=== PATIENT | male | born 1960 | race Caucasian/White ===

== ENCOUNTER 2017-10-05 17:58 | Inpatient (IN) | payer MEDICARE, OTHER ==
--- NOTE | 2017-10-05 18:32 | ED Physician Chart ---
ED Chief Complaint/HPI - Patient Information Date Seen:: 10/05/17 Time Seen:: 18:32 Chief Complaint:: Agitated History of Present Illness:: 57 yo male was brought from SNF to ER for evaluation of agitation and constantly laughing. Patient stated that "he was telling jokes." Allergies:: Allergies Allergy/AdvReac Type Severity Reaction Status Date / Time haloperidol [From Haldol] Allergy Verified 10/05/17 18:22 Vitals:: Vital Signs - 8 hr 10/05/17 18:22 Temp 98.8 F HR 78 RR 16 BP 131/84 O2 Sat % 99 ED Past Medical History - Past Medical History Past Medical History: HTN, Other (cerebral palsy) Social History: Smoker, Alcohol, Illicit Drug Use (LSD) Family Medical History - Family Member Mother History Unknown: Yes ED Septic Shock - <6hrs of presentation: Vital Signs: Vital Signs - 8 hr 10/05/17 18:22 Temp 98.8 F HR 78 RR 16 BP 131/84 O2 Sat % 99 ED Discharge Plan - Patient Disposition Instructions: Psychosis
[2017-10-05 20:33] LABS: % BASOPHILS 0.6 % (0.0-2.0); % EOSINOPHILS 2.5 % (0.0-5.0); % MONOCYTES 6.9 % (2.0-10.0); EOSINOPHILE ABSOLUTE 0.2 Th/cmm (0.1-0.4); HEMATOCRIT 38.3 % (41.0-60); HEMOGLOBIN 12.7 gm/dL (12-16); LYMPHOCYTE ABSOLUTE 2.3 Th/cmm (1.5-3.0); MEAN CELL VOLUME 87.8 fl (80-99); MEAN CORPUSCULAR HEMOGLOBIN 29.1 pg (26.0-30.0); MEAN CORPUSCULAR HGB CONC 33.2 pg (28.0-36.0); MEAN PLATELET VOLUME 9.1 fl; MONOCYTE ABSOLUTE 0.5 Th/cmm (0.3-1.0); NEUTROPHILE ABSOLUTE 4.1 Th/cmm (1.8-8.0); PLATELET COUNT 232 Th/cmm (150-400); RED BLOOD COUNT 4.36 Mil/cmm (4.30-5.70); RED CELL DISTRIBUTION WIDTH 12.1 % (11.5-20.0); WHITE BLOOD COUNT 7.1 Th/cmm (4.8-10.8)
[2017-10-05 20:40] LABS: URINE MICROSCOPIC INDICATED? YES; URINE SOURCE MIDSTREAM
[2017-10-05 20:44] LABS: URINE BILIRUBIN NEGATIVE (NEGATIVE); URINE BLOOD TRACE (NEGATIVE); URINE GLUCOSE (UA) NEGATIVE (NEGATIVE); URINE KETONE NEGATIVE (NEGATIVE); URINE LEUKOCYTE ESTERASE NEGATIVE (NEGATIVE); URINE NITRATE NEGATIVE (NEGATIVE); URINE PROTEIN NEGATIVE (NEGATIVE); URINE UROBILINOGEN 0.2 E.U./dL (0.2 - 1.0)
[2017-10-05 20:45] LABS: URINE COLOR YELLOW
[2017-10-05 20:46] LABS: URINE CLARITY CLEAR (CLEAR)
[2017-10-05 20:51] LABS: INR 1.07 (0.5-1.4); PROTHROMBIN TIME (TEST) 11.1 SECONDS (9.5-11.5)
[2017-10-05 20:52] LABS: ALB/GLOB RATIO 1.9 (1.0-1.8); ALBUMIN 4.2 gm/dL (4.2-5.5); ALKALINE PHOSPHATASE 50 U/L (34-104); ANION GAP 10.6 (7.0-16.0); BILIRUBIN,TOTAL 0.3 mg/dL (0.3-1.0); BUN - UREA NITROGEN 17 mg/dL (7-25); CALCIUM SERUM 9.4 mg/dL (8.6-10.3); CARBON DIOXIDE 25.4 mEq/L (21.0-31.0); CHLORIDE 110 mEq/L (98-107); GFR AFRICAN-AMERICAN > 60.0 ml/min (>90); GFR NON AFRICAN-AMERICAN > 60.0 ml/min; GLUCOSE 105 mg/dL (70-105); SGOT 15 U/L (13-39); SGPT/ALT 17 U/L (7-52); SODIUM SERUM 142 mEq/L (136-145); TOTAL PROTEIN,SERUM 6.4 gm/dL (6.0-8.3)
[2017-10-05 20:53] LABS: ALB/GLOB RATIO 1.8 (1.0-1.8); ALBUMIN 4.2 gm/dL (4.2-5.5); BILIRUBIN,TOTAL 0.3 mg/dL (0.3-1.0); TOTAL PROTEIN,SERUM 6.5 gm/dL (6.0-8.3)
[2017-10-05 20:54] LABS: CHOLESTEROL 115 mg/dL (<200); HDL -HIGH DENSITY LIPOPROTEIN 32 mg/dL (23-92); TRIGLYCERIDES 110 mg/dL (<150)
[2017-10-05 21:03] LABS: BILIRUBIN,DIRECT 0.05 mg/dL (0.0-0.2)
[2017-10-05] MEDS ORDERED: Aspirin 81mg Chewable Tab ONE (22:21)
[2017-10-05 23:05] VITALS: BP 137/95
[2017-10-05] MEDS ORDERED: Magnesium Hydroxide (MOM) 30 mL UDC PO PRN (23:27)
[2017-10-05] MEDS ORDERED: Maalox 30 mL Cup PO PRN (23:27)
[2017-10-06 00:09] LABS: URINE BACTERIA OCCASIONAL /hpf (NONE SEEN); URINE EPITHELIAL CELLS RARE /lpf (FEW); URINE RBC 0-2 /hpf (0-5); URINE WBC 0-2 /hpf (0-5)
--- NOTE | 2017-10-06 08:29 | Diagnostic Imaging Report ---
Portable chest x-ray Time: 2055 hours History: Pneumonia Allowing for portable technique the heart size is normal. No focal pulmonary parenchymal processes. No hilar or mediastinal abnormalities. Impression: No acute abnormalities.
[2017-10-06] MEDS: Multivitamin Tab PO SCH (08:57)
[2017-10-06] MEDS: Aspirin 81mg Chewable Tab PO SCH (08:58)
[2017-10-06] MEDS ORDERED: Non-Formulary Item 1 EA (Apixaban [Eliquis] 5 MG) PO SCH (09:00)
[2017-10-06] MEDS: Atorvastatin Calcium 10 MG TAB PO SCH (21:29)
--- NOTE | 2017-10-06 22:14 | Psychosocial Evaluation ---
DATE OF SERVICE: 10/05/2017 IDENTIFYING DATA: The patient is a 57-year-old male, resident of [facility]. Information obtained by directly interviewing the patient as well as reviewing the admission papers and they are reliable. JUSTIFICATION FOR HOSPITALIZATION: The patient is admitted here on a voluntary basis in view of his acute psychosis and manic episode and psychosis. CHIEF COMPLAINT: "I don't care." HISTORY OF PRESENT ILLNESS: This is the first psychiatric hospitalization to [facility] for this patient who is reported to have been out of control and has been diagnosed to have bipolar disorder and had been on medications and the patient also has been having a history of cerebral palsy. The patient is reported to have been recently hospitalized here at [facility] and was discharged to the care of Dr. Ion Melchor. As per the information obtained, the patient has possibly bipolar disorder or schizoaffective disorder and has a longstanding history of mental illness and has been medicated with lithium and Risperdal and Depakote and patient has been stating that he does not need to be in here, he needs to be discharged. The patient is reported to have a history of an injury recently with that he hit himself with a piece of furniture and a CAT scan done, which showed possible subarachnoid hemorrhage. The patient was then transferred from [facility] to [facility] where he was stabilized and transferred over here. During the evaluation, the patient is getting easily agitated, cursing at the staff members and is not able to calm down. The patient's sleep and appetite prior to the hospitalization are reported to be poor. The patient is reported to be responding to internal stimuli. PAST PSYCHIATRIC HISTORY: Please refer to the previous psychiatric hospitalization at [facility]. MEDICAL HISTORY AND PHYSICAL EXAMINATION: Requested to be done by Dr. Ortiz. SUBSTANCE ABUSE HISTORY: None. PHYSICAL OR SEXUAL ABUSE HISTORY: None. LEGAL PROBLEMS: None at this time. SOCIAL HISTORY: The patient is reported to be residing with his parents. The patient reportedly is single, currently supporting himself on social security. MENTAL STATUS EXAMINATION: The patient is a 57-year-old, looking his stated age, superficially cooperative. The patient has been stating at the [facility]. The patient's coping skills at this time are noted to be very poor. The patient is getting easily irritable and angry. The patient has been having difficult time to cope with the stress at this time. The patient has no insight into his illness. Attention span and concentration are noted to be very poor. The patient is not able to contract for safety. DIAGNOSTIC IMPRESSION: AXIS I: Bipolar disorder with psychotic symptoms, rule out schizoaffective disorder. AXIS II: None. AXIS III: As per Dr. Ortiz. IMMEDIATE TREATMENT PLAN: The patient is going to be continued on the Depakote and Risperdal and the patient is also going to be placed on the Klonopin p.r.n. basis. ESTIMATED LENGTH OF STAY: Three to five days. DISCHARGE CRITERIA: When he no longer a threat to self or others and be able to cope up with the stress. JOB# [id number]
[2017-10-07 08:10] LABS: IRON LC 59 ug/dL (38-169); TIBC (LC) 266 ug/dL (250-450); UIBC 207 ug/dL (111-343)
[2017-10-07] MEDS: Aspirin 81mg Chewable Tab PO SCH (08:53)
[2017-10-07] MEDS: Multivitamin Tab PO SCH (08:54)
--- NOTE | 2017-10-07 15:18 | Internal Medicine Prog Note ---
Internal Medicine Subjective - Subjective Service Date: 10/07/17 ([facility] [id number]) Internal Medicine Objective - Results Result Diagrams: 10/05/17 20:10/05/17 20: Recent Labs: Laboratory Last Values WBC 7.1 Th/cmm (4.8-10.8) 10/05/17 20: RBC 4.36 Mil/cmm (4.30-5.70) 10/05/17 20: Hgb 12.7 gm/dL (12-16) 10/05/17 20: Hct 38.3 % (41.0-60) L 10/05/17: MCV 87.8 fl (80-99) 10/05/17: MCH 29.1 pg (26.0-30.0) 10/05/17: MCHC Differential 33.2 pg (28.0-36.0) 10/05/17: RDW 12.1 % (11.5-20.0) 10/05/17: Plt Count 232 Th/cmm (150-400) 10/05/17 20: MPV 9.1 fl 10/05/17 20: Neutrophils % 57.0 % (40.0-80.0) 10/05/17 20: Lymphocytes % 33.0 % (20.0-50.0) 10/05/17 20: Monocytes % 6.9 % (2.0-10.0) 10/05/17 20: Eosinophils % 2.5 % (0.0-5.0) 10/05/17: Basophils % 0.6 % (0.0-2.0) 10/05/17 20: PT 11.1 SECONDS (9.5-11.5) 10/05/17 20: INR 1.07 (0.5-1.4) 10/05/17 20: PTT (Actin FS) 27.5 SECONDS (26.0-38.0) 10/05/17 20: Sodium 142 mEq/L (136-145) 10/05/17 20: Potassium 4.0 mEq/L (3.5-5.1) 10/05/17 20: Chloride 110 mEq/L (98-107) H 10/05/17 20: Carbon Dioxide 25.4 mEq/L (21.0-31.0) 10/05/17 20: Anion Gap 10.6 (7.0-16.0) 10/05/17 20: BUN 17 mg/dL (7-25) 10/05/17 20: Creatinine 1.0 mg/dL (0.7-1.3) 10/05/17 20: Est GFR ( Amer) > 60.0 ml/min (>90) 10/05/17 20: Est GFR (Non-Af Amer) > 60.0 ml/min 10/05/17 20: BUN/Creatinine Ratio 17.0 10/05/17 20: Glucose 105 mg/dL (70-105) 10/05/17 20: Calcium 9.4 mg/dL (8.6-10.3) 10/05/17: Magnesium 2.5 mg/dL (1.9-2.7) 10/05/17 20: Iron 59 ug/dL (38-169) 10/05/17 20: TIBC 266 ug/dL (250-450) 10/05/17 20: Iron Saturation 22 % (15-55) 10/05/17: Unsaturated IBC 207 ug/dL (111-343) 10/05/17 20: Total Bilirubin 0.3 mg/dL (0.3-1.0) 10/05/17 20: Direct Bilirubin 0.05 mg/dL (0.0-0.2) 10/05/17 20: AST 16 U/L (13-39) 10/05/17 20: ALT 18 U/L (7-52) 10/05/17 20: Alkaline Phosphatase 50 U/L (34-104) 10/05/17 20: C-Reactive Protein < 0.2 mg/dL (0.0-0.9) 10/05/17 20: B-Natriuretic Peptide 16.0 pg/mL (5.0-100.0) 10/05/17 20: Total Protein 6.5 gm/dL (6.0-8.3) 10/05/17 20: Albumin 4.2 gm/dL (4.2-5.5) 10/05/17 20: Globulin 2.3 gm/dL 10/05/17 20: Albumin/Globulin Ratio 1.8 (1.0-1.8) 10/05/17 20: Triglycerides 110 mg/dL (<150) 10/05/17 20:26 Cholesterol 115 mg/dL (<200) 10/05/17 20: LDL Cholesterol Direct 69 mg/dL (75-193) L 10/05/17 20: HDL Cholesterol 32 mg/dL (23-92) 10/05/17 20: Free T4 2.02 ng/dL (0.82-1.77) H 10/05/17 20: TSH 0.57 uIU/ml (0.34-5.60) 10/05/17 20: Urine Source MIDSTREAM 10/05/17 19:30 Urine Color YELLOW 10/05/17 19:30 Urine Clarity CLEAR (CLEAR) 10/05/17 19: Urine pH 7.0 (4.6 - 8.0) 10/05/17 19: Ur Specific [place] <= 1.005 (1.005-1.030) 10/05/17 19:30 Urine Protein NEGATIVE mg/dL (NEGATIVE) 10/05/17 19:30 Urine Glucose (UA) NEGATIVE mg/dL (NEGATIVE) 10/05/17 19: Urine Ketones NEGATIVE mg/dL (NEGATIVE) 10/05/17 19:30 Urine Blood TRACE (NEGATIVE) 10/05/17 19:30 Urine Nitrate NEGATIVE (NEGATIVE) 10/05/17 19: Urine Bilirubin NEGATIVE (NEGATIVE) 10/05/17 19: Urine Urobilinogen 0.2 E.U./dL (0.2 - 1.0) 10/05/17 19:30 Ur Leukocyte Esterase NEGATIVE (NEGATIVE) 10/05/17 19:30 Urine RBC 0-2 /hpf (0-5) H 10/05/17 19:30 Urine WBC 0-2 /hpf (0-5) 10/05/17 19:30 Ur Epithelial Cells RARE /lpf (FEW) 10/05/17 19:30 Urine Bacteria OCCASIONAL /hpf (NONE SEEN) 10/05/17 19:30 - Physical Exam Vitals and I&O: Vital Signs Temp 97.5 F 02/27/18 14:12 Pulse 63 10/07/17 14:12 Resp 20 10/07/17 14:12 BP 106/66 10/07/17 14:12 Pulse Ox 97 10/07/17 14:12 Intake & Output 10/06/17 10/07/17 10/07/17 18:59 06:59 18:59 Intake Total 1000 120 Balance 1000 120 Intake: Oral 1000 120 Other: # Voids 4 3 # Bowel Movements 1 0 Stool Characteristics Soft Active Medications: Current Medications Acetaminophen (Tylenol) 650 mg PO Q4HR PRN PRN Reason: GARCIA/Mild pain/Temp above 37.6C Stop: 12/05/17 08:04 Al Hydrox/Mg Hydrox/Simethicone (Maalox) 30 ml PO Q4HR PRN PRN Reason: GI DISTRESS Stop: 12/04/17 23:26 Aspirin (Aspirin Chewable) 81 mg PO DAILY [facility] Stop: 12/05/17 08:59 Last Admin: 10/07/17 08:53 Dose: 81 mg Atorvastatin Calcium (Lipitor) 20 mg PO HS [facility] Stop: 12/05/17 20:59 Last Admin: 10/06/17 21:29 Dose: 20 mg Diphenhydramine HCl (Benadryl) 50 mg PO BID PRN PRN Reason: Itching Stop: 12/05/17 10:08 Divalproex Sodium (Depakote Dr) 500 mg PO BID [facility] PRN Reason: Protocol Stop: 12/05/17 16:59 Last Admin: 10/07/17 08:52 Dose: Not Given Docusate Sodium (Colace) 100 mg PO BID [facility] Stop: 12/05/17 08:59 Last Admin: 10/07/17 08:52 Dose: 100 mg Labetalol HCl (Trandate) 50 mg PO DAILY [facility] Stop: 12/05/17 08:59 Last Admin: 10/07/17 08:54 Dose: 50 mg [place] Carbonate (Eskalith) 600 mg PO BID [facility] PRN Reason: Protocol Stop: 12/05/17 16:59 Last Admin: 10/07/17 08:52 Dose: Not Given Lorazepam (Ativan) 0.5 mg PO Q4HR PRN; Protocol PRN Reason: Anxiety/agitation Stop: 11/04/17 23:26 Last Admin: 10/06/17 23:03 Dose: 0.5 mg Magnesium Hydroxide (Milk Of Magnesia) 30 ml PO HS PRN PRN Reason: Constipation Multivitamins/Vitamin C (Theragran) 1 tab PO DAILY [facility] Stop: 12/05/17 08:59 Last Admin: 10/07/17 08:54 Dose: 1 tab Olanzapine (Zyprexa) 5 mg PO HS [facility] PRN Reason: Protocol Stop: 12/06/17 20:59 Rivaroxaban (Xarelto) 10 mg PO DAILY [facility] Stop: 12/05/17 13:29 Last Admin: 10/07/17 08:52 Dose: 10 mg Zolpidem Tartrate (Ambien) 5 mg PO HS PRN PRN Reason: Insomnia Stop: 12/04/17 23:26 Last Admin: 10/06/17 21:37 Dose: 5 mg
[2017-10-07] MEDS: Atorvastatin Calcium 10 MG TAB PO SCH (20:22)
--- NOTE | 2017-10-07 20:27 | Progress Notes ---
DATE: 10/07/2017 SUBJECTIVE: I met this patient, discussed with staff, chart reviewed. Still anxious, angry, still paranoid, continues to have some irritability. The patient's insight is still limited. Judgment is impaired. The patient continues to have some episodes where he is refusing medications. ASSESSMENT: The patient in psychotic phase. PLAN: Continue lithium 600 mg p.o. b.i.d., risperidone 3 mg p.o. at bedtime, Depakote 500 mg p.o. b.i.d. Encourage the patient to remain compliant with treatment. JOB# [id number]
[2017-10-08] MEDS: Multivitamin Tab PO SCH (09:17)
[2017-10-08] MEDS: Aspirin 81mg Chewable Tab PO SCH (09:17)
--- NOTE | 2017-10-08 12:02 | History & Physical ---
ADMIT DATE: 10/07/2017 CHIEF COMPLAINT: Agitation. HISTORY OF PRESENT ILLNESS: This is a 57-year-old male who is admitted to the Geropsych Unit due to agitation towards the nursing staff at the correction. PAST MEDICAL HISTORY: Hypertension, cerebral palsy. SOCIAL HISTORY: The patient is a current smoker. The patient has a history of illicit drug usage. FAMILY HISTORY: Noncontributory. REVIEW OF SYSTEMS: GENERAL: Denies any fevers and chills. CARDIOVASCULAR: Denies chest pain. RESPIRATORY: Denies shortness of breath. GASTROINTESTINAL: Denies nausea, vomiting, abdominal pain. GENITOURINARY: Denies increase for dysuria. NEUROLOGIC: No headaches, seizures or syncope. All other systems are reviewed and are negative. PHYSICAL EXAMINATION: GENERAL: The patient is well-developed, well-nourished, no acute distress. VITAL SIGNS: Temperature 97.5, heart rate 63, blood pressure 106/66, respirations 20, O2 97%. HEENT: Head; normocephalic, atraumatic. NECK: Supple. No mass. LUNGS: Clear bilaterally. ABDOMEN: Soft, nontender. LABORATORY DATA: WBC 7.1, H and H 12.7 and 38.3, platelet of 232. Sodium 142, potassium 4.0, chloride 110, BUN 70, creatinine 1.0. DIAGNOSTICS: The patient had a chest x-ray done and the impression is no acute abnormalities. ASSESSMENT: Agitation, hypertension, cerebral palsy. PLAN: The patient will be in the Geropsych Unit. The patient also has a history of hypercholesterolemia. Continue patient on same medications from the correction. We will continue to follow this patient. [facility]# [id number]
--- NOTE | 2017-10-08 14:01 | Internal Medicine Prog Note ---
Internal Medicine Subjective - Subjective Service Date: 10/08/17 Patient seen and examined:: with staff Patient is:: awake Per staff patient has:: tolerating meds Internal Medicine Objective - Results Result Diagrams: 10/05/17 20:10/05/17 20: Recent Labs: Laboratory Last Values WBC 7.1 Th/cmm (4.8-10.8) 10/05/17 20: RBC 4.36 Mil/cmm (4.30-5.70) 10/05/17 20: Hgb 12.7 gm/dL (12-16) 10/05/17 20: Hct 38.3 % (41.0-60) L 10/05/17: MCV 87.8 fl (80-99) 10/05/17: MCH 29.1 pg (26.0-30.0) 10/05/17: MCHC Differential 33.2 pg (28.0-36.0) 10/05/17: RDW 12.1 % (11.5-20.0) 10/05/17: Plt Count 232 Th/cmm (150-400) 10/05/17 20: MPV 9.1 fl 10/05/17 20: Neutrophils % 57.0 % (40.0-80.0) 10/05/17: Lymphocytes % 33.0 % (20.0-50.0) 10/05/17: Monocytes % 6.9 % (2.0-10.0) 10/05/17: Eosinophils % 2.5 % (0.0-5.0) 10/05/17: Basophils % 0.6 % (0.0-2.0) 10/05/17 20: PT 11.1 SECONDS (9.5-11.5) 10/05/17 20: INR 1.07 (0.5-1.4) 10/05/17: PTT (Actin FS) 27.5 SECONDS (26.0-38.0) 10/05/17 20: Sodium 142 mEq/L (136-145) 10/05/17 20: Potassium 4.0 mEq/L (3.5-5.1) 10/05/17 20: Chloride 110 mEq/L (98-107) H 10/05/17 20: Carbon Dioxide 25.4 mEq/L (21.0-31.0) 10/05/17 20: Anion Gap 10.6 (7.0-16.0) 10/05/17 20: BUN 17 mg/dL (7-25) 10/05/17 20: Creatinine 1.0 mg/dL (0.7-1.3) 10/05/17 20: Est GFR ( Amer) > 60.0 ml/min (>90) 10/05/17 20: Est GFR (Non-Af Amer) > 60.0 ml/min 10/05/17: BUN/Creatinine Ratio 17.0 10/05/17: Glucose 105 mg/dL (70-105) 10/05/17 20: Calcium 9.4 mg/dL (8.6-10.3) 10/05/17: Magnesium 2.5 mg/dL (1.9-2.7) 10/05/17 20: Iron 59 ug/dL (38-169) 10/05/17 20: TIBC 266 ug/dL (250-450) 10/05/17: Iron Saturation 22 % (15-55) 10/05/17: Unsaturated IBC 207 ug/dL (111-343) 10/05/17 20: Ferritin 307 ng/mL (30-400) 10/05/17 20: Total Bilirubin 0.3 mg/dL (0.3-1.0) 10/05/17: Direct Bilirubin 0.05 mg/dL (0.0-0.2) 10/05/17 20: AST 16 U/L (13-39) 10/05/17 20: ALT 18 U/L (7-52) 10/05/17 20: Alkaline Phosphatase 50 U/L (34-104) 10/05/17 20: C-Reactive Protein < 0.2 mg/dL (0.0-0.9) 10/05/17 20: B-Natriuretic Peptide 16.0 pg/mL (5.0-100.0) 10/05/17 20: Total Protein 6.5 gm/dL (6.0-8.3) 10/05/17 20: Albumin 4.2 gm/dL (4.2-5.5) 10/05/17 20: Globulin 2.3 gm/dL 10/05/17 20: Albumin/Globulin Ratio 1.8 (1.0-1.8) 10/05/17 20: Triglycerides 110 mg/dL (<150) 10/05/17 20: Cholesterol 115 mg/dL (<200) 10/05/17 20: LDL Cholesterol Direct 69 mg/dL (75-193) L 10/05/17 20: HDL Cholesterol 32 mg/dL (23-92) 10/05/17: Free T4 2.02 ng/dL (0.82-1.77) H 10/05/17 20: TSH 0.57 uIU/ml (0.34-5.60) 10/05/17 20: Urine Source MIDSTREAM 10/05/17 19: Urine Color YELLOW 10/05/17: Urine Clarity CLEAR (CLEAR) 10/05/17 19: Urine pH 7.0 (4.6 - 8.0) 10/05/17 19: Ur Specific [place] <= 1.005 (1.005-1.030) 10/05/17 19: Urine Protein NEGATIVE mg/dL (NEGATIVE) 10/05/17 19: Urine Glucose (UA) NEGATIVE mg/dL (NEGATIVE) 10/05/17 19: Urine Ketones NEGATIVE mg/dL (NEGATIVE) 10/05/17: Urine Blood TRACE (NEGATIVE) 10/05/17: Urine Nitrate NEGATIVE (NEGATIVE) 10/05/17 19: Urine Bilirubin NEGATIVE (NEGATIVE) 10/05/17 19: Urine Urobilinogen 0.2 E.U./dL (0.2 - 1.0) 10/05/17 19: Ur Leukocyte Esterase NEGATIVE (NEGATIVE) 10/05/17: Urine RBC 0-2 /hpf (0-5) H 10/05/17 19:30 Urine WBC 0-2 /hpf (0-5) 10/05/17 19:30 Ur Epithelial Cells RARE /lpf (FEW) 10/05/17 19: Urine Bacteria OCCASIONAL /hpf (NONE SEEN) 02/25/18 19:30 - Physical Exam Vitals and I&O: Vital Signs Temp 97.2 F 10/08/17 06:02 Pulse 64 10/08/17 06:02 Resp 17 10/08/17 06:02 BP 133/83 10/08/17 06:02 Pulse Ox 98 10/08/17 06:02 Intake & Output 10/07/17 10/08/17 10/08/17 18:59 06:59 18:59 Intake Total 900 240 Balance 900 240 Intake: Oral 900 240 Other: # Voids 3 1 # Bowel Movements 1 Stool Characteristics Soft Soft Active Medications: Current Medications Acetaminophen (Tylenol) 650 mg PO Q4HR PRN PRN Reason: GARCIA/Mild pain/Temp above 37.6C Stop: 12/05/17 08:04 Al Hydrox/Mg Hydrox/Simethicone (Maalox) 30 ml PO Q4HR PRN PRN Reason: GI DISTRESS Stop: 12/04/17 23:26 Aspirin (Aspirin Chewable) 81 mg PO DAILY [facility] Stop: 12/05/17 08:59 Last Admin: 10/08/17 09:17 Dose: 81 mg Atorvastatin Calcium (Lipitor) 20 mg PO HS [facility] Stop: 12/05/17 20:59 Last Admin: 10/07/17 20:22 Dose: 20 mg Diphenhydramine HCl (Benadryl) 50 mg PO BID PRN PRN Reason: Itching Stop: 12/05/17 10:08 Divalproex Sodium (Depakote Dr) 500 mg PO BID [facility] PRN Reason: Protocol Stop: 12/05/17 16:59 Last Admin: 10/08/17 09:17 Dose: 500 mg Docusate Sodium (Colace) 100 mg PO BID [facility] Stop: 12/05/17 08:59 Last Admin: 10/08/17 09:17 Dose: 100 mg Labetalol HCl (Trandate) 50 mg PO DAILY [facility] Stop: 12/05/17 08:59 Last Admin: 10/07/17 08:54 Dose: 50 mg [place] Carbonate (Eskalith) 600 mg PO BID [facility] PRN Reason: Protocol Stop: 12/05/17 16:59 Last Admin: 10/08/17 09:17 Dose: 600 mg Lorazepam (Ativan) 0.5 mg PO Q4HR PRN; Protocol PRN Reason: Anxiety/agitation Stop: 11/04/17 23:26 Last Admin: 10/06/17 23:03 Dose: 0.5 mg Magnesium Hydroxide (Milk Of Magnesia) 30 ml PO HS PRN PRN Reason: Constipation Multivitamins/Vitamin C (Theragran) 1 tab PO DAILY [facility] Stop: 12/05/17 08:59 Last Admin: 10/08/17 09:17 Dose: 1 tab Olanzapine (Zyprexa) 5 mg PO HS [facility] PRN Reason: Protocol Stop: 12/06/17 20:59 Last Admin: 10/07/17 22:00 Dose: Not Given Rivaroxaban (Xarelto) 10 mg PO DAILY [facility] Stop: 12/05/17 13:29 Last Admin: 10/08/17 09:17 Dose: 10 mg Zolpidem Tartrate (Ambien) 5 mg PO HS PRN PRN Reason: Insomnia Stop: 12/04/17 23:26 Last Admin: 10/07/17 20:23 Dose: 5 mg General: alert HEENT: NC/AT, PERRLA Neck: Supple Lungs: CTAB Cardiovascular: RRR, Normal S1, Normal S2, without murmur Abdomen: soft, non-tender, non-distended, positive bowel sound Internal Medicine Assmt/Plan - Assessment Assessment: agitation htn cp - Plan Plan: continue current orders
--- NOTE | 2017-10-08 20:21 | Progress Notes ---
DATE: 10/08/2017 The patient was seen. Still restless, anxious, still intrusive, hyper talkative, continues to have some anger outburst. The patient is oriented to time, place and person. The patient is compliant to medication, has improved. ASSESSMENT: The patient still in psychotic phase. PLAN: Continue stabilization. Continue supportive measures. Increase Zyprexa to 10 mg p.o. at bedtime. Monitor mood closely. [facility]# [id number]
[2017-10-08] MEDS: Atorvastatin Calcium 10 MG TAB PO SCH (21:27)
[2017-10-09] MEDS: Multivitamin Tab PO SCH (09:45)
[2017-10-09] MEDS: Aspirin 81mg Chewable Tab PO SCH (09:45)
--- NOTE | 2017-10-09 18:57 | Internal Medicine Prog Note ---
Internal Medicine Subjective - Subjective Patient is:: awake Per staff patient has:: tolerating meds Internal Medicine Objective - Results Result Diagrams: 10/05/17 20:10/05/17 20: Recent Labs: Laboratory Last Values WBC 7.1 Th/cmm (4.8-10.8) 10/05/17 20: RBC 4.36 Mil/cmm (4.30-5.70) 10/05/17 20: Hgb 12.7 gm/dL (12-16) 10/05/17 20: Hct 38.3 % (41.0-60) L 10/05/17: MCV 87.8 fl (80-99) 10/05/17: MCH 29.1 pg (26.0-30.0) 10/05/17: MCHC Differential 33.2 pg (28.0-36.0) 10/05/17: RDW 12.1 % (11.5-20.0) 10/05/17: Plt Count 232 Th/cmm (150-400) 10/05/17 20: MPV 9.1 fl 10/05/17 20: Neutrophils % 57.0 % (40.0-80.0) 10/05/17: Lymphocytes % 33.0 % (20.0-50.0) 10/05/17: Monocytes % 6.9 % (2.0-10.0) 10/05/17: Eosinophils % 2.5 % (0.0-5.0) 10/05/17: Basophils % 0.6 % (0.0-2.0) 10/05/17 20: PT 11.1 SECONDS (9.5-11.5) 10/05/17 20: INR 1.07 (0.5-1.4) 10/05/17: PTT (Actin FS) 27.5 SECONDS (26.0-38.0) 10/05/17 20: Sodium 142 mEq/L (136-145) 10/05/17 20: Potassium 4.0 mEq/L (3.5-5.1) 10/05/17 20: Chloride 110 mEq/L (98-107) H 10/05/17 20: Carbon Dioxide 25.4 mEq/L (21.0-31.0) 10/05/17 20: Anion Gap 10.6 (7.0-16.0) 10/05/17 20: BUN 17 mg/dL (7-25) 10/05/17 20: Creatinine 1.0 mg/dL (0.7-1.3) 10/05/17 20: Est GFR ( Amer) > 60.0 ml/min (>90) 10/05/17 20: Est GFR (Non-Af Amer) > 60.0 ml/min 10/05/17: BUN/Creatinine Ratio 17.0 10/05/17: Glucose 105 mg/dL (70-105) 10/05/17: Calcium 9.4 mg/dL (8.6-10.3) 10/05/17: Magnesium 2.5 mg/dL (1.9-2.7) 10/05/17 20: Iron 59 ug/dL (38-169) 10/05/17 20: TIBC 266 ug/dL (250-450) 10/05/17 20: Iron Saturation 22 % (15-55) 10/05/17: Unsaturated IBC 207 ug/dL (111-343) 10/05/17: Ferritin 307 ng/mL (30-400) 10/05/17 20: Total Bilirubin 0.3 mg/dL (0.3-1.0) 10/05/17: Direct Bilirubin 0.05 mg/dL (0.0-0.2) 10/05/17 20: AST 16 U/L (13-39) 10/05/17 20: ALT 18 U/L (7-52) 10/05/17 20: Alkaline Phosphatase 50 U/L (34-104) 10/05/17 20: C-Reactive Protein < 0.2 mg/dL (0.0-0.9) 10/05/17 20: B-Natriuretic Peptide 16.0 pg/mL (5.0-100.0) 10/05/17: Total Protein 6.5 gm/dL (6.0-8.3) 10/05/17 20: Albumin 4.2 gm/dL (4.2-5.5) 10/05/17 20: Globulin 2.3 gm/dL 10/05/17 20: Albumin/Globulin Ratio 1.8 (1.0-1.8) 10/05/17 20:26 Triglycerides 110 mg/dL (<150) 10/05/17 20: Cholesterol 115 mg/dL (<200) 10/05/17 20: LDL Cholesterol Direct 69 mg/dL (75-193) L 10/05/17 20: HDL Cholesterol 32 mg/dL (23-92) 10/05/17 20: Free T4 2.02 ng/dL (0.82-1.77) H 10/05/17 20: TSH 0.57 uIU/ml (0.34-5.60) 10/05/17 20: Urine Source MIDSTREAM 10/05/17 19:30 Urine Color YELLOW 10/05/17 19: Urine Clarity CLEAR (CLEAR) 10/05/17 19: Urine pH 7.0 (4.6 - 8.0) 10/05/17 19:30 Ur Specific [place] <= 1.005 (1.005-1.030) 10/05/17 19: Urine Protein NEGATIVE mg/dL (NEGATIVE) 10/05/17 19: Urine Glucose (UA) NEGATIVE mg/dL (NEGATIVE) 10/05/17 19: Urine Ketones NEGATIVE mg/dL (NEGATIVE) 10/05/17 19:30 Urine Blood TRACE (NEGATIVE) 10/05/17 19: Urine Nitrate NEGATIVE (NEGATIVE) 10/05/17: Urine Bilirubin NEGATIVE (NEGATIVE) 10/05/17 19:30 Urine Urobilinogen 0.2 E.U./dL (0.2 - 1.0) 10/05/17 19:30 Ur Leukocyte Esterase NEGATIVE (NEGATIVE) 10/05/17 19: Urine RBC 0-2 /hpf (0-5) H 10/05/17 19:30 Urine WBC 0-2 /hpf (0-5) 10/05/17 19:30 Ur Epithelial Cells RARE /lpf (FEW) 10/05/17 19: Urine Bacteria OCCASIONAL /hpf (NONE SEEN) 10/05/17 19:30 - Physical Exam Vitals and I&O: Vital Signs Temp 97.0 F 10/09/17 14:50 Pulse 71 10/09/17 14:50 Resp 18 10/09/17 14:50 BP 117/76 10/09/17 14:50 Pulse Ox 96 10/09/17 14:50 Intake & Output 10/08/17 10/09/17 10/09/17 18:59 06:59 18:59 Intake Total 320 071 0045 Balance 441 054 2934 Intake: Oral 013 701 3474 Other: # Voids 3 3 3 # Bowel Movements 1 1 Stool Characteristics Soft Soft Soft Active Medications: Current Medications Acetaminophen (Tylenol) 650 mg PO Q4HR PRN PRN Reason: GARCIA/Mild pain/Temp above 37.6C Stop: 12/05/17 08:04 Al Hydrox/Mg Hydrox/Simethicone (Maalox) 30 ml PO Q4HR PRN PRN Reason: GI DISTRESS Stop: 12/04/17 23:26 Aspirin (Aspirin Chewable) 81 mg PO DAILY [facility] Stop: 12/05/17 08:59 Last Admin: 10/09/17 09:45 Dose: 81 mg Atorvastatin Calcium (Lipitor) 20 mg PO HS [facility] Stop: 12/05/17 20:59 Last Admin: 10/08/17 21:27 Dose: 20 mg Diphenhydramine HCl (Benadryl) 50 mg PO BID PRN PRN Reason: Itching Stop: 12/05/17 10:08 Divalproex Sodium (Depakote Dr) 500 mg PO BID [facility] PRN Reason: Protocol Stop: 12/05/17 16:59 Last Admin: 10/09/17 17:04 Dose: 500 mg Docusate Sodium (Colace) 100 mg PO BID [facility] Stop: 12/05/17 08:59 Last Admin: 10/09/17 17:04 Dose: 100 mg Labetalol HCl (Trandate) 50 mg PO DAILY [facility] Stop: 12/05/17 08:59 Last Admin: 10/09/17 09:00 Dose: Not Given [place] Carbonate (Eskalith) 600 mg PO BID [facility] PRN Reason: Protocol Stop: 12/05/17 16:59 Last Admin: 10/09/17 17:04 Dose: 600 mg Lorazepam (Ativan) 0.5 mg PO Q4HR PRN; Protocol PRN Reason: Anxiety/agitation Stop: 11/04/17 23:26 Last Admin: 10/06/17 23:03 Dose: 0.5 mg Magnesium Hydroxide (Milk Of Magnesia) 30 ml PO HS PRN PRN Reason: Constipation Multivitamins/Vitamin C (Theragran) 1 tab PO DAILY [facility] Stop: 12/05/17 08:59 Last Admin: 10/09/17 09:45 Dose: 1 tab Olanzapine (Zyprexa) 15 mg PO HS [facility] PRN Reason: Protocol Stop: 12/08/17 18:50 Rivaroxaban (Xarelto) 10 mg PO DAILY [facility] Stop: 12/05/17 13:29 Last Admin: 10/09/17 09:45 Dose: 10 mg Zolpidem Tartrate (Ambien) 5 mg PO HS PRN PRN Reason: Insomnia Stop: 12/04/17 23:26 Last Admin: 10/07/17 20:23 Dose: 5 mg General: alert HEENT: NC/AT, PERRLA Neck: Supple Lungs: CTAB Cardiovascular: RRR, Normal S1, Normal S2, without murmur Abdomen: soft, non-tender, non-distended, positive bowel sound
--- NOTE | 2017-10-09 20:05 | History & Physical ---
ADMIT DATE: 10/06/2017 HISTORY OF PRESENT ILLNESS: The patient came to the ER because he was very agitated. He came from the halfway. The patient was constantly laughing and also he was telling jokes according to the people and patient was very aggressive. PAST MEDICAL HISTORY: Hypertension. History of no other major medical problems or surgical problems. PHYSICAL EXAMINATION: GENERAL: Alert, oriented, male patient. VITAL SIGNS: Noted. HEAD: Normal. ENT: Normal. NECK: Supple, nontender. LUNGS: Clear. CARDIOVASCULAR SYSTEM: S1, S2 heard. ABDOMEN: Soft. Bowel sounds are heard. CENTRAL NERVOUS SYSTEM: Grossly normal. DIAGNOSES: Acute psychosis, history of hypertension. PLAN: The patient is being admitted to [facility] and I will follow the patient along with psychiatrist. JOB# [id number]
--- NOTE | 2017-10-09 20:38 | Consultation ---
DATE OF CONSULTATION: 10/06/2017 REQUESTING PHYSICIAN: Raymond Arango M.D. TYPE OF CONSULTATION: Psychology. HISTORY OF PRESENT ILLNESS: The following is by a review of the medical record as well as by the patient's self report. According to record review, the patient is a 57-year-old male. The patient is a resident of [facility]. The patient is being admitted due to acute psychosis and manic episodes. The patient has been reported by the staff at his facility to be out of control and there is some indication in the medical record that the patient has a history of bipolar disorder. According to review of record, the patient was recently hospitalized at [facility]. In that review, there is an incident that is referenced regarding the patient being reported to have a history of an injury. According to that report, the patient allegedly hit himself with a piece of furniture. CT scan was done and showed possible subarachnoid hemorrhage. The patient was transferred from [facility] to [facility] where he was stabilized and then transferred here to [facility] on the geropsychiatric unit. Upon interview, the patient seems to be easily agitated. The patient is using profanity and not responding to de-escalation. The patient seems to be responding to inner dialogue and is not making much sense at the time of the interview. This will require further evaluation. PAST MEDICAL HISTORY: Please see history and physical by Dr. Ortiz. PAST PSYCHIATRIC HISTORY: The patient had been hospitalized recently at [facility]. SUBSTANCE ABUSE HISTORY: None reported. CURRENT MEDICATIONS: Please see medication reconciliation. ALLERGIES: No known drug allergies. PSYCHOSOCIAL HISTORY: According to record, the patient resides with his parents. He is single, no children. The patient did not answer questions about previous occupational history, educational history, or religion affiliation. The patient was quite guarded and selectively mute at times. MENTAL STATUS EXAMINATION: The patient appears to be his stated age. The patient's attitude is uncooperative. Eye contact is fair. Speech is loud and rambling. The patient was unable to give an answer to thought content i.e., whether he was experiencing any suicidal ideation, plan or intention. The patient denied auditory or visual hallucinations. However, the patient does seem delusional with some paranoid ideation. The patient's concentration is impaired. He was unable to sustain focus and attention when responding to clinical questions. Thought process shows to be fragmented. Sensorium is alert and oriented to self. The patient understands he is in the hospital, but there is no other orientation. The patient continued to get irritable and angry during the clinical interview. The patient did not participate in the memory evaluation. This requires further assessment. The patient is unable to verbally contract for safety. The patient did not participate in the interpretation of proverbs. Insight is impaired. Judgment is impaired. DIAGNOSTIC IMPRESSION: AXIS I: History of bipolar disorder with psychotic symptoms. AXIS II: Deferred. AXIS III: Please see history and physical by Dr. Ortiz. TREATMENT PLAN: The patient has been seen by Dr. Arango for psychiatric evaluation and for the management of the patient's psychotropic medications. The patient is being continued on Depakote and Risperdal according to Dr. Arango. The patient is being started on Klonopin p.r.n. for agitation. We will provide de-escalation as well as limit setting. We will provide motivational enhancement and positive reinforcement for the patient to follow through with staff direction as well as become compliant and stay compliant with all aspects of his care and treatment plan. We will provide coping strategies for chronic long-term severe mental illness as well as coping skills for phase of life issues and adjustment to placement. Thank you, Dr. Arango, for this consult and the opportunity to participate with you in your patient's care. JOB# [id number] MTDD
[2017-10-09] MEDS: Atorvastatin Calcium 10 MG TAB PO SCH (21:06)
--- NOTE | 2017-10-10 01:11 | Progress Notes ---
DATE: 10/09/2017 SUBJECTIVE: The patient discussed with staff. Still irritable at times, anxious and did not take his lithium today. The patient took his Depakote. The patient's insight is still poor. Judgment is impaired. ASSESSMENT: The patient still in psychotic phase, still hallucinations and paranoia. PLAN: We will increase Zyprexa to 15 mg p.o. at bedtime and encouragement to comply with treatment. Monitor closely. [facility]# [id number]
[2017-10-10] MEDS: Aspirin 81mg Chewable Tab PO SCH (09:08)
[2017-10-10] MEDS: Multivitamin Tab PO SCH (09:08)
--- NOTE | 2017-10-10 16:32 | General Progress Note ---
Objective - Results Result Diagrams: 10/05/17 20:10/05/17 20: Recent Labs: Laboratory Last Values WBC 7.1 Th/cmm (4.8-10.8) 10/05/17 20: RBC 4.36 Mil/cmm (4.30-5.70) 10/05/17 20: Hgb 12.7 gm/dL (12-16) 10/05/17: Hct 38.3 % (41.0-60) L 10/05/17: MCV 87.8 fl (80-99) 10/05/17 20: MCH 29.1 pg (26.0-30.0) 10/05/17: MCHC Differential 33.2 pg (28.0-36.0) 10/05/17: RDW 12.1 % (11.5-20.0) 10/05/17: Plt Count 232 Th/cmm (150-400) 10/05/17: MPV 9.1 fl 10/05/17 20: Neutrophils % 57.0 % (40.0-80.0) 10/05/17 20: Lymphocytes % 33.0 % (20.0-50.0) 10/05/17: Monocytes % 6.9 % (2.0-10.0) 10/05/17 20: Eosinophils % 2.5 % (0.0-5.0) 10/05/17: Basophils % 0.6 % (0.0-2.0) 10/05/17: PT 11.1 SECONDS (9.5-11.5) 10/05/17 20: INR 1.07 (0.5-1.4) 10/05/17 20: PTT (Actin FS) 27.5 SECONDS (26.0-38.0) 10/05/17 20: Sodium 142 mEq/L (136-145) 10/05/17 20: Potassium 4.0 mEq/L (3.5-5.1) 10/05/17 20: Chloride 110 mEq/L (98-107) H 10/05/17 20: Carbon Dioxide 25.4 mEq/L (21.0-31.0) 10/05/17 20: Anion Gap 10.6 (7.0-16.0) 10/05/17 20: BUN 17 mg/dL (7-25) 10/05/17 20: Creatinine 1.0 mg/dL (0.7-1.3) 10/05/17 20: Est GFR ( Amer) > 60.0 ml/min (>90) 10/05/17 20: Est GFR (Non-Af Amer) > 60.0 ml/min 10/05/17 20: BUN/Creatinine Ratio 17.0 10/05/17 20: Glucose 105 mg/dL (70-105) 10/05/17 20: Calcium 9.4 mg/dL (8.6-10.3) 10/05/17: Magnesium 2.5 mg/dL (1.9-2.7) 10/05/17 20: Iron 59 ug/dL (38-169) 10/05/17 20: TIBC 266 ug/dL (250-450) 10/05/17 20: Iron Saturation 22 % (15-55) 10/05/17 20: Unsaturated IBC 207 ug/dL (111-343) 10/05/17: Ferritin 307 ng/mL (30-400) 10/05/17 20: Total Bilirubin 0.3 mg/dL (0.3-1.0) 10/05/17: Direct Bilirubin 0.05 mg/dL (0.0-0.2) 10/05/17 20: AST 16 U/L (13-39) 10/05/17 20: ALT 18 U/L (7-52) 10/05/17 20: Alkaline Phosphatase 50 U/L (34-104) 10/05/17 20: C-Reactive Protein < 0.2 mg/dL (0.0-0.9) 10/05/17 20: B-Natriuretic Peptide 16.0 pg/mL (5.0-100.0) 10/05/17 20: Total Protein 6.5 gm/dL (6.0-8.3) 10/05/17 20: Albumin 4.2 gm/dL (4.2-5.5) 10/05/17 20: Globulin 2.3 gm/dL 10/05/17 20: Albumin/Globulin Ratio 1.8 (1.0-1.8) 10/05/17 20: Triglycerides 110 mg/dL (<150) 10/05/17 20: Cholesterol 115 mg/dL (<200) 10/05/17 20: LDL Cholesterol Direct 69 mg/dL (75-193) L 10/05/17 20: HDL Cholesterol 32 mg/dL (23-92) 10/05/17 20: Free T4 2.02 ng/dL (0.82-1.77) H 10/05/17 20: TSH 0.57 uIU/ml (0.34-5.60) 10/05/17 20: Urine Source MIDSTREAM 10/05/17 19: Urine Color YELLOW 10/05/17 19: Urine Clarity CLEAR (CLEAR) 10/05/17 19: Urine pH 7.0 (4.6 - 8.0) 10/05/17 19: Ur Specific [place] <= 1.005 (1.005-1.030) 10/05/17 19:30 Urine Protein NEGATIVE mg/dL (NEGATIVE) 10/05/17 19:30 Urine Glucose (UA) NEGATIVE mg/dL (NEGATIVE) 10/05/17 19: Urine Ketones NEGATIVE mg/dL (NEGATIVE) 10/05/17 19:30 Urine Blood TRACE (NEGATIVE) 10/05/17 19:30 Urine Nitrate NEGATIVE (NEGATIVE) 10/05/17 19:30 Urine Bilirubin NEGATIVE (NEGATIVE) 10/05/17 19:30 Urine Urobilinogen 0.2 E.U./dL (0.2 - 1.0) 10/05/17 19:30 Ur Leukocyte Esterase NEGATIVE (NEGATIVE) 10/05/17 19:30 Urine RBC 0-2 /hpf (0-5) H 10/05/17 19:30 Urine WBC 0-2 /hpf (0-5) 10/05/17 19:30 Ur Epithelial Cells RARE /lpf (FEW) 10/05/17 19:30 Urine Bacteria OCCASIONAL /hpf (NONE SEEN) 10/05/17 19:30 - Physical Exam Vitals and I&O: Vital Signs Temp 97 F 10/10/17 14:54 Pulse 85 10/10/17 14:54 Resp 20 10/10/17 14:54 BP 156/94 10/10/17 14:52 Pulse Ox 96 10/10/17 14:54 Intake & Output 10/09/17 10/10/17 10/10/17 18:59 06:59 18:59 Intake Total 1500 360 Balance 1500 360 Intake: Oral 1500 360 Other: # Voids 3 3 # Bowel Movements 1 Stool Characteristics Soft Active Medications: Current Medications Acetaminophen (Tylenol) 650 mg PO Q4HR PRN PRN Reason: GARCIA/Mild pain/Temp above 37.6C Stop: 12/05/17 08:04 Al Hydrox/Mg Hydrox/Simethicone (Maalox) 30 ml PO Q4HR PRN PRN Reason: GI DISTRESS Stop: 12/04/17 23:26 Aspirin (Aspirin Chewable) 81 mg PO DAILY [facility] Stop: 12/05/17 08:59 Last Admin: 10/10/17 09:08 Dose: 81 mg Atorvastatin Calcium (Lipitor) 20 mg PO HS [facility] Stop: 12/05/17 20:59 Last Admin: 10/09/17 21:06 Dose: 20 mg Diphenhydramine HCl (Benadryl) 50 mg PO BID PRN PRN Reason: Itching Stop: 12/05/17 10:08 Divalproex Sodium (Depakote Dr) 500 mg PO BID [facility] PRN Reason: Protocol Stop: 12/05/17 16:59 Last Admin: 10/10/17 16:12 Dose: 500 mg Docusate Sodium (Colace) 100 mg PO BID [facility] Stop: 12/05/17 08:59 Last Admin: 10/10/17 16:12 Dose: 100 mg Labetalol HCl (Trandate) 50 mg PO DAILY [facility] Stop: 12/05/17 08:59 Last Admin: 10/10/17 09:09 Dose: 50 mg Lorazepam (Ativan) 0.5 mg PO Q4HR PRN; Protocol PRN Reason: Anxiety/agitation Stop: 11/04/17 23:26 Last Admin: 10/06/17 23:03 Dose: 0.5 mg Magnesium Hydroxide (Milk Of Magnesia) 30 ml PO HS PRN PRN Reason: Constipation Multivitamins/Vitamin C (Theragran) 1 tab PO DAILY [facility] Stop: 12/05/17 08:59 Last Admin: 10/10/17 09:08 Dose: 1 tab Olanzapine (Zyprexa) 15 mg PO HS [facility] PRN Reason: Protocol Stop: 12/08/17 18:50 Last Admin: 10/09/17 21:06 Dose: 15 mg Rivaroxaban (Xarelto) 10 mg PO DAILY [facility] Stop: 12/05/17 13:29 Last Admin: 10/10/17 09:08 Dose: 10 mg Zolpidem Tartrate (Ambien) 5 mg PO HS PRN PRN Reason: Insomnia Stop: 12/04/17 23:26 Last Admin: 10/07/17 20:23 Dose: 5 mg Assessment/Plan - Problem List Patient Problems: All Active Problems INCREASED AGITATION; TALKING/LAUGHTER (Acute) Nutritional Asmnt/Malnutr-PDOC - Dietary Evaluation Malnutrition Findings (Please click <Entered> for more info): Nutritional Asmnt/Malnutrition Start: 10/10/17 13: 49 Text: Status: Complete Freq: Document 10/10/17 13:49 [email or web address] (Rec: 10/10/17 13:56 [email or web address] [id number]) Nutritional Asmnt/Malnutrition Patient General Information Nutritional Screening Moderate Risk Diagnosis psychosis Pertinent Medical Hx/Surgical Hx HTN, cerebral palsy Subjective Information Pt seen eating lunch in dining room at time of visit, confused. Per records, PO intake 100%. Current Diet [facility]/ [facility] Pertinent Medications colace, theragran Pertinent Labs 10/05 Na 142, K 4.0, Cl 110, BUN 17, Cr 1.0, Glucose 105, Mg 2.5, Alb 4.2 Nutritional Hx/Data Height 1.63 m Height (Calculated Centimeters) 162.6 Current Weight (lbs) 70.307 kg Weight (Calculated Kilograms) 70.3 Weight (Calculated Grams) 99072.8 [place] Body Weight 130 % [place] Body Weight 119 Body Mass Index (BMI) 26.6 Weight Status Approriate GI Symptoms GI Symptoms None Last BM 10/09 Difficult in: None Skin Integrity/Comment: intact Estimated Nutritional Goals BEE in Kcals: Using Current wt Calories/Kcals/Kg 25-30 Kcals Calculated 3457-2224 Protein: Using Current wt Protein g/k Protein Calculated 70 Fluid: ml 1750-2100ml (1ml/kcal) Nutritional Problem No current Nutrition Prob Problem N/A Malnutrition Alert Protein-Calorie Malnutrition N/A Is there a minimum of two criteria No selected? Query Text:Check all the applicable criteria. A minimum of two criteria are recommended for diagnosis of either severe or non-severe malnutrition. Intervention/Recommendation Comments 1. Recommend remove CCHO-60gm diet for liberalization considering no hx of DM and glucose WNL. 2. Monitor PO intake, wt, labs and skin integrity 3. F/U as low risk in 7 days, 10/17 Expected Outcomes/Goals Expected Outcomes/Goals 1. PO intake to meet at least 75% of nutritional needs. 2. Wt stability, skin to remain intact, labs to approach WNL.
[2017-10-10] MEDS: Atorvastatin Calcium 10 MG TAB PO SCH (21:34)
[2017-10-11] MEDS: Aspirin 81mg Chewable Tab PO SCH (08:24)
[2017-10-11] MEDS: Multivitamin Tab PO SCH (08:24)
[2017-10-11] MEDS ORDERED: Haloperidol Lactate 5 mg/mL 1mL Vial IM ONE (11:22)
[2017-10-11] MEDS ORDERED: Haloperidol Lactate 5 mg/mL 1mL Vial ONE (11:22)
--- NOTE | 2017-10-11 12:34 | General Progress Note ---
Subjective - Review of Systems Events since last encounter: patient is irritable psychotic Objective - Results Result Diagrams: 10/05/17 20:10/05/17 20: Recent Labs: Laboratory Last Values WBC 7.1 Th/cmm (4.8-10.8) 10/05/17 20: RBC 4.36 Mil/cmm (4.30-5.70) 10/05/17 20: Hgb 12.7 gm/dL (12-16) 10/05/17 20: Hct 38.3 % (41.0-60) L 10/05/17 20: MCV 87.8 fl (80-99) 10/05/17 20: MCH 29.1 pg (26.0-30.0) 10/05/17: MCHC Differential 33.2 pg (28.0-36.0) 10/05/17: RDW 12.1 % (11.5-20.0) 10/05/17: Plt Count 232 Th/cmm (150-400) 10/05/17: MPV 9.1 fl 10/05/17 20: Neutrophils % 57.0 % (40.0-80.0) 10/05/17 20: Lymphocytes % 33.0 % (20.0-50.0) 10/05/17: Monocytes % 6.9 % (2.0-10.0) 10/05/17 20: Eosinophils % 2.5 % (0.0-5.0) 10/05/17: Basophils % 0.6 % (0.0-2.0) 10/05/17 20: PT 11.1 SECONDS (9.5-11.5) 10/05/17 20: INR 1.07 (0.5-1.4) 10/05/17: PTT (Actin FS) 27.5 SECONDS (26.0-38.0) 10/05/17 20: Sodium 142 mEq/L (136-145) 10/05/17 20: Potassium 4.0 mEq/L (3.5-5.1) 10/05/17 20: Chloride 110 mEq/L (98-107) H 10/05/17 20: Carbon Dioxide 25.4 mEq/L (21.0-31.0) 10/05/17 20: Anion Gap 10.6 (7.0-16.0) 10/05/17 20: BUN 17 mg/dL (7-25) 10/05/17 20: Creatinine 1.0 mg/dL (0.7-1.3) 10/05/17 20: Est GFR ( Amer) > 60.0 ml/min (>90) 10/05/17: Est GFR (Non-Af Amer) > 60.0 ml/min 10/05/17: BUN/Creatinine Ratio 17.0 10/05/17: Glucose 105 mg/dL (70-105) 10/05/17: Calcium 9.4 mg/dL (8.6-10.3) 10/05/17: Magnesium 2.5 mg/dL (1.9-2.7) 10/05/17: Iron 59 ug/dL (38-169) 10/05/17: TIBC 266 ug/dL (250-450) 10/05/17 20: Iron Saturation 22 % (15-55) 10/05/17: Unsaturated IBC 207 ug/dL (111-343) 10/05/17: Ferritin 307 ng/mL (30-400) 10/05/17 20: Total Bilirubin 0.3 mg/dL (0.3-1.0) 10/05/17: Direct Bilirubin 0.05 mg/dL (0.0-0.2) 10/05/17 20: AST 16 U/L (13-39) 10/05/17 20: ALT 18 U/L (7-52) 10/05/17 20: Alkaline Phosphatase 50 U/L (34-104) 10/05/17 20: C-Reactive Protein < 0.2 mg/dL (0.0-0.9) 10/05/17 20: B-Natriuretic Peptide 16.0 pg/mL (5.0-100.0) 10/05/17 20: Total Protein 6.5 gm/dL (6.0-8.3) 10/05/17: Albumin 4.2 gm/dL (4.2-5.5) 10/05/17 20: Globulin 2.3 gm/dL 10/05/17 20: Albumin/Globulin Ratio 1.8 (1.0-1.8) 10/05/17 20: Triglycerides 110 mg/dL (<150) 10/05/17 20: Cholesterol 115 mg/dL (<200) 10/05/17 20: LDL Cholesterol Direct 69 mg/dL (75-193) L 10/05/17 20: HDL Cholesterol 32 mg/dL (23-92) 10/05/17 20: Free T4 2.02 ng/dL (0.82-1.77) H 10/05/17 20: TSH 0.57 uIU/ml (0.34-5.60) 10/05/17: Urine Source MIDSTREAM 10/05/17 19:30 Urine Color YELLOW 10/05/17 19: Urine Clarity CLEAR (CLEAR) 10/05/17 19: Urine pH 7.0 (4.6 - 8.0) 10/05/17 19:30 Ur Specific [place] <= 1.005 (1.005-1.030) 10/05/17 19:30 Urine Protein NEGATIVE mg/dL (NEGATIVE) 10/05/17 19:30 Urine Glucose (UA) NEGATIVE mg/dL (NEGATIVE) 10/05/17 19: Urine Ketones NEGATIVE mg/dL (NEGATIVE) 10/05/17 19:30 Urine Blood TRACE (NEGATIVE) 10/05/17 19: Urine Nitrate NEGATIVE (NEGATIVE) 10/05/17 19: Urine Bilirubin NEGATIVE (NEGATIVE) 10/05/17 19:30 Urine Urobilinogen 0.2 E.U./dL (0.2 - 1.0) 10/05/17 19:30 Ur Leukocyte Esterase NEGATIVE (NEGATIVE) 10/05/17 19: Urine RBC 0-2 /hpf (0-5) H 10/05/17 19:30 Urine WBC 0-2 /hpf (0-5) 10/05/17 19:30 Ur Epithelial Cells RARE /lpf (FEW) 10/05/17 19:30 Urine Bacteria OCCASIONAL /hpf (NONE SEEN) 10/05/17 19:30 - Physical Exam Vitals and I&O: Vital Signs Temp 97.8 F 10/11/17 00:23 Pulse 83 10/11/17 08:25 Resp 20 10/11/17 00:23 BP 108/70 10/11/17 08:25 Pulse Ox 90 10/11/17 00:23 Intake & Output 10/10/17 10/11/17 10/11/17 18:59 06:59 18:59 Intake Total 1500 240 Balance 1500 240 Intake: Oral 1500 240 Other: # Voids 3 2 # Bowel Movements 1 Active Medications: Current Medications Acetaminophen (Tylenol) 650 mg PO Q4HR PRN PRN Reason: GARCIA/Mild pain/Temp above 37.6C Stop: 12/05/17 08:04 Al Hydrox/Mg Hydrox/Simethicone (Maalox) 30 ml PO Q4HR PRN PRN Reason: GI DISTRESS Stop: 12/04/17 23:26 Aspirin (Aspirin Chewable) 81 mg PO DAILY [facility] Stop: 12/05/17 08:59 Last Admin: 10/11/17 08:24 Dose: 81 mg Atorvastatin Calcium (Lipitor) 20 mg PO HS DEBORAH Stop: 12/05/17 20:59 Last Admin: 10/10/17 21:34 Dose: 20 mg Diphenhydramine HCl (Benadryl) 50 mg PO BID PRN PRN Reason: Itching Stop: 12/05/17 10:08 Divalproex Sodium (Depakote Dr) 500 mg PO BID DEBORAH PRN Reason: Protocol Stop: 12/05/17 16:59 Last Admin: 10/11/17 08:24 Dose: 500 mg Docusate Sodium (Colace) 100 mg PO BID DEBORAH Stop: 12/05/17 08:59 Last Admin: 10/11/17 08:24 Dose: 100 mg Labetalol HCl (Trandate) 50 mg PO DAILY DEBORAH Stop: 12/05/17 08:59 Last Admin: 10/11/17 08:25 Dose: Not Given Lorazepam (Ativan) 0.5 mg PO Q4HR PRN; Protocol PRN Reason: Anxiety/agitation Stop: 11/04/17 23:26 Last Admin: 10/06/17 23:03 Dose: 0.5 mg Magnesium Hydroxide (Milk Of Magnesia) 30 ml PO HS PRN PRN Reason: Constipation Multivitamins/Vitamin C (Theragran) 1 tab PO DAILY [facility] Stop: 12/05/17 08:59 Last Admin: 10/11/17 08:24 Dose: 1 tab Olanzapine (Zyprexa) 15 mg PO HS DEBORAH PRN Reason: Protocol Stop: 12/08/17 18:50 Last Admin: 10/10/17 21:35 Dose: 15 mg Rivaroxaban (Xarelto) 10 mg PO DAILY DEBORAH Stop: 12/05/17 13:29 Last Admin: 10/11/17 08:24 Dose: 10 mg Zolpidem Tartrate (Ambien) 5 mg PO HS PRN PRN Reason: Insomnia Stop: 12/04/17 23:26 Last Admin: 10/10/17 21:36 Dose: 5 mg Assessment/Plan - Problem List Patient Problems: All Active Problems INCREASED AGITATION; TALKING/LAUGHTER (Acute) Nutritional Asmnt/Malnutr-PDOC - Dietary Evaluation Malnutrition Findings (Please click <Entered> for more info): Nutritional Asmnt/Malnutrition Start: 10/10/17 13: 49 Text: Status: Complete Freq: Document 10/10/17 13:49 [email or web address] (Rec: 10/10/17 13:56 LCHENG [place] [id number]) Nutritional Asmnt/Malnutrition Patient General Information Nutritional Screening Moderate Risk Diagnosis psychosis Pertinent Medical Hx/Surgical Hx HTN, cerebral palsy Subjective Information Pt seen eating lunch in dining room at time of visit, confused. Per records, PO intake 100%. Current Diet Order/ Nutrition Support CCHO-60gm Pertinent Medications colace, theragran Pertinent Labs 10/05 Na 142, K 4.0, Cl 110, BUN 17, Cr 1.0, Glucose 105, Mg 2.5, Alb 4.2 Nutritional Hx/Data Height 1.63 m Height (Calculated Centimeters) 162.6 Current Weight (lbs) 70.307 kg Weight (Calculated Kilograms) 70.3 Weight (Calculated Grams) 28768.8 [place] Body Weight 130 % [place] Body Weight 119 Body Mass Index (BMI) 26.6 Weight Status Approriate GI Symptoms GI Symptoms None Last BM 3/ Difficult in: None Skin Integrity/Comment: intact Estimated Nutritional Goals BEE in Kcals: Using Current wt Calories/Kcals/Kg 25-30 Kcals Calculated 4198-1214 Protein: Using Current wt Protein g/k Protein Calculated 70 Fluid: ml 1750-2100ml (1ml/kcal) Nutritional Problem No current Nutrition Prob Problem N/A Malnutrition Alert Protein-Calorie Malnutrition N/A Is there a minimum of two criteria No selected? Query Text:Check all the applicable criteria. A minimum of two criteria are recommended for diagnosis of either severe or non-severe malnutrition. Intervention/Recommendation Comments 1. Recommend remove CCHO-60gm diet for liberalization considering no hx of DM and glucose WNL. 2. Monitor PO intake, wt, labs and skin integrity 3. F/U as low risk in 7 days, 10/17 Expected Outcomes/Goals Expected Outcomes/Goals 1. PO intake to meet at least 75% of nutritional needs. 2. Wt stability, skin to remain intact, labs to approach WNL.
--- NOTE | 2017-10-11 17:29 | Progress Notes ---
DATE: 10/10/2017 SUBJECTIVE: The patient was seen today, still anxious, angry, still with episodes of agitation, paranoia episodes, talking to himself, but he is taking Depakote and Zyprexa, but did not want to take lithium, stated it makes him have shakes. The patient slept better last night. ASSESSMENT: The patient in psychotic phase. PLAN: Continue Depakote and Zyprexa. Discontinue lithium. Monitor closely for the time being. JOB# [id number]
[2017-10-11] MEDS: Atorvastatin Calcium 10 MG TAB PO SCH (21:06)
--- NOTE | 2017-10-11 22:22 | Progress Notes ---
DATE: 10/11/2017 PSYCHIATRIC PROGRESS NOTE SUBJECTIVE: Staff was spoken to. The patient is interviewed. Mood is noted to be irritable. Affect is constricted. Insight and judgment are noted to be still impaired. Impulse control is noted to be poor. Coping skills are also noted to be very poor. The patient has been insisting on having his way. The patient is very aggressive this morning. The patient has been testing the limits. The patient continuously paranoid and has been getting easily irritable and upset. The patient is currently on olanzapine and has been able to tolerate the medications. The patient was on the lithium and was not effective and hence the patient has been placed on the Depakote. ASSESSMENT: The patient is still impulsive. PLAN: To continue the patient with the supportive therapy. Encouraged the patient to verbalize the concerns rather than to act out. Please note that the patient is not ready to be discharged to a lower level of care yet. JOB# [id number]
[2017-10-12] MEDS: Multivitamin Tab PO SCH (08:23)
[2017-10-12] MEDS: Aspirin 81mg Chewable Tab PO SCH (08:24)
--- NOTE | 2017-10-12 14:01 | General Progress Note ---
Subjective - Review of Systems Events since last encounter: impulsive irritable otherwise no distress Objective - Results Result Diagrams: 10/05/17 20:10/05/17 20: Recent Labs: Laboratory Last Values WBC 7.1 Th/cmm (4.8-10.8) 10/05/17 20: RBC 4.36 Mil/cmm (4.30-5.70) 10/05/17 20: Hgb 12.7 gm/dL (12-16) 10/05/17 20: Hct 38.3 % (41.0-60) L 10/05/17 20: MCV 87.8 fl (80-99) 10/05/17 20: MCH 29.1 pg (26.0-30.0) 10/05/17: MCHC Differential 33.2 pg (28.0-36.0) 10/05/17: RDW 12.1 % (11.5-20.0) 10/05/17: Plt Count 232 Th/cmm (150-400) 10/05/17 20: MPV 9.1 fl 10/05/17 20: Neutrophils % 57.0 % (40.0-80.0) 10/05/17 20: Lymphocytes % 33.0 % (20.0-50.0) 10/05/17: Monocytes % 6.9 % (2.0-10.0) 10/05/17 20: Eosinophils % 2.5 % (0.0-5.0) 10/05/17: Basophils % 0.6 % (0.0-2.0) 10/05/17 20: PT 11.1 SECONDS (9.5-11.5) 10/05/17 20: INR 1.07 (0.5-1.4) 10/05/17: PTT (Actin FS) 27.5 SECONDS (26.0-38.0) 10/05/17 20: Sodium 142 mEq/L (136-145) 10/05/17 20: Potassium 4.0 mEq/L (3.5-5.1) 10/05/17 20: Chloride 110 mEq/L (98-107) H 10/05/17 20: Carbon Dioxide 25.4 mEq/L (21.0-31.0) 10/05/17 20: Anion Gap 10.6 (7.0-16.0) 10/05/17 20: BUN 17 mg/dL (7-25) 10/05/17 20: Creatinine 1.0 mg/dL (0.7-1.3) 10/05/17 20: Est GFR ( Amer) > 60.0 ml/min (>90) 10/05/17 20: Est GFR (Non-Af Amer) > 60.0 ml/min 10/05/17 20: BUN/Creatinine Ratio 17.0 10/05/17 20: Glucose 105 mg/dL (70-105) 10/05/17: Calcium 9.4 mg/dL (8.6-10.3) 10/05/17: Magnesium 2.5 mg/dL (1.9-2.7) 10/05/17 20: Iron 59 ug/dL (38-169) 10/05/17 20: TIBC 266 ug/dL (250-450) 10/05/17 20: Iron Saturation 22 % (15-55) 10/05/17 20: Unsaturated IBC 207 ug/dL (111-343) 10/05/17 20: Ferritin 307 ng/mL (30-400) 10/05/17 20: Total Bilirubin 0.3 mg/dL (0.3-1.0) 10/05/17: Direct Bilirubin 0.05 mg/dL (0.0-0.2) 10/05/17 20: AST 16 U/L (13-39) 10/05/17 20: ALT 18 U/L (7-52) 10/05/17 20: Alkaline Phosphatase 50 U/L (34-104) 10/05/17 20: C-Reactive Protein < 0.2 mg/dL (0.0-0.9) 10/05/17 20: B-Natriuretic Peptide 16.0 pg/mL (5.0-100.0) 10/05/17 20: Total Protein 6.5 gm/dL (6.0-8.3) 10/05/17 20: Albumin 4.2 gm/dL (4.2-5.5) 10/05/17 20: Globulin 2.3 gm/dL 10/05/17 20: Albumin/Globulin Ratio 1.8 (1.0-1.8) 10/05/17 20: Triglycerides 110 mg/dL (<150) 10/05/17 20: Cholesterol 115 mg/dL (<200) 10/05/17 20: LDL Cholesterol Direct 69 mg/dL (75-193) L 10/05/17 20: HDL Cholesterol 32 mg/dL (23-92) 10/05/17 20: Free T4 2.02 ng/dL (0.82-1.77) H 10/05/17: TSH 0.57 uIU/ml (0.34-5.60) 10/05/17 20: Urine Source MIDSTREAM 10/05/17 19:30 Urine Color YELLOW 10/05/17 19: Urine Clarity CLEAR (CLEAR) 10/05/17 19: Urine pH 7.0 (4.6 - 8.0) 10/05/17 19:30 Ur Specific [place] <= 1.005 (1.005-1.030) 10/05/17 19:30 Urine Protein NEGATIVE mg/dL (NEGATIVE) 10/05/17 19: Urine Glucose (UA) NEGATIVE mg/dL (NEGATIVE) 10/05/17 19: Urine Ketones NEGATIVE mg/dL (NEGATIVE) 10/05/17 19:30 Urine Blood TRACE (NEGATIVE) 10/05/17 19: Urine Nitrate NEGATIVE (NEGATIVE) 10/05/17 19: Urine Bilirubin NEGATIVE (NEGATIVE) 10/05/17 19:30 Urine Urobilinogen 0.2 E.U./dL (0.2 - 1.0) 10/05/17 19:30 Ur Leukocyte Esterase NEGATIVE (NEGATIVE) 10/05/17 19: Urine RBC 0-2 /hpf (0-5) H 10/05/17 19:30 Urine WBC 0-2 /hpf (0-5) 10/05/17 19:30 Ur Epithelial Cells RARE /lpf (FEW) 10/05/17 19:30 Urine Bacteria OCCASIONAL /hpf (NONE SEEN) 10/05/17 19:30 - Physical Exam Vitals and I&O: Vital Signs Temp 97.1 F 10/12/17 06:21 Pulse 86 10/12/17 08:25 Resp 19 10/12/17 06:21 BP 129/84 10/12/17 08:25 Pulse Ox 99 10/12/17 06:21 Intake & Output 10/11/17 10/12/17 10/12/17 18:59 06:59 18:59 Intake Total 1500 Balance 1500 Intake: Oral 1500 Other: # Voids 3 # Bowel Movements 1 Active Medications: Current Medications Acetaminophen (Tylenol) 650 mg PO Q4HR PRN PRN Reason: GARCIA/Mild pain/Temp above 37.6C Stop: 12/05/17 08:04 Al Hydrox/Mg Hydrox/Simethicone (Maalox) 30 ml PO Q4HR PRN PRN Reason: GI DISTRESS Stop: 12/04/17 23:26 Aspirin (Aspirin Chewable) 81 mg PO DAILY [facility] Stop: 12/05/17 08:59 Last Admin: 10/12/17 08:24 Dose: 81 mg Atorvastatin Calcium (Lipitor) 20 mg PO HS DEBORAH Stop: 12/05/17 20:59 Last Admin: 10/11/17 21:06 Dose: 20 mg Diphenhydramine HCl (Benadryl) 50 mg PO BID PRN PRN Reason: Itching Stop: 12/05/17 10:08 Last Admin: 10/12/17 13:26 Dose: 50 mg Divalproex Sodium (Depakote Dr) 500 mg PO BID DEBORAH PRN Reason: Protocol Stop: 12/05/17 16:59 Last Admin: 10/12/17 08:23 Dose: 500 mg Docusate Sodium (Colace) 100 mg PO BID DEBORAH Stop: 12/05/17 08:59 Last Admin: 10/12/17 08:23 Dose: 100 mg Labetalol HCl (Trandate) 50 mg PO DAILY DEBORAH Stop: 12/05/17 08:59 Last Admin: 10/12/17 08:25 Dose: 50 mg Lorazepam (Ativan) 0.5 mg PO Q4HR PRN; Protocol PRN Reason: Anxiety/agitation Stop: 11/04/17 23:26 Last Admin: 10/11/17 23:07 Dose: 0.5 mg Magnesium Hydroxide (Milk Of Magnesia) 30 ml PO HS PRN PRN Reason: Constipation Multivitamins/Vitamin C (Theragran) 1 tab PO DAILY DEBORAH Stop: 12/05/17 08:59 Last Admin: 10/12/17 08:23 Dose: 1 tab Olanzapine (Zyprexa) 15 mg PO HS DEBORAH PRN Reason: Protocol Stop: 12/08/17 18:50 Last Admin: 10/11/17 21:07 Dose: 15 mg Rivaroxaban (Xarelto) 10 mg PO DAILY DEBORAH Stop: 12/05/17 13:29 Last Admin: 10/12/17 08:29 Dose: 10 mg Zolpidem Tartrate (Ambien) 5 mg PO HS PRN PRN Reason: Insomnia Stop: 12/04/17 23:26 Last Admin: 10/11/17 21:08 Dose: 5 mg Assessment/Plan - Problem List Patient Problems: All Active Problems INCREASED AGITATION; TALKING/LAUGHTER (Acute) Nutritional Asmnt/Malnutr-PDOC - Dietary Evaluation Malnutrition Findings (Please click <Entered> for more info): Nutritional Asmnt/Malnutrition Start: 10/10/17 13: 49 Text: Status: Complete Freq: Document 10/10/17 13:49 HEN (Rec: 10/10/17 13:56 [facility] Nutritional Asmnt/Malnutrition Patient General Information Nutritional Screening Moderate Risk Diagnosis psychosis Pertinent Medical Hx/Surgical Hx HTN, cerebral palsy Subjective Information Pt seen eating lunch in dining room at time of visit, confused. Per records, PO intake 100%. Current Diet Order/ Nutrition Support CCHO-60gm Pertinent Medications colace, theragran Pertinent Labs 10/05 Na 142, K 4.0, Cl 110, BUN 17, Cr 1.0, Glucose 105, Mg 2.5, Alb 4.2 Nutritional Hx/Data Height 1.63 m Height (Calculated Centimeters) 162.6 Current Weight (lbs) 70.307 kg Weight (Calculated Kilograms) 70.3 Weight (Calculated Grams) 64491.8 [place] Body Weight 130 % [place] Body Weight 119 Body Mass Index (BMI) 26.6 Weight Status Approriate GI Symptoms GI Symptoms None Last BM 3 Difficult in: None Skin Integrity/Comment: intact Estimated Nutritional Goals BEE in Kcals: Using Current wt Calories/Kcals/Kg 25-30 Kcals Calculated 0623-7871 Protein: Using Current wt Protein g/k Protein Calculated 70 Fluid: ml 1750-2100ml (1ml/kcal) Nutritional Problem No current Nutrition Prob Problem N/A Malnutrition Alert Protein-Calorie Malnutrition N/A Is there a minimum of two criteria No selected? Query Text:Check all the applicable criteria. A minimum of two criteria are recommended for diagnosis of either severe or non-severe malnutrition. Intervention/Recommendation Comments 1. Recommend remove CCHO-60gm diet for liberalization considering no hx of DM and glucose WNL. 2. Monitor PO intake, wt, labs and skin integrity 3. F/U as low risk in 7 days, 3/9 Expected Outcomes/Goals Expected Outcomes/Goals 1. PO intake to meet at least 75% of nutritional needs. 2. Wt stability, skin to remain intact, labs to approach WNL.
[2017-10-12] MEDS: Atorvastatin Calcium 10 MG TAB PO SCH (20:53)
--- NOTE | 2017-10-12 21:58 | Progress Notes ---
DATE: 10/12/2017 PSYCHIATRIC PROGRESS NOTE SUBJECTIVE: Staff was spoken to. The patient is interviewed. Mood is noted to be irritable. Affect is constricted. The patient is pacing most of the time on the unit and has been actively responding to internal stimuli. Insight and judgment is still impaired. Impulse control seems to be limited. The patient has no coping skills. No side effects to the medications are noted at this time. ASSESSMENT: The patient is still psychotic. PLAN: To continue the patient with the supportive therapy and followup. [facility]# [id number]
[2017-10-13] MEDS: Aspirin 81mg Chewable Tab PO SCH (08:11)
[2017-10-13] MEDS: Multivitamin Tab PO SCH (08:12)
--- NOTE | 2017-10-13 09:40 | General Progress Note ---
Subjective - Review of Systems Events since last encounter: awake still irritable at times Objective - Results Result Diagrams: 10/05/17 20:10/05/17 20: Recent Labs: Laboratory Last Values WBC 7.1 Th/cmm (4.8-10.8) 10/05/17 20: RBC 4.36 Mil/cmm (4.30-5.70) 10/05/17 20: Hgb 12.7 gm/dL (12-16) 10/05/17 20: Hct 38.3 % (41.0-60) L 10/05/17 20: MCV 87.8 fl (80-99) 10/05/17: MCH 29.1 pg (26.0-30.0) 10/05/17 MCHC Differential 33.2 pg (28.0-36.0) 10/05/17: RDW 12.1 % (11.5-20.0) 10/05/17: Plt Count 232 Th/cmm (150-400) 10/05/17: MPV 9.1 fl 10/05/17 20: Neutrophils % 57.0 % (40.0-80.0) 10/05/17: Lymphocytes % 33.0 % (20.0-50.0) 10/05/17: Monocytes % 6.9 % (2.0-10.0) 10/05/17: Eosinophils % 2.5 % (0.0-5.0) 10/05/17: Basophils % 0.6 % (0.0-2.0) 10/05/17 20: PT 11.1 SECONDS (9.5-11.5) 10/05/17 20: INR 1.07 (0.5-1.4) 10/05/17: PTT (Actin FS) 27.5 SECONDS (26.0-38.0) 10/05/17 20: Sodium 142 mEq/L (136-145) 10/05/17 20: Potassium 4.0 mEq/L (3.5-5.1) 10/05/17: Chloride 110 mEq/L (98-107) H 10/05/17 20: Carbon Dioxide 25.4 mEq/L (21.0-31.0) 10/05/17 20: Anion Gap 10.6 (7.0-16.0) 10/05/17 20: BUN 17 mg/dL (7-25) 10/05/17 20: Creatinine 1.0 mg/dL (0.7-1.3) 10/05/17 20: Est GFR ( Amer) > 60.0 ml/min (>90) 10/05/17 20: Est GFR (Non-Af Amer) > 60.0 ml/min 10/05/17 20: BUN/Creatinine Ratio 17.0 10/05/17 20: Glucose 105 mg/dL (70-105) 10/05/17: Calcium 9.4 mg/dL (8.6-10.3) 10/05/17: Magnesium 2.5 mg/dL (1.9-2.7) 10/05/17 20: Iron 59 ug/dL (38-169) 10/05/17 20: TIBC 266 ug/dL (250-450) 10/05/17 20: Iron Saturation 22 % (15-55) 10/05/17 20: Unsaturated IBC 207 ug/dL (111-343) 10/05/17 20: Ferritin 307 ng/mL (30-400) 10/05/17 20: Total Bilirubin 0.3 mg/dL (0.3-1.0) 10/05/17: Direct Bilirubin 0.05 mg/dL (0.0-0.2) 10/05/17 20: AST 16 U/L (13-39) 10/05/17 20: ALT 18 U/L (7-52) 10/05/17 20: Alkaline Phosphatase 50 U/L (34-104) 10/05/17 20: C-Reactive Protein < 0.2 mg/dL (0.0-0.9) 10/05/17 20: B-Natriuretic Peptide 16.0 pg/mL (5.0-100.0) 10/05/17 20: Total Protein 6.5 gm/dL (6.0-8.3) 10/05/17 20: Albumin 4.2 gm/dL (4.2-5.5) 10/05/17 20: Globulin 2.3 gm/dL 10/05/17 20: Albumin/Globulin Ratio 1.8 (1.0-1.8) 10/05/17 20: Triglycerides 110 mg/dL (<150) 10/05/17 20: Cholesterol 115 mg/dL (<200) 10/05/17 20: LDL Cholesterol Direct 69 mg/dL (75-193) L 10/05/17 20: HDL Cholesterol 32 mg/dL (23-92) 10/05/17 20: Free T4 2.02 ng/dL (0.82-1.77) H 10/05/17: TSH 0.57 uIU/ml (0.34-5.60) 10/05/17 20: Urine Source MIDSTREAM 10/05/17 19:30 Urine Color YELLOW 10/05/17 19: Urine Clarity CLEAR (CLEAR) 10/05/17 19: Urine pH 7.0 (4.6 - 8.0) 10/05/17 19:30 Ur Specific [place] <= 1.005 (1.005-1.030) 10/05/17 19:30 Urine Protein NEGATIVE mg/dL (NEGATIVE) 10/05/17 19: Urine Glucose (UA) NEGATIVE mg/dL (NEGATIVE) 10/05/17 19: Urine Ketones NEGATIVE mg/dL (NEGATIVE) 10/05/17 19:30 Urine Blood TRACE (NEGATIVE) 10/05/17 19: Urine Nitrate NEGATIVE (NEGATIVE) 10/05/17 19: Urine Bilirubin NEGATIVE (NEGATIVE) 10/05/17 19:30 Urine Urobilinogen 0.2 E.U./dL (0.2 - 1.0) 10/05/17 19:30 Ur Leukocyte Esterase NEGATIVE (NEGATIVE) 10/05/17 19: Urine RBC 0-2 /hpf (0-5) H 10/05/17 19:30 Urine WBC 0-2 /hpf (0-5) 10/05/17 19:30 Ur Epithelial Cells RARE /lpf (FEW) 10/05/17 19:30 Urine Bacteria OCCASIONAL /hpf (NONE SEEN) 10/05/17 19:30 - Physical Exam Vitals and I&O: Vital Signs Temp 97.8 F 10/13/17 06:03 Pulse 84 10/13/17 06:03 Resp 20 10/13/17 06:03 BP 123/87 10/13/17 06:03 Pulse Ox 97 10/13/17 06:03 Intake & Output 10/12/17 10/13/17 10/13/17 18:59 06:59 18:59 Intake Total 900 360 Balance 900 360 Intake: Oral 900 360 Other: # Voids 4 2 # Bowel Movements 1 0 Active Medications: Current Medications Acetaminophen (Tylenol) 650 mg PO Q4HR PRN PRN Reason: GARCIA/Mild pain/Temp above 37.6C Stop: 12/05/17 08:04 Last Admin: 10/12/17 20:52 Dose: 650 mg Al Hydrox/Mg Hydrox/Simethicone (Maalox) 30 ml PO Q4HR PRN PRN Reason: GI DISTRESS Stop: 12/04/17 23:26 Aspirin (Aspirin Chewable) 81 mg PO DAILY [facility] Stop: 12/05/17 08:59 Last Admin: 10/13/17 08:11 Dose: 81 mg Atorvastatin Calcium (Lipitor) 20 mg PO HS [facility] Stop: 12/05/17 20:59 Last Admin: 10/12/17 20:53 Dose: 20 mg Diphenhydramine HCl (Benadryl) 50 mg PO BID PRN PRN Reason: Itching Stop: 12/05/17 10:08 Last Admin: 10/12/17 13:26 Dose: 50 mg Divalproex Sodium (Depakote Dr) 500 mg PO BID [facility] PRN Reason: Protocol Stop: 12/05/17 16:59 Last Admin: 10/12/17 16:24 Dose: 500 mg Docusate Sodium (Colace) 100 mg PO BID [facility] Stop: 12/05/17 08:59 Last Admin: 10/13/17 08:11 Dose: 100 mg Labetalol HCl (Trandate) 50 mg PO DAILY [facility] Stop: 12/05/17 08:59 Last Admin: 10/12/17 08:25 Dose: 50 mg Lorazepam (Ativan) 0.5 mg PO Q4HR PRN; Protocol PRN Reason: Anxiety/agitation Stop: 11/04/17 23:26 Last Admin: 10/13/17 08:30 Dose: 0.5 mg Magnesium Hydroxide (Milk Of Magnesia) 30 ml PO HS PRN PRN Reason: Constipation Multivitamins/Vitamin C (Theragran) 1 tab PO DAILY [facility] Stop: 12/05/17 08:59 Last Admin: 10/13/17 08:12 Dose: 1 tab Olanzapine (Zyprexa) 15 mg PO HS [facility] PRN Reason: Protocol Stop: 12/08/17 18:50 Last Admin: 10/12/17 20:53 Dose: 15 mg Rivaroxaban (Xarelto) 10 mg PO DAILY [facility] Stop: 12/05/17 13:29 Last Admin: 10/13/17 08:11 Dose: 10 mg Zolpidem Tartrate (Ambien) 5 mg PO HS PRN PRN Reason: Insomnia Stop: 12/04/17 23:26 Last Admin: 10/12/17 20:54 Dose: 5 mg Assessment/Plan - Problem List Patient Problems: All Active Problems INCREASED AGITATION; TALKING/LAUGHTER (Acute) Nutritional Asmnt/Malnutr-PDOC - Dietary Evaluation Malnutrition Findings (Please click <Entered> for more info): Nutritional Asmnt/Malnutrition Start: 10/10/17 13: 49 Text: Status: Complete Freq: Document 10/10/17 13:49 [email or web address] (Rec: 10/10/17 13:56 [facility] Nutritional Asmnt/Malnutrition Patient General Information Nutritional Screening Moderate Risk Diagnosis psychosis Pertinent Medical Hx/Surgical Hx HTN, cerebral palsy Subjective Information Pt seen eating lunch in dining room at time of visit, confused. Per records, PO intake 100%. Current Diet Order/ Nutrition Support CCHO-60gm Pertinent Medications colace, theragran Pertinent Labs 10/05 Na 142, K 4.0, Cl 110, BUN 17, Cr 1.0, Glucose 105, Mg 2.5, Alb 4.2 Nutritional Hx/Data Height 1.63 m Height (Calculated Centimeters) 162.6 Current Weight (lbs) 70.307 kg Weight (Calculated Kilograms) 70.3 Weight (Calculated Grams) 61839.8 [place] Body Weight 130 % [place] Body Weight 119 Body Mass Index (BMI) 26.6 Weight Status Approriate GI Symptoms GI Symptoms None Last BM 3/ Difficult in: None Skin Integrity/Comment: intact Estimated Nutritional Goals BEE in Kcals: Using Current wt Calories/Kcals/Kg 25-30 Kcals Calculated 1433-2962 Protein: Using Current wt Protein g/k Protein Calculated 70 Fluid: ml 1750-2100ml (1ml/kcal) Nutritional Problem No current Nutrition Prob Problem N/A Malnutrition Alert Protein-Calorie Malnutrition N/A Is there a minimum of two criteria No selected? Query Text:Check all the applicable criteria. A minimum of two criteria are recommended for diagnosis of either severe or non-severe malnutrition. Intervention/Recommendation Comments 1. Recommend remove CCHO-60gm diet for liberalization considering no hx of DM and glucose WNL. 2. Monitor PO intake, wt, labs and skin integrity 3. F/U as low risk in 7 days, 10/17 Expected Outcomes/Goals Expected Outcomes/Goals 1. PO intake to meet at least 75% of nutritional needs. 2. Wt stability, skin to remain intact, labs to approach WNL.
--- NOTE | 2017-10-13 17:32 | Progress Notes ---
DATE: 10/13/2017 SUBJECTIVE: The patient was seen, discussed with staff. Reports feeling better, feeling less anxious to happen; however, some trouble sleeping at nighttime. The patient is compliant with his medications. At this time, he said he is happy to be off lithium. The patient admits to having some anxiety, paranoid at times, but he said he is not hearing voices. ASSESSMENT: The patient is still has some mood swings, irritability, but his paranoia is decreasing and psychosis decreasing. JOB# [id number]
[2017-10-13] MEDS: Atorvastatin Calcium 10 MG TAB PO SCH (20:37)
[2017-10-14] MEDS: Aspirin 81mg Chewable Tab PO SCH (09:14)
[2017-10-14] MEDS: Multivitamin Tab PO SCH (09:14)
--- NOTE | 2017-10-14 18:59 | Progress Notes ---
DATE: 10/14/2017 SUBJECTIVE: The patient was seen, chart reviewed, discussed with staff. Still anxious at times, still having trouble sleeping, his medications. His paranoia is decreasing. He is less angry, less irritable. I spoke with his mother yesterday, said his family check on him and he looks a lot better compared to a few weeks ago and they noticed improvement in his mood and his gait is steadier. ASSESSMENT: The patient continues to stabilize setting. PLAN: Continue to monitor closely. Continue medication management. Continue Depakote and Zyprexa. Discussed compliance issues with the patient. JOB# [id number]
[2017-10-14] MEDS: Atorvastatin Calcium 10 MG TAB PO SCH (20:46)
--- NOTE | 2017-10-14 21:00 | Internal Medicine Prog Note ---
Internal Medicine Subjective - Subjective Service Date: 10/14/17 Patient seen and examined:: with staff Patient is:: awake Per staff patient has:: tolerating meds Internal Medicine Objective - Results Result Diagrams: 10/05/17 20:10/05/17 20: Recent Labs: Laboratory Last Values WBC 7.1 Th/cmm (4.8-10.8) 10/05/17 20: RBC 4.36 Mil/cmm (4.30-5.70) 10/05/17 20: Hgb 12.7 gm/dL (12-16) 10/05/17 20: Hct 38.3 % (41.0-60) L 10/05/17: MCV 87.8 fl (80-99) 10/05/17: MCH 29.1 pg (26.0-30.0) 10/05/17 MCHC Differential 33.2 pg (28.0-36.0) 10/05/17: RDW 12.1 % (11.5-20.0) 10/05/17: Plt Count 232 Th/cmm (150-400) 10/05/17 20: MPV 9.1 fl 10/05/17 20: Neutrophils % 57.0 % (40.0-80.0) 10/05/17: Lymphocytes % 33.0 % (20.0-50.0) 10/05/17: Monocytes % 6.9 % (2.0-10.0) 10/05/17: Eosinophils % 2.5 % (0.0-5.0) 10/05/17: Basophils % 0.6 % (0.0-2.0) 10/05/17 20: PT 11.1 SECONDS (9.5-11.5) 10/05/17 20: INR 1.07 (0.5-1.4) 10/05/17: PTT (Actin FS) 27.5 SECONDS (26.0-38.0) 10/05/17 20: Sodium 142 mEq/L (136-145) 10/05/17 20: Potassium 4.0 mEq/L (3.5-5.1) 10/05/17 20: Chloride 110 mEq/L (98-107) H 10/05/17 20: Carbon Dioxide 25.4 mEq/L (21.0-31.0) 10/05/17 20: Anion Gap 10.6 (7.0-16.0) 10/05/17 20: BUN 17 mg/dL (7-25) 10/05/17 20: Creatinine 1.0 mg/dL (0.7-1.3) 10/05/17 20: Est GFR ( Amer) > 60.0 ml/min (>90) 10/05/17 20: Est GFR (Non-Af Amer) > 60.0 ml/min 10/05/17: BUN/Creatinine Ratio 17.0 10/05/17: Glucose 105 mg/dL (70-105) 10/05/17 20: Calcium 9.4 mg/dL (8.6-10.3) 10/05/17: Magnesium 2.5 mg/dL (1.9-2.7) 10/05/17 20: Iron 59 ug/dL (38-169) 10/05/17 20: TIBC 266 ug/dL (250-450) 10/05/17: Iron Saturation 22 % (15-55) 10/05/17: Unsaturated IBC 207 ug/dL (111-343) 10/05/17 20: Ferritin 307 ng/mL (30-400) 10/05/17 20: Total Bilirubin 0.3 mg/dL (0.3-1.0) 10/05/17: Direct Bilirubin 0.05 mg/dL (0.0-0.2) 10/05/17 20: AST 16 U/L (13-39) 10/05/17 20: ALT 18 U/L (7-52) 10/05/17 20: Alkaline Phosphatase 50 U/L (34-104) 10/05/17 20: C-Reactive Protein < 0.2 mg/dL (0.0-0.9) 10/05/17 20: B-Natriuretic Peptide 16.0 pg/mL (5.0-100.0) 10/05/17 20: Total Protein 6.5 gm/dL (6.0-8.3) 10/05/17 20: Albumin 4.2 gm/dL (4.2-5.5) 10/05/17 20: Globulin 2.3 gm/dL 10/05/17 20: Albumin/Globulin Ratio 1.8 (1.0-1.8) 10/05/17 20: Triglycerides 110 mg/dL (<150) 10/05/17 20: Cholesterol 115 mg/dL (<200) 10/05/17 20: LDL Cholesterol Direct 69 mg/dL (75-193) L 10/05/17 20: HDL Cholesterol 32 mg/dL (23-92) 10/05/17: Free T4 2.02 ng/dL (0.82-1.77) H 10/05/17 20: TSH 0.57 uIU/ml (0.34-5.60) 10/05/17 20: Urine Source MIDSTREAM 10/05/17 19: Urine Color YELLOW 10/05/17: Urine Clarity CLEAR (CLEAR) 10/05/17 19: Urine pH 7.0 (4.6 - 8.0) 10/05/17 19: Ur Specific [place] <= 1.005 (1.005-1.030) 10/05/17 19: Urine Protein NEGATIVE mg/dL (NEGATIVE) 10/05/17 19: Urine Glucose (UA) NEGATIVE mg/dL (NEGATIVE) 10/05/17 19: Urine Ketones NEGATIVE mg/dL (NEGATIVE) 10/05/17: Urine Blood TRACE (NEGATIVE) 10/05/17: Urine Nitrate NEGATIVE (NEGATIVE) 10/05/17 19: Urine Bilirubin NEGATIVE (NEGATIVE) 10/05/17 19: Urine Urobilinogen 0.2 E.U./dL (0.2 - 1.0) 10/05/17 19: Ur Leukocyte Esterase NEGATIVE (NEGATIVE) 10/05/17: Urine RBC 0-2 /hpf (0-5) H 10/05/17 19:30 Urine WBC 0-2 /hpf (0-5) 10/05/17 19:30 Ur Epithelial Cells RARE /lpf (FEW) 10/05/17 19: Urine Bacteria OCCASIONAL /hpf (NONE SEEN) 02/25/18 19:30 - Physical Exam Vitals and I&O: Vital Signs Temp 98.6 F 10/14/17 15:57 Pulse 95 10/14/17 15:57 Resp 20 10/14/17 15:57 BP 123/76 10/14/17 15:57 Pulse Ox 96 10/14/17 15:57 Intake & Output 10/14/17 10/14/17 10/15/17 06:59 18:59 06:59 Intake Total 480 1400 Balance 480 1400 Intake: Oral 480 1400 Other: # Voids 5 4 # Bowel Movements 1 Active Medications: Current Medications Acetaminophen (Tylenol) 650 mg PO Q4HR PRN PRN Reason: GARCIA/Mild pain/Temp above 37.6C Stop: 12/05/17 08:04 Last Admin: 10/12/17 20:52 Dose: 650 mg Al Hydrox/Mg Hydrox/Simethicone (Maalox) 30 ml PO Q4HR PRN PRN Reason: GI DISTRESS Stop: 12/04/17 23:26 Aspirin (Aspirin Chewable) 81 mg PO DAILY [facility] Stop: 12/05/17 08:59 Last Admin: 10/14/17 09:14 Dose: 81 mg Atorvastatin Calcium (Lipitor) 20 mg PO HS [facility] Stop: 12/05/17 20:59 Last Admin: 10/14/17 20:46 Dose: 20 mg Diphenhydramine HCl (Benadryl) 50 mg PO BID PRN PRN Reason: Itching Stop: 12/05/17 10:08 Last Admin: 10/12/17 13:26 Dose: 50 mg Divalproex Sodium (Depakote Dr) 500 mg PO BID [facility] PRN Reason: Protocol Stop: 12/05/17 16:59 Last Admin: 10/14/17 16:40 Dose: 500 mg Docusate Sodium (Colace) 100 mg PO BID [facility] Stop: 12/05/17 08:59 Last Admin: 10/14/17 16:39 Dose: 100 mg Labetalol HCl (Trandate) 50 mg PO DAILY [facility] Stop: 12/05/17 08:59 Last Admin: 10/13/17 18:51 Dose: Not Given Lorazepam (Ativan) 0.5 mg PO Q4HR PRN; Protocol PRN Reason: Anxiety Stop: 12/12/17 15:34 Last Admin: 10/13/17 20:39 Dose: 0.5 mg Magnesium Hydroxide (Milk Of Magnesia) 30 ml PO HS PRN PRN Reason: Constipation Multivitamins/Vitamin C (Theragran) 1 tab PO DAILY [facility] Stop: 12/05/17 08:59 Last Admin: 10/14/17 09:14 Dose: 1 tab Olanzapine (Zyprexa) 15 mg PO HS [facility] PRN Reason: Protocol Stop: 12/08/17 18:50 Last Admin: 10/14/17 20:46 Dose: 15 mg Rivaroxaban (Xarelto) 10 mg PO DAILY [facility] Stop: 12/05/17 13:29 Last Admin: 10/14/17 09:14 Dose: 10 mg Zolpidem Tartrate (Ambien) 5 mg PO HS PRN PRN Reason: Insomnia Stop: 12/12/17 15:37 Last Admin: 10/14/17 20:46 Dose: 5 mg General: alert HEENT: NC/AT, PERRLA Neck: Supple Lungs: CTAB Cardiovascular: RRR, Normal S1, Normal S2, without murmur Abdomen: soft, non-tender, non-distended, positive bowel sound Internal Medicine Assmt/Plan - Assessment Assessment: agitation htn cp - Plan Plan: continue current orders Nutritional Asmnt/Malnutr-PDOC - Dietary Evaluation Malnutrition Findings (Please click <Entered> for more info): Nutritional Asmnt/Malnutrition Start: 10/10/17 13: 49 Text: Status: Complete Freq: Document 10/10/17 13:49 [email or web address] (Rec: 10/10/17 13:56 [place] [id number]) Nutritional Asmnt/Malnutrition Patient General Information Nutritional Screening Moderate Risk Diagnosis psychosis Pertinent Medical Hx/Surgical Hx HTN, cerebral palsy Subjective Information Pt seen eating lunch in dining room at time of visit, confused. Per records, PO intake 100%. Current Diet Order/ Nutrition Support CCHO-60gm Pertinent Medications colace, theragran Pertinent Labs 10/05 Na 142, K 4.0, Cl 110, BUN 17, Cr 1.0, Glucose 105, Mg 2.5, Alb 4.2 Nutritional Hx/Data Height 5 ft 4 in Height (Calculated Centimeters) 162.6 Current Weight (lbs) 155 lb Weight (Calculated Kilograms) 70.3 Weight (Calculated Grams) 93683.8 [place] Body Weight 130 % [place] Body Weight 119 Body Mass Index (BMI) 26.6 Weight Status Approriate GI Symptoms GI Symptoms None Last BM 3 Difficult in: None Skin Integrity/Comment: intact Estimated Nutritional Goals BEE in Kcals: Using Current wt Calories/Kcals/Kg 25-30 Kcals Calculated 9143-7750 Protein: Using Current wt Protein g/k Protein Calculated 70 Fluid: ml 1750-2100ml (1ml/kcal) Nutritional Problem No current Nutrition Prob Problem N/A Malnutrition Alert Protein-Calorie Malnutrition N/A Is there a minimum of two criteria No selected? Query Text:Check all the applicable criteria. A minimum of two criteria are recommended for diagnosis of either severe or non-severe malnutrition. Intervention/Recommendation Comments 1. Recommend remove CCHO-60gm diet for liberalization considering no hx of DM and glucose WNL. 2. Monitor PO intake, wt, labs and skin integrity 3. F/U as low risk in 7 days, 10/17 Expected Outcomes/Goals Expected Outcomes/Goals 1. PO intake to meet at least 75% of nutritional needs. 2. Wt stability, skin to remain intact, labs to approach WNL.
--- NOTE | 2017-10-15 09:17 | General Progress Note ---
Subjective - Review of Systems Events since last encounter: patient awake in no distress Objective - Results Result Diagrams: 10/05/17 20:10/05/17 20: Recent Labs: Laboratory Last Values WBC 7.1 Th/cmm (4.8-10.8) 10/05/17 20: RBC 4.36 Mil/cmm (4.30-5.70) 10/05/17 20: Hgb 12.7 gm/dL (12-16) 10/05/17 20: Hct 38.3 % (41.0-60) L 10/05/17 20: MCV 87.8 fl (80-99) 10/05/17 20: MCH 29.1 pg (26.0-30.0) 10/05/17: MCHC Differential 33.2 pg (28.0-36.0) 10/05/17: RDW 12.1 % (11.5-20.0) 10/05/17: Plt Count 232 Th/cmm (150-400) 10/05/17: MPV 9.1 fl 10/05/17 20: Neutrophils % 57.0 % (40.0-80.0) 10/05/17 20: Lymphocytes % 33.0 % (20.0-50.0) 10/05/17: Monocytes % 6.9 % (2.0-10.0) 10/05/17: Eosinophils % 2.5 % (0.0-5.0) 10/05/17: Basophils % 0.6 % (0.0-2.0) 10/05/17 20: PT 11.1 SECONDS (9.5-11.5) 10/05/17 20: INR 1.07 (0.5-1.4) 10/05/17: PTT (Actin FS) 27.5 SECONDS (26.0-38.0) 10/05/17 20: Sodium 142 mEq/L (136-145) 10/05/17 20: Potassium 4.0 mEq/L (3.5-5.1) 10/05/17: Chloride 110 mEq/L (98-107) H 10/05/17 20: Carbon Dioxide 25.4 mEq/L (21.0-31.0) 10/05/17 20: Anion Gap 10.6 (7.0-16.0) 10/05/17 20: BUN 17 mg/dL (7-25) 10/05/17 20: Creatinine 1.0 mg/dL (0.7-1.3) 10/05/17 20: Est GFR ( Amer) > 60.0 ml/min (>90) 10/05/17: Est GFR (Non-Af Amer) > 60.0 ml/min 10/05/17: BUN/Creatinine Ratio 17.0 10/05/17: Glucose 105 mg/dL (70-105) 10/05/17: Calcium 9.4 mg/dL (8.6-10.3) 10/05/17: Magnesium 2.5 mg/dL (1.9-2.7) 10/05/17: Iron 59 ug/dL (38-169) 10/05/17: TIBC 266 ug/dL (250-450) 10/05/17 20: Iron Saturation 22 % (15-55) 10/05/17: Unsaturated IBC 207 ug/dL (111-343) 10/05/17: Ferritin 307 ng/mL (30-400) 10/05/17 20: Total Bilirubin 0.3 mg/dL (0.3-1.0) 10/05/17: Direct Bilirubin 0.05 mg/dL (0.0-0.2) 10/05/17 20: AST 16 U/L (13-39) 10/05/17 20: ALT 18 U/L (7-52) 10/05/17 20: Alkaline Phosphatase 50 U/L (34-104) 10/05/17 20: C-Reactive Protein < 0.2 mg/dL (0.0-0.9) 10/05/17 20: B-Natriuretic Peptide 16.0 pg/mL (5.0-100.0) 10/05/17 20: Total Protein 6.5 gm/dL (6.0-8.3) 10/05/17: Albumin 4.2 gm/dL (4.2-5.5) 10/05/17 20: Globulin 2.3 gm/dL 10/05/17 20: Albumin/Globulin Ratio 1.8 (1.0-1.8) 10/05/17 20: Triglycerides 110 mg/dL (<150) 10/05/17 20: Cholesterol 115 mg/dL (<200) 10/05/17 20: LDL Cholesterol Direct 69 mg/dL (75-193) L 10/05/17 20: HDL Cholesterol 32 mg/dL (23-92) 10/05/17 20: Free T4 2.02 ng/dL (0.82-1.77) H 10/05/17 20: TSH 0.57 uIU/ml (0.34-5.60) 10/05/17 20: Urine Source MIDSTREAM 10/05/17 19:30 Urine Color YELLOW 10/05/17 19: Urine Clarity CLEAR (CLEAR) 10/05/17 19: Urine pH 7.0 (4.6 - 8.0) 10/05/17 19:30 Ur Specific [place] <= 1.005 (1.005-1.030) 10/05/17 19:30 Urine Protein NEGATIVE mg/dL (NEGATIVE) 10/05/17 19:30 Urine Glucose (UA) NEGATIVE mg/dL (NEGATIVE) 10/05/17 19: Urine Ketones NEGATIVE mg/dL (NEGATIVE) 10/05/17 19:30 Urine Blood TRACE (NEGATIVE) 10/05/17 19: Urine Nitrate NEGATIVE (NEGATIVE) 10/05/17 19: Urine Bilirubin NEGATIVE (NEGATIVE) 10/05/17 19:30 Urine Urobilinogen 0.2 E.U./dL (0.2 - 1.0) 10/05/17 19:30 Ur Leukocyte Esterase NEGATIVE (NEGATIVE) 10/05/17 19: Urine RBC 0-2 /hpf (0-5) H 10/05/17 19:30 Urine WBC 0-2 /hpf (0-5) 10/05/17 19:30 Ur Epithelial Cells RARE /lpf (FEW) 10/05/17 19:30 Urine Bacteria OCCASIONAL /hpf (NONE SEEN) 10/05/17 19:30 - Physical Exam Vitals and I&O: Vital Signs Temp 97.8 F 10/15/17 05:16 Pulse 80 10/15/17 05:16 Resp 20 10/15/17 05:16 BP 139/84 10/15/17 05:16 Pulse Ox 95 10/15/17 05:16 Intake & Output 10/14/17 10/15/17 10/15/17 18:59 06:59 18:59 Intake Total 1400 180 Balance 1400 180 Intake: Oral 1400 180 Other: # Voids 4 2 # Bowel Movements 0 Active Medications: Current Medications Acetaminophen (Tylenol) 650 mg PO Q4HR PRN PRN Reason: GARCIA/Mild pain/Temp above 37.6C Stop: 12/05/17 08:04 Last Admin: 10/12/17 20:52 Dose: 650 mg Al Hydrox/Mg Hydrox/Simethicone (Maalox) 30 ml PO Q4HR PRN PRN Reason: GI DISTRESS Stop: 12/04/17 23:26 Aspirin (Aspirin Chewable) 81 mg PO DAILY [facility] Stop: 12/05/17 08:59 Last Admin: 10/14/17 09:14 Dose: 81 mg Atorvastatin Calcium (Lipitor) 20 mg PO HS [facility] Stop: 12/05/17 20:59 Last Admin: 10/14/17 20:46 Dose: 20 mg Diphenhydramine HCl (Benadryl) 50 mg PO BID PRN PRN Reason: Itching Stop: 12/05/17 10:08 Last Admin: 10/12/17 13:26 Dose: 50 mg Divalproex Sodium (Depakote Dr) 500 mg PO BID [facility] PRN Reason: Protocol Stop: 12/05/17 16:59 Last Admin: 10/14/17 16:40 Dose: 500 mg Docusate Sodium (Colace) 100 mg PO BID [facility] Stop: 12/05/17 08:59 Last Admin: 10/14/17 16:39 Dose: 100 mg Labetalol HCl (Trandate) 50 mg PO DAILY [facility] Stop: 12/05/17 08:59 Last Admin: 10/13/17 18:51 Dose: Not Given Lorazepam (Ativan) 0.5 mg PO Q4HR PRN; Protocol PRN Reason: Anxiety Stop: 12/12/17 15:34 Last Admin: 10/15/17 03:58 Dose: 0.5 mg Magnesium Hydroxide (Milk Of Magnesia) 30 ml PO HS PRN PRN Reason: Constipation Multivitamins/Vitamin C (Theragran) 1 tab PO DAILY [facility] Stop: 12/05/17 08:59 Last Admin: 10/14/17 09:14 Dose: 1 tab Olanzapine (Zyprexa) 15 mg PO HS [facility] PRN Reason: Protocol Stop: 12/08/17 18:50 Last Admin: 10/14/17 20:46 Dose: 15 mg Rivaroxaban (Xarelto) 10 mg PO DAILY [facility] Stop: 12/05/17 13:29 Last Admin: 10/14/17 09:14 Dose: 10 mg Zolpidem Tartrate (Ambien) 5 mg PO HS PRN PRN Reason: Insomnia Stop: 12/12/17 15:37 Last Admin: 10/14/17 20:46 Dose: 5 mg Assessment/Plan - Problem List Patient Problems: All Active Problems INCREASED AGITATION; TALKING/LAUGHTER (Acute) Nutritional Asmnt/Malnutr-PDOC - Dietary Evaluation Malnutrition Findings (Please click <Entered> for more info): Nutritional Asmnt/Malnutrition Start: 10/10/17 13: 49 Text: Status: Complete Freq: Document 10/10/17 13:49 LCHENG (Rec: 10/10/17 13:56 [email or web address] [id number]) Nutritional Asmnt/Malnutrition Patient General Information Nutritional Screening Moderate Risk Diagnosis psychosis Pertinent Medical Hx/Surgical Hx HTN, cerebral palsy Subjective Information Pt seen eating lunch in dining room at time of visit, confused. Per records, PO intake 100%. Current Diet Order/ Nutrition Support CCHO-60gm Pertinent Medications colace, theragran Pertinent Labs 10/05 Na 142, K 4.0, Cl 110, BUN 17, Cr 1.0, Glucose 105, Mg 2.5, Alb 4.2 Nutritional Hx/Data Height 1.63 m Height (Calculated Centimeters) 162.6 Current Weight (lbs) 70.307 kg Weight (Calculated Kilograms) 70.3 Weight (Calculated Grams) 86937.8 [place] Body Weight 130 % [place] Body Weight 119 Body Mass Index (BMI) 26.6 Weight Status Approriate GI Symptoms GI Symptoms None Last BM 3/ Difficult in: None Skin Integrity/Comment: intact Estimated Nutritional Goals BEE in Kcals: Using Current wt Calories/Kcals/Kg 25-30 Kcals Calculated 5425-9141 Protein: Using Current wt Protein g/k Protein Calculated 70 Fluid: ml 1750-2100ml (1ml/kcal) Nutritional Problem No current Nutrition Prob Problem N/A Malnutrition Alert Protein-Calorie Malnutrition N/A Is there a minimum of two criteria No selected? Query Text:Check all the applicable criteria. A minimum of two criteria are recommended for diagnosis of either severe or non-severe malnutrition. Intervention/Recommendation Comments 1. Recommend remove CCHO-60gm diet for liberalization considering no hx of DM and glucose WNL. 2. Monitor PO intake, wt, labs and skin integrity 3. F/U as low risk in 7 days, 10/17 Expected Outcomes/Goals Expected Outcomes/Goals 1. PO intake to meet at least 75% of nutritional needs. 2. Wt stability, skin to remain intact, labs to approach WNL.
[2017-10-15] MEDS: Aspirin 81mg Chewable Tab PO SCH (09:22)
[2017-10-15] MEDS: Multivitamin Tab PO SCH (09:23)
--- NOTE | 2017-10-15 17:18 | Progress Notes ---
DATE: 10/15/2017 SUBJECTIVE: The patient was seen, discussed with staff. Still with some irritability, some paranoid episodes where he is responding to internal stimuli, sleep has improved. His agitation is decreasing. The patient is taking his medications and he is compliant. He is oriented x 3. ASSESSMENT: The patient continues to stabilize. PLAN: Continue hospitalization. Continue supportive measure. Continue to monitor closely. Continue to discuss compliance issues with the patient. Continue Depakote and Zyprexa. JOB# [id number]
[2017-10-15] MEDS: Atorvastatin Calcium 10 MG TAB PO SCH (21:00)
[2017-10-16] MEDS: Multivitamin Tab PO SCH (08:41)
[2017-10-16] MEDS: Aspirin 81mg Chewable Tab PO SCH (08:42)
--- NOTE | 2017-10-16 11:32 | General Progress Note ---
Subjective - Review of Systems Events since last encounter: patient irritable in no distress Objective - Results Result Diagrams: 10/05/17 20:10/05/17 20: Recent Labs: Laboratory Last Values WBC 7.1 Th/cmm (4.8-10.8) 10/05/17 20: RBC 4.36 Mil/cmm (4.30-5.70) 10/05/17 20: Hgb 12.7 gm/dL (12-16) 10/05/17 20: Hct 38.3 % (41.0-60) L 10/05/17 20: MCV 87.8 fl (80-99) 10/05/17: MCH 29.1 pg (26.0-30.0) 10/05/17 MCHC Differential 33.2 pg (28.0-36.0) 10/05/17: RDW 12.1 % (11.5-20.0) 10/05/17: Plt Count 232 Th/cmm (150-400) 10/05/17 20: MPV 9.1 fl 10/05/17 20: Neutrophils % 57.0 % (40.0-80.0) 10/05/17: Lymphocytes % 33.0 % (20.0-50.0) 10/05/17: Monocytes % 6.9 % (2.0-10.0) 10/05/17: Eosinophils % 2.5 % (0.0-5.0) 10/05/17: Basophils % 0.6 % (0.0-2.0) 10/05/17 20: PT 11.1 SECONDS (9.5-11.5) 10/05/17 20: INR 1.07 (0.5-1.4) 10/05/17: PTT (Actin FS) 27.5 SECONDS (26.0-38.0) 10/05/17 20: Sodium 142 mEq/L (136-145) 10/05/17 20: Potassium 4.0 mEq/L (3.5-5.1) 10/05/17: Chloride 110 mEq/L (98-107) H 10/05/17 20: Carbon Dioxide 25.4 mEq/L (21.0-31.0) 10/05/17 20: Anion Gap 10.6 (7.0-16.0) 10/05/17 20: BUN 17 mg/dL (7-25) 10/05/17 20: Creatinine 1.0 mg/dL (0.7-1.3) 10/05/17 20: Est GFR ( Amer) > 60.0 ml/min (>90) 10/05/17 20: Est GFR (Non-Af Amer) > 60.0 ml/min 10/05/17 20: BUN/Creatinine Ratio 17.0 10/05/17 20: Glucose 105 mg/dL (70-105) 10/05/17: Calcium 9.4 mg/dL (8.6-10.3) 10/05/17: Magnesium 2.5 mg/dL (1.9-2.7) 10/05/17 20: Iron 59 ug/dL (38-169) 10/05/17 20: TIBC 266 ug/dL (250-450) 10/05/17 20: Iron Saturation 22 % (15-55) 10/05/17 20: Unsaturated IBC 207 ug/dL (111-343) 10/05/17 20: Ferritin 307 ng/mL (30-400) 10/05/17 20: Total Bilirubin 0.3 mg/dL (0.3-1.0) 10/05/17: Direct Bilirubin 0.05 mg/dL (0.0-0.2) 10/05/17 20: AST 16 U/L (13-39) 10/05/17 20: ALT 18 U/L (7-52) 10/05/17 20: Alkaline Phosphatase 50 U/L (34-104) 10/05/17 20: C-Reactive Protein < 0.2 mg/dL (0.0-0.9) 10/05/17 20: B-Natriuretic Peptide 16.0 pg/mL (5.0-100.0) 10/05/17 20: Total Protein 6.5 gm/dL (6.0-8.3) 10/05/17 20: Albumin 4.2 gm/dL (4.2-5.5) 10/05/17 20: Globulin 2.3 gm/dL 10/05/17 20: Albumin/Globulin Ratio 1.8 (1.0-1.8) 10/05/17 20: Triglycerides 110 mg/dL (<150) 10/05/17 20: Cholesterol 115 mg/dL (<200) 10/05/17 20: LDL Cholesterol Direct 69 mg/dL (75-193) L 10/05/17 20: HDL Cholesterol 32 mg/dL (23-92) 10/05/17 20: Free T4 2.02 ng/dL (0.82-1.77) H 10/05/17: TSH 0.57 uIU/ml (0.34-5.60) 10/05/17 20: Urine Source MIDSTREAM 10/05/17 19:30 Urine Color YELLOW 10/05/17 19: Urine Clarity CLEAR (CLEAR) 10/05/17 19: Urine pH 7.0 (4.6 - 8.0) 10/05/17 19:30 Ur Specific [place] <= 1.005 (1.005-1.030) 10/05/17 19:30 Urine Protein NEGATIVE mg/dL (NEGATIVE) 10/05/17 19: Urine Glucose (UA) NEGATIVE mg/dL (NEGATIVE) 10/05/17 19: Urine Ketones NEGATIVE mg/dL (NEGATIVE) 10/05/17 19:30 Urine Blood TRACE (NEGATIVE) 10/05/17 19: Urine Nitrate NEGATIVE (NEGATIVE) 10/05/17 19: Urine Bilirubin NEGATIVE (NEGATIVE) 10/05/17 19:30 Urine Urobilinogen 0.2 E.U./dL (0.2 - 1.0) 10/05/17 19:30 Ur Leukocyte Esterase NEGATIVE (NEGATIVE) 10/05/17 19: Urine RBC 0-2 /hpf (0-5) H 10/05/17 19:30 Urine WBC 0-2 /hpf (0-5) 10/05/17 19:30 Ur Epithelial Cells RARE /lpf (FEW) 10/05/17 19:30 Urine Bacteria OCCASIONAL /hpf (NONE SEEN) 10/05/17 19:30 - Physical Exam Vitals and I&O: Vital Signs Temp 97.5 F 10/16/17 05:50 Pulse 70 10/16/17 08:48 Resp 16 10/16/17 05:50 BP 123/67 10/16/17 08:48 Pulse Ox 96 10/16/17 05:50 Intake & Output 10/15/17 10/16/17 10/16/17 18:59 06:59 18:59 Intake Total 1400 120 Balance 1400 120 Intake: Oral 1400 120 Other: # Voids 5 3 # Bowel Movements 1 0 Active Medications: Current Medications Acetaminophen (Tylenol) 650 mg PO Q4HR PRN PRN Reason: GARCIA/Mild pain/Temp above 37.6C Stop: 12/05/17 08:04 Last Admin: 10/16/17 03:17 Dose: 650 mg Al Hydrox/Mg Hydrox/Simethicone (Maalox) 30 ml PO Q4HR PRN PRN Reason: GI DISTRESS Stop: 12/04/17 23:26 Aspirin (Aspirin Chewable) 81 mg PO DAILY [facility] Stop: 12/05/17 08:59 Last Admin: 10/16/17 08:42 Dose: 81 mg Atorvastatin Calcium (Lipitor) 20 mg PO HS [facility] Stop: 12/05/17 20:59 Last Admin: 10/15/17 21:00 Dose: 20 mg Diphenhydramine HCl (Benadryl) 50 mg PO BID PRN PRN Reason: Itching Stop: 12/05/17 10:08 Last Admin: 10/16/17 03:01 Dose: 50 mg Divalproex Sodium (Depakote Dr) 500 mg PO BID [facility] PRN Reason: Protocol Stop: 12/05/17 16:59 Last Admin: 10/16/17 08:41 Dose: 500 mg Docusate Sodium (Colace) 100 mg PO BID [facility] Stop: 12/05/17 08:59 Last Admin: 10/16/17 08:41 Dose: 100 mg Labetalol HCl (Trandate) 50 mg PO DAILY [facility] Stop: 12/05/17 08:59 Last Admin: 10/16/17 08:48 Dose: 50 mg Lorazepam (Ativan) 0.5 mg PO Q4HR PRN; Protocol PRN Reason: Anxiety Stop: 12/12/17 15:34 Last Admin: 10/16/17 03:01 Dose: 0.5 mg Magnesium Hydroxide (Milk Of Magnesia) 30 ml PO HS PRN PRN Reason: Constipation Multivitamins/Vitamin C (Theragran) 1 tab PO DAILY [facility] Stop: 12/05/17 08:59 Last Admin: 10/16/17 08:41 Dose: 1 tab Olanzapine (Zyprexa) 15 mg PO HS [facility] PRN Reason: Protocol Stop: 12/08/17 18:50 Last Admin: 10/15/17 21:00 Dose: 15 mg Rivaroxaban (Xarelto) 10 mg PO DAILY [facility] Stop: 12/05/17 13:29 Last Admin: 10/16/17 08:41 Dose: 10 mg Zolpidem Tartrate (Ambien) 5 mg PO HS PRN PRN Reason: Insomnia Stop: 12/12/17 15:37 Last Admin: 10/15/17 21:00 Dose: 5 mg Assessment/Plan - Problem List Patient Problems: All Active Problems INCREASED AGITATION; TALKING/LAUGHTER (Acute) Nutritional Asmnt/Malnutr-PDOC - Dietary Evaluation Malnutrition Findings (Please click <Entered> for more info): Nutritional Asmnt/Malnutrition Start: 10/10/17 13: 49 Text: Status: Complete Freq: Document 10/10/17 13:49 [email or web address] (Rec: 10/10/17 13:56 [email or web address] [email or web address]) Nutritional Asmnt/Malnutrition Patient General Information Nutritional Screening Moderate Risk Diagnosis psychosis Pertinent Medical Hx/Surgical Hx HTN, cerebral palsy Subjective Information Pt seen eating lunch in dining room at time of visit, confused. Per records, PO intake 100%. [facility] Diet [facility] Pertinent Medications colace, theragran Pertinent Labs 10/05 Na 142, K 4.0, Cl 110, BUN 17, Cr 1.0, Glucose 105, Mg 2.5, Alb 4.2 Nutritional Hx/Data Height 1.63 m Height (Calculated Centimeters) 162.6 Current Weight (lbs) 70.307 kg Weight (Calculated Kilograms) 70.3 Weight (Calculated Grams) 88632.8 [place] Body Weight 130 % [place] Body Weight 119 Body Mass Index (BMI) 26.6 Weight Status Approriate GI Symptoms GI Symptoms None Last BM 3/ Difficult in: None Skin Integrity/Comment: intact Estimated Nutritional Goals BEE in Kcals: Using Current wt Calories/Kcals/Kg 25-30 Kcals Calculated 2919-2404 Protein: Using Current wt Protein g/k Protein Calculated 70 Fluid: ml 1750-2100ml (1ml/kcal) Nutritional Problem No current Nutrition Prob Problem N/A Malnutrition Alert Protein-Calorie Malnutrition N/A Is there a minimum of two criteria No selected? Query Text:Check all the applicable criteria. A minimum of two criteria are recommended for diagnosis of either severe or non-severe malnutrition. Intervention/Recommendation Comments 1. Recommend remove CCHO-60gm diet for liberalization considering no hx of DM and glucose WNL. 2. Monitor PO intake, wt, labs and skin integrity 3. F/U as low risk in 7 days, 10/17 Expected Outcomes/Goals Expected Outcomes/Goals 1. PO intake to meet at least 75% of nutritional needs. 2. Wt stability, skin to remain intact, labs to approach WNL.
--- NOTE | 2017-10-16 18:29 | Progress Notes ---
DATE: 10/16/2017 SUBJECTIVE: The patient was seen, discussed with staff. Still irritable at times, but he is taking his medication. Sleep is improved. Anger outburst decreasing. Appetite is fair. His gait is steady. ASSESSMENT: Schizoaffective disorder versus schizophrenia. PLAN: Continue Depakote and Zyprexa. The patient is gradually improving. Continue supportive measures. Estimated stay 2 to 4 days. JOB# [id number]
[2017-10-16] MEDS: Atorvastatin Calcium 10 MG TAB PO SCH (21:25)
[2017-10-17] MEDS: Multivitamin Tab PO SCH (08:46)
[2017-10-17] MEDS: Aspirin 81mg Chewable Tab PO SCH (08:47)
--- NOTE | 2017-10-17 17:45 | Internal Medicine Prog Note ---
Internal Medicine Subjective - Subjective Service Date: 10/17/17 Patient is:: awake Per staff patient has:: tolerating meds Internal Medicine Objective - Results Result Diagrams: 10/05/17 20:10/05/17 Recent Labs: Laboratory Last Values WBC 7.1 Th/cmm (4.8-10.8) 10/05/17 20: RBC 4.36 Mil/cmm (4.30-5.70) 10/05/17 20: Hgb 12.7 gm/dL (12-16) 10/05/17 20: Hct 38.3 % (41.0-60) L 10/05/17: MCV 87.8 fl (80-99) 10/05/17: MCH 29.1 pg (26.0-30.0) 10/05/17: MCHC Differential 33.2 pg (28.0-36.0) 10/05/17: RDW 12.1 % (11.5-20.0) 10/05/17: Plt Count 232 Th/cmm (150-400) 10/05/17: MPV 9.1 fl 10/05/17 20: Neutrophils % 57.0 % (40.0-80.0) 10/05/17: Lymphocytes % 33.0 % (20.0-50.0) 10/05/17: Monocytes % 6.9 % (2.0-10.0) 10/05/17: Eosinophils % 2.5 % (0.0-5.0) 10/05/17: Basophils % 0.6 % (0.0-2.0) 10/05/17: PT 11.1 SECONDS (9.5-11.5) 10/05/17: INR 1.07 (0.5-1.4) 10/05/17: PTT (Actin FS) 27.5 SECONDS (26.0-38.0) 10/05/17 20: Sodium 142 mEq/L (136-145) 10/05/17 20: Potassium 4.0 mEq/L (3.5-5.1) 10/05/17: Chloride 110 mEq/L (98-107) H 10/05/17 20: Carbon Dioxide 25.4 mEq/L (21.0-31.0) 10/05/17 20: Anion Gap 10.6 (7.0-16.0) 10/05/17 20: BUN 17 mg/dL (7-25) 10/05/17: Creatinine 1.0 mg/dL (0.7-1.3) 10/05/17 20: Est GFR ( Amer) > 60.0 ml/min (>90) 10/05/17 20: Est GFR (Non-Af Amer) > 60.0 ml/min 10/05/17 20: BUN/Creatinine Ratio 17.0 10/05/17: Glucose 105 mg/dL (70-105) 10/05/17: Calcium 9.4 mg/dL (8.6-10.3) 10/05/17: Magnesium 2.5 mg/dL (1.9-2.7) 10/05/17 20: Iron 59 ug/dL (38-169) 10/05/17 20: TIBC 266 ug/dL (250-450) 10/05/17 20: Iron Saturation 22 % (15-55) 10/05/17: Unsaturated IBC 207 ug/dL (111-343) 10/05/17 20: Ferritin 307 ng/mL (30-400) 10/05/17 20: Total Bilirubin 0.3 mg/dL (0.3-1.0) 10/05/17: Direct Bilirubin 0.05 mg/dL (0.0-0.2) 10/05/17 20: AST 16 U/L (13-39) 10/05/17 20: ALT 18 U/L (7-52) 10/05/17 20: Alkaline Phosphatase 50 U/L (34-104) 10/05/17 20: C-Reactive Protein < 0.2 mg/dL (0.0-0.9) 10/05/17 20: B-Natriuretic Peptide 16.0 pg/mL (5.0-100.0) 10/05/17 20: Total Protein 6.5 gm/dL (6.0-8.3) 10/05/17 20: Albumin 4.2 gm/dL (4.2-5.5) 10/05/17 20: Globulin 2.3 gm/dL 10/05/17 20: Albumin/Globulin Ratio 1.8 (1.0-1.8) 10/05/17 20: Triglycerides 110 mg/dL (<150) 10/05/17 20: Cholesterol 115 mg/dL (<200) 10/05/17 20: LDL Cholesterol Direct 69 mg/dL (75-193) L 10/05/17 20: HDL Cholesterol 32 mg/dL (23-92) 10/05/17 20: Free T4 2.02 ng/dL (0.82-1.77) H 10/05/17: TSH 0.57 uIU/ml (0.34-5.60) 10/05/17 20: Urine Source MIDSTREAM 10/05/17 19: Urine Color YELLOW 10/05/17: Urine Clarity CLEAR (CLEAR) 10/05/17: Urine pH 7.0 (4.6 - 8.0) 10/05/17 19: Ur Specific [place] <= 1.005 (1.005-1.030) 10/05/17 19: Urine Protein NEGATIVE mg/dL (NEGATIVE) 10/05/17: Urine Glucose (UA) NEGATIVE mg/dL (NEGATIVE) 10/05/17 19: Urine Ketones NEGATIVE mg/dL (NEGATIVE) 10/05/17 19: Urine Blood TRACE (NEGATIVE) 10/05/17 19: Urine Nitrate NEGATIVE (NEGATIVE) 10/05/17 19: Urine Bilirubin NEGATIVE (NEGATIVE) 10/05/17 19: Urine Urobilinogen 0.2 E.U./dL (0.2 - 1.0) 10/05/17 19: Ur Leukocyte Esterase NEGATIVE (NEGATIVE) 10/05/17 19: Urine RBC 0-2 /hpf (0-5) H 10/05/17 19:30 Urine WBC 0-2 /hpf (0-5) 10/05/17 19:30 Ur Epithelial Cells RARE /lpf (FEW) 10/05/17 19: Urine Bacteria OCCASIONAL /hpf (NONE SEEN) 10/05/17 19:30 - Physical Exam Vitals and I&O: Vital Signs Temp 98.6 F 10/17/17 16:24 Pulse 82 10/17/17 16:24 Resp 20 10/17/17 16:24 BP 120/88 10/17/17 16:24 Pulse Ox 97 10/17/17 16:24 Intake & Output 10/16/17 10/17/17 10/17/17 18:59 06:59 18:59 Intake Total 1200 450 Balance 1200 450 Intake: Oral 1200 450 Other: # Voids 2 # Bowel Movements 1 0 Active Medications: Current Medications Acetaminophen (Tylenol) 650 mg PO Q4HR PRN PRN Reason: GARCIA/Mild pain/Temp above 37.6C Stop: 12/05/17 08:04 Last Admin: 10/16/17 03:17 Dose: 650 mg Al Hydrox/Mg Hydrox/Simethicone (Maalox) 30 ml PO Q4HR PRN PRN Reason: GI DISTRESS Stop: 12/04/17 23:26 Aspirin (Aspirin Chewable) 81 mg PO DAILY [facility] Stop: 12/05/17 08:59 Last Admin: 10/17/17 08:47 Dose: 81 mg Atorvastatin Calcium (Lipitor) 20 mg PO HS [facility] Stop: 12/05/17 20:59 Last Admin: 10/16/17 21:25 Dose: 20 mg Diphenhydramine HCl (Benadryl) 50 mg PO BID PRN PRN Reason: Itching Stop: 12/05/17 10:08 Last Admin: 10/16/17 03:01 Dose: 50 mg Divalproex Sodium (Depakote Dr) 500 mg PO BID [facility] PRN Reason: Protocol Stop: 12/05/17 16:59 Last Admin: 10/17/17 16:25 Dose: 500 mg Docusate Sodium (Colace) 100 mg PO BID [facility] Stop: 12/05/17 08:59 Last Admin: 10/17/17 08:46 Dose: 100 mg Labetalol HCl (Trandate) 50 mg PO DAILY [facility] Stop: 12/05/17 08:59 Last Admin: 10/17/17 09:02 Dose: Not Given Lorazepam (Ativan) 0.5 mg PO Q4HR PRN; Protocol PRN Reason: Anxiety Stop: 12/12/17 15:34 Last Admin: 10/17/17 16:57 Dose: 0.5 mg Magnesium Hydroxide (Milk Of Magnesia) 30 ml PO HS PRN PRN Reason: Constipation Multivitamins/Vitamin C (Theragran) 1 tab PO DAILY [facility] Stop: 12/05/17 08:59 Last Admin: 10/17/17 08:46 Dose: 1 tab Olanzapine (Zyprexa) 20 mg PO HS [facility] PRN Reason: Protocol Stop: 12/16/17 17:31 Rivaroxaban (Xarelto) 10 mg PO DAILY [facility] Stop: 12/05/17 13:29 Last Admin: 10/17/17 08:46 Dose: 10 mg Zolpidem Tartrate (Ambien) 5 mg PO HS PRN PRN Reason: Insomnia Stop: 12/12/17 15:37 Last Admin: 10/16/17 21:26 Dose: 5 mg General: alert HEENT: NC/AT, PERRLA Neck: Supple Lungs: CTAB Cardiovascular: RRR, Normal S1, Normal S2, without murmur Abdomen: soft, non-tender, non-distended, positive bowel sound Internal Medicine Assmt/Plan - Assessment Assessment: agitation htn cp - Plan Plan: continue current orders Nutritional Asmnt/Malnutr-PDOC - Dietary Evaluation Malnutrition Findings (Please click <Entered> for more info): Nutritional Asmnt/Malnutrition Start: 10/10/17 13: 49 Text: Status: Complete Freq: Document 10/10/17 13:49 LCHENG (Rec: 10/10/17 13:56 LCHENG [email or web address]) Nutritional Asmnt/Malnutrition Patient General Information Nutritional Screening Moderate Risk Diagnosis psychosis Pertinent Medical Hx/Surgical Hx HTN, cerebral palsy Subjective Information Pt seen eating lunch in dining room at time of visit, confused. Per records, PO intake 100%. Current Diet Order/ Nutrition Support CCHO-60gm Pertinent Medications colace, theragran Pertinent Labs 10/05 Na 142, K 4.0, Cl 110, BUN 17, Cr 1.0, Glucose 105, Mg 2.5, Alb 4.2 Nutritional Hx/Data Height 5 ft 4 in Height (Calculated Centimeters) 162.6 Current Weight (lbs) 155 lb Weight (Calculated Kilograms) 70.3 Weight (Calculated Grams) 68600.8 [place] Body Weight 130 % [place] Body Weight 119 Body Mass Index (BMI) 26.6 Weight Status Approriate GI Symptoms GI Symptoms None Last BM 10/09 Difficult in: None Skin Integrity/Comment: intact Estimated Nutritional Goals BEE in Kcals: Using Current wt Calories/Kcals/Kg 25-30 Kcals Calculated 1409-3656 Protein: Using Current wt Protein g/k Protein Calculated 70 Fluid: ml 1750-2100ml (1ml/kcal) Nutritional Problem No current Nutrition Prob Problem N/A Malnutrition Alert Protein-Calorie Malnutrition N/A Is there a minimum of two criteria No selected? Query Text:Check all the applicable criteria. A minimum of two criteria are recommended for diagnosis of either severe or non-severe malnutrition. Intervention/Recommendation Comments 1. Recommend remove CCHO-60gm diet for liberalization considering no hx of DM and glucose WNL. 2. Monitor PO intake, wt, labs and skin integrity 3. F/U as low risk in 7 days, 10/17 Expected Outcomes/Goals Expected Outcomes/Goals 1. PO intake to meet at least 75% of nutritional needs. 2. Wt stability, skin to remain intact, labs to approach WNL.
[2017-10-17] MEDS: Atorvastatin Calcium 10 MG TAB PO SCH (20:38)
--- NOTE | 2017-10-17 21:28 | Progress Notes ---
DATE: 10/17/2017 SUBJECTIVE: The patient was seen, chart reviewed, discussed with staff. Still irritable, agitated, becomes little bit more paranoid in the afternoon and evening time. The patient, however, is taking his medications, does not appear to have any side effects. His insight still limited. Judgment remains impaired. ASSESSMENT: The patient still in psychotic phase. PLAN: Continue medication management. Continue Depakote 500 mg p.o. b.i.d., increase Zyprexa to 20 mg p.o. at bedtime. Monitor closely. JOB# [id number]
[2017-10-18] MEDS: Aspirin 81mg Chewable Tab PO SCH (09:14)
[2017-10-18] MEDS: Multivitamin Tab PO SCH (09:14)
--- NOTE | 2017-10-18 15:41 | Progress Notes ---
DATE: 10/18/2017 SUBJECTIVE: The patient was seen in the activity room watching television. The patient appears to be guarded at this time, but no signs and symptoms of distress. OBJECTIVE: VITAL SIGNS: Temperature 98.5, heart rate 92, blood pressure 146/91, respirations 19, and 98% on room air. HEENT: Head is atraumatic and normocephalic. Eyes: Bilateral conjunctivae are clear. Bilateral pupils equal, round, and reactive. NECK: Supple. No JVD. CARDIOVASCULAR: S1 and S2, without murmur. PULMONARY: Clear to auscultation. GASTROINTESTINAL: Soft and nontender without guarding. Positive bowel sounds. MUSCULOSKELETAL: No clubbing. No cyanosis noted. ASSESSMENT: 1. Bipolar disorder. 2. Osteoarthritis. 3. Hyperlipidemia. 4. Hypertension. PLAN: We will keep the patient inpatient Psychiatric Unit. We will follow up with the psychiatrist to monitor the patient's condition and behavior. Treatment plans were discussed with the patient's nurse. Treatment plans were discussed with Dr. Ortiz. JOB# [id number]
--- NOTE | 2017-10-18 16:22 | Progress Notes ---
DATE: 10/18/2017 PSYCHIATRIC PROGRESS NOTE SUBJECTIVE: Staff was spoken to. The patient is interviewed. Mood is noted to be irritable. Affect is constricted. Insight and judgment at this time are noted to be impaired. Impulse control is noted limited. The patient has been having difficult time to cope with the stress. The patient is currently on Depakote and olanzapine, Depakote 500 mg twice a day and olanzapine 20 mg at bedtime. The patient has been able to tolerate. No side effects to the medications are noted at this time. ASSESSMENT: The patient is still impulsive and psychotic and not able to contact for safety. PLAN: To get the Depakote level for tomorrow and follow the patient with the supportive therapy. JOB# [id number]
[2017-10-18] MEDS: Atorvastatin Calcium 10 MG TAB PO SCH (21:31)
[2017-10-19] MEDS: Multivitamin Tab PO SCH (09:24)
[2017-10-19] MEDS: Aspirin 81mg Chewable Tab PO SCH (09:24)
--- NOTE | 2017-10-19 10:06 | General Progress Note ---
Subjective - Review of Systems Events since last encounter: patient continues to be psychotic denies pain Objective - Results Result Diagrams: 10/05/17 20:10/05/17 20: Recent Labs: Laboratory Last Values WBC 7.1 Th/cmm (4.8-10.8) 10/05/17 20: RBC 4.36 Mil/cmm (4.30-5.70) 10/05/17 20: Hgb 12.7 gm/dL (12-16) 10/05/17 20: Hct 38.3 % (41.0-60) L 10/05/17 20: MCV 87.8 fl (80-99) 10/05/17: MCH 29.1 pg (26.0-30.0) 10/05/17 MCHC Differential 33.2 pg (28.0-36.0) 10/05/17: RDW 12.1 % (11.5-20.0) 10/05/17: Plt Count 232 Th/cmm (150-400) 10/05/17 20: MPV 9.1 fl 10/05/17 20: Neutrophils % 57.0 % (40.0-80.0) 10/05/17 20: Lymphocytes % 33.0 % (20.0-50.0) 10/05/17: Monocytes % 6.9 % (2.0-10.0) 10/05/17: Eosinophils % 2.5 % (0.0-5.0) 10/05/17: Basophils % 0.6 % (0.0-2.0) 10/05/17 20: PT 11.1 SECONDS (9.5-11.5) 10/05/17 20: INR 1.07 (0.5-1.4) 10/05/17: PTT (Actin FS) 27.5 SECONDS (26.0-38.0) 10/05/17 20: Sodium 142 mEq/L (136-145) 10/05/17 20: Potassium 4.0 mEq/L (3.5-5.1) 10/05/17: Chloride 110 mEq/L (98-107) H 10/05/17 20: Carbon Dioxide 25.4 mEq/L (21.0-31.0) 10/05/17 20: Anion Gap 10.6 (7.0-16.0) 10/05/17 20: BUN 17 mg/dL (7-25) 10/05/17 20: Creatinine 1.0 mg/dL (0.7-1.3) 10/05/17 20: Est GFR ( Amer) > 60.0 ml/min (>90) 10/05/17 20: Est GFR (Non-Af Amer) > 60.0 ml/min 10/05/17 20: BUN/Creatinine Ratio 17.0 10/05/17: Glucose 105 mg/dL (70-105) 10/05/17: Calcium 9.4 mg/dL (8.6-10.3) 10/05/17: Magnesium 2.5 mg/dL (1.9-2.7) 10/05/17 20: Iron 59 ug/dL (38-169) 10/05/17 20: TIBC 266 ug/dL (250-450) 10/05/17 20: Iron Saturation 22 % (15-55) 10/05/17: Unsaturated IBC 207 ug/dL (111-343) 10/05/17: Ferritin 307 ng/mL (30-400) 10/05/17 20: Total Bilirubin 0.3 mg/dL (0.3-1.0) 10/05/17: Direct Bilirubin 0.05 mg/dL (0.0-0.2) 10/05/17: AST 16 U/L (13-39) 10/05/17 20: ALT 18 U/L (7-52) 10/05/17 20: Alkaline Phosphatase 50 U/L (34-104) 10/05/17 20: C-Reactive Protein < 0.2 mg/dL (0.0-0.9) 10/05/17 20: B-Natriuretic Peptide 16.0 pg/mL (5.0-100.0) 10/05/17 20: Total Protein 6.5 gm/dL (6.0-8.3) 10/05/17 20:26 Albumin 4.2 gm/dL (4.2-5.5) 10/05/17 20: Globulin 2.3 gm/dL 10/05/17 20: Albumin/Globulin Ratio 1.8 (1.0-1.8) 10/05/17 20: Triglycerides 110 mg/dL (<150) 10/05/17 20: Cholesterol 115 mg/dL (<200) 10/05/17 20: LDL Cholesterol Direct 69 mg/dL (75-193) L 10/05/17: HDL Cholesterol 32 mg/dL (23-92) 10/05/17: Free T4 2.02 ng/dL (0.82-1.77) H 10/05/17: TSH 0.57 uIU/ml (0.34-5.60) 10/05/17 20: Urine Source MIDSTREAM 10/05/17 19: Urine Color YELLOW 10/05/17: Urine Clarity CLEAR (CLEAR) 10/05/17: Urine pH 7.0 (4.6 - 8.0) 10/05/17 19: Ur Specific [place] <= 1.005 (1.005-1.030) 10/05/17: Urine Protein NEGATIVE mg/dL (NEGATIVE) 10/05/17: Urine Glucose (UA) NEGATIVE mg/dL (NEGATIVE) 10/05/17: Urine Ketones NEGATIVE mg/dL (NEGATIVE) 10/05/17 19: Urine Blood TRACE (NEGATIVE) 10/05/17: Urine Nitrate NEGATIVE (NEGATIVE) 10/05/17: Urine Bilirubin NEGATIVE (NEGATIVE) 10/05/17: Urine Urobilinogen 0.2 E.U./dL (0.2 - 1.0) 10/05/17 19: Ur Leukocyte Esterase NEGATIVE (NEGATIVE) 10/05/17: Urine RBC 0-2 /hpf (0-5) H 10/05/17 19: Urine WBC 0-2 /hpf (0-5) 10/05/17 19:30 Ur Epithelial Cells RARE /lpf (FEW) 10/05/17 19: Urine Bacteria OCCASIONAL /hpf (NONE SEEN) 10/05/17 19: Valproic Acid 37.4 ug/mL (50.0-100.0) L 10/18/17 13:15 - Physical Exam Vitals and I&O: Vital Signs Temp 97.1 F 10/19/17 06:27 Pulse 71 10/19/17 06:27 Resp 20 10/19/17 06:27 BP 123/72 10/19/17 06:27 Pulse Ox 98 10/19/17 06:27 Intake & Output 10/18/17 10/19/17 10/19/17 17:59 06:59 18:59 Intake Total Output Total Balance Intake: Oral Output: Urine/Stool Mix Other: # Voids # Bowel Movements Active Medications: Current Medications Acetaminophen (Tylenol) 650 mg PO Q4HR PRN PRN Reason: GARCIA/Mild pain/Temp above 37.6C Stop: 12/05/17 08:04 Last Admin: 10/18/17 13:47 Dose: 650 mg Al Hydrox/Mg Hydrox/Simethicone (Maalox) 30 ml PO Q4HR PRN PRN Reason: GI DISTRESS Stop: 12/04/17 23:26 Aspirin (Aspirin Chewable) 81 mg PO DAILY [facility] Stop: 12/05/17 08:59 Last Admin: 10/19/17 09:24 Dose: 81 mg Atorvastatin Calcium (Lipitor) 20 mg PO HS [facility] Stop: 12/05/17 20:59 Last Admin: 10/18/17 21:31 Dose: 20 mg Diphenhydramine HCl (Benadryl) 50 mg PO BID PRN PRN Reason: Itching Stop: 12/05/17 10:08 Last Admin: 10/18/17 21:33 Dose: 50 mg Divalproex Sodium (Depakote Dr) 500 mg PO BID DEBORAH PRN Reason: Protocol Stop: 12/05/17 16:59 Last Admin: 10/19/17 09:23 Dose: 500 mg Docusate Sodium (Colace) 100 mg PO BID [facility] Stop: 12/05/17 08:59 Last Admin: 10/19/17 09:23 Dose: 100 mg Labetalol HCl (Trandate) 50 mg PO DAILY [facility] Stop: 12/05/17 08:59 Last Admin: 10/19/17 09:24 Dose: Not Given Lorazepam (Ativan) 0.5 mg PO Q4HR PRN; Protocol PRN Reason: Anxiety Stop: 12/12/17 15:34 Last Admin: 10/18/17 21:32 Dose: 0.5 mg Magnesium Hydroxide (Milk Of Magnesia) 30 ml PO HS PRN PRN Reason: Constipation Multivitamins/Vitamin C (Theragran) 1 tab PO DAILY [facility] Stop: 12/05/17 08:59 Last Admin: 10/19/17 09:24 Dose: 1 tab Olanzapine (Zyprexa) 20 mg PO HS DEBORAH PRN Reason: Protocol Stop: 12/16/17 20:59 Last Admin: 10/18/17 21:32 Dose: 20 mg Rivaroxaban (Xarelto) 10 mg PO DAILY [facility] Stop: 12/05/17 13:29 Last Admin: 10/19/17 09:24 Dose: 10 mg Zolpidem Tartrate (Ambien) 5 mg PO HS PRN PRN Reason: Insomnia Stop: 12/12/17 15:37 Last Admin: 10/18/17 21:33 Dose: 5 mg Assessment/Plan - Problem List Patient Problems: All Active Problems INCREASED AGITATION; TALKING/LAUGHTER (Acute) Nutritional Asmnt/Malnutr-PDOC - Dietary Evaluation Malnutrition Findings (Please click <Entered> for more info): Nutritional Asmnt/Malnutrition Start: 10/10/17 13: 49 Text: Status: Complete Freq: Document 10/10/17 13:49 FABIOLA (Rec: 10/10/17 13:56 FABIOLA [id number]) Nutritional Asmnt/Malnutrition Patient General Information Nutritional Screening Moderate Risk Diagnosis psychosis Pertinent Medical Hx/Surgical Hx HTN, cerebral palsy Subjective Information Pt seen eating lunch in dining room at time of visit, confused. Per records, PO intake 100%. Current Diet Order/ Nutrition Support [facility]-60[facility] Pertinent Medications colace, theragran Pertinent Labs 10/05 Na 142, K 4.0, Cl 110, BUN 17, Cr 1.0, Glucose 105, Mg 2.5, Alb 4.2 Nutritional Hx/Data Height 1.63 m Height (Calculated Centimeters) 162.6 Current Weight (lbs) 70.307 kg Weight (Calculated Kilograms) 70.3 Weight (Calculated Grams) 36198.8 [place] Body Weight 130 % [place] Body Weight 119 Body Mass Index (BMI) 26.6 Weight Status Approriate GI Symptoms GI Symptoms None Last BM 10/09 Difficult in: None Skin Integrity/Comment: intact Estimated Nutritional Goals BEE in Kcals: Using Current wt Calories/Kcals/Kg 25-30 Kcals Calculated 6552-9164 Protein: Using Current wt Protein g/k Protein Calculated 70 Fluid: ml 1750-2100ml (1ml/kcal) Nutritional Problem No current Nutrition Prob Problem N/A Malnutrition Alert Protein-Calorie Malnutrition N/A Is there a minimum of two criteria No selected? Query Text:Check all the applicable criteria. A minimum of two criteria are recommended for diagnosis of either severe or non-severe malnutrition. Intervention/Recommendation Comments 1. Recommend remove CCHO-60gm diet for liberalization considering no hx of DM and glucose WNL. 2. Monitor PO intake, wt, labs and skin integrity 3. F/U as low risk in 7 days, 10/17 Expected Outcomes/Goals Expected Outcomes/Goals 1. PO intake to meet at least 75% of nutritional needs. 2. Wt stability, skin to remain intact, labs to approach WNL.
[2017-10-19] MEDS: Atorvastatin Calcium 10 MG TAB PO SCH (20:38)
--- NOTE | 2017-10-19 23:27 | Progress Notes ---
DATE: 10/19/2017 Staff was spoken to. The patient is interviewed. Continues to be paranoid, but impulsivity seems to be coming under control. No side effects to the medications are noted. The patient has been able to participate in the groups to some extent today, valproic acid level was noted to be very low at 37.4. The patient is going to be closely monitored to see if he is cheeking the medication. JOB# [id number]
[2017-10-20] MEDS: Multivitamin Tab PO SCH (08:04)
[2017-10-20] MEDS: Aspirin 81mg Chewable Tab PO SCH (08:04)
--- NOTE | 2017-10-20 09:24 | General Progress Note ---
Subjective - Review of Systems Events since last encounter: patient is anxious paranoid, denies pain Objective - Results Result Diagrams: 10/05/17 20:10/05/17 20: Recent Labs: Laboratory Last Values WBC 7.1 Th/cmm (4.8-10.8) 10/05/17 20: RBC 4.36 Mil/cmm (4.30-5.70) 10/05/17 20: Hgb 12.7 gm/dL (12-16) 10/05/17 20: Hct 38.3 % (41.0-60) L 10/05/17 20: MCV 87.8 fl (80-99) 10/05/17: MCH 29.1 pg (26.0-30.0) 10/05/17: MCHC Differential 33.2 pg (28.0-36.0) 10/05/17: RDW 12.1 % (11.5-20.0) 10/05/17: Plt Count 232 Th/cmm (150-400) 10/05/17 20: MPV 9.1 fl 10/05/17 20: Neutrophils % 57.0 % (40.0-80.0) 10/05/17 20: Lymphocytes % 33.0 % (20.0-50.0) 10/05/17 20: Monocytes % 6.9 % (2.0-10.0) 10/05/17 20: Eosinophils % 2.5 % (0.0-5.0) 10/05/17: Basophils % 0.6 % (0.0-2.0) 10/05/17 20: PT 11.1 SECONDS (9.5-11.5) 10/05/17 20: INR 1.07 (0.5-1.4) 10/05/17 20: PTT (Actin FS) 27.5 SECONDS (26.0-38.0) 10/05/17 20: Sodium 142 mEq/L (136-145) 10/05/17 20: Potassium 4.0 mEq/L (3.5-5.1) 10/05/17 20: Chloride 110 mEq/L (98-107) H 10/05/17 20: Carbon Dioxide 25.4 mEq/L (21.0-31.0) 10/05/17 20: Anion Gap 10.6 (7.0-16.0) 10/05/17 20: BUN 17 mg/dL (7-25) 10/05/17 20: Creatinine 1.0 mg/dL (0.7-1.3) 10/05/17 20: Est GFR ( Amer) > 60.0 ml/min (>90) 10/05/17 20: Est GFR (Non-Af Amer) > 60.0 ml/min 10/05/17 20: BUN/Creatinine Ratio 17.0 10/05/17: Glucose 105 mg/dL (70-105) 10/05/17: Calcium 9.4 mg/dL (8.6-10.3) 10/05/17: Magnesium 2.5 mg/dL (1.9-2.7) 10/05/17 20: Iron 59 ug/dL (38-169) 10/05/17 20: TIBC 266 ug/dL (250-450) 10/05/17 20: Iron Saturation 22 % (15-55) 10/05/17: Unsaturated IBC 207 ug/dL (111-343) 10/05/17 20: Ferritin 307 ng/mL (30-400) 10/05/17 20: Total Bilirubin 0.3 mg/dL (0.3-1.0) 10/05/17: Direct Bilirubin 0.05 mg/dL (0.0-0.2) 10/05/17 20: AST 16 U/L (13-39) 10/05/17 20: ALT 18 U/L (7-52) 10/05/17 20: Alkaline Phosphatase 50 U/L (34-104) 10/05/17 20: C-Reactive Protein < 0.2 mg/dL (0.0-0.9) 10/05/17 20: B-Natriuretic Peptide 16.0 pg/mL (5.0-100.0) 10/05/17 20: Total Protein 6.5 gm/dL (6.0-8.3) 10/05/17 20: Albumin 4.2 gm/dL (4.2-5.5) 10/05/17 20: Globulin 2.3 gm/dL 10/05/17: Albumin/Globulin Ratio 1.8 (1.0-1.8) 10/05/17 20: Triglycerides 110 mg/dL (<150) 10/05/17 20: Cholesterol 115 mg/dL (<200) 10/05/17 20: LDL Cholesterol Direct 69 mg/dL (75-193) L 10/05/17: HDL Cholesterol 32 mg/dL (23-92) 10/05/17: Free T4 2.02 ng/dL (0.82-1.77) H 10/05/17: TSH 0.57 uIU/ml (0.34-5.60) 10/05/17 20: Urine Source MIDSTREAM 10/05/17 19: Urine Color YELLOW 10/05/17: Urine Clarity CLEAR (CLEAR) 10/05/17: Urine pH 7.0 (4.6 - 8.0) 10/05/17 19: Ur Specific [place] <= 1.005 (1.005-1.030) 10/05/17: Urine Protein NEGATIVE mg/dL (NEGATIVE) 10/05/17: Urine Glucose (UA) NEGATIVE mg/dL (NEGATIVE) 10/05/17 19: Urine Ketones NEGATIVE mg/dL (NEGATIVE) 10/05/17 19: Urine Blood TRACE (NEGATIVE) 10/05/17: Urine Nitrate NEGATIVE (NEGATIVE) 10/05/17: Urine Bilirubin NEGATIVE (NEGATIVE) 10/05/17 19: Urine Urobilinogen 0.2 E.U./dL (0.2 - 1.0) 10/05/17 19: Ur Leukocyte Esterase NEGATIVE (NEGATIVE) 10/05/17: Urine RBC 0-2 /hpf (0-5) H 10/05/17 19: Urine WBC 0-2 /hpf (0-5) 10/05/17 19: Ur Epithelial Cells RARE /lpf (FEW) 10/05/17 19: Urine Bacteria OCCASIONAL /hpf (NONE SEEN) 10/05/17 19: Valproic Acid 37.4 ug/mL (50.0-100.0) L 10/18/17 13:15 - Physical Exam Vitals and I&O: Vital Signs Temp 97.4 F 10/20/17 06:36 Pulse 75 10/20/17 08:03 Resp 19 10/20/17 06:36 BP 136/82 10/20/17 08:03 Pulse Ox 98 10/20/17 06:36 Intake & Output 10/19/17 10/20/17 10/20/17 18:59 06:59 18:59 Intake Total 1620 Output Total 1 Balance 1619 Intake: Oral 1620 Output: Urine/Stool Mix 1 Other: # Voids 3 Active Medications: Current Medications Acetaminophen (Tylenol) 650 mg PO Q4HR PRN PRN Reason: GARCIA/Mild pain/Temp above 37.6C Stop: 12/05/17 08:04 Last Admin: 10/18/17 13:47 Dose: 650 mg Al Hydrox/Mg Hydrox/Simethicone (Maalox) 30 ml PO Q4HR PRN PRN Reason: GI DISTRESS Stop: 12/04/17 23:26 Aspirin (Aspirin Chewable) 81 mg PO DAILY [facility] Stop: 12/05/17 08:59 Last Admin: 10/20/17 08:04 Dose: 81 mg Atorvastatin Calcium (Lipitor) 20 mg PO HS [facility] Stop: 12/05/17 20:59 Last Admin: 10/19/17 20:38 Dose: 20 mg Diphenhydramine HCl (Benadryl) 50 mg PO BID PRN PRN Reason: Itching Stop: 12/05/17 10:08 Last Admin: 10/18/17 21:33 Dose: 50 mg Divalproex Sodium (Depakote Dr) 500 mg PO BID DEBORAH PRN Reason: Protocol Stop: 12/05/17 16:59 Last Admin: 10/20/17 08:04 Dose: 500 mg Docusate Sodium (Colace) 100 mg PO BID [facility] Stop: 12/05/17 08:59 Last Admin: 10/20/17 08:04 Dose: 100 mg Labetalol HCl (Trandate) 50 mg PO DAILY [facility] Stop: 12/05/17 08:59 Last Admin: 10/20/17 08:03 Dose: 50 mg Lorazepam (Ativan) 0.5 mg PO Q4HR PRN; Protocol PRN Reason: Anxiety Stop: 12/12/17 15:34 Last Admin: 10/19/17 21:16 Dose: 0.5 mg Magnesium Hydroxide (Milk Of Magnesia) 30 ml PO HS PRN PRN Reason: Constipation Multivitamins/Vitamin C (Theragran) 1 tab PO DAILY [facility] Stop: 12/05/17 08:59 Last Admin: 10/20/17 08:04 Dose: 1 tab Olanzapine (Zyprexa) 20 mg PO HS DEBORAH PRN Reason: Protocol Stop: 12/16/17 20:59 Last Admin: 10/19/17 20:39 Dose: 20 mg Zolpidem Tartrate (Ambien) 5 mg PO HS PRN PRN Reason: Insomnia Stop: 12/12/17 15:37 Last Admin: 10/19/17 20:39 Dose: 5 mg Assessment/Plan - Problem List Patient Problems: All Active Problems INCREASED AGITATION; TALKING/LAUGHTER (Acute) Nutritional Asmnt/Malnutr-PDOC - Dietary Evaluation Malnutrition Findings (Please click <Entered> for more info): Nutritional Asmnt/Malnutrition Start: 10/10/17 13: 49 Text: Status: Complete Freq: Document 10/10/17 13:49 LCHENG (Rec: 10/10/17 13:56 LCHENG [email or web address]) Nutritional Asmnt/Malnutrition Patient General Information Nutritional Screening Moderate Risk Diagnosis psychosis Pertinent Medical Hx/Surgical Hx HTN, cerebral palsy Subjective Information Pt seen eating lunch in dining room at time of visit, confused. Per records, PO intake 100%. Current Diet Order/ Nutrition Support CCHO-60gm Pertinent Medications colace, theragran Pertinent Labs 10/05 Na 142, K 4.0, Cl 110, BUN 17, Cr 1.0, Glucose 105, Mg 2.5, Alb 4.2 Nutritional Hx/Data Height 1.63 m Height (Calculated Centimeters) 162.6 Current Weight (lbs) 70.307 kg Weight (Calculated Kilograms) 70.3 Weight (Calculated Grams) 20043.8 [place] Body Weight 130 % [place] Body Weight 119 Body Mass Index (BMI) 26.6 Weight Status Approriate GI Symptoms GI Symptoms None Last BM 10/09 Difficult in: None Skin Integrity/Comment: intact Estimated Nutritional Goals BEE in Kcals: Using Current wt Calories/Kcals/Kg 25-30 Kcals Calculated 9443-2934 Protein: Using Current wt Protein g/k Protein Calculated 70 Fluid: ml 1750-2100ml (1ml/kcal) Nutritional Problem No current Nutrition Prob Problem N/A Malnutrition Alert Protein-Calorie Malnutrition N/A Is there a minimum of two criteria No selected? Query Text:Check all the applicable criteria. A minimum of two criteria are recommended for diagnosis of either severe or non-severe malnutrition. Intervention/Recommendation Comments 1. Recommend remove CCHO-60gm diet for liberalization considering no hx of DM and glucose WNL. 2. Monitor PO intake, wt, labs and skin integrity 3. F/U as low risk in 7 days, 10/17 Expected Outcomes/Goals Expected Outcomes/Goals 1. PO intake to meet at least 75% of nutritional needs. 2. Wt stability, skin to remain intact, labs to approach WNL.
--- NOTE | 2017-10-20 18:43 | Discharge Summary ---
DATE OF DISCHARGE: 10/20/2017 DATE OF DISCHARGE: 10/20/2017. REASON FOR HOSPITALIZATION: Schizoaffective disorder, psychotic phase. HISTORY OF PRESENT ILLNESS: The patient is a 57-year-old male who was transferred to the hospital for increased anger outburst, agitation, become more paranoid. The patient has been acting bizarre, talking to himself. The patient was hitting self. The patient was very paranoid. The patient was hospitalized. HOSPITALIZATION COURSE: Medications were implemented. Individual milieu and group therapy was started. [place] was discontinued. The patient was having trouble, refused to take this medication. The patient was given Zyprexa and Depakote over time. Condition improved and responded to treatment. Agitation resolved, anger outbursts resolved. Sleep improved. The patient on 10/20/2017 was discharged to nursing facility. The patient did not have any suicidal or homicidal thoughts. FINAL DIAGNOSIS: Schizoaffective disorder. MEDICAL: Hypertension, history of CP. CONDITION ON DISCHARGE: Improved. Fair sleep and appetite. No agitation or aggressive behavior. No suicidal or homicidal thoughts. DISPOSITION: Discharged to SNF. EXPECTED COURSE OF RECOVERY: Chronic condition. [facility]# [id number]
== END 2017-10-20 18:20 | DRG 885 ==
LOC: ER 17:58 → GERO 22:23
DX: F25.9 Schizoaffective disorder, unspecified (principal); E78.00 Pure hypercholesterolemia, unspecified; F17.210 Nicotine dependence, cigarettes, uncomplicated; I10 Essential (primary) hypertension; G80.9 Cerebral palsy, unspecified; F31.9 Bipolar disorder, unspecified
CPT/HCPCS: 36415-UA; 71045-TC; 80053-TC; 80061-TC; 80076-TC; 80164-TC; 81001-TC; 82728-90; 83540-90; 83550-90; 83735-TC; 83880-TC; 84439-90; 84443-TC; 85025-TC; 85610-TC; 86141-TC; 90899; 93005; A4216; G0410; J1200; J1630; J2060; Z7610

== ENCOUNTER 2018-02-12 17:25 | Inpatient (IN) | payer MEDICARE, OTHER ==
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
[2018-02-12 17:58] LABS: HEMATOCRIT 40.2 % (41.0-60); HEMOGLOBIN 13.7 gm/dL (12-16); MEAN CELL VOLUME 85.6 fl (80-99); MEAN CORPUSCULAR HEMOGLOBIN 29.1 pg (26.0-30.0); MEAN CORPUSCULAR HGB CONC 34.1 pg (28.0-36.0); MEAN PLATELET VOLUME 9.2 fl; PLATELET COUNT 136 Th/cmm (150-400); RED CELL DISTRIBUTION WIDTH 13.2 % (11.5-20.0); WHITE BLOOD COUNT 5.6 Th/cmm (4.8-10.8)
[2018-02-12] MEDS ORDERED: Sodium Chloride 0.9% 1,000 ML IV ONE ×3 (18:14→20:30)
[2018-02-12 18:19] LABS: ALBUMIN 3.7 gm/dL (4.2-5.5); ANION GAP 15.6 (7.0-16.0); BILIRUBIN,TOTAL 0.9 mg/dL (0.3-1.0); CALCIUM SERUM 9.1 mg/dL (8.6-10.3); CARBON DIOXIDE 20.8 mEq/L (21.0-31.0); CREATININE - SERUM 3.2 mg/dL (0.7-1.3); GFR NON AFRICAN-AMERICAN 21.5 ml/min; POTASSIUM SERUM 3.4 mEq/L (3.5-5.1); TOTAL PROTEIN,SERUM 5.6 gm/dL (6.0-8.3)
[2018-02-12 18:36] LABS: BAND NEUTROPHILE 6 % (0-10); LYMPHOCYTE 5 % (20-50); MONOCYTE 4 % (2-10); NEUTROPHILS 85 % (40-80); TOTAL CELLS COUNTED 100
[2018-02-12 18:37] LABS: BASOPHIL 0 % (0-3); EOSINOPHIL 0 % (0-5)
[2018-02-12 19:25] LABS: URINE MICROSCOPIC INDICATED? YES; URINE SOURCE CLEAN C
[2018-02-12 19:28] LABS: URINE BLOOD NEGATIVE (NEGATIVE); URINE GLUCOSE (UA) NEGATIVE (NEGATIVE); URINE KETONE TRACE mg/dL (NEGATIVE); URINE LEUKOCYTE ESTERASE SMALL (NEGATIVE); URINE NITRATE NEGATIVE (NEGATIVE); URINE PH 5.5 (4.6 - 8.0); URINE PROTEIN 30 mg/dL (NEGATIVE); URINE UROBILINOGEN 0.2 E.U./dL (0.2 - 1.0)
[2018-02-12 19:45] LABS: URINE CLARITY HAZY (CLEAR); URINE COLOR YELLOW
[2018-02-12 19:48] LABS: URINE AMORPHOUS SEDIMENT MODERATE URATES (NONE SEEN); URINE BACTERIA FEW /hpf (NONE SEEN); URINE EPITHELIAL CELLS OCCASIONAL /lpf (FEW)
[2018-02-12 19:49] LABS: URINE BILIRUBIN NEGATIVE (NEGATIVE)
[2018-02-12] MEDS ORDERED: Sodium Chloride 0.9% 1,000 ML IV SCH (21:30)
[2018-02-12 21:41] LABS: A1C % 5.3 % (4.0-6.0)
[2018-02-12] MEDS ORDERED: Maalox 30 mL Cup PO PRN (21:43)
[2018-02-12] MEDS ORDERED: Magnesium Hydroxide (MOM) 30 mL UDC PO PRN (21:44)
[2018-02-13] MEDS ORDERED: Piperacillin Sodium/Tazobact 2.25 gm Vial IV ONE ×2 (00:55→06:00)
[2018-02-13] MEDS ORDERED: Norepinephrine 4 mg/4mL Vial IV ONE (01:38)
[2018-02-13] MEDS ORDERED: Albuterol/Ipratropium Neb 3 ML AERS HHN PRN ×2 (02:19→02:46)
[2018-02-13 03:16] LABS: pH 7.31 (7.35-7.45)
[2018-02-13 03:17] LABS: ALLEN TEST Positive
[2018-02-13] MEDS ORDERED: Sodium Bicarbonate 8.4% 50mEq PFS IVP ONE ×2 (04:00→04:12)
[2018-02-13] MEDS: Albuterol/Ipratropium Neb 3 ML AERS HHN SCH ×5 (07:07→22:58)
[2018-02-13 07:45] LABS: % BASOPHILS 0.1 % (0.0-2.0); % EOSINOPHILS 2.9 % (0.0-5.0); % LYMPHOCYTES 9.6 % (20.0-50.0); % MONOCYTES 6.4 % (2.0-10.0); EOSINOPHILE ABSOLUTE 0.1 Th/cmm (0.1-0.4); HEMATOCRIT 41.8 % (41.0-60); HEMOGLOBIN 14.2 gm/dL (12-16); LYMPHOCYTE ABSOLUTE 0.3 Th/cmm (1.5-3.0); MEAN CELL VOLUME 84.3 fl (80-99); MEAN CORPUSCULAR HEMOGLOBIN 28.6 pg (26.0-30.0); MEAN CORPUSCULAR HGB CONC 33.9 pg (28.0-36.0); MEAN PLATELET VOLUME 9.9 fl; MONOCYTE ABSOLUTE 0.2 Th/cmm (0.3-1.0); NEUTROPHILE ABSOLUTE 2.8 Th/cmm (1.8-8.0); PLATELET COUNT 144 Th/cmm (150-400); RED BLOOD COUNT 4.96 Mil/cmm (4.30-5.70); RED CELL DISTRIBUTION WIDTH 13.6 % (11.5-20.0)
[2018-02-13 07:48] LABS: WHITE BLOOD COUNT 3.4 Th/cmm (4.8-10.8)
[2018-02-13 07:55] LABS: ALB/GLOB RATIO 1.5 (1.0-1.8); ALBUMIN 3.2 gm/dL (4.2-5.5); ANION GAP 16.4 (7.0-16.0); BILIRUBIN,TOTAL 0.6 mg/dL (0.3-1.0); CALCIUM SERUM 7.6 mg/dL (8.6-10.3); CARBON DIOXIDE 20.1 mEq/L (21.0-31.0); CREATININE - SERUM 3.6 mg/dL (0.7-1.3); GFR AFRICAN-AMERICAN 22.7 ml/min (>90); GFR NON AFRICAN-AMERICAN 18.7 ml/min; POTASSIUM SERUM 3.5 mEq/L (3.5-5.1); TOTAL PROTEIN,SERUM 5.3 gm/dL (6.0-8.3)
--- NOTE | 2018-02-13 08:39 | Diagnostic Imaging Report ---
Portable chest x-ray HISTORY: Shortness of breath, sepsis There is a poor inspiration. Heart size difficult to assess. No focal pulmonary processes. No hilar or mediastinal abnormalities. IMPRESSION: 1. No acute focal pulmonary processes
--- NOTE | 2018-02-13 08:41 | Diagnostic Imaging Report ---
Portable chest x-ray History: Shortness of breath Allowing for portable technique the heart size is normal. No focal pulmonary parenchymal processes. No hilar or mediastinal abnormalities. Impression: No acute abnormalities.
[2018-02-13] MEDS: Aspirin 81mg Chewable Tab PO SCH (10:14)
[2018-02-13] MEDS: Multivitamin Tab PO SCH (10:15)
[2018-02-13 12:57] LABS: MAGNESIUM 1.5 mg/dL (1.9-2.7); PHOSPHOROUS 4.1 mg/dL (2.5-5.0)
[2018-02-13] MEDS ORDERED: methylPREDNISolone SS 40 mg Vial IVP SCH (13:00)
--- NOTE | 2018-02-13 14:34 | Diagnostic Imaging Report ---
Right upper extremity Doppler venous ultrasound exam HISTORY: Right arm swelling Sonographic sector images were obtained through the venous system of the right arm. Associated Doppler data was obtained. The exam demonstrates patency of the right internal jugular, subclavian, axilla, brachial, basilic, and cephalic veins. No thrombus. Normal compressibility and augmentation responses. IMPRESSION: Negative examination. No evidence of thrombophlebitis.
[2018-02-13 16:01] LABS: pH 7.44 (7.35-7.45)
[2018-02-13] MEDS: D5W w/20 mEq KCL 1,000 ML IV SCH (16:04)
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
[2018-02-13 19:48] LABS: RED CELL DISTRIBUTION WIDTH 13.3 % (11.5-20.0)
[2018-02-13 20:03] LABS: HEMATOCRIT 42.3 % (41.0-60); MEAN CORPUSCULAR HEMOGLOBIN 28.5 pg (26.0-30.0); MEAN CORPUSCULAR HGB CONC 33.1 pg (28.0-36.0); MEAN PLATELET VOLUME 9.4 fl; PLATELET COUNT 134 Th/cmm (150-400); RED BLOOD COUNT 4.92 Mil/cmm (4.30-5.70)
[2018-02-13 20:08] LABS: INR 1.51 (0.5-1.4)
[2018-02-13 20:11] VITALS: BP 75/48
[2018-02-13 20:11] LABS: ALB/GLOB RATIO 1.4 (1.0-1.8); ALBUMIN 3.1 gm/dL (4.2-5.5); ANION GAP 15.2 (7.0-16.0); BILIRUBIN,TOTAL 0.5 mg/dL (0.3-1.0); CALCIUM SERUM 7.1 mg/dL (8.6-10.3); CARBON DIOXIDE 18.3 mEq/L (21.0-31.0); CREATININE - SERUM 3.8 mg/dL (0.7-1.3); GFR AFRICAN-AMERICAN 21.3 ml/min (>90); GFR NON AFRICAN-AMERICAN 17.6 ml/min; POTASSIUM SERUM 3.5 mEq/L (3.5-5.1); TOTAL PROTEIN,SERUM 5.3 gm/dL (6.0-8.3)
[2018-02-13] MEDS: Atorvastatin Calcium 10 MG TAB PO SCH (22:39)
[2018-02-13] MEDS: methylPREDNISolone SS 40 mg Vial IVP SCH (22:40)
[2018-02-14] MEDS: D5W w/20 mEq KCL 1,000 ML IV SCH ×4 (01:11→19:51)
[2018-02-14] MEDS: Albuterol/Ipratropium Neb 3 ML AERS HHN SCH ×6 (02:03→23:45)
[2018-02-14 04:21] LABS: % BASOPHILS 2.1 % (0.0-2.0); % LYMPHOCYTES 4.9 % (20.0-50.0); BASOPHILE ABSOLUTE 0.1 Th/cumm (0-0.2); EOSINOPHILE ABSOLUTE 0.1 Th/cmm (0.1-0.4); HEMATOCRIT 38.9 % (41.0-60); HEMOGLOBIN 13.2 gm/dL (12-16); LYMPHOCYTE ABSOLUTE 0.3 Th/cmm (1.5-3.0); MEAN CELL VOLUME 84.9 fl (80-99); MEAN CORPUSCULAR HEMOGLOBIN 28.8 pg (26.0-30.0); MEAN PLATELET VOLUME 10.1 fl; MONOCYTE ABSOLUTE 0.5 Th/cmm (0.3-1.0); NEUTROPHILE ABSOLUTE 5.2 Th/cmm (1.8-8.0); PLATELET COUNT 95 Th/cmm (150-400); RED BLOOD COUNT 4.58 Mil/cmm (4.30-5.70); RED CELL DISTRIBUTION WIDTH 13.5 % (11.5-20.0); WHITE BLOOD COUNT 6.2 Th/cmm (4.8-10.8)
[2018-02-14 04:47] LABS: ALB/GLOB RATIO 1.2 (1.0-1.8); ALBUMIN 2.8 gm/dL (4.2-5.5); ANION GAP 15.6 (7.0-16.0); BILIRUBIN,TOTAL 0.6 mg/dL (0.3-1.0); CALCIUM SERUM 7.2 mg/dL (8.6-10.3); CARBON DIOXIDE 19.8 mEq/L (21.0-31.0); CREATININE - SERUM 3.9 mg/dL (0.7-1.3); GFR AFRICAN-AMERICAN 20.7 ml/min (>90); GFR NON AFRICAN-AMERICAN 17.1 ml/min; POTASSIUM SERUM 3.4 mEq/L (3.5-5.1); TOTAL PROTEIN,SERUM 5.1 gm/dL (6.0-8.3)
[2018-02-14] MEDS: methylPREDNISolone SS 40 mg Vial IVP SCH ×2 (09:52→20:32)
[2018-02-14] MEDS: Multivitamin Tab PO SCH (09:53)
[2018-02-14] MEDS: DAPTOmycin 500 MG in Sodium Chloride 0.9% 100 ML IV SCH (09:53)
[2018-02-14] MEDS: Aspirin 81mg Chewable Tab PO SCH (09:53)
--- NOTE | 2018-02-14 10:31 | Diagnostic Imaging Report ---
Portable chest x-ray HISTORY: Shortness of breath Compared with prior exam of February 13, 2018, the heart remains enlarged. No focal pulmonary processes. IMPRESSION: 1. No focal pulmonary processes 2. Persistent cardiomegaly
--- NOTE | 2018-02-14 10:38 | Diagnostic Imaging Report ---
Portable chest x-ray HISTORY: Shortness of breath, vascular catheter placement Compared to prior exam taken earlier in the day (0328 hours), a left-sided vascular catheter has been inserted. The tip extends into the region of the superior vena cava. No focal pulmonary processes. The heart appears somewhat enlarged. IMPRESSION: 1. Vascular catheter placement as noted above 2. No focal pulmonary processes
--- NOTE | 2018-02-14 10:39 | Diagnostic Imaging Report ---
Portable chest x-ray HISTORY: Shortness of breath Compared to prior exam performed earlier in the day (2138 hours), a left-sided vascular catheter tip is in the region of the superior vena cava. No focal pulmonary processes. IMPRESSION: 1. No change in the cardiopulmonary status.
--- NOTE | 2018-02-14 12:29 | History and Physical ---
History of Present Illness - [facility] Vital Signs: Last Vital Signs Temp 98.6 F 02/14/18 08:00 Pulse 93 02/14/18 11:30 Resp 21 02/14/18 11:10 BP 96/4 02/14/18 11:30 Pulse Ox 92 02/14/18 11:10 Family Medical History - Family Member Mother History Unknown: Yes Ethnicity: Unknown Living Status: Unknown - Medications Home Medications: Home Medication Medication Instructions Recorded Type Acetaminophen [Tylenol] 650 mg PO Q4HR PRN tab 10/20/17 Rx Al Hyd/Mg Hyd/Simethicone [Maalox] 30 ml PO Q4HR PRN udc 10/20/17 Rx Aspirin [Aspirin Chewable] 81 mg PO DAILY ctb 10/20/17 Rx Atorvastatin Calcium [Lipitor] 20 mg PO HS tab 10/20/17 Rx Diphenhydramine HCL [Benadryl] 50 mg PO BID PRN cap 10/20/[address] [Depakote DR] 500 mg PO BID tcp 10/20/17 Rx Docusate Sodium [Colace] 100 mg PO BID cap 10/20/17 Rx Labetalol [Trandate] 50 mg PO DAILY tab 10/20/17 Rx Lorazepam [Ativan] 0.5 mg PO Q4HR PRN tab 10/20/17 Rx Magnesium Hydroxide [Milk of 30 ml PO HS PRN udc 10/20/17 Rx Magnesia] Multivitamin [Theragran] 1 tab PO DAILY tab 10/20/17 Rx OLANZapine [ZyPREXA] 20 mg PO HS tab 10/20/17 Rx Zolpidem Tartrate [Ambien] 5 mg PO HS PRN tab 10/20/17 Rx - Allergies Allergies/Adverse Reactions: Allergies Allergy/AdvReac Type Severity Reaction Status Date / Time haloperidol [From Haldol] Allergy Verified 02/12/18 18:58 - Lab Results All Lab Results last 24 hours: Laboratory Results - last 24 hr 02/12/18 02/13/18 02/13/18 17:50 07:20 07:30 WBC RBC Hgb Hct MCV MCH MCHC Differential RDW Plt Count MPV Neutrophils % Lymphocytes % Monocytes % Eosinophils % Basophils % Smear Path Review PT INR PTT (Actin FS) Specimen Source Sample Site pH pCO2 pO2 HCO3 Base Excess O2 Saturation Ruben Test Vent Rate Inspired O2 Tidal Volume PEEP Pressure (ins/psv/peep) Critical Value Sodium Potassium Chloride Carbon Dioxide Anion Gap BUN Creatinine Est GFR ( Amer) Est GFR (Non-Af Amer) BUN/Creatinine Ratio Glucose Calcium Phosphorus 4.1 Magnesium 1.5 L Total Bilirubin AST ALT Alkaline Phosphatase Creatine Kinase 1807 H CK-MB (CK-2) 25.3 H Troponin I 0.09 H* B-Natriuretic Peptide 633.0 H Total Protein Albumin Globulin Albumin/Globulin Ratio Stool Occult Blood 02/13/18 02/13/18 02/13/18 12:30 15:50 19:40 WBC 6.3 RBC 4.92 Hgb 14.0 Hct 42.3 MCV 86.0 MCH 28.5 MCHC Differential 33.1 RDW 13.3 Plt Count 134 L MPV 9.4 Neutrophils % Lymphocytes % Monocytes % Eosinophils % Basophils % Smear Path Review Y PT INR PTT (Actin FS) Specimen Source Arterial Sample Site RB pH 7.44 pCO2 26.0 L pO2 70.0 L HCO3 21.0 Base Excess -5.0 L O2 Saturation 94.0 Ruben Test NA Vent Rate NA Inspired O2 21 Tidal Volume NA PEEP NA Pressure (ins/psv/peep) NA Critical Value E.GALLEGOS Sodium Potassium Chloride Carbon Dioxide Anion Gap BUN Creatinine Est GFR ( Amer) Est GFR (Non-Af Amer) BUN/Creatinine Ratio Glucose Calcium Phosphorus Magnesium Total Bilirubin AST ALT Alkaline Phosphatase Creatine Kinase CK-MB (CK-2) Troponin I B-Natriuretic Peptide Total Protein Albumin Globulin Albumin/Globulin Ratio Stool Occult Blood NEGATIVE 02/13/18 02/13/18 02/14/18 19:40 19:40 04:10 WBC 6.2 RBC 4.58 Hgb 13.2 Hct 38.9 L MCV 84.9 MCH 28.8 MCHC Differential 34.0 RDW 13.5 Plt Count 95 L MPV 10.1 Neutrophils % 84.0 H Lymphocytes % 4.9 L Monocytes % 8.0 Eosinophils % 1.0 Basophils % 2.1 H Smear Path Review PT 16.0 H INR 1.51 H PTT (Actin FS) 40.8 H Specimen Source Sample Site pH pCO2 pO2 HCO3 Base Excess O2 Saturation Ruben Test Vent Rate Inspired O2 Tidal Volume PEEP Pressure (ins/psv/peep) Critical Value Sodium 131 L Potassium 3.5 Chloride 101 Carbon Dioxide 18.3 L Anion Gap 15.2 BUN 63 H Creatinine 3.8 H Est GFR ( Amer) 21.3 Est GFR (Non-Af Amer) 17.6 BUN/Creatinine Ratio 16.6 Glucose 149 H Calcium 7.1 L Phosphorus Magnesium Total Bilirubin 0.5 AST 87 H ALT 42 Alkaline Phosphatase 27 L Creatine Kinase CK-MB (CK-2) Troponin I B-Natriuretic Peptide Total Protein 5.3 L Albumin 3.1 L Globulin 2.2 Albumin/Globulin Ratio 1.4 Stool Occult Blood 02/14/18 04:10 WBC RBC Hgb Hct MCV MCH MCHC Differential RDW Plt Count MPV Neutrophils % Lymphocytes % Monocytes % Eosinophils % Basophils % Smear Path Review PT INR PTT (Actin FS) Specimen Source Sample Site pH pCO2 pO2 HCO3 Base Excess O2 Saturation Ruben Test Vent Rate Inspired O2 Tidal Volume PEEP Pressure (ins/psv/peep) Critical Value Sodium 133 L Potassium 3.4 L Chloride 101 Carbon Dioxide 19.8 L Anion Gap 15.6 BUN 67 H Creatinine 3.9 H Est GFR ( Amer) 20.7 Est GFR (Non-Af Amer) 17.1 BUN/Creatinine Ratio 17.2 Glucose 127 H Calcium 7.2 L Phosphorus Magnesium Total Bilirubin 0.6 AST 61 H ALT 39 Alkaline Phosphatase 28 L Creatine Kinase CK-MB (CK-2) Troponin I B-Natriuretic Peptide Total Protein 5.1 L Albumin 2.8 L Globulin 2.3 Albumin/Globulin Ratio 1.2 Stool Occult Blood Microbiology 02/12/18 19:10 - Preliminary Blood NO GROWTH AFTER 24 HOURS 02/12/18 18:50 - Preliminary Blood NO GROWTH AFTER 24 HOURS
[2018-02-14] MEDS: Mag Sulfate 2gm/50mL Premix 2 GM/50 ML BAG IV SCH ×2 (20:04→21:56)
[2018-02-14] MEDS: Atorvastatin Calcium 10 MG TAB PO SCH (20:32)
--- NOTE | 2018-02-14 20:46 | History & Physical ---
ADMIT DATE: 02/14/2018 CHIEF COMPLAINT: Agitation. HISTORY OF PRESENT ILLNESS: This is a 57-year-old male, who was admitted from a senior care facility to the Emergency Room due to increase in agitation. As per the Emergency Room, the patient was found to have low blood pressure. Sepsis workup was initiated and the patient was then admitted to intensive care unit. REVIEW OF SYSTEM: GENERAL: This is a 57-year-old male that appears as stated. Denies headache, denies dizziness. Denies chills. EYES: Denies eye pain. Denies blurring of vision. NECK: Denies neck pain. Denies nuchal rigidity. CHEST: Denies chest pain. Denies palpitation. PULMONARY: Positive shortness of breath. Denies coughing. GASTROINTESTINAL: Denies abdominal pain. Denies diarrhea, denies constipation. MUSCULOSKELETAL: Denies muscle pain. Denies joint pain. SOCIAL HISTORY: The patient lives in a senior care facility prior to hospitalization. Denies nicotine usage. Denies illicit drug use. Denies alcohol usage. FAMILY HISTORY: Unremarkable. PAST SURGICAL HISTORY: Unremarkable. PAST MEDICAL HISTORY: Hyperlipidemia, hypertension, unknown psychiatric disorder. PHYSICAL EXAMINATION: VITAL SIGNS: Temperature 97.8, heart rate of 98, blood pressure 101/45, respirations 20, 97% oxygen saturation. HEENT: Head is atraumatic and normocephalic. Eyes: Bilateral conjunctivae are clear. Bilateral pupils are equally round and reactive. NECK: Supple. No JVD. CARDIOVASCULAR: S1 and S2, without murmur. PULMONARY: Clear to auscultation. GASTROINTESTINAL: Soft and nontender without guarding. Positive bowel sounds. MUSCULOSKELETAL: No clubbing. No cyanosis noted. ASSESSMENT: 1. Sepsis. 2. Hypotension, currently on Suhail-Synephrine at 40 mcg and Levophed at 4 mcg. 3. Congestive heart failure. 4. Hyperlipidemia. 5. . PLAN: We will continue to keep the patient in intensive care unit. We will continue to provide fluids and will try to titrate vasopressors as tolerated. We will also continue pulmonary support. We will follow up with the training engineer and with the cut press operator. We are also going to do medication reconciliation accordingly. Treatment plans were discussed with the patient's nurse. Treatment plans were discussed with Dr. Ortiz. [facility]# [id number]
[2018-02-14] MEDS ORDERED: Mag Sulfate 2gm/50mL Premix 2 GM/50 ML BAG IV ONE (22:00)
[2018-02-14] MEDS ORDERED: Norepinephrine 4 mg/4mL Vial IV ONE ×2 (23:30→23:33)
[2018-02-15] MEDS: Albuterol/Ipratropium Neb 3 ML AERS HHN SCH ×6 (02:28→23:56)
[2018-02-15] MEDS: D5W w/20 mEq KCL 1,000 ML IV SCH ×3 (03:17→17:21)
[2018-02-15 05:31] LABS: EOSINOPHILE ABSOLUTE 0.1 Th/cmm (0.1-0.4); HEMATOCRIT 35.8 % (41.0-60); HEMOGLOBIN 12.2 gm/dL (12-16); LYMPHOCYTE ABSOLUTE 0.5 Th/cmm (1.5-3.0); MEAN CELL VOLUME 85.6 fl (80-99); MEAN CORPUSCULAR HEMOGLOBIN 29.1 pg (26.0-30.0); MEAN PLATELET VOLUME 10.1 fl; MONOCYTE ABSOLUTE 0.4 Th/cmm (0.3-1.0); NEUTROPHILE ABSOLUTE 9.5 Th/cmm (1.8-8.0); PLATELET COUNT 99 Th/cmm (150-400); RED BLOOD COUNT 4.19 Mil/cmm (4.30-5.70); RED CELL DISTRIBUTION WIDTH 13.5 % (11.5-20.0); WHITE BLOOD COUNT 10.5 Th/cmm (4.8-10.8)
--- NOTE | 2018-02-15 05:44 | Consultation ---
DATE OF CONSULTATION: 02/13/2018 PATIENT OF: Dr. Ortiz Thank you very much Dr. Ortiz for this consultation. HISTORY OF PRESENT ILLNESS: This is a 57-year-old male who presented with hypotension, altered level of consciousness, shortness of breath and was found to be acidotic, in acute renal failure, dehydrated. The patient apparently had some aggressive behavior as well. The patient has underlying history of Parkinson's disease, some schizophrenia, hypertension. He apparently has some injury to his right arm and was diagnosed with cellulitis as well. The patient had slight worsening shortness of breath for which BiPAP was placed, but the patient not used it. The patient was placed on bicarb drip. Today, he is breathing a little bit better, still confused at times. Blood pressure is still in the low side. He is still on a couple of pressors. He is not making urine much. PAST MEDICAL HISTORY: As above. SOCIAL HISTORY: Smoking 5 cigarettes a day for 20 years. PHYSICAL EXAMINATION: GENERAL: Awake, alert, in some distress because of tachypnea. VITAL SIGNS: Temperature is 102.0, pulse 110, respirations 26, blood pressure ____, saturation 97%. HEENT: Atraumatic and normocephalic. Pupils are equal and react to light and accommodation. Ears, nose and throat are normal. NECK: Supple. No JVD. CHEST: There are good breath sounds, few rhonchi. HEART: Regular rate and rhythm. ABDOMEN: Soft. EXTREMITIES: No edema. LABORATORY DATA: ABGs: pH 7.31, PCO2 of 23, PO2 of 111, bicarbonate ____, saturation is 98%. WBC is 3.4, hemoglobin is 14.2, hematocrit is 41.8, platelets 144. Sodium ____, potassium 3.5, BUN is 55, creatinine 3.6. CPK is 1807. BNP is 633. Chest x-ray, no obvious infiltrate. IMPRESSION: This is a 57-year-old male with: 1. Respiratory failure secondary to severe metabolic acidosis and tachypnea, possible underlying airway disease as well, many years of smoking. 2. Sepsis ____ cellulitis and severe dehydration. 3. Acute renal failure and severe metabolic acidosis. PLAN: 1. IV fluids. 2. Bicarb as needed. 3. Follow up ABGs. 4. Antibiotics. 5. Decrease steroids. 6. Renal followup. Discussed with Dr. Nuñez on the case. PROGNOSIS: Guarded. I will follow the patient with you. JOB# [id number]
[2018-02-15 05:54] LABS: ALB/GLOB RATIO 1.1 (1.0-1.8); ALBUMIN 2.6 gm/dL (4.2-5.5); ANION GAP 14.2 (7.0-16.0); BILIRUBIN,TOTAL 0.4 mg/dL (0.3-1.0); CALCIUM SERUM 7.6 mg/dL (8.6-10.3); CARBON DIOXIDE 17.3 mEq/L (21.0-31.0); CREATININE - SERUM 3.4 mg/dL (0.7-1.3); GFR AFRICAN-AMERICAN 24.2 ml/min (>90); MAGNESIUM 2.8 mg/dL (1.9-2.7); POTASSIUM SERUM 3.5 mEq/L (3.5-5.1)
[2018-02-15 06:04] LABS: TOTAL CELLS COUNTED 100
[2018-02-15 06:10] LABS: BAND NEUTROPHILE 14 % (0-10); BASOPHIL 0 % (0-3); EOSINOPHIL 1 % (0-5); LYMPHOCYTE 3 % (20-50); MONOCYTE 3 % (2-10); NEUTROPHILS 79 % (40-80)
[2018-02-15 06:11] LABS: PLATELET ESTIMATE ADEQUATE (NORMAL); PLATELET MORPHOLOGY NORMAL (NORMAL)
--- NOTE | 2018-02-15 06:34 | Consultation ---
DATE OF CONSULTATION: 02/13/2018 PRIMARY PHYSICIAN: Dr. Ortiz. HISTORY OF PRESENT ILLNESS: This is a 57-year-old male who was brought to the Emergency Room with complaint of aggressive behavior. The patient was found to have low blood pressure in ER, admitted to ICU. Infectious consultation was called. The patient also has cellulitis on the infected wound on the elbow. Culture was requested, also creatinine is high. Vancomycin was given one dose. The patient seen by Renal. The patient is still agitated, unable to provide meaningful history. Old chart reviewed, pertinent information obtained. PAST HISTORY: Cerebral palsy, leg surgery, schizophrenia, smoker, hypertension. FAMILY HISTORY: Negative. REVIEW OF SYSTEMS: A 14-point review of system negative except above. PHYSICAL EXAMINATION: GENERAL: The patient awake, agitated with the following vital signs. VITAL SIGNS: Temperature is 98.6, pulse 98, respirations 23, blood pressure 106/47. HEENT: Mild pallor, no icterus, no plaque. NECK: Supple. LUNGS: Breath sounds bilateral vesicular. ABDOMEN: Soft, elbow cellulitis present with draining fluid. NODES: No cervical lymph nodes, paraparesis. LABORATORY DATA: White count is 6000, hemoglobin 14 g, platelets 134. DIAGNOSES: Hypotension multifactorial, elbow cellulitis, and urinary tract infection. PLAN: The patient was started on daptomycin because of renal failure. Vancomycin discontinued. Continue with other antibiotics, IV steroid and Zosyn. Hypotension, Levophed drip p.r.n. titrate to keep systolic above 90. Psychosis, olanzapine. We will hold labetalol because of hypotension. Rest of the care as ordered in [facility]PO[facility]. Thank you Dr. Ortiz for this consultation. JOB# [id number]
[2018-02-15] MEDS ORDERED: Haloperidol Lactate 5 mg/mL 1mL Vial IM PRN (07:26)
[2018-02-15 08:03] LABS: BAND NEUTROPHILE 3 % (0-10); EOSINOPHIL 1 % (0-5); LYMPHOCYTE 5 % (20-50); MONOCYTE 2 % (2-10); NEUTROPHILS 86 % (40-80); TOTAL CELLS COUNTED 100
[2018-02-15 08:04] LABS: METAMYELOCYTE 2 % (0-0); MYELOCYTE 2 %; PLATELET ESTIMATE SLIGHT DECREASED (NORMAL)
--- NOTE | 2018-02-15 08:23 | Consultation ---
DATE OF CONSULTATION: 02/13/2018 TIME: 02:15 p.m. REQUESTING PHYSICIAN: Dr. Ortiz. REASON FOR CONSULTATION: Evaluation of electrolyte metabolic status and renal status. HISTORY OF PRESENT ILLNESS: This patient is not able to give any history. He is incoherent at present time. 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 The patient was found to be having later on his schizophrenia for which he has been treated from place to place. The patient had been difficult at times to take care of it. He has been from institutions and about a month or 2 months back, he fell down, injured himself on his face and legs things like that. They do not know what happened this time, but he was transferred from place to place again and then finally he ending up to the Emergency Room of [facility]. Earlier than that, he came to the [facility] few days earlier. On direct questioning to the patient, he is not able to give much straightforward history. The patient looked like that the patient had been in the sun for sometime who lying down or whatever it is. The patient also had blisters in the right elbow area, which looks like that either sitting in the sun or whatever has been happening and that is also seen by his facial coloration or dark hussein noticed. He is not able to tell us nothing in detail. The patient is talking most of the times garbled speech. Not known whether it is because psychiatric factors or some other things going on. The patient is afebrile for which the patient is having cooling measures. The patient's blood pressure is low, had been in the range of 70s systolic and the low diastolic with a heart rate of about 120-130 for which the patient had been given vasopressors basically Suhail-Synephrine and Levophed. The patient had been also given a significant amount of fluids with some response. PHYSICAL EXAMINATION: CHEST: Reveals good air entry bilaterally. CARDIOVASCULAR: Heart rate had been as high as 130 per minute. O2 saturation is reasonably good 94-95%. ABDOMEN: Soft, nontender. No organomegaly noticed. The patient has a Roberto catheter, which is draining at present what looks like to be clear urine. LOWER EXTREMITIES: Do not reveal any significant pedal edema. ABDOMEN: Soft, nontender. NEUROLOGICAL: Difficult to assess because the patient is not very cooperative.\ LABORATORY DATA: Urine examination yesterday revealed a specific gravity of 1.030. Other biochemical data review is as follows: Sodium 138, potassium 3.5, chloride 105, CO2 content 20.1, BUN 55, creatinine 3.6, glucose 90, calcium 7.6, magnesium 1.5, phosphorus 4.1, alkaline phosphatase 31, creatinine kinase 1807. Total protein 5.3, albumin 3.2, globulin 2.1. Albumin globulin ratio 1.5. Hemoglobin was 4.96, wbc's 3.4, hemoglobin 14.2. Neutrophils 81%, bands 6%. IMPRESSION: Considering the above, my impression is besides having the primary problem of cerebral palsy at , mentally challenged, schizophrenia that the patient might have had a heat exposure, namely ____ stroke because of which that is why the metabolic system behaving. We need to gradually wean him off from the vasopressors giving more clear fluids, correct his magnesium and closely watch his electrolytes, BUN, creatinine and other metabolic areas. I think with hydration and supportive therapy, he would improve metabolically. Other things may need to be addressed later on. JOB# [id number]
[2018-02-15] MEDS ORDERED: Probiotic Screen MC PRN (08:45)
[2018-02-15] MEDS: methylPREDNISolone SS 40 mg Vial IVP SCH ×2 (08:46→20:34)
[2018-02-15] MEDS: Multivitamin Tab PO SCH (08:46)
[2018-02-15] MEDS: Aspirin 81mg Chewable Tab PO SCH (08:46)
--- NOTE | 2018-02-15 11:59 | General Progress Note ---
Subjective - Review of Systems Events since last encounter: patient in icu in no acute distress has cellulitis on elbow also had low blood sugar and confused Objective - Results Result Diagrams: 02/15/18 05:15 02/15/18 05:15 Recent Labs: Laboratory Last Values WBC 10.5 Th/cmm (4.8-10.8) 02/15/18 05:15 RBC 4.19 Mil/cmm (4.30-5.70) L 02/15/18 05:15 Hgb 12.2 gm/dL (12-16) 02/15/18 05:15 Hct 35.8 % (41.0-60) L 02/15/18 05:15 MCV 85.6 fl (80-99) 02/15/18 05:15 MCH 29.1 pg (26.0-30.0) 02/15/18 05:15 MCHC Differential 34.0 pg (28.0-36.0) 02/15/18 05:15 RDW 13.5 % (11.5-20.0) 02/15/18 05:15 Plt Count 99 Th/cmm (150-400) L 02/15/18 05:15 MPV 10.1 fl 02/15/18 05:15 Neutrophils % 84.0 % (40.0-80.0) H 02/14/18 04:10 Band Neutrophils % 14 % (0-10) H 02/15/18 05:15 Lymphocytes % 4.9 % (20.0-50.0) L 02/14/18 04:10 Monocytes % 8.0 % (2.0-10.0) 02/14/18 04:10 Eosinophils % 1.0 % (0.0-5.0) 02/14/18 04:10 Basophils % 2.1 % (0.0-2.0) H 02/14/18 04:10 Neutrophils (Manual) 79 % (40-80) 02/15/18 05:15 Lymphocytes 3 % (20-50) L 02/15/18 05:15 Monocytes 3 % (2-10) 02/15/18 05:15 Eosinophils 1 % (0-5) 02/15/18 05:15 Basophils 0 % (0-3) 02/15/18 05:15 Metamyelocytes 2 % (0-0) H 02/13/18 19:40 Myelocytes 2 % 02/13/18 19:40 Platelet Estimate ADEQUATE (NORMAL) 02/15/18 05:15 Platelet Morphology NORMAL (NORMAL) 02/15/18 05:15 RBC Morph Micro Appear NORMAL (NORMAL) 02/15/18 05:15 Smear Path Review Y 02/13/18 19:40 PT 16.0 SECONDS (9.5-11.5) H 02/13/18 19:40 INR 1.51 (0.5-1.4) H 02/13/18 19:40 PTT (Actin FS) 40.8 SECONDS (26.0-38.0) H 02/13/18 19:40 Specimen Source Arterial 02/13/18 15:50 Sample Site RB 02/13/18 15:50 pH 7.44 (7.35-7.45) 02/13/18 15:50 pCO2 26.0 mmHg (35.0-45.0) L 02/13/18 15:50 pO2 70.0 mmHg (80.0-100.0) L 02/13/18 15:50 HCO3 21.0 mEq/L (20.0-26.0) 02/13/18 15:50 Base Excess -5.0 mEq/L (-3.0-3.0) L 02/13/18 15:50 O2 Saturation 94.0 % (92.0-100.0) 02/13/18 15:50 Ruben Test NA 02/13/18 15:50 Vent Rate NA 02/13/18 15:50 Inspired O2 21 02/13/18 15:50 Tidal Volume NA 02/13/18 15:50 PEEP NA 02/13/18 15:50 Pressure (ins/psv/peep) NA 02/13/18 15:50 Critical Value E.GALLEGOS 02/13/18 15:50 Sodium 132 mEq/L (136-145) L 02/15/18 05:15 Potassium 3.5 mEq/L (3.5-5.1) 02/15/18 05:15 Chloride 104 mEq/L (98-107) 02/15/18 05:15 Carbon Dioxide 17.3 mEq/L (21.0-31.0) L 02/15/18 05:15 Anion Gap 14.2 (7.0-16.0) 02/15/18 05:15 BUN 68 mg/dL (7-25) H 02/15/18 05:15 Creatinine 3.4 mg/dL (0.7-1.3) H 02/15/18 05:15 Est GFR ( Amer) 24.2 ml/min (>90) 02/15/18 05:15 Est GFR (Non-Af Amer) 20.0 ml/min 02/15/18 05:15 BUN/Creatinine Ratio 20.0 02/15/18 05:15 Glucose 159 mg/dL (70-105) H 02/15/18 05:15 POC Glucose 97 MG/DL (70-105) 02/12/18 18:18 Hemoglobin A1c % 5.3 % (4.0-6.0) 02/12/18 17:50 Whole Bld Lactic Acid 5.16 mmol/L (0.60-1.99) H* 02/13/18 07:30 Calcium 7.6 mg/dL (8.6-10.3) L 02/15/18 05:15 Phosphorus 4.1 mg/dL (2.5-5.0) 02/13/18 07:30 Magnesium 2.8 mg/dL (1.9-2.7) H 02/15/18 05:15 Total Bilirubin 0.4 mg/dL (0.3-1.0) 02/15/18 05:15 AST 23 U/L (13-39) 02/15/18 05:15 ALT 33 U/L (7-52) 02/15/18 05:15 Alkaline Phosphatase 38 U/L (34-104) 02/15/18 05:15 Creatine Kinase 219 U/L (30-223) 02/15/18 05:15 CK-MB (CK-2) 25.3 ng/mL (0.6-6.3) H 02/13/18 07:30 Troponin I 0.09 ng/mL (0.01-0.05) H* 02/12/18 17:50 B-Natriuretic Peptide 633.0 pg/mL (5.0-100.0) H 02/13/18 07:20 Total Protein 5.0 gm/dL (6.0-8.3) L 02/15/18 05:15 Albumin 2.6 gm/dL (4.2-5.5) L 02/15/18 05:15 Globulin 2.4 gm/dL 02/15/18 05:15 Albumin/Globulin Ratio 1.1 (1.0-1.8) 02/15/18 05:15 Triglycerides 74 mg/dL (<150) 02/12/18 17:50 Cholesterol 67 mg/dL (<200) 02/12/18 17:50 LDL Cholesterol Direct 19 mg/dL (75-193) L 02/12/18 17:50 HDL Cholesterol 31 mg/dL (23-92) 02/12/18 17:50 TSH 0.80 uIU/ml (0.34-5.60) 02/12/18 17:50 Urine Source CLEAN C 02/12/18 18:05 Urine Color YELLOW 02/12/18 18:05 Urine Clarity HAZY (CLEAR) 02/12/18 18:05 Urine pH 5.5 (4.6 - 8.0) 02/12/18 18:05 Ur Specific [place] >= 1.030 (1.005-1.030) 02/12/18 18:05 Urine Protein 30 mg/dL (NEGATIVE) H 02/12/18 18:05 Urine Glucose (UA) NEGATIVE mg/dL (NEGATIVE) 02/12/18 18:05 Urine Ketones TRACE mg/dL (NEGATIVE) 02/12/18 18:05 Urine Blood NEGATIVE (NEGATIVE) 02/12/18 18:05 Urine Nitrate NEGATIVE (NEGATIVE) 02/12/18 18:05 Urine Bilirubin NEGATIVE (NEGATIVE) 02/12/18 18:05 Urine Urobilinogen 0.2 E.U./dL (0.2 - 1.0) 02/12/18 18:05 Ur Leukocyte Esterase SMALL (NEGATIVE) H 02/12/18 18:05 Urine RBC 2-5 /hpf (0-5) H 02/12/18 18:05 Urine WBC 2-5 /hpf (0-5) 02/12/18 18:05 Ur Epithelial Cells OCCASIONAL /lpf (FEW) 02/12/18 18:05 Amorphous Sediment MODERATE URATES (NONE SEEN) 02/12/18 18:05 Urine Bacteria FEW /hpf (NONE SEEN) 02/12/18 18:05 Stool Occult Blood NEGATIVE (NEGATIVE) 02/15/18 06:00 RPR NONREACTIVE (NONREACTIVE) 02/12/18 17:50 - Physical Exam Vitals and I&O: Vital Signs Temp 97.4 F 02/15/18 06:00 Pulse 87 02/15/18 11:15 Resp 21 02/15/18 11:00 BP 114/66 02/15/18 11:15 Pulse Ox 98 02/15/18 11:00 Intake & Output 02/14/18 02/15/18 02/15/18 18:59 06:59 18:59 Intake Total 2807.681 4210.201 765 Output Total 2300 2500 Balance 736.703 0822.201 765 Weight (lbs) 92.351 kg 88.451 kg Intake: Intake, IV Amount 0773.131 4760.201 765 D5W w/20 mEq KCL 1,000 ml 1000 2407.5 465 @ 150 mls/hr IV .Q6H40M [facility] Rx#:[id number] DAPTOmycin 500 mg In 100 Sodium Chloride 0.9% 100 ml @ 100 mls/hr IV Q48H [facility] Rx#:[id number] Mag Sulfate 2gm/50mL 96.667 Premix 2 gm In 50 ml @ 25 mls/hr IV Q2H [facility] Rx#: [id number] Magnesium Sulfate 1 gm In 52 Sodium Chloride 0.9% 50 ml @ 52 mls/hr IV X1 ONE Rx#:[id number] Norepinephrine 8 mg In 84.681 93.034 Dextrose 5% 250 ml @ 4 MCG/MIN 7.74 mls/hr IV TITR PRN Rx#:[id number] Phenylephrine HCl 10 mg 500 961.00 250 In Sodium Chloride 0.9% 250 ml @ 5 MCG/MIN 7.5 mls/hr IV TITR [facility] Rx#: [id number] Piperacillin Sodium/ 50 100 50 Tazobact 2.25 gm In Sodium Chloride 0.9% 50 ml @ 100 mls/hr IV Q6HR [facility] Rx#:[id number] Oral 500 500 Other 573 Output: Urine 2300 2500 Other: # Bowel Movements 0 2 Weight Source Bedscale Bedscale Active Medications: Current Medications Acetaminophen (Tylenol) 650 mg PO Q4HR PRN PRN Reason: GARCIA/Mild pain/Temp above 37.6C Stop: 04/13/18 21:42 Last Admin: 02/15/18 02:20 Dose: 650 mg Albuterol/Ipratropium (Duoneb Neb) 3 ml HHN Q4HRT DEBORAH Stop: 04/14/18 06:59 Last Admin: 02/15/18 10:23 Dose: 3 ml Aspirin (Aspirin Chewable) 81 mg PO DAILY [facility] Stop: 04/14/18 08:59 Last Admin: 02/15/18 08:46 Dose: 81 mg Atorvastatin Calcium (Lipitor) 20 mg PO HS DEBORAH; Protocol Stop: 04/14/18 20:59 Last Admin: 02/14/18 20:32 Dose: 20 mg Diphenhydramine HCl (Benadryl) 50 mg PO BID PRN PRN Reason: Itching Stop: 04/13/18 21:42 Diphenhydramine HCl (Benadryl 50 Mg/Ml) 25 mg IM Q6HR PRN PRN Reason: Agitation Stop: 04/16/18 07:26 Divalproex Sodium (Depakote Dr) 500 mg PO BID [facility]; Protocol Stop: 04/14/18 08:59 Last Admin: 02/15/18 08:47 Dose: Not Given Haloperidol Lactate (Haldol) 5 mg IM Q8HR PRN PRN Reason: Agitation Stop: 04/16/18 07:25 Piperacillin Sod/Tazobactam (Sod 2.25 gm/ Sodium Chloride) 50 mls @ 100 mls/hr IV Q6HR DEBORAH Stop: 04/14/18 00:00 Last Admin: 02/15/18 11:45 Dose: 100 mls/hr Norepinephrine Bitartrate 8 mg (/ Dextrose) 258 mls @ 7.74 mls/hr IV TITR PRN; Protocol PRN Reason: BP MAINTENANCE (PER PROTOCOL) Stop: 04/14/18 01:11 Last Titration: 02/15/18 06:00 Dose: 3.989 mcg/min, 7.71 mls/hr Phenylephrine HCl 10 mg/ (Sodium Chloride) 250 mls @ 7.5 mls/hr IV TITR [facility]; Protocol Stop: 04/14/18 04:29 Last Admin: 02/15/18 09:14 Dose: 40 mcg/min, 60 mls/hr Potassium Chloride/Dextrose (D5w W/20 Meq Kcl) 1,000 mls @ 150 mls/hr IV .Q6H40M [facility] Stop: 04/14/18 15:26 Last Admin: 02/15/18 09:36 Dose: 150 mls/hr Daptomycin 500 mg/ Sodium (Chloride) 100 mls @ 100 mls/hr IV Q48H DEBORAH Stop: 04/15/18 09:59 Last Infusion: 02/14/18 12:59 Dose: Infused Lorazepam (Ativan) 1 mg PO Q4HR PRN; Protocol PRN Reason: Anxiety Stop: 04/13/18 21:43 Last Admin: 02/15/18 08:55 Dose: 1 mg Magnesium Hydroxide (Milk Of Magnesia) 30 ml PO HS PRN PRN Reason: Constipation Stop: 04/13/18 21:43 Methylprednisolone Sodium Succinate (Solu-Medrol) 20 mg IVP Q12HR DEBORAH Stop: 04/14/18 20:59 Last Admin: 02/15/18 08:46 Dose: 20 mg Miscellaneous (Probiotic Screen) 1 ea MC PRN PRN PRN Reason: PROTOCOL Stop: 04/16/18 08:44 Miscellaneous (Clinical Monitoring) 1 ea MC DAILY PRN PRN Reason: RENAL DOSING Stop: 04/17/18 08:59 Multivitamins/Vitamin C (Theragran) 1 tab PO DAILY DEBORAH Stop: 04/14/18 08:59 Last Admin: 02/15/18 08:46 Dose: 1 tab Olanzapine (Zyprexa) 20 mg PO HS DEBORAH; Protocol Stop: 04/14/18 20:59 Last Admin: 02/14/18 20:33 Dose: 20 mg Zolpidem Tartrate (Ambien) 5 mg PO HS PRN PRN Reason: Insomnia Stop: 04/13/18 21:43 Last Admin: 02/14/18 21:51 Dose: 5 mg General: No acute distress HEENT: Atraumatic, PERRLA, EOMI Neck: Supple Cardiovascular: Regular rate, Normal S1, Normal S2 Lungs: Clear to auscultation Assessment/Plan - Problem List Patient Problems: All Active Problems Cellulitis of elbow (Acute) L03.119 Hypotension (Acute) UTI (urinary tract infection) (Acute) - Plan Plan: as per order sheet Nutritional Asmnt/Malnutr-PDOC - Dietary Evaluation Malnutrition Findings (Please click <Entered> for more info): Nutritional Asmnt/Malnutrition Start: 02/13/18 16: 16 Text: Status: Complete Freq: Protocol: Document 02/13/18 16:16 LCHENG (Rec: 02/13/18 16:43 LCHENG [id number]) Nutritional Asmnt/Malnutrition Patient General Information Nutritional Screening High Risk Diagnosis sepsis Pertinent Medical Hx/Surgical Hx cerebral palsy, schizophrenia, bipolar Subjective Information Consult received for wounds. Pt seen lying in bed at time of visit, family at bedside. pt was on NPO, clear liquid will start from dinner. Current Diet Order/ Nutrition Support NPO Pertinent Medications theragran, piperacillin, D5w w /20 meq kcl Pertinent Labs 02/13 BUN 55, Cr 3.6 Nutritional Hx/Data Height 1.7 m Height (Calculated Centimeters) 170.2 Current Weight (lbs) 78.925 kg Weight (Calculated Kilograms) 78.9 Weight (Calculated Grams) 93385.1 [place] Body Weight 148 Body Mass Index (BMI) 27.2 Weight Status Overweight GI Symptoms GI Symptoms None Last BM not indicated Difficult in: None Skin Integrity/Comment: laceration to right arm Estimated Nutritional Goals BEE in Kcals: Using Current wt Calories/Kcals/Kg 25-30 Kcals Calculated 3699-2107 Protein: Using Current wt Protein g/k monitor renal labs Protein Calculated 79 Fluid: ml per MD Nutritional Problem 2. Problem Problem increased nutrition needs Etiology increased metabolic demand and impaired skin integrity Signs/Symptoms: dx of sepsis, wounds 1. Problem Problem altered nutritionr elated lans Etiology renal dysfunction Signs/Symptoms: BUN 55, Cr 3.6 Malnutrition Alert Is there a minimum of two criteria No selected? Query Text:Check all the applicable criteria. A minimum of two criteria are recommended for diagnosis of either severe or non-severe malnutrition. Malnutrition Related to Morbid Obesity Malnutrition related to morbid obesity No Intervention/Recommendation Comments 1. start with clear liquid diet as ordered. Consider adding Ensure clear to increase nutrition intake. 2. Monitor PO intake, wt, labs and skin integrity 3. F/U as high risk in 2-3 days, 02/15-02/16 Expected Outcomes/Goals Expected Outcomes/Goals 1. PO intake to meet at least 75% of nutritional needs. 2. Wt stability, skin to remain intact, labs to approach WNL.
[2018-02-15] MEDS ORDERED: Sodium Bicarbonate 8.4% 50mEq PFS IVP ONE (16:58)
[2018-02-15] MEDS: Albuterol Nebulizer 2.5mg/3mL HHN PRN ×2 (17:11→20:47)
--- NOTE | 2018-02-15 18:09 | Consultation ---
DATE OF CONSULTATION: 02/15/2018 HISTORY OF PRESENT ILLNESS: A 57-year-old male admitted from a halfway. Increased agitation, found to have low blood pressure. On [id number], the patient agitated, yelling, verbally aggressive, very fixated on his family giving him crack cocaine and PCP last year, during ____ " they put him on ice spaghetti." The patient rambling, talking nonsense. Staff noting he has been unruly, verbally aggressive towards staff, cursing at staff, difficult to control behaviors. The patient is confused, disoriented, does not know why he is here, just talks about his family giving him crack cocaine, talking nonsense, rambling to self, gets agitated. PAST PSYCHIATRIC HISTORY: Psych admissions in the past. FAMILY HISTORY: "My family has mental illness." SOCIAL HISTORY: Born in [place], [place], not . He states, "I think I have kids." MENTAL STATUS EXAMINATION: Mood "bad." Affect intense. Thought processes are disorganized. No overt SI or HI, but he is pretty paranoid. ASSESSMENT: The patient remains symptomatic, unruly, agitated, aggressive, delusional, psychotic. CURRENT DIAGNOSIS: Psychosis, unspecified, likely schizophrenia. MEDICAL: Please see full H and P. RECOMMENDATIONS AND PLAN: We will adjust and titrate medications. We will recommend Haldol. Treatment plan includes group as well as milieu therapy. If that is the possibility in the ICU, otherwise, we will monitor and adjust medications. The patient may need Geropsych placement. JOB# [id number]
[2018-02-15] MEDS: Atorvastatin Calcium 10 MG TAB PO SCH (20:34)
[2018-02-16] MEDS: D5W w/20 mEq KCL 1,000 ML IV SCH ×2 (02:23→13:33)
[2018-02-16] MEDS: Albuterol/Ipratropium Neb 3 ML AERS HHN SCH ×6 (03:04→23:02)
[2018-02-16 04:49] LABS: MEAN CELL VOLUME 85.4 fl (80-99); RED CELL DISTRIBUTION WIDTH 13.8 % (11.5-20.0)
[2018-02-16 04:57] LABS: HEMATOCRIT 33.4 % (41.0-60); HEMOGLOBIN 11.3 gm/dL (12-16); MEAN CORPUSCULAR HEMOGLOBIN 28.8 pg (26.0-30.0); MEAN CORPUSCULAR HGB CONC 33.7 pg (28.0-36.0); MEAN PLATELET VOLUME 9.8 fl; PLATELET COUNT 96 Th/cmm (150-400); RED BLOOD COUNT 3.91 Mil/cmm (4.30-5.70)
[2018-02-16 04:59] LABS: WHITE BLOOD COUNT 15.8 Th/cmm (4.8-10.8)
[2018-02-16 05:04] LABS: ALB/GLOB RATIO 1.1 (1.0-1.8); ALBUMIN 2.6 gm/dL (4.2-5.5); ANION GAP 12.9 (7.0-16.0); BILIRUBIN,TOTAL 0.4 mg/dL (0.3-1.0); CARBON DIOXIDE 19.1 mEq/L (21.0-31.0); CREATININE - SERUM 2.5 mg/dL (0.7-1.3); GFR AFRICAN-AMERICAN 34.5 ml/min (>90); GFR NON AFRICAN-AMERICAN 28.5 ml/min; MAGNESIUM 2.8 mg/dL (1.9-2.7)
[2018-02-16 05:32] LABS: BAND NEUTROPHILE 4 % (0-10); BURR CELLS 1+; LYMPHOCYTE 8 % (20-50); MONOCYTE 3 % (2-10); NEUTROPHILS 85 % (40-80); PLATELET ESTIMATE DECREASED PLATELETS (NORMAL); TOTAL CELLS COUNTED 100
[2018-02-16 06:16] LABS: URINE MICROSCOPIC INDICATED? YES; URINE SOURCE FOLEY PORT
[2018-02-16 06:18] LABS: URINE BILIRUBIN NEGATIVE (NEGATIVE); URINE BLOOD MODERATE (NEGATIVE); URINE GLUCOSE (UA) NEGATIVE (NEGATIVE); URINE KETONE NEGATIVE (NEGATIVE); URINE LEUKOCYTE ESTERASE NEGATIVE (NEGATIVE); URINE NITRATE NEGATIVE (NEGATIVE); URINE PH 5.5 (4.6 - 8.0); URINE PROTEIN NEGATIVE (NEGATIVE); URINE UROBILINOGEN 0.2 E.U./dL (0.2 - 1.0)
[2018-02-16 06:21] LABS: URINE CLARITY CLEAR (CLEAR); URINE COLOR YELLOW
[2018-02-16 06:26] LABS: URINE WBC 0-2 /hpf (0-5)
[2018-02-16 06:27] LABS: URINE BACTERIA FEW /hpf (NONE SEEN); URINE EPITHELIAL CELLS OCCASIONAL /lpf (FEW)
[2018-02-16] MEDS: methylPREDNISolone SS 40 mg Vial IVP SCH ×2 (08:10→21:03)
[2018-02-16] MEDS: Aspirin 81mg Chewable Tab PO SCH (08:10)
[2018-02-16] MEDS: Multivitamin Tab PO SCH (08:10)
--- NOTE | 2018-02-16 08:18 | Diagnostic Imaging Report ---
CHEST X-RAY: AP view INDICATION: Shortness of breath COMPARISON: 02/14/2018 FINDINGS: Left PICC line is stable. Low lung volumes are seen with increased interstitial lung markings. No focal consolidation or effusions. Cardiomegaly is noted. IMPRESSION: Persistent low lung volumes with increased interstitial lung markings which may represent a mild degree of congestion. Interstitial infiltrates cannot be completely excluded. Please correlate clinically. Cardiomegaly.
[2018-02-16] MEDS: DAPTOmycin 500 MG in Sodium Chloride 0.9% 100 ML IV SCH (09:54)
--- NOTE | 2018-02-16 11:51 | Diagnostic Imaging Report ---
KUB single view HISTORY: Abdominal pain and distention COMPARISON: None FINDINGS: There is severe distention of the stomach. Diffuse loops of bowel are noted. Cholecystectomy clips are noted. An IVC filter is seen at the L2 level. Roberto catheter rectal tube is noted. Osseous structures are intact. IMPRESSION: Severe gaseous distention of the stomach. Consider NG tube placement for decompression Generalized gas-filled loops of bowel which may be due to an ileus. Roberto catheter versus rectal tube, correlate clinically. Evidence of prior Cholecystectomy. IVC filter.
[2018-02-16 14:26] LABS: WHITE BLOOD COUNT 6.3 Th/cmm (4.8-10.8)
--- NOTE | 2018-02-16 14:59 | General Progress Note ---
Subjective - Review of Systems Events since last encounter: patient awake in no acute distress Objective - Results Result Diagrams: 02/16/18 04:35 02/16/18 04:35 Recent Labs: Laboratory Last Values WBC 15.8 Th/cmm (4.8-10.8) H D 02/16/18 04:35 RBC 3.91 Mil/cmm (4.30-5.70) L 02/16/18 04:35 Hgb 11.3 gm/dL (12-16) L 02/16/18 04:35 Hct 33.4 % (41.0-60) L 02/16/18 04:35 MCV 85.4 fl (80-99) 02/16/18 04:35 MCH 28.8 pg (26.0-30.0) 02/16/18 04:35 MCHC Differential 33.7 pg (28.0-36.0) 02/16/18 04:35 RDW 13.8 % (11.5-20.0) 02/16/18 04:35 Plt Count 96 Th/cmm (150-400) L 02/16/18 04:35 MPV 9.8 fl 02/16/18 04:35 Neutrophils % 84.0 % (40.0-80.0) H 02/14/18 04:10 Band Neutrophils % 4 % (0-10) 02/16/18 04:35 Lymphocytes % 4.9 % (20.0-50.0) L 02/14/18 04:10 Monocytes % 8.0 % (2.0-10.0) 02/14/18 04:10 Eosinophils % 1.0 % (0.0-5.0) 02/14/18 04:10 Basophils % 2.1 % (0.0-2.0) H 02/14/18 04:10 Neutrophils (Manual) 85 % (40-80) H 02/16/18 04:35 Lymphocytes 8 % (20-50) L 02/16/18 04:35 Monocytes 3 % (2-10) 02/16/18 04:35 Eosinophils 1 % (0-5) 02/15/18 05:15 Basophils 0 % (0-3) 02/15/18 05:15 Metamyelocytes 2 % (0-0) H 02/13/18 19:40 Myelocytes 2 % 02/13/18 19:40 Platelet Estimate DECREASED PLATELETS (NORMAL) 02/16/18 04:35 Platelet Morphology NORMAL (NORMAL) 02/15/18 05:15 Hayder Cells 1+ 02/16/18 04:35 RBC Morph Micro Appear NORMAL (NORMAL) 02/15/18 05:15 Smear Path Review Y 02/13/18 19:40 PT 16.0 SECONDS (9.5-11.5) H 02/13/18 19:40 INR 1.51 (0.5-1.4) H 02/13/18 19:40 PTT (Actin FS) 40.8 SECONDS (26.0-38.0) H 02/13/18 19:40 Specimen Source Arterial 02/13/18 15:50 Sample Site RB 02/13/18 15:50 pH 7.44 (7.35-7.45) 02/13/18 15:50 pCO2 26.0 mmHg (35.0-45.0) L 02/13/18 15:50 pO2 70.0 mmHg (80.0-100.0) L 02/13/18 15:50 HCO3 21.0 mEq/L (20.0-26.0) 02/13/18 15:50 Base Excess -5.0 mEq/L (-3.0-3.0) L 02/13/18 15:50 O2 Saturation 94.0 % (92.0-100.0) 02/13/18 15:50 Ruben Test NA 02/13/18 15:50 Vent Rate NA 02/13/18 15:50 Inspired O2 21 02/13/18 15:50 Tidal Volume NA 02/13/18 15:50 PEEP NA 02/13/18 15:50 Pressure (ins/psv/peep) NA 02/13/18 15:50 Critical Value E.GALLEGOS 02/13/18 15:50 Sodium 137 mEq/L (136-145) 02/16/18 04:35 Potassium 4.0 mEq/L (3.5-5.1) 02/16/18 04:35 Chloride 109 mEq/L (98-107) H 02/16/18 04:35 Carbon Dioxide 19.1 mEq/L (21.0-31.0) L 02/16/18 04:35 Anion Gap 12.9 (7.0-16.0) 02/16/18 04:35 BUN 65 mg/dL (7-25) H 02/16/18 04:35 Creatinine 2.5 mg/dL (0.7-1.3) H 02/16/18 04:35 Est GFR ( Amer) 34.5 ml/min (>90) 02/16/18 04:35 Est GFR (Non-Af Amer) 28.5 ml/min 02/16/18 04:35 BUN/Creatinine Ratio 26.0 02/16/18 04:35 Glucose 146 mg/dL (70-105) H 02/16/18 04:35 POC Glucose 97 MG/DL (70-105) 02/12/18 18:18 Hemoglobin A1c % 5.3 % (4.0-6.0) 02/12/18 17:50 Whole Bld Lactic Acid 5.16 mmol/L (0.60-1.99) H* 02/13/18 07:30 Calcium 8.0 mg/dL (8.6-10.3) L 02/16/18 04:35 Phosphorus 4.1 mg/dL (2.5-5.0) 02/13/18 07:30 Magnesium 2.8 mg/dL (1.9-2.7) H 02/16/18 04:35 Total Bilirubin 0.4 mg/dL (0.3-1.0) 02/16/18 04:35 AST 21 U/L (13-39) 02/16/18 04:35 ALT 35 U/L (7-52) 02/16/18 04:35 Alkaline Phosphatase 44 U/L (34-104) 02/16/18 04:35 Creatine Kinase 219 U/L (30-223) 02/15/18 05:15 CK-MB (CK-2) 25.3 ng/mL (0.6-6.3) H 02/13/18 07:30 Troponin I 0.09 ng/mL (0.01-0.05) H* 02/12/18 17:50 B-Natriuretic Peptide 633.0 pg/mL (5.0-100.0) H 02/13/18 07:20 Total Protein 5.0 gm/dL (6.0-8.3) L 02/16/18 04:35 Albumin 2.6 gm/dL (4.2-5.5) L 02/16/18 04:35 Globulin 2.4 gm/dL 02/16/18 04:35 Albumin/Globulin Ratio 1.1 (1.0-1.8) 02/16/18 04:35 Triglycerides 74 mg/dL (<150) 02/12/18 17:50 Cholesterol 67 mg/dL (<200) 02/12/18 17:50 LDL Cholesterol Direct 19 mg/dL (75-193) L 02/12/18 17:50 HDL Cholesterol 31 mg/dL (23-92) 02/12/18 17:50 Lipase 17 U/L (11-82) 02/16/18 04:35 TSH 0.80 uIU/ml (0.34-5.60) 02/12/18 17:50 Urine Source [place] 02/16/18 05:55 Urine Color YELLOW 02/16/18 05:55 Urine Clarity CLEAR (CLEAR) 02/16/18 05:55 Urine pH 5.5 (4.6 - 8.0) 02/16/18 05:55 Ur Specific [place] <= 1.005 (1.005-1.030) 02/16/18 05:55 Urine Protein NEGATIVE mg/dL (NEGATIVE) 02/16/18 05:55 Urine Glucose (UA) NEGATIVE mg/dL (NEGATIVE) 02/16/18 05:55 Urine Ketones NEGATIVE mg/dL (NEGATIVE) 02/16/18 05:55 Urine Blood MODERATE (NEGATIVE) H 02/16/18 05:55 Urine Nitrate NEGATIVE (NEGATIVE) 02/16/18 05:55 Urine Bilirubin NEGATIVE (NEGATIVE) 02/16/18 05:55 Urine Urobilinogen 0.2 E.U./dL (0.2 - 1.0) 02/16/18 05:55 Ur Leukocyte Esterase NEGATIVE (NEGATIVE) 02/16/18 05:55 Urine RBC 2-5 /hpf (0-5) H 02/16/18 05:55 Urine WBC 0-2 /hpf (0-5) 02/16/18 05:55 Ur Epithelial Cells OCCASIONAL /lpf (FEW) 02/16/18 05:55 Amorphous Sediment MODERATE URATES (NONE SEEN) 02/12/18 18:05 Urine Bacteria FEW /hpf (NONE SEEN) 02/16/18 05:55 Urine Mucus FEW /lpf (FEW) 02/16/18 05:55 Stool Occult Blood NEGATIVE (NEGATIVE) 02/16/18 01:30 RPR NONREACTIVE (NONREACTIVE) 02/12/18 17:50 - Physical Exam Vitals and I&O: Vital Signs Temp 97.8 F 02/16/18 12:00 Pulse 85 02/16/18 14:00 Resp 15 02/16/18 14:00 BP 129/69 02/16/18 14:00 Pulse Ox 99 02/16/18 14:00 Intake & Output 02/15/18 02/16/18 02/16/18 18:59 06:59 18:59 Intake Total 7773.419 9776.000 1038.333 Output Total 6900 Balance 1229.966 -3529.012 7408.333 Weight (lbs) 90.083 kg Intake: Intake, IV Amount 6869.623 1214.000 1038.333 D5W w/20 mEq KCL 1,000 ml 1265.000 638.333 @ 100 mls/hr IV .Q10H [facility] Rx#:[id number] D5W w/20 mEq KCL 1,000 ml 465 @ 150 mls/hr IV .Q6H40M [facility] Rx#:[id number] DAPTOmycin 500 mg In 100 Sodium Chloride 0.9% 100 ml @ 100 mls/hr IV Q48H [facility] Rx#:[id number] Norepinephrine 8 mg In 164.966 Dextrose 5% 250 ml @ 4 MCG/MIN 7.74 mls/hr IV TITR PRN Rx#:[id number] Phenylephrine HCl 10 mg 500 744 250.0 In Sodium Chloride 0.9% 250 ml @ 5 MCG/MIN 7.5 mls/hr IV TITR [facility] Rx#: [id number] Piperacillin Sodium/ 100 150 50 Tazobact 2.25 gm In Sodium Chloride 0.9% 50 ml @ 100 mls/hr IV Q6HR [facility] Rx#:[id number] Oral 2500 Other 800 Output: Urine 6900 Other: # Bowel Movements 1 Stool Characteristics Liquid Green Weight Source Bedscale Active Medications: Current Medications Acetaminophen (Tylenol) 650 mg PO Q4HR PRN PRN Reason: GARCIA/Mild pain/Temp above 37.6C Stop: 04/13/18 21:42 Last Admin: 02/16/18 09:54 Dose: 650 mg Albuterol Sulfate (Albuterol 2.5mg/3ml Neb Ud) 2.5 mg HHN Q2HRT PRN PRN Reason: Respiratory Distress Stop: 04/16/18 16:57 Last Admin: 02/15/18 20:47 Dose: 2.5 mg Albuterol/Ipratropium (Duoneb Neb) 3 ml HHN Q4HRT [facility] Stop: 04/14/18 06:59 Last Admin: 02/16/18 12:28 Dose: Not Given Aspirin (Aspirin Chewable) 81 mg PO DAILY [facility] Stop: 04/14/18 08:59 Last Admin: 02/16/18 08:10 Dose: 81 mg Atorvastatin Calcium (Lipitor) 20 mg PO HS [facility]BORAH; Protocol Stop: 04/14/18 20:59 Last Admin: 02/15/18 20:34 Dose: 20 mg Diphenhydramine HCl (Benadryl) 50 mg PO BID PRN PRN Reason: Itching Stop: 04/13/18 21:42 Diphenhydramine HCl (Benadryl 50 Mg/Ml) 25 mg IM Q6HR PRN PRN Reason: Agitation Stop: 04/16/18 07:26 Piperacillin Sod/Tazobactam (Sod 2.25 gm/ Sodium Chloride) 50 mls @ 100 mls/hr IV Q6HR [facility] Stop: 04/14/18 00:00 Last Infusion: 02/16/18 14:00 Dose: Infused Norepinephrine Bitartrate 8 mg (/ Dextrose) 258 mls @ 7.74 mls/hr IV TITR PRN; Protocol PRN Reason: BP MAINTENANCE (PER PROTOCOL) Stop: 04/14/18 01:11 Last Titration: 02/15/18 18:48 Dose: Infused Phenylephrine HCl 10 mg/ (Sodium Chloride) 250 mls @ 7.5 mls/hr IV TITR [facility]; Protocol Stop: 04/14/18 04:29 Last Titration: 02/16/18 13:19 Dose: Infused Daptomycin 500 mg/ Sodium (Chloride) 100 mls @ 100 mls/hr IV Q48H [facility] Stop: 04/15/18 09:59 Last Infusion: 02/16/18 10:55 Dose: Infused Potassium Chloride/Dextrose (D5w W/20 Meq Kcl) 1,000 mls @ 100 mls/hr IV .Q10H [facility] Stop: 04/16/18 16:59 Last Admin: 02/16/18 13:33 Dose: 100 mls/hr Magnesium Hydroxide (Milk Of Magnesia) 30 ml PO HS PRN PRN Reason: Constipation Stop: 04/13/18 21:43 Last Admin: 02/15/18 17:42 Dose: 30 ml Methylprednisolone Sodium Succinate (Solu-Medrol) 20 mg IVP Q12HR [facility] Stop: 04/14/18 20:59 Last Admin: 02/16/18 08:10 Dose: 20 mg Miscellaneous (Probiotic Screen) 1 ea MC PRN PRN PRN Reason: PROTOCOL Stop: 04/16/18 08:44 Miscellaneous (Clinical Monitoring) 1 ea MC DAILY PRN PRN Reason: RENAL DOSING Stop: 04/17/18 08:59 Multivitamins/Vitamin C (Theragran) 1 tab PO DAILY DEBORAH Stop: 04/14/18 08:59 Last Admin: 02/16/18 08:10 Dose: 1 tab Olanzapine (Zyprexa) 20 mg PO HS DEBORAH; Protocol Stop: 04/14/18 20:59 Last Admin: 02/15/18 20:34 Dose: 20 mg Olanzapine (Zyprexa) 5 mg PO DAILY DEBORAH; Protocol Stop: 04/17/18 08:59 Last Admin: 02/16/18 08:11 Dose: 5 mg Zolpidem Tartrate (Ambien) 5 mg PO HS PRN PRN Reason: Insomnia Stop: 04/13/18 21:43 Last Admin: 02/15/18 20:38 Dose: 5 mg General: No acute distress HEENT: Atraumatic, PERRLA, EOMI Neck: Supple Cardiovascular: Regular rate, Normal S1, Normal S2 Lungs: Clear to auscultation Assessment/Plan - Problem List Patient Problems: All Active Problems Cellulitis of elbow (Acute) L03.119 Hypotension (Acute) UTI (urinary tract infection) (Acute) - Plan Plan: as per order sheet Nutritional Asmnt/Malnutr-PDOC - Dietary Evaluation Malnutrition Findings (Please click <Entered> for more info): Nutritional Asmnt/Malnutrition Start: 02/13/18 16: 16 Text: Status: Complete Freq: Protocol: Document 02/13/18 16:16 [email or web address] (Rec: 02/13/18 16:43 LCHENG [id number]) Nutritional Asmnt/Malnutrition Patient General Information Nutritional Screening High Risk Diagnosis sepsis Pertinent Medical Hx/Surgical Hx cerebral palsy, schizophrenia, bipolar Subjective Information Consult received for wounds. Pt seen lying in bed at time of visit, family at bedside. pt was on NPO, clear liquid will start from dinner. Current Diet Order/ Nutrition Support NPO Pertinent Medications theragran, piperacillin, D5w w /20 meq kcl Pertinent Labs 02/13 BUN 55, Cr 3.6 Nutritional Hx/Data Height 1.7 m Height (Calculated Centimeters) 170.2 Current Weight (lbs) 78.925 kg Weight (Calculated Kilograms) 78.9 Weight (Calculated Grams) 23290.1 [place] Body Weight 148 Body Mass Index (BMI) 27.2 Weight Status Overweight GI Symptoms GI Symptoms None Last BM not indicated Difficult in: None Skin Integrity/Comment: laceration to right arm Estimated Nutritional Goals BEE in Kcals: Using Current wt Calories/Kcals/Kg 25-30 Kcals Calculated 4486-2400 Protein: Using Current wt Protein g/k monitor renal labs Protein Calculated 79 Fluid: ml per MD Nutritional Problem 2. Problem Problem increased nutrition needs Etiology increased metabolic demand and impaired skin integrity Signs/Symptoms: dx of sepsis, wounds 1. Problem Problem altered nutritionr elated lans Etiology renal dysfunction Signs/Symptoms: BUN 55, Cr 3.6 Malnutrition Alert Is there a minimum of two criteria No selected? Query Text:Check all the applicable criteria. A minimum of two criteria are recommended for diagnosis of either severe or non-severe malnutrition. Malnutrition Related to Morbid Obesity Malnutrition related to morbid obesity No Intervention/Recommendation Comments 1. start with clear liquid diet as ordered. Consider adding Ensure clear to increase nutrition intake. 2. Monitor PO intake, wt, labs and skin integrity 3. F/U as high risk in 2-3 days, 02/15-02/16 Expected Outcomes/Goals Expected Outcomes/Goals 1. PO intake to meet at least 75% of nutritional needs. 2. Wt stability, skin to remain intact, labs to approach WNL.
--- NOTE | 2018-02-16 15:24 | Cardiology ---
02/14/2018 ECHOCARDIOGRAM PATIENT OF: Dr. Ortiz. M-MODE ECHOCARDIOGRAM: Anterior leaflet of mitral valve shows normal excursion, EF velocity. Posterior leaflet of the mitral valve shows normal excursion. Left ventricular posterior wall shows increased thickness, normal excursion. Interventricular septum shows increased thickness, normal excursion, hypertrophy of the left ventricle, ejection fraction 62%. Left atrium normal. Aortic root shows normal dimension, normal excursion of aortic leaflets. CONCLUSION: Hypertrophy of the left ventricle, ejection fraction 62%. 2D ECHO: Long axis view showed normal sized left ventricle with hypertrophy of the left ventricle. Left atrium normal. Aortic root shows normal dimension, normal excursion of aortic leaflets. Short axis view of mitral valve normal. Short axis view of aortic valve normal. Apical four chamber view showed normal sized left ventricle with hypertrophy of the left ventricle. Left atrium normal. Right ventricular cavity, right atrium normal, no pericardial effusion. CONCLUSION: Hypertrophy of the left ventricle, ejection fraction 62%. Doppler study shows right ventricular systolic pressure 28 mmHg with mild mitral regurgitation and mild tricuspid regurgitation. The patient has pleural effusion. [facility]# [id number]
--- NOTE | 2018-02-16 19:28 | Consultation ---
DATE OF CONSULTATION: 02/16/2018 HISTORY OF PRESENT ILLNESS: A 57-year-old male with history of mental illness, currently in the ICU, remains unruly, still agitated at times, not following directions at times. Staff noting he is somewhat calmer, somewhat more redirectable, but generally not taking a lot of his medications, states that he has a poor response to Depakote, states Haldol gives him "convulsion" and for some reason refusing Ativan, alluding to a vague allergy. The patient rambling, somewhat disorganized, but able to verbalize some of his needs, demanding, temazepam at night time. He is amenable to taking Zyprexa. The patient without any combative behaviors at this time, but he is pretty anxious. Discussed with staff at length. Medications were noted. ASSESSMENT: The patient remains unruly, still disorganized, agitated, yelling at times, still has ongoing and underlying psychosis. PLAN: We will continue to monitor. We will stop Depakote and stop the Haldol. We will increase dosing of Zyprexa given that he is open to taking Zyprexa. We will continue to monitor. The patient is only in ICU, once more medically stable, he may need Geropsych transfer. JOB# [id number]
[2018-02-16] MEDS ORDERED: D5W w/20 mEq KCL 1,000 ML IV SCH (20:00)
[2018-02-16] MEDS: Atorvastatin Calcium 10 MG TAB PO SCH (21:00)
--- NOTE | 2018-02-16 23:28 | Infectious Disease Prog Note ---
Infectious Disease Subjective - Review of Systems Service Date: 02/16/18 Subjective: Off vasopressors. Infectious Disease Objective - Results Result Diagrams: 02/16/18 04:35 02/16/18 04:35 Recent Labs: Laboratory Last Values WBC 15.8 Th/cmm (4.8-10.8) H D 02/16/18 04:35 RBC 3.91 Mil/cmm (4.30-5.70) L 02/16/18 04:35 Hgb 11.3 gm/dL (12-16) L 02/16/18 04:35 Hct 33.4 % (41.0-60) L 02/16/18 04:35 MCV 85.4 fl (80-99) 02/16/18 04:35 MCH 28.8 pg (26.0-30.0) 02/16/18 04:35 MCHC Differential 33.7 pg (28.0-36.0) 02/16/18 04:35 RDW 13.8 % (11.5-20.0) 02/16/18 04:35 Plt Count 96 Th/cmm (150-400) L 02/16/18 04:35 MPV 9.8 fl 02/16/18 04:35 Neutrophils % 84.0 % (40.0-80.0) H 02/14/18 04:10 Band Neutrophils % 4 % (0-10) 02/16/18 04:35 Lymphocytes % 4.9 % (20.0-50.0) L 02/14/18 04:10 Monocytes % 8.0 % (2.0-10.0) 02/14/18 04:10 Eosinophils % 1.0 % (0.0-5.0) 02/14/18 04:10 Basophils % 2.1 % (0.0-2.0) H 02/14/18 04:10 Neutrophils (Manual) 85 % (40-80) H 02/16/18 04:35 Lymphocytes 8 % (20-50) L 02/16/18 04:35 Monocytes 3 % (2-10) 02/16/18 04:35 Eosinophils 1 % (0-5) 02/15/18 05:15 Basophils 0 % (0-3) 02/15/18 05:15 Metamyelocytes 2 % (0-0) H 02/13/18 19:40 Myelocytes 2 % 02/13/18 19:40 Platelet Estimate DECREASED PLATELETS (NORMAL) 02/16/18 04:35 Platelet Morphology NORMAL (NORMAL) 02/15/18 05:15 Hayder Cells 1+ 02/16/18 04:35 RBC Morph Micro Appear NORMAL (NORMAL) 02/15/18 05:15 Smear Path Review Y 02/13/18 19:40 PT 16.0 SECONDS (9.5-11.5) H 02/13/18 19:40 INR 1.51 (0.5-1.4) H 02/13/18 19:40 PTT (Actin FS) 40.8 SECONDS (26.0-38.0) H 02/13/18 19:40 Specimen Source Arterial 02/13/18 15:50 Sample Site RB 02/13/18 15:50 pH 7.44 (7.35-7.45) 02/13/18 15:50 pCO2 26.0 mmHg (35.0-45.0) L 02/13/18 15:50 pO2 70.0 mmHg (80.0-100.0) L 02/13/18 15:50 HCO3 21.0 mEq/L (20.0-26.0) 02/13/18 15:50 Base Excess -5.0 mEq/L (-3.0-3.0) L 02/13/18 15:50 O2 Saturation 94.0 % (92.0-100.0) 02/13/18 15:50 Ruben Test NA 02/13/18 15:50 Vent Rate NA 02/13/18 15:50 Inspired O2 21 02/13/18 15:50 Tidal Volume NA 02/13/18 15:50 PEEP NA 02/13/18 15:50 Pressure (ins/psv/peep) NA 02/13/18 15:50 Critical Value E.GALLEGOS 02/13/18 15:50 Sodium 137 mEq/L (136-145) 02/16/18 04:35 Potassium 4.0 mEq/L (3.5-5.1) 02/16/18 04:35 Chloride 109 mEq/L (98-107) H 02/16/18 04:35 Carbon Dioxide 19.1 mEq/L (21.0-31.0) L 02/16/18 04:35 Anion Gap 12.9 (7.0-16.0) 02/16/18 04:35 BUN 65 mg/dL (7-25) H 02/16/18 04:35 Creatinine 2.5 mg/dL (0.7-1.3) H 02/16/18 04:35 Est GFR ( Amer) 34.5 ml/min (>90) 02/16/18 04:35 Est GFR (Non-Af Amer) 28.5 ml/min 02/16/18 04:35 BUN/Creatinine Ratio 26.0 02/16/18 04:35 Glucose 146 mg/dL (70-105) H 02/16/18 04:35 POC Glucose 97 MG/DL (70-105) 02/12/18 18:18 Hemoglobin A1c % 5.3 % (4.0-6.0) 02/12/18 17:50 Whole Bld Lactic Acid 5.16 mmol/L (0.60-1.99) H* 02/13/18 07:30 Calcium 8.0 mg/dL (8.6-10.3) L 02/16/18 04:35 Phosphorus 4.1 mg/dL (2.5-5.0) 02/13/18 07:30 Magnesium 2.8 mg/dL (1.9-2.7) H 02/16/18 04:35 Total Bilirubin 0.4 mg/dL (0.3-1.0) 02/16/18 04:35 AST 21 U/L (13-39) 02/16/18 04:35 ALT 35 U/L (7-52) 02/16/18 04:35 Alkaline Phosphatase 44 U/L (34-104) 02/16/18 04:35 Creatine Kinase 219 U/L (30-223) 02/15/18 05:15 CK-MB (CK-2) 25.3 ng/mL (0.6-6.3) H 02/13/18 07:30 Troponin I 0.09 ng/mL (0.01-0.05) H* 02/12/18 17:50 B-Natriuretic Peptide 633.0 pg/mL (5.0-100.0) H 02/13/18 07:20 Total Protein 5.0 gm/dL (6.0-8.3) L 02/16/18 04:35 Albumin 2.6 gm/dL (4.2-5.5) L 02/16/18 04:35 Globulin 2.4 gm/dL 02/16/18 04:35 Albumin/Globulin Ratio 1.1 (1.0-1.8) 02/16/18 04:35 Triglycerides 74 mg/dL (<150) 02/12/18 17:50 Cholesterol 67 mg/dL (<200) 02/12/18 17:50 LDL Cholesterol Direct 19 mg/dL (75-193) L 02/12/18 17:50 HDL Cholesterol 31 mg/dL (23-92) 02/12/18 17:50 Lipase 17 U/L (11-82) 02/16/18 04:35 TSH 0.80 uIU/ml (0.34-5.60) 02/12/18 17:50 Urine Source [place] 02/16/18 05:55 Urine Color YELLOW 02/16/18 05:55 Urine Clarity CLEAR (CLEAR) 02/16/18 05:55 Urine pH 5.5 (4.6 - 8.0) 02/16/18 05:55 Ur Specific [place] <= 1.005 (1.005-1.030) 02/16/18 05:55 Urine Protein NEGATIVE mg/dL (NEGATIVE) 02/16/18 05:55 Urine Glucose (UA) NEGATIVE mg/dL (NEGATIVE) 02/16/18 05:55 Urine Ketones NEGATIVE mg/dL (NEGATIVE) 02/16/18 05:55 Urine Blood MODERATE (NEGATIVE) H 02/16/18 05:55 Urine Nitrate NEGATIVE (NEGATIVE) 02/16/18 05:55 Urine Bilirubin NEGATIVE (NEGATIVE) 02/16/18 05:55 Urine Urobilinogen 0.2 E.U./dL (0.2 - 1.0) 02/16/18 05:55 Ur Leukocyte Esterase NEGATIVE (NEGATIVE) 02/16/18 05:55 Urine RBC 2-5 /hpf (0-5) H 02/16/18 05:55 Urine WBC 0-2 /hpf (0-5) 02/16/18 05:55 Ur Epithelial Cells OCCASIONAL /lpf (FEW) 02/16/18 05:55 Amorphous Sediment MODERATE URATES (NONE SEEN) 02/12/18 18:05 Urine Bacteria FEW /hpf (NONE SEEN) 02/16/18 05:55 Urine Mucus FEW /lpf (FEW) 02/16/18 05:55 Stool Occult Blood NEGATIVE (NEGATIVE) 02/16/18 01:30 RPR NONREACTIVE (NONREACTIVE) 02/12/18 17:50 - Physical Exam Vitals and I&O: Vital Signs Temp 99.1 F 02/16/18 19:00 Pulse 70 02/16/18 22:00 Resp 22 02/16/18 22:00 BP 120/51 02/16/18 22:00 Pulse Ox 97 02/16/18 22:00 Intake & Output 02/16/18 02/16/18 02/17/18 06:59 18:59 06:59 Intake Total 5459.000 2538.333 Output Total 6900 3350 Balance -1441.000 -811.667 Weight (lbs) 90.083 kg 90.083 kg Intake: Intake, IV Amount 2159.000 1038.333 D5W w/20 mEq KCL 1,000 ml 1265.000 638.333 @ 100 mls/hr IV .Q10H DEBORAH Rx#:[id number] DAPTOmycin 500 mg In 100 Sodium Chloride 0.9% 100 ml @ 100 mls/hr IV Q48H DEBORAH Rx#:[id number] Phenylephrine HCl 10 mg 744 250.0 In Sodium Chloride 0.9% 250 ml @ 5 MCG/MIN 7.5 mls/hr IV TITR DEBORAH Rx#: [id number] Piperacillin Sodium/ 150 50 Tazobact 2.25 gm In Sodium Chloride 0.9% 50 ml @ 100 mls/hr IV Q6HR DEBORAH Rx#:[id number] Oral 2500 1500 Other 800 Output: Urine 6900 3350 Other: # Bowel Movements 1 0 Stool Characteristics Liquid Green Weight Source Bedscale Bedscale Active Medications: Current Medications Acetaminophen (Tylenol) 650 mg PO Q4HR PRN PRN Reason: GARCIA/Mild pain/Temp above 37.6C Stop: 04/13/18 21:42 Last Admin: 02/16/18 20:59 Dose: 650 mg Albuterol Sulfate (Albuterol 2.5mg/3ml Neb Ud) 2.5 mg HHN Q2HRT PRN PRN Reason: Respiratory Distress Stop: 04/16/18 16:57 Last Admin: 02/15/18 20:47 Dose: 2.5 mg Albuterol/Ipratropium (Duoneb Neb) 3 ml HHN Q4HRT DEBORAH Stop: 04/14/18 06:59 Last Admin: 02/16/18 19:22 Dose: Not Given Aspirin (Aspirin Chewable) 81 mg PO DAILY DEBORAH Stop: 04/14/18 08:59 Last Admin: 02/16/18 08:10 Dose: 81 mg Atorvastatin Calcium (Lipitor) 20 mg PO HS DEBORAH; Protocol Stop: 04/14/18 20:59 Last Admin: 02/16/18 21:00 Dose: 20 mg Diphenhydramine HCl (Benadryl) 50 mg PO BID PRN PRN Reason: Itching Stop: 04/13/18 21:42 Diphenhydramine HCl (Benadryl 50 Mg/Ml) 25 mg IM Q6HR PRN PRN Reason: Agitation Stop: 04/16/18 07:26 Piperacillin Sod/Tazobactam (Sod 2.25 gm/ Sodium Chloride) 50 mls @ 100 mls/hr IV Q6HR DEBORAH Stop: 04/14/18 00:00 Last Admin: 02/16/18 17:12 Dose: 100 mls/hr Norepinephrine Bitartrate 8 mg (/ Dextrose) 258 mls @ 7.74 mls/hr IV TITR PRN; Protocol PRN Reason: BP MAINTENANCE (PER PROTOCOL) Stop: 04/14/18 01:11 Last Titration: 02/15/18 18:48 Dose: Infused Phenylephrine HCl 10 mg/ (Sodium Chloride) 250 mls @ 7.5 mls/hr IV TITR DEBORAH; Protocol Stop: 04/14/18 04:29 Last Titration: 02/16/18 13:19 Dose: Infused Daptomycin 500 mg/ Sodium (Chloride) 100 mls @ 100 mls/hr IV Q48H DEBORAH Stop: 04/15/18 09:59 Last Infusion: 02/16/18 10:55 Dose: Infused Potassium Chloride/Dextrose (D5w W/20 Meq Kcl) 1,000 mls @ 75 mls/hr IV .[id number] [facility] Stop: 04/17/18 19:59 Magnesium Hydroxide (Milk Of Magnesia) 30 ml PO HS PRN PRN Reason: Constipation Stop: 04/13/18 21:43 Last Admin: 02/15/18 17:42 Dose: 30 ml Methylprednisolone Sodium Succinate (Solu-Medrol) 20 mg IVP Q8HR DEBORAH Stop: 04/17/18 20:59 Last Admin: 02/16/18 21:03 Dose: 20 mg Miscellaneous (Probiotic Screen) 1 ea MC PRN PRN PRN Reason: PROTOCOL Stop: 04/16/18 08:44 Miscellaneous (Clinical Monitoring) 1 ea MC DAILY PRN PRN Reason: RENAL DOSING Stop: 04/17/18 08:59 Multivitamins/Vitamin C (Theragran) 1 tab PO DAILY DEBORAH Stop: 04/14/18 08:59 Last Admin: 02/16/18 08:10 Dose: 1 tab Olanzapine (Zyprexa) 20 mg PO HS DEBORAH; Protocol Stop: 04/14/18 20:59 Last Admin: 02/16/18 21:02 Dose: 20 mg Olanzapine (Zyprexa) 5 mg PO DAILY DEBORAH; Protocol Stop: 04/17/18 08:59 Last Admin: 02/16/18 08:11 Dose: 5 mg Zolpidem Tartrate (Ambien) 5 mg PO HS PRN PRN Reason: Insomnia Stop: 04/13/18 21:43 Last Admin: 02/16/18 21:00 Dose: 5 mg General: no acute distress, well developed, well nourished HEENT: atraumatic, normocephalic, PERRLA Neck: supple, no thyromegaly Cardiovascular: S1S2, regular Lungs: clear to auscultation bilaterally, clear to percussion Abdomen: soft, no tender, no distended Extremities: no cyanosis, no clubbing, no edema Neurological: awake, alert, oriented Skin: intact Infectious Disease Assmt/Plan - Problem List Patient Problems: All Active Problems Cellulitis of elbow (Acute) L03.119 Hypotension (Acute) UTI (urinary tract infection) (Acute) - Assessment Assessment: 1. sepsis. Septic shock resolving. 2. Right elbow cellulitis. 3. Anemia/ 4. Sandro improving, - Plan Plan: Will conitnue daptomycin and Zosyn. Nutritional Asmnt/Malnutr-PDOC - Dietary Evaluation Malnutrition Findings (Please click <Entered> for more info): Nutritional Asmnt/Malnutrition Start: 02/13/18 16: 16 Text: Status: Complete Freq: Protocol: Document 02/13/18 16:16 LCHEN (Rec: 02/13/18 16:43 [facility]-[email or web address]) Nutritional Asmnt/Malnutrition Patient General Information Nutritional Screening High Risk Diagnosis sepsis Pertinent Medical Hx/Surgical Hx cerebral palsy, schizophrenia, bipolar Subjective Information Consult received for wounds. Pt seen lying in bed at time of visit, family at bedside. pt was on NPO, clear liquid will start from dinner. Current Diet Order/ Nutrition Support NPO Pertinent Medications theragran, piperacillin, D5w w /20 meq kcl Pertinent Labs 02/13 BUN 55, Cr 3.6 Nutritional Hx/Data Height 1.7 m Height (Calculated Centimeters) 170.2 Current Weight (lbs) 78.925 kg Weight (Calculated Kilograms) 78.9 Weight (Calculated Grams) 08190.1 [place] Body Weight 148 Body Mass Index (BMI) 27.2 Weight Status Overweight GI Symptoms GI Symptoms None Last BM not indicated Difficult in: None Skin Integrity/Comment: laceration to right arm Estimated Nutritional Goals BEE in Kcals: Using Current wt Calories/Kcals/Kg 25-30 Kcals Calculated 0324-2933 Protein: Using Current wt Protein g/k monitor renal labs Protein Calculated 79 Fluid: ml per MD Nutritional Problem 2. Problem Problem increased nutrition needs Etiology increased metabolic demand and impaired skin integrity Signs/Symptoms: dx of sepsis, wounds 1. Problem Problem altered nutritionr elated lans Etiology renal dysfunction Signs/Symptoms: BUN 55, Cr 3.6 Malnutrition Alert Is there a minimum of two criteria No selected? Query Text:Check all the applicable criteria. A minimum of two criteria are recommended for diagnosis of either severe or non-severe malnutrition. Malnutrition Related to Morbid Obesity Malnutrition related to morbid obesity No Intervention/Recommendation Comments 1. start with clear liquid diet as ordered. Consider adding Ensure clear to increase nutrition intake. 2. Monitor PO intake, wt, labs and skin integrity 3. F/U as high risk in 2-3 days, 02/15-02/16 Expected Outcomes/Goals Expected Outcomes/Goals 1. PO intake to meet at least 75% of nutritional needs. 2. Wt stability, skin to remain intact, labs to approach WNL.
--- NOTE | 2018-02-17 01:38 | Consultation ---
DATE OF CONSULTATION: 02/16/2018 INPATIENT GASTROINTESTINAL CONSULTATION REFERRING PHYSICIAN: Dr. Ortiz. REASON FOR CONSULTATION: Abdominal distention. HISTORY OF PRESENT ILLNESS: A 57-year-old male who was admitted to the hospital where agitation was noted to have abdominal distention and mild abdominal discomfort. No nausea, no vomiting, no melena, hematochezia, hematemesis, or coffee ground emesis. PAST MEDICAL HISTORY: Anxiety, hyperlipidemia, hypertension and psychiatric disorder. PAST SURGICAL HISTORY: None to add recently. FAMILY HISTORY: Noncontributory. SOCIAL HISTORY: Denies alcohol or IV drug use and quit smoking several days ago. ALLERGIES: HALOPERIDOL. CURRENT MEDICATIONS: Tylenol, aspirin, Lipitor, , Benadryl, milk of magnesia, Solu-Medrol, probiotics, norepinephrine, Zyprexa, Zosyn, and Ambien. REVIEW OF SYSTEMS: Ten point review of system was performed and the pertinent positive was abdominal distention. All systems were otherwise negative. PHYSICAL EXAMINATION: VITAL SIGNS: Temperature 98.9, breathing 20, pulse of 79, blood pressure is 115/64. Generally, satting 99%. GENERAL: In no apparent distress. EYES: Anicteric. Normal conjunctivae. HEENT: Normocephalic, atraumatic. Moist mucous membranes. NECK: Soft, supple. CHEST: Some coarse breath sounds. CARDIOVASCULAR: Regular rate and rhythm. ABDOMEN: Soft, nontender, but distended abdomen. SKIN: Warm, dry. EXTREMITIES: No cyanosis. PSYCHOLOGIC: Alert and oriented x 3. LABORATORY DATA: Show an INR 1.51. Hemoglobin 11.3, white count 15.8, platelets of 96, creatinine 2.5, total bilirubin 0.4, AST 21, ALT 35, alkaline phosphatase 44, albumin is 2.6. Stool OB negative x 2. IMPRESSION: A 57-year-old male with abdominal distention of unclear etiology, could be gastroparesis versus gastritis versus peptic ulcer disease. The patient may also have underlying liver disease. PLAN: 1. EGD. 2. Get an abdominal ultrasound. 3. Check a lipase level. 4. Check a viral hepatitis panel. Thank you for allowing me to participate. Please call me if any questions. JOB# [id number]
[2018-02-17] MEDS: Albuterol/Ipratropium Neb 3 ML AERS HHN SCH ×6 (03:03→23:46)
[2018-02-17 04:34] LABS: HEMOGLOBIN 13.3 gm/dL (12-16); MEAN CORPUSCULAR HEMOGLOBIN 28.7 pg (26.0-30.0); MEAN CORPUSCULAR HGB CONC 33.8 pg (28.0-36.0); MEAN PLATELET VOLUME 10.2 fl; PLATELET COUNT 108 Th/cmm (150-400); RED BLOOD COUNT 4.63 Mil/cmm (4.30-5.70); RED CELL DISTRIBUTION WIDTH 14.3 % (11.5-20.0); WHITE BLOOD COUNT 14.3 Th/cmm (4.8-10.8)
[2018-02-17 04:37] LABS: HEMATOCRIT 39.3 % (41.0-60)
[2018-02-17 04:50] LABS: INR 1.01 (0.5-1.4); PROTHROMBIN TIME (TEST) 10.5 SECONDS (9.5-11.5)
[2018-02-17 04:53] LABS: ALBUMIN 2.8 gm/dL (4.2-5.5); ANION GAP 11.3 (7.0-16.0); BILIRUBIN,TOTAL 0.4 mg/dL (0.3-1.0); CALCIUM SERUM 8.6 mg/dL (8.6-10.3); CARBON DIOXIDE 21.9 mEq/L (21.0-31.0); CREATININE - SERUM 2.2 mg/dL (0.7-1.3); GFR NON AFRICAN-AMERICAN 33.1 ml/min; POTASSIUM SERUM 5.2 mEq/L (3.5-5.1); TOTAL PROTEIN,SERUM 5.5 gm/dL (6.0-8.3)
[2018-02-17] MEDS: methylPREDNISolone SS 40 mg Vial IVP SCH ×3 (05:10→20:33)
[2018-02-17] MEDS: Albuterol Nebulizer 2.5mg/3mL HHN PRN (05:43)
[2018-02-17] MEDS: Dextrose 5% 1,000 ML IV SCH ×2 (07:00→23:45)
[2018-02-17 07:29] LABS: BAND NEUTROPHILE 4 % (0-10); EOSINOPHIL 3 % (0-5); LYMPHOCYTE 10 % (20-50); METAMYELOCYTE 1 % (0-0); NEUTROPHILS 82 % (40-80); TOTAL CELLS COUNTED 100
[2018-02-17] MEDS ORDERED: Dextrose 5% 1,000 ML IV SCH (07:30)
[2018-02-17] MEDS: Multivitamin Tab PO SCH (08:47)
[2018-02-17] MEDS: Aspirin 81mg Chewable Tab PO SCH (08:47)
--- NOTE | 2018-02-17 09:27 | Diagnostic Imaging Report ---
Abdominal ultrasound HISTORY: Pain The liver is somewhat generous in size. No focal lesions. The gallbladder is not seen consistent with patient's surgical history. Common bile duct measures 7 mm in diameter. This is within normal limits status post cholecystectomy. The pancreas cannot be seen due to bowel gas. The right kidney is increased in size (13.1 x 5.9 x 6.7 cm). 2 sonolucent lesions seen in the upper pole consistent with cysts. The largest measures 2.0 cm. No hydronephrosis. The left kidney is increased in size (14.1 x 6.3 x 5.8 cm). An approximate 2.5 cm sonolucent lesion is seen in the upper pole consistent with a cyst. No hydronephrosis. The spleen is normal in size. No other retroperitoneal or intra-abdominal abnormalities. IMPRESSION: 1. Somewhat limited exam due to bowel gas 2. Findings consistent with patient's history of prior cholecystectomy 3. Bilaterally enlarged kidneys. Significance should be correlated with renal function tests. Bilateral renal cysts also noted.
[2018-02-17 11:17] LABS: HEP A AB IGM Negative (Negative); HEP B CORE IGM Positive (Negative); HEP B SURFACE AG QL Negative (Negative); HEP C ANTIBODY <0.1 s/co ratio (0.0-0.9)
[2018-02-17] MEDS ORDERED: Propofol 10 mg/mL 20mL Vial **SURGERY USE ONLY IV ONE (12:08)
[2018-02-17] MEDS ORDERED: Lidocaine 2% Gel 5 mL TP ONE (12:08)
--- NOTE | 2018-02-17 16:03 | Operative Report ---
DATE OF SURGERY: 02/17/2018 PROCEDURE: EGD with biopsy. CONSENT: Risks, benefits, alternatives, nature, indication, possible outcomes were discussed. Mentioned bleeding, infection, perforation, , disability, cardiopulmonary distress and arrest, missed lesion and cancers, need for surgery. The patient expressed understanding and provided informed consent. PREOPERATIVE DIAGNOSIS: Abdominal distension. POSTOPERATIVE DIAGNOSES: Esophagitis, gastritis, duodenitis. MEDICATIONS: MAC provided by anesthesiologist. DESCRIPTION OF PROCEDURE: The patient was placed on left side. Upper endoscope advanced from the mouth into the second portion of duodenum. Biopsies were taken. Scope brought back in stomach, retroflexion view of fundus, cardia, lesser curvature, scope was straightened. Biopsies were taken. Scope was removed. COMPLICATIONS: None. FINDINGS: 1. GE junction at 35 cm with a small hiatal hernia. 2. Esophagitis and Marco erosions. 3. Gastritis, status post biopsy. 4. Duodenitis. RECOMMENDATIONS: 1. Follow up on biopsy. 2. Provide the patient with Protonix. 3. Clear liquid diet. Thank you for allowing me to participate. Please call me if any questions. JOB# [id number]
[2018-02-17] MEDS: Atorvastatin Calcium 10 MG TAB PO SCH (20:33)
[2018-02-18] MEDS: Albuterol/Ipratropium Neb 3 ML AERS HHN SCH ×5 (02:47→19:14)
[2018-02-18 06:00] LABS: % EOSINOPHILS 0.3 % (0.0-5.0); % LYMPHOCYTES 10.9 % (20.0-50.0); % MONOCYTES 1.6 % (2.0-10.0); % NEUTROPHILS 87.2 % (40.0-80.0); HEMATOCRIT 34.2 % (41.0-60); HEMOGLOBIN 11.7 gm/dL (12-16); LYMPHOCYTE ABSOLUTE 1.4 Th/cmm (1.5-3.0); MEAN CELL VOLUME 85.1 fl (80-99); MEAN CORPUSCULAR HEMOGLOBIN 29.3 pg (26.0-30.0); MEAN CORPUSCULAR HGB CONC 34.4 pg (28.0-36.0); MEAN PLATELET VOLUME 9.2 fl; MONOCYTE ABSOLUTE 0.2 Th/cmm (0.3-1.0); NEUTROPHILE ABSOLUTE 11.6 Th/cmm (1.8-8.0); PLATELET COUNT 109 Th/cmm (150-400); RED BLOOD COUNT 4.02 Mil/cmm (4.30-5.70); WHITE BLOOD COUNT 13.2 Th/cmm (4.8-10.8)
[2018-02-18] MEDS: methylPREDNISolone SS 40 mg Vial IVP SCH ×2 (06:07→12:28)
[2018-02-18 06:18] LABS: MAGNESIUM 2.1 mg/dL (1.9-2.7)
[2018-02-18 06:20] LABS: ALB/GLOB RATIO 1.1 (1.0-1.8); ALBUMIN 2.6 gm/dL (4.2-5.5); BILIRUBIN,TOTAL 0.4 mg/dL (0.3-1.0); CALCIUM SERUM 8.3 mg/dL (8.6-10.3); CARBON DIOXIDE 21.4 mEq/L (21.0-31.0); CREATININE - SERUM 1.8 mg/dL (0.7-1.3); GFR AFRICAN-AMERICAN 50.4 ml/min (>90); GFR NON AFRICAN-AMERICAN 41.7 ml/min; POTASSIUM SERUM 4.4 mEq/L (3.5-5.1); TOTAL PROTEIN,SERUM 4.9 gm/dL (6.0-8.3)
--- NOTE | 2018-02-18 08:03 | Progress Notes ---
DATE: 02/17/2018 HISTORY OF PRESENT ILLNESS: A 57-year-old male with history of mental illness, currently in ICU still unruly, agitated, demanding specific medications, states he is allergic to some other medications. The patient is disorganized, yelling at me, states that he wants temazepam. Staff noting he remains unruly, still verbally combative at times. Medications were noted including doses and frequencies. Medications were reviewed and no side effects noted, currently on Zyprexa. He is willing to accept Zyprexa. No side effects of Zyprexa for the patient. SOCIAL HISTORY: Please see initial psych evaluation. MENTAL STATUS EXAMINATION: Stated age. Loud and disorganized, demanding certain medications, states he is allergic to multiple medications, run this list multiple times. Poor insight and judgment. The patient is likely with an underlying psychosis. No suicidal gestures. PROVISIONAL DIAGNOSIS: No change. RECOMMENDATIONS AND PLAN: The patient did not get his dose of Zyprexa this morning due to an EGD. Continue medications at current dose. Encourage better med compliance. JOB# [id number]
--- NOTE | 2018-02-18 08:17 | Diagnostic Imaging Report ---
CHEST X-RAY: AP view INDICATION: Shortness of breath COMPARISON: 02/16/2018 FINDINGS: Exam is limited due to overlying external material. The left PICC line has been removed. Mild increased interstitial lung markings are noted. No focal consolidation or effusions. Cardiomegaly is noted. Degenerative changes of the spine are noted. IMPRESSION: Mild increased interstitial lung markings, nonspecific. No focal consolidation identified. Cardiomegaly.
[2018-02-18] MEDS: Aspirin 81mg Chewable Tab PO SCH (08:25)
[2018-02-18] MEDS: Multivitamin Tab PO SCH (08:26)
--- NOTE | 2018-02-18 13:10 | General Progress Note ---
Subjective - Review of Systems Events since last encounter: confused demanding multiple medications Objective - Results Result Diagrams: 02/18/18 05:50 02/18/18 05:50 Recent Labs: Laboratory Last Values WBC 13.2 Th/cmm (4.8-10.8) H 02/18/18 05:50 RBC 4.02 Mil/cmm (4.30-5.70) L 02/18/18 05:50 Hgb 11.7 gm/dL (12-16) L 02/18/18 05:50 Hct 34.2 % (41.0-60) L 02/18/18 05:50 MCV 85.1 fl (80-99) 02/18/18 05:50 MCH 29.3 pg (26.0-30.0) 02/18/18 05:50 MCHC Differential 34.4 pg (28.0-36.0) 02/18/18 05:50 RDW 14.0 % (11.5-20.0) 02/18/18 05:50 Plt Count 109 Th/cmm (150-400) L 02/18/18 05:50 MPV 9.2 fl 02/18/18 05:50 Neutrophils % 87.2 % (40.0-80.0) H 02/18/18 05:50 Band Neutrophils % 4 % (0-10) 02/17/18 04:15 Lymphocytes % 10.9 % (20.0-50.0) L 02/18/18 05:50 Monocytes % 1.6 % (2.0-10.0) L 02/18/18 05:50 Eosinophils % 0.3 % (0.0-5.0) 02/18/18 05:50 Basophils % 0.0 % (0.0-2.0) 02/18/18 05:50 Neutrophils (Manual) 82 % (40-80) H 02/17/18 04:15 Lymphocytes 10 % (20-50) L 02/17/18 04:15 Monocytes 3 % (2-10) 02/16/18 04:35 Eosinophils 3 % (0-5) 02/17/18 04:15 Basophils 0 % (0-3) 02/15/18 05:15 Metamyelocytes 1 % (0-0) H 02/17/18 04:15 Myelocytes 2 % 02/13/18 19:40 Platelet Estimate DECREASED PLATELETS (NORMAL) 02/16/18 04:35 Platelet Morphology NORMAL (NORMAL) 02/15/18 05:15 Hayder Cells 1+ 02/16/18 04:35 RBC Morph Micro Appear NORMAL (NORMAL) 02/15/18 05:15 Smear Path Review Y 02/13/18 19:40 PT 10.5 SECONDS (9.5-11.5) 02/17/18 04:15 INR 1.01 (0.5-1.4) 02/17/18 04:15 PTT (Actin FS) 40.8 SECONDS (26.0-38.0) H 02/13/18 19:40 Specimen Source Arterial 02/13/18 15:50 Sample Site RB 02/13/18 15:50 pH 7.44 (7.35-7.45) 02/13/18 15:50 pCO2 26.0 mmHg (35.0-45.0) L 02/13/18 15:50 pO2 70.0 mmHg (80.0-100.0) L 02/13/18 15:50 HCO3 21.0 mEq/L (20.0-26.0) 02/13/18 15:50 Base Excess -5.0 mEq/L (-3.0-3.0) L 02/13/18 15:50 O2 Saturation 94.0 % (92.0-100.0) 02/13/18 15:50 Ruben Test NA 02/13/18 15:50 Vent Rate NA 02/13/18 15:50 Inspired O2 21 02/13/18 15:50 Tidal Volume NA 02/13/18 15:50 PEEP NA 02/13/18 15:50 Pressure (ins/psv/peep) NA 02/13/18 15:50 Critical Value E.GALLEGOS 02/13/18 15:50 Sodium 139 mEq/L (136-145) 02/18/18 05:50 Potassium 4.4 mEq/L (3.5-5.1) 02/18/18 05:50 Chloride 110 mEq/L (98-107) H 02/18/18 05:50 Carbon Dioxide 21.4 mEq/L (21.0-31.0) 02/18/18 05:50 Anion Gap 12.0 (7.0-16.0) 02/18/18 05:50 BUN 62 mg/dL (7-25) H 02/18/18 05:50 Creatinine 1.8 mg/dL (0.7-1.3) H 02/18/18 05:50 Est GFR ( Amer) 50.4 ml/min (>90) 02/18/18 05:50 Est GFR (Non-Af Amer) 41.7 ml/min 02/18/18 05:50 BUN/Creatinine Ratio 34.4 02/18/18 05:50 Glucose 104 mg/dL (70-105) 02/18/18 05:50 POC Glucose 97 MG/DL (70-105) 02/12/18 18:18 Hemoglobin A1c % 5.3 % (4.0-6.0) 02/12/18 17:50 Whole Bld Lactic Acid 5.16 mmol/L (0.60-1.99) H* 02/13/18 07:30 Calcium 8.3 mg/dL (8.6-10.3) L 02/18/18 05:50 Phosphorus 4.1 mg/dL (2.5-5.0) 02/13/18 07:30 Magnesium 2.1 mg/dL (1.9-2.7) 02/18/18 05:50 Total Bilirubin 0.4 mg/dL (0.3-1.0) 02/18/18 05:50 AST 19 U/L (13-39) 02/18/18 05:50 ALT 42 U/L (7-52) 02/18/18 05:50 Alkaline Phosphatase 52 U/L (34-104) 02/18/18 05:50 Creatine Kinase 33 U/L (30-223) 02/18/18 05:50 CK-MB (CK-2) 25.3 ng/mL (0.6-6.3) H 02/13/18 07:30 Troponin I 0.09 ng/mL (0.01-0.05) H* 02/12/18 17:50 B-Natriuretic Peptide 437.0 pg/mL (5.0-100.0) H 02/18/18 05:50 Total Protein 4.9 gm/dL (6.0-8.3) L 02/18/18 05:50 Albumin 2.6 gm/dL (4.2-5.5) L 02/18/18 05:50 Globulin 2.3 gm/dL 02/18/18 05:50 Albumin/Globulin Ratio 1.1 (1.0-1.8) 02/18/18 05:50 Triglycerides 74 mg/dL (<150) 02/12/18 17:50 Cholesterol 67 mg/dL (<200) 02/12/18 17:50 LDL Cholesterol Direct 19 mg/dL (75-193) L 02/12/18 17:50 HDL Cholesterol 31 mg/dL (23-92) 02/12/18 17:50 Lipase 17 U/L (11-82) 02/16/18 04:35 TSH 0.80 uIU/ml (0.34-5.60) 02/12/18 17:50 Urine Source [place] 02/16/18 05:55 Urine Color YELLOW 02/16/18 05:55 Urine Clarity CLEAR (CLEAR) 02/16/18 05:55 Urine pH 5.5 (4.6 - 8.0) 02/16/18 05:55 Ur Specific [place] <= 1.005 (1.005-1.030) 02/16/18 05:55 Urine Protein NEGATIVE mg/dL (NEGATIVE) 02/16/18 05:55 Urine Glucose (UA) NEGATIVE mg/dL (NEGATIVE) 02/16/18 05:55 Urine Ketones NEGATIVE mg/dL (NEGATIVE) 02/16/18 05:55 Urine Blood MODERATE (NEGATIVE) H 02/16/18 05:55 Urine Nitrate NEGATIVE (NEGATIVE) 02/16/18 05:55 Urine Bilirubin NEGATIVE (NEGATIVE) 02/16/18 05:55 Urine Urobilinogen 0.2 E.U./dL (0.2 - 1.0) 02/16/18 05:55 Ur Leukocyte Esterase NEGATIVE (NEGATIVE) 02/16/18 05:55 Urine RBC 2-5 /hpf (0-5) H 02/16/18 05:55 Urine WBC 0-2 /hpf (0-5) 02/16/18 05:55 Ur Epithelial Cells OCCASIONAL /lpf (FEW) 02/16/18 05:55 Amorphous Sediment MODERATE URATES (NONE SEEN) 02/12/18 18:05 Urine Bacteria FEW /hpf (NONE SEEN) 02/16/18 05:55 Urine Mucus FEW /lpf (FEW) 02/16/18 05:55 Stool Occult Blood NEGATIVE (NEGATIVE) 02/16/18 01:30 RPR NONREACTIVE (NONREACTIVE) 02/12/18 17:50 Hepatitis A IgM Ab Negative (Negative) 02/16/18 21:10 Hep Bs Antigen Negative (Negative) 02/16/18 21:10 Hep B Core IgM Ab Positive (Negative) H 02/16/18 21:10 Hepatitis C Antibody <0.1 s/co ratio (0.0-0.9) 02/16/18 21:10 - Physical Exam Vitals and I&O: Vital Signs Temp 97.2 F 02/18/18 11:55 Pulse 85 02/18/18 11:55 Resp 18 02/18/18 11:55 BP 133/80 02/18/18 11:55 Pulse Ox 95 02/18/18 11:55 Intake & Output 02/17/18 02/18/18 02/18/18 18:59 06:59 18:59 Intake Total 1300 4520 Output Total 2900 4400 Balance -1600 120 Weight (lbs) 91.626 kg 91.172 kg Intake: Intake, IV Amount 100 1100 Dextrose 5% 1,000 ml @ 75 1000 mls/hr IV .[id number] [facility] [place] Rx#:[id number] Piperacillin Sodium/ 100 100 Tazobact 2.25 gm In Sodium Chloride 0.9% 50 ml @ 100 mls/hr IV Q6HR [facility] [place] Rx#:[id number] Oral 1200 3420 Output: Urine 2900 4400 Other: # Bowel Movements 0 3 Stool Characteristics Soft Brown Weight Source Bedscale Bedscale Active Medications: Current Medications Acetaminophen (Tylenol) 650 mg PO Q4HR PRN PRN Reason: GARCIA/Mild pain/Temp above 37.6C Stop: 04/13/18 21:42 Last Admin: 02/18/18 12:27 Dose: 650 mg Albuterol Sulfate (Albuterol 2.5mg/3ml Neb Ud) 2.5 mg HHN Q2HRT PRN PRN Reason: Respiratory Distress Stop: 04/16/18 16:57 Last Admin: 02/17/18 05:43 Dose: 2.5 mg Albuterol/Ipratropium (Duoneb Neb) 3 ml HHN Q4HRT [facility] [place] Stop: 04/14/18 06:59 Last Admin: 02/18/18 11:01 Dose: 3 ml Aspirin (Aspirin Chewable) 81 mg PO DAILY DEBORAH Stop: 04/14/18 08:59 Last Admin: 02/18/18 08:25 Dose: 81 mg Atorvastatin Calcium (Lipitor) 20 mg PO HS DEBORAH; Protocol Stop: 04/14/18 20:59 Last Admin: 02/17/18 20:33 Dose: 20 mg Diphenhydramine HCl (Benadryl) 50 mg PO BID PRN PRN Reason: Itching Stop: 04/13/18 21:42 Diphenhydramine HCl (Benadryl 50 Mg/Ml) 25 mg IM Q6HR PRN PRN Reason: Agitation Stop: 04/16/18 07:26 Piperacillin Sod/Tazobactam (Sod 2.25 gm/ Sodium Chloride) 50 mls @ 100 mls/hr IV Q6HR DEBORAH Stop: 04/14/18 00:00 Last Admin: 02/18/18 12:21 Dose: 100 mls/hr Norepinephrine Bitartrate 8 mg (/ Dextrose) 258 mls @ 7.74 mls/hr IV TITR PRN; Protocol PRN Reason: BP MAINTENANCE (PER PROTOCOL) Stop: 04/14/18 01:11 Last Titration: 02/15/18 18:48 Dose: Infused Phenylephrine HCl 10 mg/ (Sodium Chloride) 250 mls @ 7.5 mls/hr IV TITR DEBORAH; Protocol Stop: 04/14/18 04:29 Last Titration: 02/16/18 13:19 Dose: Infused Daptomycin 500 mg/ Sodium (Chloride) 100 mls @ 100 mls/hr IV Q48H DEBORAH Stop: 04/15/18 09:59 Last Infusion: 02/16/18 10:55 Dose: Infused Dextrose (D5w) 1,000 mls @ 75 mls/hr IV .[id number] DEBORAH Stop: 04/18/18 07:29 Last Admin: 02/17/18 23:45 Dose: 75 mls/hr Magnesium Hydroxide (Milk Of Magnesia) 30 ml PO HS PRN PRN Reason: Constipation Stop: 04/13/18 21:43 Last Admin: 02/15/18 17:42 Dose: 30 ml Methylprednisolone Sodium Succinate (Solu-Medrol) 20 mg IVP Q8HR DEBORAH Stop: 04/17/18 20:59 Last Admin: 02/18/18 12:28 Dose: 20 mg Miscellaneous (Probiotic Screen) 1 ea MC PRN PRN PRN Reason: PROTOCOL Stop: 04/16/18 08:44 Miscellaneous (Clinical Monitoring) 1 ea MC DAILY PRN PRN Reason: RENAL DOSING Stop: 04/17/18 08:59 Multivitamins/Vitamin C (Theragran) 1 tab PO DAILY DEBORAH Stop: 04/14/18 08:59 Last Admin: 02/18/18 08:26 Dose: 1 tab Olanzapine (Zyprexa) 20 mg PO HS DEBORAH; Protocol Stop: 04/14/18 20:59 Last Admin: 02/17/18 20:33 Dose: 20 mg Olanzapine (Zyprexa) 5 mg PO DAILY DEBORAH; Protocol Stop: 04/17/18 08:59 Last Admin: 02/18/18 08:25 Dose: 5 mg Pantoprazole Sodium (Protonix) 40 mg IVP BID DEBORAH Stop: 04/18/18 16:59 Last Admin: 02/18/18 08:26 Dose: 40 mg Zolpidem Tartrate (Ambien) 5 mg PO HS PRN PRN Reason: Insomnia Stop: 04/13/18 21:43 Last Admin: 02/17/18 23:39 Dose: 5 mg General: No acute distress HEENT: Atraumatic, PERRLA, EOMI Neck: Supple Cardiovascular: Regular rate, Normal S1, Normal S2 Lungs: Clear to auscultation Assessment/Plan - Problem List Patient Problems: All Active Problems Cellulitis of elbow (Acute) L03.119 Hypotension (Acute) UTI (urinary tract infection) (Acute) - Plan Plan: as per order sheet Nutritional Asmnt/Malnutr-PDOC - Dietary Evaluation Malnutrition Findings (Please click <Entered> for more info): Nutritional Asmnt/Malnutrition Start: 02/13/18 16: 16 Text: Status: Complete Freq: Protocol: Document 02/13/18 16:16 LCHENG (Rec: 02/13/18 16:43 [id number]) Nutritional Asmnt/Malnutrition Patient General Information Nutritional Screening High Risk Diagnosis sepsis Pertinent Medical Hx/Surgical Hx cerebral palsy, schizophrenia, bipolar Subjective Information Consult received for wounds. Pt seen lying in bed at time of visit, family at bedside. pt was on NPO, clear liquid will start from dinner. Current Diet Order/ Nutrition Support NPO Pertinent Medications theragran, piperacillin, D5w w /20 meq kcl Pertinent Labs 02/13 BUN 55, Cr 3.6 Nutritional Hx/Data Height 1.7 m Height (Calculated Centimeters) 170.2 Current Weight (lbs) 78.925 kg Weight (Calculated Kilograms) 78.9 Weight (Calculated Grams) 86514.1 [place] Body Weight 148 Body Mass Index (BMI) 27.2 Weight Status Overweight GI Symptoms GI Symptoms None Last BM not indicated Difficult in: None Skin Integrity/Comment: laceration to right arm Estimated Nutritional Goals BEE in Kcals: Using Current wt Calories/Kcals/Kg 25-30 Kcals Calculated 5343-1764 Protein: Using Current wt Protein g/k monitor renal labs Protein Calculated 79 Fluid: ml per MD Nutritional Problem 2. Problem Problem increased nutrition needs Etiology increased metabolic demand and impaired skin integrity Signs/Symptoms: dx of sepsis, wounds 1. Problem Problem altered nutritionr elated lans Etiology renal dysfunction Signs/Symptoms: BUN 55, Cr 3.6 Malnutrition Alert Is there a minimum of two criteria No selected? Query Text:Check all the applicable criteria. A minimum of two criteria are recommended for diagnosis of either severe or non-severe malnutrition. Malnutrition Related to Morbid Obesity Malnutrition related to morbid obesity No Intervention/Recommendation Comments 1. start with clear liquid diet as ordered. Consider adding Ensure clear to increase nutrition intake. 2. Monitor PO intake, wt, labs and skin integrity 3. F/U as high risk in 2-3 days, 02/15-02/16 Expected Outcomes/Goals Expected Outcomes/Goals 1. PO intake to meet at least 75% of nutritional needs. 2. Wt stability, skin to remain intact, labs to approach WNL.
--- NOTE | 2018-02-18 13:43 | GI Progress Note ---
Subjective - Review of Systems Subjective: DENIES ABD PAIN Objective - Results Result Diagrams: 02/18/18 05:50 02/18/18 05:50 Recent Labs: Laboratory Last Values WBC 13.2 Th/cmm (4.8-10.8) H 02/18/18 05:50 RBC 4.02 Mil/cmm (4.30-5.70) L 02/18/18 05:50 Hgb 11.7 gm/dL (12-16) L 02/18/18 05:50 Hct 34.2 % (41.0-60) L 02/18/18 05:50 MCV 85.1 fl (80-99) 02/18/18 05:50 MCH 29.3 pg (26.0-30.0) 02/18/18 05:50 MCHC Differential 34.4 pg (28.0-36.0) 02/18/18 05:50 RDW 14.0 % (11.5-20.0) 02/18/18 05:50 Plt Count 109 Th/cmm (150-400) L 02/18/18 05:50 MPV 9.2 fl 02/18/18 05:50 Neutrophils % 87.2 % (40.0-80.0) H 02/18/18 05:50 Band Neutrophils % 4 % (0-10) 02/17/18 04:15 Lymphocytes % 10.9 % (20.0-50.0) L 02/18/18 05:50 Monocytes % 1.6 % (2.0-10.0) L 02/18/18 05:50 Eosinophils % 0.3 % (0.0-5.0) 02/18/18 05:50 Basophils % 0.0 % (0.0-2.0) 02/18/18 05:50 Neutrophils (Manual) 82 % (40-80) H 02/17/18 04:15 Lymphocytes 10 % (20-50) L 02/17/18 04:15 Monocytes 3 % (2-10) 02/16/18 04:35 Eosinophils 3 % (0-5) 02/17/18 04:15 Basophils 0 % (0-3) 02/15/18 05:15 Metamyelocytes 1 % (0-0) H 02/17/18 04:15 Myelocytes 2 % 02/13/18 19:40 Platelet Estimate DECREASED PLATELETS (NORMAL) 02/16/18 04:35 Platelet Morphology NORMAL (NORMAL) 02/15/18 05:15 Hayder Cells 1+ 02/16/18 04:35 RBC Morph Micro Appear NORMAL (NORMAL) 02/15/18 05:15 Smear Path Review Y 02/13/18 19:40 PT 10.5 SECONDS (9.5-11.5) 02/17/18 04:15 INR 1.01 (0.5-1.4) 02/17/18 04:15 PTT (Actin FS) 40.8 SECONDS (26.0-38.0) H 02/13/18 19:40 Specimen Source Arterial 02/13/18 15:50 Sample Site RB 02/13/18 15:50 pH 7.44 (7.35-7.45) 02/13/18 15:50 pCO2 26.0 mmHg (35.0-45.0) L 02/13/18 15:50 pO2 70.0 mmHg (80.0-100.0) L 02/13/18 15:50 HCO3 21.0 mEq/L (20.0-26.0) 02/13/18 15:50 Base Excess -5.0 mEq/L (-3.0-3.0) L 02/13/18 15:50 O2 Saturation 94.0 % (92.0-100.0) 02/13/18 15:50 Ruben Test NA 02/13/18 15:50 Vent Rate NA 02/13/18 15:50 Inspired O2 21 02/13/18 15:50 Tidal Volume NA 02/13/18 15:50 PEEP NA 02/13/18 15:50 Pressure (ins/psv/peep) NA 02/13/18 15:50 Critical Value E.GALLEGOS 02/13/18 15:50 Sodium 139 mEq/L (136-145) 02/18/18 05:50 Potassium 4.4 mEq/L (3.5-5.1) 02/18/18 05:50 Chloride 110 mEq/L (98-107) H 02/18/18 05:50 Carbon Dioxide 21.4 mEq/L (21.0-31.0) 02/18/18 05:50 Anion Gap 12.0 (7.0-16.0) 02/18/18 05:50 BUN 62 mg/dL (7-25) H 02/18/18 05:50 Creatinine 1.8 mg/dL (0.7-1.3) H 02/18/18 05:50 Est GFR ( Amer) 50.4 ml/min (>90) 02/18/18 05:50 Est GFR (Non-Af Amer) 41.7 ml/min 02/18/18 05:50 BUN/Creatinine Ratio 34.4 02/18/18 05:50 Glucose 104 mg/dL (70-105) 02/18/18 05:50 POC Glucose 97 MG/DL (70-105) 02/12/18 18:18 Hemoglobin A1c % 5.3 % (4.0-6.0) 02/12/18 17:50 Whole Bld Lactic Acid 5.16 mmol/L (0.60-1.99) H* 02/13/18 07:30 Calcium 8.3 mg/dL (8.6-10.3) L 02/18/18 05:50 Phosphorus 4.1 mg/dL (2.5-5.0) 02/13/18 07:30 Magnesium 2.1 mg/dL (1.9-2.7) 02/18/18 05:50 Total Bilirubin 0.4 mg/dL (0.3-1.0) 02/18/18 05:50 AST 19 U/L (13-39) 02/18/18 05:50 ALT 42 U/L (7-52) 02/18/18 05:50 Alkaline Phosphatase 52 U/L (34-104) 02/18/18 05:50 Creatine Kinase 33 U/L (30-223) 02/18/18 05:50 CK-MB (CK-2) 25.3 ng/mL (0.6-6.3) H 02/13/18 07:30 Troponin I 0.09 ng/mL (0.01-0.05) H* 02/12/18 17:50 B-Natriuretic Peptide 437.0 pg/mL (5.0-100.0) H 02/18/18 05:50 Total Protein 4.9 gm/dL (6.0-8.3) L 02/18/18 05:50 Albumin 2.6 gm/dL (4.2-5.5) L 02/18/18 05:50 Globulin 2.3 gm/dL 02/18/18 05:50 Albumin/Globulin Ratio 1.1 (1.0-1.8) 02/18/18 05:50 Triglycerides 74 mg/dL (<150) 02/12/18 17:50 Cholesterol 67 mg/dL (<200) 02/12/18 17:50 LDL Cholesterol Direct 19 mg/dL (75-193) L 02/12/18 17:50 HDL Cholesterol 31 mg/dL (23-92) 02/12/18 17:50 Lipase 17 U/L (11-82) 02/16/18 04:35 TSH 0.80 uIU/ml (0.34-5.60) 02/12/18 17:50 Urine Source [place] 02/16/18 05:55 Urine Color YELLOW 02/16/18 05:55 Urine Clarity CLEAR (CLEAR) 02/16/18 05:55 Urine pH 5.5 (4.6 - 8.0) 02/16/18 05:55 Ur Specific [place] <= 1.005 (1.005-1.030) 02/16/18 05:55 Urine Protein NEGATIVE mg/dL (NEGATIVE) 02/16/18 05:55 Urine Glucose (UA) NEGATIVE mg/dL (NEGATIVE) 02/16/18 05:55 Urine Ketones NEGATIVE mg/dL (NEGATIVE) 02/16/18 05:55 Urine Blood MODERATE (NEGATIVE) H 02/16/18 05:55 Urine Nitrate NEGATIVE (NEGATIVE) 02/16/18 05:55 Urine Bilirubin NEGATIVE (NEGATIVE) 02/16/18 05:55 Urine Urobilinogen 0.2 E.U./dL (0.2 - 1.0) 02/16/18 05:55 Ur Leukocyte Esterase NEGATIVE (NEGATIVE) 02/16/18 05:55 Urine RBC 2-5 /hpf (0-5) H 02/16/18 05:55 Urine WBC 0-2 /hpf (0-5) 02/16/18 05:55 Ur Epithelial Cells OCCASIONAL /lpf (FEW) 02/16/18 05:55 Amorphous Sediment MODERATE URATES (NONE SEEN) 02/12/18 18:05 Urine Bacteria FEW /hpf (NONE SEEN) 02/16/18 05:55 Urine Mucus FEW /lpf (FEW) 02/16/18 05:55 Stool Occult Blood NEGATIVE (NEGATIVE) 02/16/18 01:30 RPR NONREACTIVE (NONREACTIVE) 02/12/18 17:50 Hepatitis A IgM Ab Negative (Negative) 02/16/18 21:10 Hep Bs Antigen Negative (Negative) 02/16/18 21:10 Hep B Core IgM Ab Positive (Negative) H 02/16/18 21:10 Hepatitis C Antibody <0.1 s/co ratio (0.0-0.9) 02/16/18 21:10 - Physical Exam Vitals and I&O: Vital Signs Temp 97.2 F 02/18/18 11:55 Pulse 85 02/18/18 11:55 Resp 18 02/18/18 11:55 BP 133/80 02/18/18 11:55 Pulse Ox 95 02/18/18 11:55 Intake & Output 02/17/18 02/18/18 02/18/18 18:59 06:59 18:59 Intake Total 1300 4520 Output Total 2900 4400 Balance -1600 120 Weight (lbs) 91.626 kg 91.172 kg Intake: Intake, IV Amount 100 1100 Dextrose 5% 1,000 ml @ 75 1000 mls/hr IV .[id number] [facility] Rx#:[id number] Piperacillin Sodium/ 100 100 Tazobact 2.25 gm In Sodium Chloride 0.9% 50 ml @ 100 mls/hr IV Q6HR [facility] [place] Rx#:[id number] Oral 1200 3420 Output: Urine 2900 4400 Other: # Bowel Movements 0 3 Stool Characteristics Soft Brown Weight Source Bedscale Bedscale Active Medications: Current Medications Acetaminophen (Tylenol) 650 mg PO Q4HR PRN PRN Reason: GARCIA/Mild pain/Temp above 37.6C Stop: 04/13/18 21:42 Last Admin: 02/18/18 12:27 Dose: 650 mg Albuterol Sulfate (Albuterol 2.5mg/3ml Neb Ud) 2.5 mg HHN Q2HRT PRN PRN Reason: Respiratory Distress Stop: 04/16/18 16:57 Last Admin: 02/17/18 05:43 Dose: 2.5 mg Albuterol/Ipratropium (Duoneb Neb) 3 ml HHN Q4HRT DEBORAH Stop: 04/14/18 06:59 Last Admin: 02/18/18 11:01 Dose: 3 ml Aspirin (Aspirin Chewable) 81 mg PO DAILY DEBORAH Stop: 04/14/18 08:59 Last Admin: 02/18/18 08:25 Dose: 81 mg Atorvastatin Calcium (Lipitor) 20 mg PO HS DEBORAH; Protocol Stop: 04/14/18 20:59 Last Admin: 02/17/18 20:33 Dose: 20 mg Diphenhydramine HCl (Benadryl) 50 mg PO BID PRN PRN Reason: Itching Stop: 04/13/18 21:42 Diphenhydramine HCl (Benadryl 50 Mg/Ml) 25 mg IM Q6HR PRN PRN Reason: Agitation Stop: 04/16/18 07:26 Piperacillin Sod/Tazobactam (Sod 2.25 gm/ Sodium Chloride) 50 mls @ 100 mls/hr IV Q6HR DEBORAH Stop: 04/14/18 00:00 Last Admin: 02/18/18 12:21 Dose: 100 mls/hr Norepinephrine Bitartrate 8 mg (/ Dextrose) 258 mls @ 7.74 mls/hr IV TITR PRN; Protocol PRN Reason: BP MAINTENANCE (PER PROTOCOL) Stop: 04/14/18 01:11 Last Titration: 02/15/18 18:48 Dose: Infused Phenylephrine HCl 10 mg/ (Sodium Chloride) 250 mls @ 7.5 mls/hr IV TITR DEBORAH; Protocol Stop: 04/14/18 04:29 Last Titration: 02/16/18 13:19 Dose: Infused Daptomycin 500 mg/ Sodium (Chloride) 100 mls @ 100 mls/hr IV Q48H DEBORAH Stop: 04/15/18 09:59 Last Infusion: 02/16/18 10:55 Dose: Infused Dextrose (D5w) 1,000 mls @ 75 mls/hr IV .[id number] DEBORAH Stop: 04/18/18 07:29 Last Admin: 02/17/18 23:45 Dose: 75 mls/hr Magnesium Hydroxide (Milk Of Magnesia) 30 ml PO HS PRN PRN Reason: Constipation Stop: 04/13/18 21:43 Last Admin: 02/15/18 17:42 Dose: 30 ml Methylprednisolone Sodium Succinate (Solu-Medrol) 20 mg IVP Q8HR DEBORAH Stop: 04/17/18 20:59 Last Admin: 02/18/18 12:28 Dose: 20 mg Miscellaneous (Probiotic Screen) 1 ea MC PRN PRN PRN Reason: PROTOCOL Stop: 04/16/18 08:44 Miscellaneous (Clinical Monitoring) 1 ea MC DAILY PRN PRN Reason: RENAL DOSING Stop: 04/17/18 08:59 Multivitamins/Vitamin C (Theragran) 1 tab PO DAILY DEBORAH Stop: 04/14/18 08:59 Last Admin: 02/18/18 08:26 Dose: 1 tab Olanzapine (Zyprexa) 20 mg PO HS DEBORAH; Protocol Stop: 04/14/18 20:59 Last Admin: 02/17/18 20:33 Dose: 20 mg Olanzapine (Zyprexa) 5 mg PO DAILY DEBORAH; Protocol Stop: 04/17/18 08:59 Last Admin: 02/18/18 08:25 Dose: 5 mg Pantoprazole Sodium (Protonix) 40 mg IVP BID DEBORAH Stop: 04/18/18 16:59 Last Admin: 02/18/18 08:26 Dose: 40 mg Zolpidem Tartrate (Ambien) 5 mg PO HS PRN PRN Reason: Insomnia Stop: 04/13/18 21:43 Last Admin: 02/17/18 23:39 Dose: 5 mg General: No acute distress HEENT: Atraumatic, PERRLA, EOMI Neck: Supple Cardiovascular: Regular rate, Normal S1, Normal S2 Lungs: Clear to auscultation Assessment/Plan - Problem List Patient Problems: All Active Problems Cellulitis of elbow (Acute) L03.119 Hypotension (Acute) UTI (urinary tract infection) (Acute) - Assessment Assessment: 57 YO MALE WITH ABD PAIN NOW RESOLVED EGD SHOWED MARLA EROSION, ESOPHAGITIS, GASTRITIS, DUODENITIS HAS ACUTE HBV LFTS NORMAL BECYK SHOWED S/P NAZANIN 1.CONT PROTONIX 2.AWAIT BX 3.NOTIFY STAFF TO INFORM DEPT OF HEALTH ABOUT ACUTE HBV 4.WILL NEED OUTPATIENT HBV MONITORING AND TREATMENT
[2018-02-18] MEDS: DAPTOmycin 500 MG in Sodium Chloride 0.9% 100 ML IV SCH (14:25)
--- NOTE | 2018-02-18 15:20 | Pathology Report ---
[id number] Collection Date: 02/17/2018 Surgeon: Dr. Nikki Kulkarni Specimen Description: 1. Duodenal biopsy 2. Antrum biopsy 3. Esophageal biopsy Gross Description: Part I: Received in formalin is a 0.2 cm hussein soft tissue fragment. Totally submitted in one cassette labeled A. Gross Description: Part II: Received in formalin is a 0.1 cm hussein soft tissue fragment. Totally submitted in one cassette labeled B. Gross Description: Part III: Received in formalin is a 0.1 cm hussein soft tissue fragment. Totally submitted in one cassette labeled C. Microscopic Description: Part I: The histologic sections show duodenal mucosa with intact intestinal villi, showing no evidence for a villous abnormality. There is mild chronic inflammation present, consisting of lymphocytes and plasma cells. Diagnosis: Part I: 1. Mild nonspecific chronic inflammation, duodenal biopsy. 2. There is no evidence for celiac disease/sprue. Microscopic Description: Part II: The histologic sections show gastric mucosa with mild chronic inflammation present, consisting of lymphocytes and plasma cells. The Giemsa stain shows no evidence for Helicobacter pylori. Diagnosis: Part II: 1. Mild chronic gastritis, antrum biopsy. 2. The Giemsa stain is negative for Helicobacter pylori. Microscopic Description: Part III: The histologic sections show glandular mucosa with mild chronic inflammation present, consisting of lymphocytes and plasma cells. The Alcian blue stain shows no significant abnormalities. The PAS stain shows no evidence for fungal organisms. Diagnosis: Part III: Mild nonspecific chronic inflammation, consistent with esophagogastritis (esophageal biopsy). [facility]# [id number] [facility]
== END 2018-02-18 21:12 | DRG 871 ==
LOC: ER 17:25 → ICU 19:00 → TELE 02-17 17:06
PROVIDERS: ADMIT Internal Medicine; ATTEND Internal Medicine
PROC: 5A09457 Assistance with Respiratory Ventilation, 24-96 Consecutive Hours, Continuous Positive Airway Pressure (ICD-10-PCS; 2018-02-13)
PROC: 0DB98ZX Excision of Duodenum, Via Natural or Artificial Opening Endoscopic, Diagnostic (ICD-10-PCS; principal; 2018-02-17)
PROC: 0DB68ZX Excision of Stomach, Via Natural or Artificial Opening Endoscopic, Diagnostic (ICD-10-PCS; 2018-02-17)
PROC: 0DB58ZX Excision of Esophagus, Via Natural or Artificial Opening Endoscopic, Diagnostic (ICD-10-PCS; 2018-02-17)
DX: A41.9 Sepsis, unspecified organism (principal); R65.21 Severe sepsis with septic shock; J96.90 Respiratory failure, unspecified, unspecified whether with hypoxia or hypercapnia; L03.113 Cellulitis of right upper limb; N17.9 Acute kidney failure, unspecified; I50.32 Chronic diastolic (congestive) heart failure; M62.82 Rhabdomyolysis; N39.0 Urinary tract infection, site not specified; K22.10 Ulcer of esophagus without bleeding; E87.2 Acidosis; I95.9 Hypotension, unspecified; G80.9 Cerebral palsy, unspecified; F17.210 Nicotine dependence, cigarettes, uncomplicated; F31.9 Bipolar disorder, unspecified; G20 Parkinson's disease; E78.5 Hyperlipidemia, unspecified; I11.0 Hypertensive heart disease with heart failure; F20.9 Schizophrenia, unspecified; E86.0 Dehydration; F29 Unspecified psychosis not due to a substance or known physiological condition; F41.9 Anxiety disorder, unspecified; D64.9 Anemia, unspecified; K29.70 Gastritis, unspecified, without bleeding; K29.80 Duodenitis without bleeding; Z88.8 Allergy status to other drugs, medicaments and biological substances; Z82.49 Family history of ischemic heart disease and other diseases of the circulatory system; Z79.82 Long term (current) use of aspirin
CPT/HCPCS: 36415-UA; 36600-90; 71045-TC; 74000-TC; 76700-TC; 80053-TC; 80061-TC; 80074-90; 81001-TC; 82270-TC; 82550-TC; 82553; 82803-TC; 82948-90; 83036-90; 83605; 83690-TC; 83735-TC; 83880-TC; 84100-TC; 84443-TC; 84484-TC; 85007-TC; 85025-TC; 85027-TC; 85610-TC; 86592-TC; 87070-90; 87086-90; 87230-TC; 88305-90; 88312-90; 88313-90; 90799; 93005; 93971-TC-RT; 94640; 94660; 94760; C9113; J0878; J1940; J2001; J2370; J2543; J2704; J2920; J3370; J3475; J3480; J7030; J7040; J7051; J7070; J7613; X6452; X7704; Z7610

== ENCOUNTER 2018-03-15 00:23 | Inpatient (IN) | payer MEDICARE, OTHER ==
--- NOTE | 2018-03-15 00:52 | ED Physician Chart ---
ED Chief Complaint/HPI - Patient Information Date Seen:: 03/15/18 Time Seen:: 00:40 Chief Complaint:: right arm cellulitis History of Present Illness:: THIS IS A 57 YO MALE PATIENT SENT FROM THE CARE HOME FOR AN EVALUATION OF HIS RIGHT ARM SWELLING AND PAIN. HE HAS HAD A RECENT INJURY OF THE ELBOW. HE HAS BEEN ON ANTIBIOTICS FOR THE ARM INFECTION AND HAD THE LAST DOSE THIS AM OF VANCOMYCIN. Allergies:: Allergies Allergy/AdvReac Type Severity Reaction Status Date / Time haloperidol [From Haldol] Allergy Verified 02/12/18 18:58 Vitals:: Vital Signs - 8 hr 03/15/18 00:25 Temp 99.5 F HR 77 RR 18 BP 118/76 O2 Sat % 95 Historian:: Patient, Medical Records Review:: Nurse's Note Reviewed, Old Chart Reviewed, Transfer documents Reviewed ED Review of Systems - Review of Systems General/Constitutional: Fever, No chills, No weight loss, No weakness, No diaphoresis, No edema, No loss of appetite Skin: No skin lesions, No rash, No bruising Head: No headache, No light-headedness Eyes: No loss of vision, No pain, No diplopia ENT: No earache, No nasal drainage, No sore throat, No tinnitus Neck: No neck pain, No swelling, No thyromegaly, No stiffness, No mass noted Cardio Vascular: No chest pain, No palpitations, No PND, No orthopnea, No edema Pulmonary: No SOB, No cough, No sputum, No wheezing GI: No nausea, No vomiting, No diarrhea, No pain, No melena, No hematochezia, No constipation, No hematemesis G/U: No dysuria, No frequency, No hematuria Musculoskeletal: No bone or joint pain, No back pain, No muscle pain, Other ( RIGHT FOREARM PAIN AND SWELLING.) Endocrine: No polyuria, No polydipsia Psychiatric: No prior psych history, No depression, No anxiety, No suicidal ideation Hematopoietic: No bruising, No lymphadenopathy Allergic/Immuno: No urticaria, No angioedema Neurological: No syncope, No focal symptoms, No weakness, No paresthesia, No headache, No seizure, No dizziness, No confusion, No vertigo ED Past Medical History - Past Medical History Obtainable: Yes Past Medical History: HTN, CHF, Dyslipidemia, Dementia, Other (CEREBRAL PALSY, BIPOLAR ,PARKINSON'S AND SCHIZOPHENIA.) Family History: None Social History: Smoker (FOR 20 YRS A SMOKER), No Alcohol, No Drug Use Surgical History: None Psychiatricy History: Depression, Schizophrenia, Bipolar, Dementia Family Medical History - Family Member Mother History Unknown: Yes Ethnicity: Unknown Living Status: Unknown ED Physical Exam - Physical Examination General/Constitutional: Awake, Well-developed, well-nourished, Alert, No distress, GCS 15, Non-toxic appearing, Ambulatory Head: Atraumatic Eyes: Lids, conjuctiva normal, PERRL, EOMI Skin: Nl inspection, No rash, No skin lesions, No ecchymosis, Well hydrated, No lymphadenopathy ENMT: External ears, nose nl, Nasal exam nl, Lips, teeth, gums nl Neck: Nontender, Full ROM w/o pain, No JVD, No nuchal rigidity, No bruit, No mass, No stridor Respiratory: Nl effort/Exclusion, Clear to Auscultation, No Wheeze/Rhonchi/Rales Cardio Vascular: RRR, No murmur, gallop, rubs, NL S1 S2 GI: No tenderness/rebounding/guarding, No organomegaly, No hernia, Normal BS's, Nondistended, No mass/bruits, No McBurney tenderness : No CVA tenderness Extremities: No tenderness or effusion (RIGHT FOREARM IS RED, SWOLLEN, TENDER WITH PAINFUL ROM.), Full ROM, normal strength in all extremities, No edema, Normal digits & nails Neuro/Psych: Alert/oriented, DTR's symmetric, Normal sensory exam, Normal motor strength, Judgement/insight normal, Mood normal, Normal gait, No focal deficits Misc: Normal back, No paraspinal tenderness ED Assessment - Assessment General Assessment: CELLULITIS OF THE RIGHT FOREARM ED Septic Shock - . Is Septic Shock (SBP<90, OR Lactate>4 mmol\L) present?: No - <6hrs of presentation: Vital Signs: Vital Signs - 8 hr 03/15/18 00:25 Temp 99.5 F HR 77 RR 18 BP 118/76 O2 Sat % 95 ED Reassessment (Disposition) - Reassessment Reassessment Condition:: Unchanged - Diagnosis Diagnosis:: CELLULITIS OF THE RIGHT FOREARM CEREBRAL PALSY, SCHIZOPHRENIA - Patient Disposition Discharge/Transfer:: Acute Care w/in this hosp Admitted to:: Med/Surg Admitting Medical Physician:: Silverio Allen Condition at Disposition:: Improved
[2018-03-15] MEDS ORDERED: Acetaminophen 500 MG TAB PO ONE (01:00)
[2018-03-15] MEDS ORDERED: Acetaminophen 500 MG TAB ONE (01:02)
[2018-03-15 01:11] LABS: INR 1.03 (0.5-1.4); PROTHROMBIN TIME (TEST) 10.7 SECONDS (9.5-11.5)
[2018-03-15 01:14] LABS: ALB/GLOB RATIO 1.3 (1.0-1.8); ALBUMIN 3.5 gm/dL (4.2-5.5); ALKALINE PHOSPHATASE 47 U/L (34-104); BILIRUBIN,TOTAL 0.4 mg/dL (0.3-1.0); BUN - UREA NITROGEN 17 mg/dL (7-25); CARBON DIOXIDE 24.6 mEq/L (21.0-31.0); CHLORIDE 106 mEq/L (98-107); GFR AFRICAN-AMERICAN > 60.0 ml/min (>90); GFR NON AFRICAN-AMERICAN > 60.0 ml/min; GLUCOSE 100 mg/dL (70-105); POTASSIUM SERUM 3.6 mEq/L (3.5-5.1); SGOT 17 U/L (13-39); SGPT/ALT 22 U/L (7-52); SODIUM SERUM 138 mEq/L (136-145); TOTAL PROTEIN,SERUM 6.3 gm/dL (6.0-8.3)
[2018-03-15 01:22] LABS: URINE SOURCE CLEAN C
[2018-03-15 01:23] LABS: URINE BILIRUBIN NEGATIVE (NEGATIVE); URINE BLOOD TRACE (NEGATIVE); URINE GLUCOSE (UA) NEGATIVE (NEGATIVE); URINE KETONE NEGATIVE (NEGATIVE); URINE LEUKOCYTE ESTERASE NEGATIVE (NEGATIVE); URINE MICROSCOPIC INDICATED? YES; URINE NITRATE NEGATIVE (NEGATIVE); URINE PROTEIN NEGATIVE (NEGATIVE); URINE UROBILINOGEN 0.2 E.U./dL (0.2 - 1.0)
[2018-03-15 01:31] LABS: URINE CLARITY CLEAR (CLEAR); URINE COLOR YELLOW
[2018-03-15 01:35] LABS: URINE EPITHELIAL CELLS NONE SEEN /lpf (FEW); URINE RBC 0-2 /hpf (0-5); URINE WBC 0-2 /hpf (0-5)
[2018-03-15 01:36] LABS: URINE BACTERIA OCCASIONAL /hpf (NONE SEEN)
[2018-03-15 01:38] LABS: % BASOPHILS 0.5 % (0.0-2.0); % EOSINOPHILS 7.4 % (0.0-5.0); % MONOCYTES 8.3 % (2.0-10.0); % NEUTROPHILS 57.8 % (40.0-80.0); EOSINOPHILE ABSOLUTE 0.5 Th/cmm (0.1-0.4); HEMATOCRIT 29.9 % (41.0-60); HEMOGLOBIN 10.1 gm/dL (12-16); LYMPHOCYTE ABSOLUTE 1.8 Th/cmm (1.5-3.0); MEAN CORPUSCULAR HEMOGLOBIN 28.6 pg (26.0-30.0); MEAN CORPUSCULAR HGB CONC 33.7 pg (28.0-36.0); MEAN PLATELET VOLUME 8.2 fl; MONOCYTE ABSOLUTE 0.6 Th/cmm (0.3-1.0); NEUTROPHILE ABSOLUTE 4.2 Th/cmm (1.8-8.0); PLATELET COUNT 208 Th/cmm (150-400); RED BLOOD COUNT 3.52 Mil/cmm (4.30-5.70); WHITE BLOOD COUNT 7.1 Th/cmm (4.8-10.8)
[2018-03-15] MEDS ORDERED: VTE Chemical Prophylaxis Screen/Admission MC PRN (07:45)
[2018-03-15] MEDS ORDERED: Magnesium Hydroxide (MOM) 30 mL UDC PO PRN (11:46)
[2018-03-15] MEDS ORDERED: Maalox 30 mL Cup PO PRN ×2 (11:47→17:09)
[2018-03-15] MEDS ORDERED: Albuterol/Ipratropium Neb 3 ML AERS HHN PRN ×2 (12:04→17:09)
--- NOTE | 2018-03-15 17:59 | History & Physical ---
ADMIT DATE: 03/15/2018 CHIEF COMPLAINT: Right arm cellulitis. HISTORY OF PRESENT ILLNESS: The patient is a 57-year-old male with a past medical history of newly diagnosed hepatitis B, hypertension, CHF, dyslipidemia, dementia, bipolar disorder, Parkinson's disease, schizophrenia, brought in from nursing facility for right arm swelling and elbow area medially. He had a recent traumatic injury to the right elbow. He was taking antibiotics including vancomycin. ALLERGIES: NKDA. MEDICATIONS: As per medication reconciliation sheet. Medications include Tylenol 650 mg p.o. q.4 hourly p.r.n., Maalox 30 mg p.o. q.4 hourly, aspirin 81 mg p.o. daily, Lipitor 20 mg p.o. daily, Cogentin 0.5 mg p.o. daily, Benadryl 50 mg p.o. q.12 hours, Colace 100 mg p.o. twice a day, ipratropium, albuterol nebulizer q.4 hourly p.r.n., labetalol 50 mg p.o. daily, multivitamin 1 tab p.o. daily, olanzapine 2.5 mg p.o. daily, Protonix 40 mg p.o. daily, and Ambien 5 mg at bedtime p.r.n. for insomnia. PAST MEDICAL HISTORY: Hypertension, CHF, dyslipidemia, dementia, bipolar disorder, Parkinson's disease, schizophrenia and hepatitis B. FAMILY HISTORY: Noncontributory. SOCIAL HISTORY: The patient has a history of smoking for at least 20 years. No alcohol, no drug use. Lives at nursing facility. PAST SURGICAL HISTORY: None. PSYCHIATRIC HISTORY: Depression, schizophrenia, bipolar, dementia. FAMILY HISTORY: Noncontributory. REVIEW OF SYSTEMS: GENERAL: The patient denies any fever or chills, no weight loss, no weakness. HEENT: No diplopia, no photophobia, no sore throat. RESPIRATORY: No cough, no shortness of breath. CARDIOVASCULAR: No chest pain, no palpitation. GASTROINTESTINAL: No nausea, no vomiting, no diarrhea or constipation. GENITOURINARY: No dysuria. NEUROLOGIC: No headache, no dizziness, no focal weakness. SKIN: The patient has swelling and erythema of the medial aspect of the right elbow. PHYSICAL EXAMINATION: VITAL SIGNS: Current vital signs shows temperature is 98.3 degrees Fahrenheit, pulse 88, respirations 18, blood pressure 127/88, and oxygen saturation 96%. GENERAL: The patient is comfortable lying in the bed, not in acute distress. HEENT: Head is normocephalic, atraumatic. Oral cavity is moist, pink tongue. Eyes: No pallor, no icterus. PERRLA, EOMI. NECK: Supple, no JVD, no carotid bruit. Trachea is midline. CHEST: Bilateral breath sounds. No crackles, no wheezing. HEART: S1, S2 within normal limits. Regular rhythm. No murmur, no gallop. ABDOMEN: Soft, nontender, nondistended. Bowel sounds present. EXTREMITIES: No cyanosis, no clubbing, no edema. Right elbow, the patient has erythema and swelling with some induration in the medial aspect. NEUROLOGIC: Alert, awake, and oriented x 3. CENTRAL NERVOUS SYSTEM: Alert, awake, and oriented x 3. No focal deficit. LABORATORY DATA: Current lab shows WBC count 7100, hemoglobin 10.1, hematocrit 29.9, platelets are 208,000, neutrophils 57%. INR 1.03. Sodium 138, potassium 3.6, chloride 106, bicarbonate is 25, BUN is 17, creatinine 1, glucose is 100. Urinalysis showed clear urine, negative nitrite, negative leukoesterase, rbc's 0-2. IMPRESSION: 1. Right elbow cellulitis. 2. Diabetes mellitus type 2. 3. Congestive heart failure. 4. Hypertension. 5. Dyslipidemia. 6. Dementia. 7. Bipolar disorder. 8. Parkinson's disease. 9. Schizophrenia. PLAN: We will continue vancomycin and Zosyn. Follow up clinically. As there was a recent history of hepatitis B, we will check the hepatitis B serology and hepatitis B DNA PCR. We will check the ultrasound of the liver. Dr. Ortiz will take over from tomorrow. JOB# [id number]
[2018-03-15] MEDS ORDERED: Non-Formulary Item 1 EA (Atorvastatin Calcium [Lipitor] 20 MG) PO SCH (21:00)
[2018-03-15] MEDS: Atorvastatin Calcium 10 MG TAB PO SCH (21:11)
--- NOTE | 2018-03-15 22:48 | Consultation ---
DATE OF CONSULTATION: 03/15/[address] Ortiz. HISTORY AND PHYSICAL: This is a 57-year-old male patient who was transferred from [facility] as patient had pain and swelling of the right elbow with cellulitis. The patient is admitted. During the hospital stay, the patient was found to have deep venous thrombosis of the right upper extremity as the patient is admitted, the patient has chronic congestive heart failure and hence Cardiology consult is requested. PAST MEDICAL HISTORY: Right elbow cellulitis, right upper extremity DVT, hepatitis B, congestive heart failure, diastolic dysfunction, chronic hypertension, hyperlipidemia, Parkinson's disease, bipolar, schizophrenia. FAMILY HISTORY: Unremarkable. SOCIAL HISTORY: No history of smoking, alcohol abuse. ALLERGIES: None. PHYSICAL EXAMINATION: VITAL SIGNS: Blood pressure 130/80, pulse 78, respirations 28. HEAD: Normocephalic. No lumps or bumps. EYES: Pupils equal, reactive to light. Fundi show AV nicking, sclerae white, conjunctivae pink. NECK: Carotid 2+. Normal upstroke. JVD 10 cm above sternal angle. Thyroid not palpable. Lymph nodes not palpable. CHEST: Shows increased AP diameter. No kyphosis, scoliosis. LUNGS: Bilateral bronchovesicular breath sounds. HEART: PMI fifth intercostal space with lateral to midclavicular line. S1, S2, S3, S4, soft systolic murmur. ABDOMEN: Soft. Liver, spleen not palpable. No organomegaly. Bowel sounds active. NEUROLOGIC: Unremarkable. EXTREMITIES: Peripheral pulses 2+. No pedal edema. Pain and tenderness of the right elbow and swelling. CLINICAL IMPRESSION: Cellulitis of the right elbow, deep venous thrombosis of the right elbow, congestive heart failure, diastolic dysfunction, chronic hepatitis B, hypertension, hyperlipidemia, Parkinson's disease, schizophrenia, bipolar. PLAN: At the present time, we will continue present care. Get BNP, IV antibiotics and anticoagulation. [facility]# [id number]
[2018-03-16] MEDS: Pantoprazole 40 mg EC Tab PO SCH ×2 (05:06→08:58)
[2018-03-16 05:42] LABS: ANION GAP 11.2 (7.0-16.0); BUN - UREA NITROGEN 14 mg/dL (7-25); CALCIUM SERUM 8.8 mg/dL (8.6-10.3); CARBON DIOXIDE 23.9 mEq/L (21.0-31.0); CHLORIDE 111 mEq/L (98-107); CREATININE - SERUM 0.9 mg/dL (0.7-1.3); GFR AFRICAN-AMERICAN > 60.0 ml/min (>90); GFR NON AFRICAN-AMERICAN > 60.0 ml/min; GLUCOSE 95 mg/dL (70-105); POTASSIUM SERUM 4.1 mEq/L (3.5-5.1); SODIUM SERUM 142 mEq/L (136-145)
[2018-03-16] MEDS ORDERED: Pantoprazole 40 mg EC Tab PO SCH (07:30)
[2018-03-16] MEDS: Multivitamin Tab PO SCH (08:58)
[2018-03-16] MEDS: Aspirin 81mg Chewable Tab PO SCH (08:58)
[2018-03-16] MEDS ORDERED: Non-Formulary Item 1 EA (Multivitamin [Multivitamins] 1 TAB) PO SCH (09:00)
[2018-03-16] MEDS ORDERED: Aspirin 81mg Chewable Tab PO SCH (09:00)
[2018-03-16] MEDS ORDERED: Probiotic Screen MC PRN (09:08)
[2018-03-16] MEDS: Lactobacillus Rhamnosus GG 15 Billion CFU CAP.SPRINK PO SCH (14:09)
[2018-03-16] MEDS: Atorvastatin Calcium 10 MG TAB PO SCH (20:11)
--- NOTE | 2018-03-16 23:58 | Infectious Disease Prog Note ---
Infectious Disease Subjective - Review of Systems Service Date: 03/16/18 Infectious Disease Objective - Results Result Diagrams: 03/15/18 00:40 03/16/18 05:00 Recent Labs: Laboratory Last Values WBC 7.1 Th/cmm (4.8-10.8) 03/15/18 00:40 RBC 3.52 Mil/cmm (4.30-5.70) L 03/15/18 00:40 Hgb 10.1 gm/dL (12-16) L 03/15/18 00:40 Hct 29.9 % (41.0-60) L 03/15/18 00:40 MCV 85.0 fl (80-99) 03/15/18 00:40 MCH 28.6 pg (26.0-30.0) 03/15/18 00:40 MCHC Differential 33.7 pg (28.0-36.0) 03/15/18 00:40 RDW 13.0 % (11.5-20.0) 03/15/18 00:40 Plt Count 208 Th/cmm (150-400) 03/15/18 00:40 MPV 8.2 fl 03/15/18 00:40 Neutrophils % 57.8 % (40.0-80.0) 03/15/18 00:40 Lymphocytes % 26.0 % (20.0-50.0) 03/15/18 00:40 Monocytes % 8.3 % (2.0-10.0) 03/15/18 00:40 Eosinophils % 7.4 % (0.0-5.0) H 03/15/18 00:40 Basophils % 0.5 % (0.0-2.0) 03/15/18 00:40 PT 10.7 SECONDS (9.5-11.5) 03/15/18 00:40 INR 1.03 (0.5-1.4) 03/15/18 00:40 PTT (Actin FS) 25.3 SECONDS (26.0-38.0) L 03/15/18 00:40 Sodium 142 mEq/L (136-145) 03/16/18 05:00 Potassium 4.1 mEq/L (3.5-5.1) 03/16/18 05:00 Chloride 111 mEq/L (98-107) H 03/16/18 05:00 Carbon Dioxide 23.9 mEq/L (21.0-31.0) 03/16/18 05:00 Anion Gap 11.2 (7.0-16.0) 03/16/18 05:00 BUN 14 mg/dL (7-25) 03/16/18 05:00 Creatinine 0.9 mg/dL (0.7-1.3) 03/16/18 05:00 Est GFR ( Amer) > 60.0 ml/min (>90) 03/16/18 05:00 Est GFR (Non-Af Amer) > 60.0 ml/min 03/16/18 05:00 BUN/Creatinine Ratio 15.6 03/16/18 05:00 Glucose 95 mg/dL (70-105) 03/16/18 05:00 Calcium 8.8 mg/dL (8.6-10.3) 03/16/18 05:00 Total Bilirubin 0.4 mg/dL (0.3-1.0) 03/15/18 00:40 AST 17 U/L (13-39) 03/15/18 00:40 ALT 22 U/L (7-52) 03/15/18 00:40 Alkaline Phosphatase 47 U/L (34-104) 03/15/18 00:40 Troponin I 0.01 ng/mL (0.01-0.05) 03/15/18 00:40 B-Natriuretic Peptide 37.2 pg/mL (5.0-100.0) 03/16/18 05:00 Total Protein 6.3 gm/dL (6.0-8.3) 03/15/18 00:40 Albumin 3.5 gm/dL (4.2-5.5) L 03/15/18 00:40 Globulin 2.8 gm/dL 03/15/18 00:40 Albumin/Globulin Ratio 1.3 (1.0-1.8) 03/15/18 00:40 Urine Source CLEAN C 03/15/18 01:15 Urine Color YELLOW 03/15/18 01:15 Urine Clarity CLEAR (CLEAR) 03/15/18 01:15 Urine pH 6.0 (4.6 - 8.0) 03/15/18 01:15 Ur Specific [place] <= 1.005 (1.005-1.030) 03/15/18 01:15 Urine Protein NEGATIVE mg/dL (NEGATIVE) 03/15/18 01:15 Urine Glucose (UA) NEGATIVE mg/dL (NEGATIVE) 03/15/18 01:15 Urine Ketones NEGATIVE mg/dL (NEGATIVE) 03/15/18 01:15 Urine Blood TRACE (NEGATIVE) 03/15/18 01:15 Urine Nitrate NEGATIVE (NEGATIVE) 03/15/18 01:15 Urine Bilirubin NEGATIVE (NEGATIVE) 03/15/18 01:15 Urine Urobilinogen 0.2 E.U./dL (0.2 - 1.0) 03/15/18 01:15 Ur Leukocyte Esterase NEGATIVE (NEGATIVE) 03/15/18 01:15 Urine RBC 0-2 /hpf (0-5) H 03/15/18 01:15 Urine WBC 0-2 /hpf (0-5) 03/15/18 01:15 Ur Epithelial Cells NONE SEEN /lpf (FEW) 03/15/18 01:15 Urine Bacteria OCCASIONAL /hpf (NONE SEEN) 03/15/18 01:15 Vancomycin Trough 12.1 ug/mL (5-10) H 03/16/18 13:35 - Physical Exam Vitals and I&O: Vital Signs Temp 98.2 F 03/16/18 19:00 Pulse 89 03/16/18 19:00 Resp 18 03/16/18 19:00 BP 122/80 03/16/18 19:00 Pulse Ox 100 03/16/18 19:00 Intake & Output 03/16/18 03/16/18 03/17/18 06:59 18:59 06:59 Intake Total 1200 300 50 Output Total 450 Balance 750 300 50 Weight (lbs) 78.471 kg 78.471 kg Intake: Intake, IV Amount 350 300 50 Piperacillin Sodium/ 100 50 50 Tazobact 3.375 gm In Sodium Chloride 0.9% 50 ml @ 100 mls/hr IV Q8HR DEBORAH Rx#:[id number] Vancomycin HCl 1 gm In 250 250 Sodium Chloride 0.9% 250 ml @ 165 mls/hr IV Q12H DEBORAH Rx#:[id number] Oral 850 Output: Urine 450 Other: # Voids 4 1,200 # Bowel Movements 0 Weight Source Bedscale Estimated Active Medications: Current Medications Acetaminophen (Tylenol) 650 mg PO Q4H PRN PRN Reason: Pain (Mild) Stop: 05/14/18 11:47 Last Admin: 03/15/18 21:11 Dose: 650 mg Al Hydrox/Mg Hydrox/Simethicone (Maalox) 30 ml PO Q4HR PRN PRN Reason: Gas Stop: 05/14/18 11:46 Albuterol/Ipratropium (Duoneb Neb) 3 ml HHN Q4HRT PRN PRN Reason: Congestion Stop: 05/14/18 14:59 Aspirin (Aspirin Chewable) 81 mg PO DAILY DEBORAH Stop: 05/15/18 08:59 Last Admin: 03/16/18 08:58 Dose: 81 mg Atorvastatin Calcium (Lipitor) 20 mg PO HS DEBORAH; Protocol Stop: 05/14/18 20:59 Last Admin: 03/16/18 20:11 Dose: 20 mg Benztropine Mesylate (Cogentin) 0.5 mg PO DAILY [facility] Stop: 05/15/18 08:59 Last Admin: 03/16/18 08:58 Dose: 0.5 mg Diphenhydramine HCl (Benadryl) 50 mg PO Q12HR PRN PRN Reason: Itching Stop: 05/14/18 20:59 Docusate Sodium (Colace) 100 mg PO BID DEBORAH Stop: 05/14/18 16:59 Last Admin: 03/16/18 16:25 Dose: 100 mg Heparin Sodium (Porcine) (Heparin) 5,000 units SUBQ Q8HR DEBORAH Stop: 05/14/18 12:59 Last Admin: 03/16/18 20:12 Dose: 5,000 units Piperacillin Sod/Tazobactam (Sod 3.375 gm/ Sodium Chloride) 50 mls @ 100 mls/ hr IV Q8HR DEBORAH Stop: 05/14/18 12:59 Last Infusion: 03/16/18 20:41 Dose: Infused Vancomycin HCl 1 gm/ Sodium (Chloride) 250 mls @ 165 mls/hr IV Q12H DEBORAH Stop: 05/14/18 13:59 Last Infusion: 03/16/18 15:40 Dose: Infused Labetalol HCl (Trandate) 50 mg PO DAILY [facility] Stop: 05/15/18 08:59 Last Admin: 03/16/18 08:54 Dose: Not Given Lactobacillus Rhamnosus (Culturelle 15b) 1 each PO DAILY DEBORAH Stop: 05/15/18 13:59 Last Admin: 03/16/18 14:09 Dose: 1 each Magnesium Hydroxide (Milk Of Magnesia) 30 ml PO HS PRN PRN Reason: Constipation Stop: 05/14/18 11:45 Miscellaneous (Vte Chemical Prophylaxis Screen/ Admission) 1 ea MC PRN PRN PRN Reason: PROTOCOL Stop: 05/14/18 07:44 Miscellaneous (Vancomycin Iv Per Pharmacy) 1 ea PRN PRN PRN Reason: PROTOCOL Stop: 05/14/18 11:22 Miscellaneous (Probiotic Screen) 1 ea PRN PRN PRN Reason: PROTOCOL Stop: 05/15/18 09:07 Multivitamins/Vitamin C (Theragran) 1 tab PO DAILY DEBORAH Stop: 05/15/18 08:59 Last Admin: 03/16/18 08:58 Dose: 1 tab Mupirocin (Bactroban Oint) 1 appl NS Q12HR DEBORAH Stop: 03/21/18 09:01 Last Admin: 03/16/18 21:06 Dose: 1 appl Olanzapine (Zyprexa) 2.5 mg PO DAILY DEBORAH; Protocol Stop: 05/15/18 08:59 Last Admin: 03/16/18 08:58 Dose: 2.5 mg Olanzapine 20 mg/ Olanzapine 5 (mg) 25 mg PO HS DEBORAH Stop: 05/14/18 20:59 Last Admin: 03/16/18 20:11 Dose: 25 mg Pantoprazole Sodium (Protonix) 40 mg PO DAILY DEBORAH Stop: 05/15/18 05:59 Last Admin: 03/16/18 08:58 Dose: 40 mg Zolpidem Tartrate (Ambien) 5 mg PO HS PRN PRN Reason: Insomnia Stop: 05/14/18 11:52 Last Admin: 03/15/18 21:11 Dose: 5 mg - Procedures Procedures: Procedures Procedure Code Date ASSISTANCE WITH RESPIRATORY VENTILATION, 24-96 HRS, CPAP [id number] 02/12/18 EXCISION OF DUODENUM, ENDO, DIAGN [id number] 02/12/18 EXCISION OF ESOPHAGUS, ENDO, DIAGN [id number] 02/12/18 EXCISION OF STOMACH, ENDO, DIAGN [id number] 02/12/18
[2018-03-17] MEDS: Multivitamin Tab PO SCH (08:41)
[2018-03-17] MEDS: Lactobacillus Rhamnosus GG 15 Billion CFU CAP.SPRINK PO SCH (08:41)
[2018-03-17] MEDS: Aspirin 81mg Chewable Tab PO SCH (08:41)
[2018-03-17] MEDS: Pantoprazole 40 mg EC Tab PO SCH (08:41)
--- NOTE | 2018-03-17 18:25 | Consultation ---
DATE OF CONSULTATION: 03/17/2018 PSYCHIATRIC CONSULT THE PATIENT'S AGE: 57. SEX: Male. PHYSICIAN: Dr. Ortiz. [employer] MECHANIC: Dr. Schmidt. TYPE OF THE REPORT: Psychiatric consult. REASON FOR THE CONSULT: Agitation and irritability. HISTORY OF PRESENT ILLNESS: The patient is a 57-year-old male with history of psychosis. The patient was admitted to the hospital with right arm cellulitis. The patient has been confused, agitated, out of control and unable to follow directions. Dr. Ortiz asked me to evaluate the patient. Chart reviewed and the patient interviewed and discussed the patient's condition with the staff and reviewed records and labs. The patient has been extremely agitated and irritable. During my interview, the patient was restless and he was looking under the bed looking for something and trying to grab something that is invisible from under the bed. Also, was paranoid and suspicious and in angry and irritable mood. He was not able to follow any of my directions and he kept pacing up and down the unit and talking to himself and imaginary objects. PAST PSYCHIATRIC HISTORY: The patient has history of what seems to be schizophrenia. PAST MEDICAL HISTORY: The patient has Parkinson's disease as well as hypertension and congestive heart failure. He was admitted with right arm cellulitis. SOCIAL HISTORY: The patient lives in [facility]. No known alcohol or drug abuse. MENTAL STATUS EXAM: The patient appears slightly older than stated age. Disheveled. Suspicious and paranoid. Actively responding to stimuli. The patient did not answer question regarding hallucinations, but delusions or regarding suicide or homicide. The patient is alert, but seems to be disoriented to time, place, person and situation. He seems to be of low average intelligence based on his verbal ability. ASSESSMENT: PRIMARY DIAGNOSIS: Chronic paranoid schizophrenia with acute exacerbation. TREATMENT PLAN: We will start the patient on Seroquel and Klonopin and to continue Zyprexa. We will adjust the dose and gradually increase Zyprexa. Also, we will monitor behavior. Thanks to and we will follow with you. JOB# [id number]
[2018-03-17] MEDS: Atorvastatin Calcium 10 MG TAB PO SCH (20:05)
--- NOTE | 2018-03-18 07:26 | Infectious Disease Prog Note ---
Infectious Disease Subjective - Review of Systems Service Date: 03/18/18 Events since last encounter: none significant. Subjective: There is no new change. Infectious Disease Objective - Results Result Diagrams: 03/15/18 00:40 03/16/18 05:00 Recent Labs: Laboratory Last Values WBC 7.1 Th/cmm (4.8-10.8) 03/15/18 00:40 RBC 3.52 Mil/cmm (4.30-5.70) L 03/15/18 00:40 Hgb 10.1 gm/dL (12-16) L 03/15/18 00:40 Hct 29.9 % (41.0-60) L 03/15/18 00:40 MCV 85.0 fl (80-99) 03/15/18 00:40 MCH 28.6 pg (26.0-30.0) 03/15/18 00:40 MCHC Differential 33.7 pg (28.0-36.0) 03/15/18 00:40 RDW 13.0 % (11.5-20.0) 03/15/18 00:40 Plt Count 208 Th/cmm (150-400) 03/15/18 00:40 MPV 8.2 fl 03/15/18 00:40 Neutrophils % 57.8 % (40.0-80.0) 03/15/18 00:40 Lymphocytes % 26.0 % (20.0-50.0) 03/15/18 00:40 Monocytes % 8.3 % (2.0-10.0) 03/15/18 00:40 Eosinophils % 7.4 % (0.0-5.0) H 03/15/18 00:40 Basophils % 0.5 % (0.0-2.0) 03/15/18 00:40 PT 10.7 SECONDS (9.5-11.5) 03/15/18 00:40 INR 1.03 (0.5-1.4) 03/15/18 00:40 PTT (Actin FS) 25.3 SECONDS (26.0-38.0) L 03/15/18 00:40 Sodium 142 mEq/L (136-145) 03/16/18 05:00 Potassium 4.1 mEq/L (3.5-5.1) 03/16/18 05:00 Chloride 111 mEq/L (98-107) H 03/16/18 05:00 Carbon Dioxide 23.9 mEq/L (21.0-31.0) 03/16/18 05:00 Anion Gap 11.2 (7.0-16.0) 03/16/18 05:00 BUN 14 mg/dL (7-25) 03/16/18 05:00 Creatinine 0.9 mg/dL (0.7-1.3) 03/16/18 05:00 Est GFR ( Amer) > 60.0 ml/min (>90) 03/16/18 05:00 Est GFR (Non-Af Amer) > 60.0 ml/min 03/16/18 05:00 BUN/Creatinine Ratio 15.6 03/16/18 05:00 Glucose 95 mg/dL (70-105) 03/16/18 05:00 Calcium 8.8 mg/dL (8.6-10.3) 03/16/18 05:00 Total Bilirubin 0.4 mg/dL (0.3-1.0) 03/15/18 00:40 AST 17 U/L (13-39) 03/15/18 00:40 ALT 22 U/L (7-52) 03/15/18 00:40 Alkaline Phosphatase 47 U/L (34-104) 03/15/18 00:40 Troponin I 0.01 ng/mL (0.01-0.05) 03/15/18 00:40 B-Natriuretic Peptide 37.2 pg/mL (5.0-100.0) 03/16/18 05:00 Total Protein 6.3 gm/dL (6.0-8.3) 03/15/18 00:40 Albumin 3.5 gm/dL (4.2-5.5) L 03/15/18 00:40 Globulin 2.8 gm/dL 03/15/18 00:40 Albumin/Globulin Ratio 1.3 (1.0-1.8) 03/15/18 00:40 Urine Source CLEAN C 03/15/18 01:15 Urine Color YELLOW 03/15/18 01:15 Urine Clarity CLEAR (CLEAR) 03/15/18 01:15 Urine pH 6.0 (4.6 - 8.0) 03/15/18 01:15 Ur Specific [place] <= 1.005 (1.005-1.030) 03/15/18 01:15 Urine Protein NEGATIVE mg/dL (NEGATIVE) 03/15/18 01:15 Urine Glucose (UA) NEGATIVE mg/dL (NEGATIVE) 03/15/18 01:15 Urine Ketones NEGATIVE mg/dL (NEGATIVE) 03/15/18 01:15 Urine Blood TRACE (NEGATIVE) 03/15/18 01:15 Urine Nitrate NEGATIVE (NEGATIVE) 03/15/18 01:15 Urine Bilirubin NEGATIVE (NEGATIVE) 03/15/18 01:15 Urine Urobilinogen 0.2 E.U./dL (0.2 - 1.0) 03/15/18 01:15 Ur Leukocyte Esterase NEGATIVE (NEGATIVE) 03/15/18 01:15 Urine RBC 0-2 /hpf (0-5) H 03/15/18 01:15 Urine WBC 0-2 /hpf (0-5) 03/15/18 01:15 Ur Epithelial Cells NONE SEEN /lpf (FEW) 03/15/18 01:15 Urine Bacteria OCCASIONAL /hpf (NONE SEEN) 03/15/18 01:15 Vancomycin Trough 12.1 ug/mL (5-10) H 03/16/18 13:35 - Physical Exam Vitals and I&O: Vital Signs Temp 98.5 F 03/18/18 04:00 Pulse 64 03/18/18 04:00 Resp 18 03/18/18 04:00 BP 103/63 03/18/18 04:00 Pulse Ox 98 03/18/18 04:00 Intake & Output 03/17/18 03/18/18 03/18/18 18:59 06:59 18:59 Intake Total 1100 50 Balance 1100 50 Weight (lbs) 78.471 kg 78.834 kg Intake: Intake, IV Amount 300 50 Piperacillin Sodium/ 50 50 Tazobact 3.375 gm In Sodium Chloride 0.9% 50 ml @ 100 mls/hr IV Q8HR [facility] Rx#:[id number] Vancomycin HCl 1 gm In 250 Sodium Chloride 0.9% 250 ml @ 165 mls/hr IV Q12H [facility] Rx#:[id number] Oral 800 Other: # Voids 3 # Bowel Movements 1 Weight Source Bedscale Bedscale Active Medications: Current Medications Acetaminophen (Tylenol) 650 mg PO Q4H PRN PRN Reason: Pain (Mild) Stop: 05/14/18 11:47 Last Admin: 03/18/18 05:46 Dose: 650 mg Al Hydrox/Mg Hydrox/Simethicone (Maalox) 30 ml PO Q4HR PRN PRN Reason: Gas Stop: 05/14/18 11:46 Albuterol/Ipratropium (Duoneb Neb) 3 ml HHN Q4HRT PRN PRN Reason: Congestion Stop: 05/14/18 14:59 Aspirin (Aspirin Chewable) 81 mg PO DAILY [facility] Stop: 05/15/18 08:59 Last Admin: 03/17/18 08:41 Dose: 81 mg Atorvastatin Calcium (Lipitor) 20 mg PO HS [facility]; Protocol Stop: 05/14/18 20:59 Last Admin: 03/17/18 20:05 Dose: 20 mg Benztropine Mesylate (Cogentin) 0.5 mg PO DAILY [facility] Stop: 05/15/18 08:59 Last Admin: 03/17/18 08:40 Dose: 0.5 mg Clonazepam (Klonopin) 1 mg PO BID [facility]; Protocol Stop: 05/16/18 16:59 Last Admin: 03/17/18 17:01 Dose: Not Given Diphenhydramine HCl (Benadryl) 50 mg PO Q12HR PRN PRN Reason: Itching Stop: 05/14/18 20:59 Docusate Sodium (Colace) 100 mg PO BID [facility] Stop: 05/14/18 16:59 Last Admin: 03/17/18 17:00 Dose: 100 mg Heparin Sodium (Porcine) (Heparin) 5,000 units SUBQ Q8HR [facility] Stop: 05/14/18 12:59 Last Admin: 03/18/18 05:49 Dose: 5,000 units Piperacillin Sod/Tazobactam (Sod 3.375 gm/ Sodium Chloride) 50 mls @ 100 mls/ hr IV Q8HR [facility] Stop: 05/14/18 12:59 Last Admin: 03/18/18 05:46 Dose: 100 mls/hr Vancomycin HCl 1 gm/ Sodium (Chloride) 250 mls @ 165 mls/hr IV Q12H [facility] Stop: 05/14/18 13:59 Last Admin: 03/18/18 02:26 Dose: 165 mls/hr Labetalol HCl (Trandate) 50 mg PO DAILY [facility] Stop: 05/15/18 08:59 Last Admin: 03/17/18 08:41 Dose: 50 mg Lactobacillus Rhamnosus (Culturelle 15b) 1 each PO DAILY [facility] Stop: 05/15/18 13:59 Last Admin: 03/17/18 08:41 Dose: 1 each Magnesium Hydroxide (Milk Of Magnesia) 30 ml PO HS PRN PRN Reason: Constipation Stop: 05/14/18 11:45 Miscellaneous (Vte Chemical Prophylaxis Screen/ Admission) 1 ea PRN PRN PRN Reason: PROTOCOL Stop: 05/14/18 07:44 Miscellaneous (Vancomycin Iv Per Pharmacy) 1 ea PRN PRN PRN Reason: PROTOCOL Stop: 05/14/18 11:22 Miscellaneous (Probiotic Screen) 1 ea PRN PRN PRN Reason: PROTOCOL Stop: 05/15/18 09:07 Multivitamins/Vitamin C (Theragran) 1 tab PO DAILY [facility] Stop: 05/15/18 08:59 Last Admin: 03/17/18 08:41 Dose: 1 tab Mupirocin (Bactroban Oint) 1 appl NS Q12HR [facility] Stop: 03/21/18 09:01 Last Admin: 03/17/18 20:43 Dose: 1 appl Olanzapine (Zyprexa) 2.5 mg PO DAILY [facility]; Protocol Stop: 05/15/18 08:59 Last Admin: 03/17/18 08:41 Dose: 2.5 mg Olanzapine 20 mg/ Olanzapine 5 (mg) 25 mg PO HS [facility] Stop: 05/14/18 20:59 Last Admin: 03/17/18 20:05 Dose: 25 mg Pantoprazole Sodium (Protonix) 40 mg PO DAILY [facility] Stop: 05/15/18 05:59 Last Admin: 03/17/18 08:41 Dose: 40 mg Quetiapine Fumarate (Seroquel) 100 mg PO TID [facility]; Protocol Stop: 05/16/18 13:59 Last Admin: 03/17/18 20:06 Dose: 100 mg Zolpidem Tartrate (Ambien) 5 mg PO HS PRN PRN Reason: Insomnia Stop: 05/14/18 11:52 Last Admin: 03/17/18 20:04 Dose: 5 mg General: no acute distress, well developed, well nourished HEENT: atraumatic, normocephalic, PERRLA Neck: supple, no thyromegaly, no lymphadenopathy Cardiovascular: S1S2, regular Lungs: clear to auscultation bilaterally, clear to percussion Abdomen: soft, no tender, no distended Extremities: no cyanosis, no clubbing, no edema Neurological: awake, alert, oriented Skin: intact - Procedures Procedures: Procedures Procedure Code Date ASSISTANCE WITH RESPIRATORY VENTILATION, 24-96 HRS, CPAP [id number] 02/12/18 EXCISION OF DUODENUM, ENDO, DIAGN [id number] 02/12/18 EXCISION OF ESOPHAGUS, ENDO, DIAGN [id number] 02/12/18 EXCISION OF STOMACH, ENDO, DIAGN [id number] 02/12/18 Infectious Disease Assmt/Plan - Assessment Assessment: 1. Right elbow cellulitis. 2. Diabetes mellitus type 2. 3. Congestive heart failure. 4. Hypertension. 5. Dyslipidemia. 6. Dementia. 7. Bipolar disorder. 8. Parkinson's disease. 9. Schizophrenia. - Plan Plan: Change antibiotics to vanco IV and levaquin po./
--- NOTE | 2018-03-18 08:56 | Progress Notes ---
DATE: 03/18/2018 PSYCHIATRIC PROGRESS NOTE SUBJECTIVE: Chart reviewed and the patient interviewed. Also discussed the patient's condition with the staff and reviewed records and labs. The patient is severely delusional and paranoid and "my family messed me up." The patient is blaming his family for his drug use earlier. The patient is mumbling and he is still actively hallucinating and talking to himself. Also, he is restless and he is still easily agitated and also wants to be left alone. Otherwise, the patient seems to be slightly calmer than yesterday and seems to be slightly less agitated. ASSESSMENT: The patient is still psychotic and agitated. TREATMENT PLAN: Continue to monitor his behavior and his condition. Also, continue Seroquel and Zyprexa and Klonopin to work on his aggressive behavior and his agitation. Also, recommended that the patient can go to [facility] Unit for adjusting psychotropic medications and for monitoring his behavior and that is when he is medically stable and when ____ Dr. Ortiz. JOB# [id number]
--- NOTE | 2018-03-18 09:04 | General Progress Note ---
Subjective - Review of Systems Events since last encounter: patient psychotic agitated Objective - Results Result Diagrams: 03/15/18 00:40 03/16/18 05:00 Recent Labs: Laboratory Last Values WBC 7.1 Th/cmm (4.8-10.8) 03/15/18 00:40 RBC 3.52 Mil/cmm (4.30-5.70) L 03/15/18 00:40 Hgb 10.1 gm/dL (12-16) L 03/15/18 00:40 Hct 29.9 % (41.0-60) L 03/15/18 00:40 MCV 85.0 fl (80-99) 03/15/18 00:40 MCH 28.6 pg (26.0-30.0) 03/15/18 00:40 MCHC Differential 33.7 pg (28.0-36.0) 03/15/18 00:40 RDW 13.0 % (11.5-20.0) 03/15/18 00:40 Plt Count 208 Th/cmm (150-400) 03/15/18 00:40 MPV 8.2 fl 03/15/18 00:40 Neutrophils % 57.8 % (40.0-80.0) 03/15/18 00:40 Lymphocytes % 26.0 % (20.0-50.0) 03/15/18 00:40 Monocytes % 8.3 % (2.0-10.0) 03/15/18 00:40 Eosinophils % 7.4 % (0.0-5.0) H 03/15/18 00:40 Basophils % 0.5 % (0.0-2.0) 03/15/18 00:40 PT 10.7 SECONDS (9.5-11.5) 03/15/18 00:40 INR 1.03 (0.5-1.4) 03/15/18 00:40 PTT (Actin FS) 25.3 SECONDS (26.0-38.0) L 03/15/18 00:40 Sodium 142 mEq/L (136-145) 03/16/18 05:00 Potassium 4.1 mEq/L (3.5-5.1) 03/16/18 05:00 Chloride 111 mEq/L (98-107) H 08/06/18 05:00 Carbon Dioxide 23.9 mEq/L (21.0-31.0) 03/16/18 05:00 Anion Gap 11.2 (7.0-16.0) 03/16/18 05:00 BUN 14 mg/dL (7-25) 03/16/18 05:00 Creatinine 0.9 mg/dL (0.7-1.3) 03/16/18 05:00 Est GFR ( Amer) > 60.0 ml/min (>90) 03/16/18 05:00 Est GFR (Non-Af Amer) > 60.0 ml/min 03/16/18 05:00 BUN/Creatinine Ratio 15.6 03/16/18 05:00 Glucose 95 mg/dL (70-105) 03/16/18 05:00 Calcium 8.8 mg/dL (8.6-10.3) 03/16/18 05:00 Total Bilirubin 0.4 mg/dL (0.3-1.0) 03/15/18 00:40 AST 17 U/L (13-39) 03/15/18 00:40 ALT 22 U/L (7-52) 03/15/18 00:40 Alkaline Phosphatase 47 U/L (34-104) 03/15/18 00:40 Troponin I 0.01 ng/mL (0.01-0.05) 03/15/18 00:40 B-Natriuretic Peptide 37.2 pg/mL (5.0-100.0) 03/16/18 05:00 Total Protein 6.3 gm/dL (6.0-8.3) 03/15/18 00:40 Albumin 3.5 gm/dL (4.2-5.5) L 03/15/18 00:40 Globulin 2.8 gm/dL 03/15/18 00:40 Albumin/Globulin Ratio 1.3 (1.0-1.8) 03/15/18 00:40 Urine Source CLEAN C 03/15/18 01:15 Urine Color YELLOW 03/15/18 01:15 Urine Clarity CLEAR (CLEAR) 03/15/18 01:15 Urine pH 6.0 (4.6 - 8.0) 03/15/18 01:15 Ur Specific [place] <= 1.005 (1.005-1.030) 03/15/18 01:15 Urine Protein NEGATIVE mg/dL (NEGATIVE) 03/15/18 01:15 Urine Glucose (UA) NEGATIVE mg/dL (NEGATIVE) 03/15/18 01:15 Urine Ketones NEGATIVE mg/dL (NEGATIVE) 03/15/18 01:15 Urine Blood TRACE (NEGATIVE) 03/15/18 01:15 Urine Nitrate NEGATIVE (NEGATIVE) 03/15/18 01:15 Urine Bilirubin NEGATIVE (NEGATIVE) 03/15/18 01:15 Urine Urobilinogen 0.2 E.U./dL (0.2 - 1.0) 03/15/18 01:15 Ur Leukocyte Esterase NEGATIVE (NEGATIVE) 03/15/18 01:15 Urine RBC 0-2 /hpf (0-5) H 03/15/18 01:15 Urine WBC 0-2 /hpf (0-5) 03/15/18 01:15 Ur Epithelial Cells NONE SEEN /lpf (FEW) 03/15/18 01:15 Urine Bacteria OCCASIONAL /hpf (NONE SEEN) 03/15/18 01:15 Vancomycin Trough 12.1 ug/mL (5-10) H 03/16/18 13:35 - Physical Exam Vitals and I&O: Vital Signs Temp 97.6 F 03/18/18 08:00 Pulse 94 03/18/18 08:00 Resp 18 03/18/18 08:00 BP 126/74 03/18/18 08:00 Pulse Ox 97 03/18/18 08:00 Intake & Output 03/17/18 03/18/18 03/18/18 18:59 06:59 18:59 Intake Total 1100 50 Balance 1100 50 Weight (lbs) 78.471 kg 78.834 kg Intake: Intake, IV Amount 300 50 Piperacillin Sodium/ 50 50 Tazobact 3.375 gm In Sodium Chloride 0.9% 50 ml @ 100 mls/hr IV Q8HR [facility] Rx#:[id number] Vancomycin HCl 1 gm In 250 Sodium Chloride 0.9% 250 ml @ 165 mls/hr IV Q12H [facility] Rx#:[id number] Oral 800 Other: # Voids 3 # Bowel Movements 1 Weight Source Bedscale Bedscale Active Medications: Current Medications Acetaminophen (Tylenol) 650 mg PO Q4H PRN PRN Reason: Pain (Mild) Stop: 05/14/18 11:47 Last Admin: 03/18/18 05:46 Dose: 650 mg Al Hydrox/Mg Hydrox/Simethicone (Maalox) 30 ml PO Q4HR PRN PRN Reason: Gas Stop: 05/14/18 11:46 Albuterol/Ipratropium (Duoneb Neb) 3 ml HHN Q4HRT PRN PRN Reason: Congestion Stop: 05/14/18 14:59 Aspirin (Aspirin Chewable) 81 mg PO DAILY [facility] 234 BEDS AT [facility] Stop: 05/15/18 08:59 Last Admin: 03/17/18 08:41 Dose: 81 mg Atorvastatin Calcium (Lipitor) 20 mg PO HS [facility]S INCLUDE 234 BEDS AT THE [facility]; Protocol Stop: 05/14/18 20:59 Last Admin: 03/17/18 20:05 Dose: 20 mg Benztropine Mesylate (Cogentin) 0.5 mg PO DAILY [facility]CLUDE 234 BEDS AT THE [facility] Stop: 05/15/18 08:59 Last Admin: 03/17/18 08:40 Dose: 0.5 mg Clonazepam (Klonopin) 1 mg PO BID [facility]CLUDE 234 BEDS AT THE [facility]; Protocol Stop: 05/16/18 16:59 Last Admin: 03/17/18 17:01 Dose: Not Given Diphenhydramine HCl (Benadryl) 50 mg PO Q12HR PRN PRN Reason: Itching Stop: 05/14/18 20:59 Docusate Sodium (Colace) 100 mg PO BID [facility]S [facility]CLUDE 234 BEDS AT [facility] Stop: 05/14/18 16:59 Last Admin: 03/17/18 17:00 Dose: 100 mg Heparin Sodium (Porcine) (Heparin) 5,000 units SUBQ Q8HR [facility]S INCLUDE 234 BEDS AT THE [facility] Stop: 05/14/18 12:59 Last Admin: 03/18/18 05:49 Dose: 5,000 units Piperacillin Sod/Tazobactam (Sod 3.375 gm/ Sodium Chloride) 50 mls @ 100 mls/ hr IV Q8HR COUNTS INCLUDE 234 BEDS AT THE [facility] Stop: 05/14/18 12:59 Last Admin: 03/18/18 05:46 Dose: 100 mls/hr Vancomycin HCl 1 gm/ Sodium (Chloride) 250 mls @ 165 mls/hr IV Q12H [facility]S INCLUDE 234 BEDS AT THE [facility] Stop: 05/14/18 13:59 Last Admin: 03/18/18 02:26 Dose: 165 mls/hr Labetalol HCl (Trandate) 50 mg PO DAILY [facility]CLUDE 234 BEDS AT [facility] Stop: 05/15/18 08:59 Last Admin: 03/17/18 08:41 Dose: 50 mg Lactobacillus Rhamnosus (Culturelle 15b) 1 each PO DAILY [facility] Stop: 05/15/18 13:59 Last Admin: 03/17/18 08:41 Dose: 1 each Magnesium Hydroxide (Milk Of Magnesia) 30 ml PO HS PRN PRN Reason: Constipation Stop: 05/14/18 11:45 Miscellaneous (Vte Chemical Prophylaxis Screen/ Admission) 1 ea PRN PRN PRN Reason: PROTOCOL Stop: 05/14/18 07:44 Miscellaneous (Vancomycin Iv Per Pharmacy) 1 ea PRN PRN PRN Reason: PROTOCOL Stop: 05/14/18 11:22 Miscellaneous (Probiotic Screen) 1 [facility] PRN PRN PRN Reason: PROTOCOL Stop: 05/15/18 09:07 Multivitamins/Vitamin C (Theragran) 1 tab PO DAILY [facility] Stop: 05/15/18 08:59 Last Admin: 03/17/18 08:41 Dose: 1 tab Mupirocin (Bactroban Oint) 1 appl NS Q12HR [facility] Stop: 03/21/18 09:01 Last Admin: 03/17/18 20:43 Dose: 1 appl Olanzapine (Zyprexa) 2.5 mg PO DAILY [facility]; Protocol Stop: 05/15/18 08:59 Last Admin: 03/17/18 08:41 Dose: 2.5 mg Olanzapine 20 mg/ Olanzapine 5 (mg) 25 mg PO HS [facility] Stop: 05/14/18 20:59 Last Admin: 03/17/18 20:05 Dose: 25 mg Pantoprazole Sodium (Protonix) 40 mg PO DAILY [facility] Stop: 05/15/18 05:59 Last Admin: 03/17/18 08:41 Dose: 40 mg Quetiapine Fumarate (Seroquel) 100 mg PO TID [facility]; Protocol Stop: 05/16/18 13:59 Last Admin: 03/17/18 20:06 Dose: 100 mg Zolpidem Tartrate (Ambien) 5 mg PO HS PRN PRN Reason: Insomnia Stop: 05/14/18 11:52 Last Admin: 03/17/18 20:04 Dose: 5 mg - Procedures Procedures: Procedures Procedure Code Date ASSISTANCE WITH RESPIRATORY VENTILATION, 24-96 HRS, CPAP [id number] 02/12/18 EXCISION OF DUODENUM, ENDO, DIAGN [id number] 02/12/18 EXCISION OF ESOPHAGUS, ENDO, DIAGN [id number] 02/12/18 EXCISION OF STOMACH, ENDO, DIAGN [id number] 02/12/18
[2018-03-18] MEDS: Pantoprazole 40 mg EC Tab PO SCH (09:24)
[2018-03-18] MEDS: Aspirin 81mg Chewable Tab PO SCH (09:24)
[2018-03-18] MEDS: Multivitamin Tab PO SCH (09:24)
[2018-03-18] MEDS: Lactobacillus Rhamnosus GG 15 Billion CFU CAP.SPRINK PO SCH (09:24)
== END 2018-03-18 17:23 | DRG 300 ==
LOC: ER 00:23 → MSI 02:10
PROVIDERS: ADMIT Internal Medicine; ATTEND Internal Medicine
DX: I82.621 Acute embolism and thrombosis of deep veins of right upper extremity (principal); L03.113 Cellulitis of right upper limb; I50.32 Chronic diastolic (congestive) heart failure; B19.10 Unspecified viral hepatitis B without hepatic coma; F20.0 Paranoid schizophrenia; I11.0 Hypertensive heart disease with heart failure; E11.9 Type 2 diabetes mellitus without complications; Z66 Do not resuscitate; E78.5 Hyperlipidemia, unspecified; G20 Parkinson's disease; F20.9 Schizophrenia, unspecified; F31.9 Bipolar disorder, unspecified; G80.9 Cerebral palsy, unspecified; F02.80 Dementia in other diseases classified elsewhere, unspecified severity, without behavioral disturbance, psychotic disturbance, mood disturbance, and anxiety; Z87.891 Personal history of nicotine dependence; Z88.8 Allergy status to other drugs, medicaments and biological substances
CPT/HCPCS: 36415-UA; 80048-TC; 80053-TC; 80202-TC; 81001-TC; 83880-TC; 84484-TC; 85025-TC; 85610-TC; 85730-TC; 93005; 94760; J0696; J1644; J2543; J3370; J7051; Z7610

== ENCOUNTER 2018-03-19 23:51 | Inpatient (IN) | payer MEDICARE, OTHER ==
--- NOTE | 2018-03-20 00:20 | ED Physician Chart ---
ED Chief Complaint/HPI - Patient Information Date Seen:: 03/20/18 Time Seen:: 00:15 Chief Complaint:: cellulitis History of Present Illness:: 57 yr old male with schizophernia with arm pain here fo rt arm pain Allergies:: Allergies Allergy/AdvReac Type Severity Reaction Status Date / Time haloperidol [From Haldol] Allergy Verified 02/12/18 18:58 ED Review of Systems - Review of Systems General/Constitutional: No fever, Chills, No chills, No weight loss, No weakness , No diaphoresis, No edema, No loss of appetite Skin: No skin lesions, No rash, No bruising Head: No headache, No light-headedness Eyes: No loss of vision, No pain, No diplopia ENT: No earache, No nasal drainage, No sore throat, No tinnitus Neck: No neck pain, No swelling, No thyromegaly, No stiffness, No mass noted Cardio Vascular: No chest pain, No palpitations, No PND, No orthopnea, No edema Pulmonary: No SOB, No cough, No sputum, No wheezing GI: No nausea, No vomiting, No diarrhea, No pain, No melena, No hematochezia, No constipation, No hematemesis G/U: No dysuria, No frequency, No hematuria Musculoskeletal: No bone or joint pain, No back pain, No muscle pain Endocrine: No polyuria, No polydipsia Psychiatric: No prior psych history, No depression, No anxiety, No suicidal ideation Hematopoietic: No bruising, No lymphadenopathy Allergic/Immuno: No urticaria, No angioedema Neurological: No syncope, No focal symptoms, No weakness, No paresthesia, No headache, No seizure, No dizziness, No confusion, No vertigo ED Past Medical History - Past Medical History Past Medical History: HTN, DM, CHF (copd parkinsons dementia bipolar schizophrenia rt arm dvt), Dyslipidemia, PUD/GERD, Other (schizophrenia) Family Medical History - Family Member Mother History Unknown: Yes Ethnicity: Unknown Living Status: Unknown ED Physical Exam - Physical Examination General/Constitutional: Awake, Well-developed, well-nourished, Alert, No distress, GCS 15, Non-toxic appearing, Ambulatory Head: Atraumatic Eyes: Lids, conjuctiva normal, PERRL, EOMI Skin: Nl inspection, No rash, No skin lesions, No ecchymosis, Well hydrated, No lymphadenopathy ENMT: External ears, nose nl, Nasal exam nl, Lips, teeth, gums nl Neck: Nontender, Full ROM w/o pain, No JVD, No nuchal rigidity, No bruit, No mass, No stridor Respiratory: Nl effort/Exclusion, Clear to Auscultation, No Wheeze/Rhonchi/Rales Cardio Vascular: RRR, No murmur, gallop, rubs, NL S1 S2 GI: No tenderness/rebounding/guarding, No organomegaly, No hernia, Normal BS's, Nondistended, No mass/bruits, No McBurney tenderness : No CVA tenderness Extremities: No tenderness or effusion, Full ROM, normal strength in all extremities, No edema, Normal digits & nails Neuro/Psych: Alert/oriented, DTR's symmetric, Normal sensory exam, Normal motor strength, Judgement/insight normal, Mood normal, Normal gait, No focal deficits Misc: Normal back, No paraspinal tenderness ED Assessment - Assessment General Assessment: rt arm pain ED Septic Shock - . Is Septic Shock (SBP<90, OR Lactate>4 mmol\L) present?: No ED Reassessment (Disposition) - Diagnosis Diagnosis:: cellulitia rt arm - Patient Disposition Discharge/Transfer:: Acute Care w/in this hosp
[2018-03-20] MEDS ORDERED: Piperacillin Sodium/Tazobact 3.375 gm Vial IV ONE (01:39)
[2018-03-20 06:25] LABS: % BASOPHILS 0.6 % (0.0-2.0); % LYMPHOCYTES 25.2 % (20.0-50.0); % MONOCYTES 12.4 % (2.0-10.0); % NEUTROPHILS 57.8 % (40.0-80.0); EOSINOPHILE ABSOLUTE 0.2 Th/cmm (0.1-0.4); HEMATOCRIT 30.8 % (41.0-60); HEMOGLOBIN 10.7 gm/dL (12-16); LYMPHOCYTE ABSOLUTE 1.5 Th/cmm (1.5-3.0); MEAN CELL VOLUME 84.4 fl (80-99); MEAN CORPUSCULAR HEMOGLOBIN 29.2 pg (26.0-30.0); MEAN CORPUSCULAR HGB CONC 34.6 pg (28.0-36.0); MEAN PLATELET VOLUME 7.7 fl; MONOCYTE ABSOLUTE 0.7 Th/cmm (0.3-1.0); NEUTROPHILE ABSOLUTE 3.6 Th/cmm (1.8-8.0); PLATELET COUNT 236 Th/cmm (150-400); RED BLOOD COUNT 3.65 Mil/cmm (4.30-5.70); RED CELL DISTRIBUTION WIDTH 13.1 % (11.5-20.0)
[2018-03-20 07:07] LABS: SODIUM SERUM 142 mEq/L (136-145)
[2018-03-20 07:08] LABS: ALB/GLOB RATIO 0.9 (1.0-1.8); ALBUMIN 3.5 gm/dL (4.2-5.5); BUN - UREA NITROGEN 19 mg/dL (7-25); CALCIUM SERUM 9.6 mg/dL (8.6-10.3); CHLORIDE 108 mEq/L (98-107); CREATININE - SERUM 0.9 mg/dL (0.7-1.3); GFR AFRICAN-AMERICAN > 60.0 ml/min (>90); GFR NON AFRICAN-AMERICAN > 60.0 ml/min; GLUCOSE 101 mg/dL (70-105); TOTAL PROTEIN,SERUM 7.3 gm/dL (6.0-8.3)
[2018-03-20 07:10] LABS: ALKALINE PHOSPHATASE 67 U/L (34-104); BILIRUBIN,TOTAL 0.4 mg/dL (0.3-1.0); SGOT 46 U/L (13-39); SGPT/ALT 68 U/L (7-52)
[2018-03-20 09:20] LABS: HEMATOCRIT 31.1 % (41.0-60); HEMOGLOBIN 10.5 gm/dL (12-16); RED BLOOD COUNT 3.61 Mil/cmm (4.30-5.70)
[2018-03-20 09:21] LABS: % BASOPHILS 0.7 % (0.0-2.0); % EOSINOPHILS 3.3 % (0.0-5.0); % LYMPHOCYTES 27.6 % (20.0-50.0); % MONOCYTES 11.3 % (2.0-10.0); % NEUTROPHILS 57.1 % (40.0-80.0); EOSINOPHILE ABSOLUTE 0.2 Th/cmm (0.1-0.4); LYMPHOCYTE ABSOLUTE 1.7 Th/cmm (1.5-3.0); MEAN CELL VOLUME 86.2 fl (80-99); MEAN CORPUSCULAR HGB CONC 33.6 pg (28.0-36.0); MEAN PLATELET VOLUME 8.5 fl; MONOCYTE ABSOLUTE 0.7 Th/cmm (0.3-1.0); NEUTROPHILE ABSOLUTE 3.4 Th/cmm (1.8-8.0); PLATELET COUNT 222 Th/cmm (150-400); RED CELL DISTRIBUTION WIDTH 13.1 % (11.5-20.0)
[2018-03-20 15:38] LABS: INR 1.06 (0.5-1.4)
[2018-03-21] MEDS ORDERED: Albuterol/Ipratropium Neb 3 ML AERS HHN PRN (07:48)
[2018-03-21] MEDS ORDERED: Maalox 30 mL Cup PO PRN (07:48)
[2018-03-21] MEDS ORDERED: Magnesium Hydroxide (MOM) 30 mL UDC PO PRN (07:48)
[2018-03-21] MEDS ORDERED: Non-Formulary Item 1 EA (Multivitamin [Multivitamins] 1 TAB) PO SCH (09:00)
--- NOTE | 2018-03-21 09:31 | Diagnostic Imaging Report ---
Portable chest x-ray Time: 2000 hours History: PICC line placement Allowing for portable technique the heart size is normal. No focal pulmonary parenchymal processes. No hilar or mediastinal abnormalities. Left-sided PICC line terminates in superior vena cava. Impression: No acute abnormalities.
[2018-03-21] MEDS: Aspirin 81mg Chewable Tab PO SCH (10:02)
[2018-03-21] MEDS: Multivitamin Tab PO SCH (10:02)
--- NOTE | 2018-03-21 14:19 | History & Physical ---
ADMIT DATE: 03/21/2018 CHIEF COMPLAINT: Right arm redness. HISTORY OF PRESENT ILLNESS: This is a 57-year-old male who was admitted to Emergency Room at [facility] from a jail facility due to redness on the right arm. REVIEW OF SYSTEMS: GENERAL: This is a 57-year-old male that appears as stated. Denies fever. Denies weakness. HEENT: Head: Denies headache. Denies dizziness. Eyes: Denies eye pain. Denies blurring of vision. NECK: Denies neck pain. Denies nuchal rigidity. CHEST: Denies chest pain. Denies palpitation. PULMONARY: Denies shortness of breath. Denies coughing. GASTROINTESTINAL: Denies abdominal pain. Denies constipation. Denies diarrhea. MUSCULOSKELETAL: Positive redness on the right arm. Denies joint pain. Denies muscle pain. SOCIAL HISTORY: The patient lives in a jail facility prior to hospitalization. Denies alcohol or illicit drug use. Per the patient, he smoked about half pack per day. PAST SURGICAL HISTORY: Unremarkable. FAMILY HISTORY: Unremarkable. PSYCHIATRIC HISTORY: Includes schizophrenia. PAST MEDICAL HISTORY: Includes hypertension, hyperlipidemia, osteoarthritis . PHYSICAL EXAMINATION: VITAL SIGNS: Temperature 97.3, heart rate 79, blood pressure 142/93, respirations 18, 97% on room air. GENERAL: This is a 57-year-old male that appears as stated in no acute distress. HEENT: Head is atraumatic, normocephalic. Eyes: Bilateral conjunctivae are clear. Bilateral pupils equal, round and reactive. NECK: Supple. No JVD. CARDIOVASCULAR: S1 and S2, without murmur. PULMONARY: Clear to auscultation. GASTROINTESTINAL: Soft and nontender without guarding. Positive bowel sounds. MUSCULOSKELETAL: No clubbing. No cyanosis noted. ASSESSMENT: 1. Right arm cellulitis. 2. Hypertension. 3. Hyperlipidemia. 4. Schizophrenia. 5. Osteoarthritis. PLAN: We will admit the patient to telemetry unit and we will start the patient on vancomycin, then to follow up for pharmacy for dosing. We will also get a consult for ID and psychiatrist. We will do medication reconciliation accordingly. Treatment plans were discussed with the patient's nurse. Treatment plans were discussed with Dr. Ortiz. JOB# [id number]
[2018-03-21] MEDS ORDERED: Non-Formulary Item 1 EA (Atorvastatin Calcium [Lipitor] 20 MG) PO SCH (21:00)
--- NOTE | 2018-03-21 22:13 | Consultation ---
DATE OF CONSULTATION: 03/21/2018 HISTORY OF PRESENT ILLNESS: A 57-year-old male with history of schizophrenia, well known to this clinician. Apparently, coming in for right arm pain and concerns for cellulitis. The patient knows the year, the month, the day of the week. He states he is here because he was refusing labs, but then mentioned cellulitis, no sadness, no anger, but he does attest to some anxiety, anxiety about his health problems, fair sleep with early childhood associate awakenings, calm and cooperative. He usually sings and is quietly and pleasantly psychotic. I saw him over at [facility] [place] weeks ago. PAST PSYCHIATRIC HISTORY: Schizophrenia. FAMILY HISTORY: Noncontributory. SOCIAL HISTORY: Living at a assisted. Not . He states that he has kids, but "I do not know where they are." No current drugs, alcohol, or tobacco. MENTAL STATUS EXAMINATION: Stated age. Fair eye contact. Speech within normal limits. Mood "okay." Affect is constricted. Thought processes were tangential, but redirectable. No SI, no HI. No overt psychotic symptoms. At this time, insight and judgment appear reasonable. PROVISIONAL DIAGNOSIS: Schizophrenia. Under medical, please see full H and P. RECOMMENDATIONS AND PLAN: We will restart Zyprexa. He generally does fairly well on Zyprexa. We will continue to monitor and follow up. If the patient develops any unruly or agitated behaviors, he may benefit from Geropsych placement, but he appears pretty calm right now and cooperative. [facility]# [id number]
[2018-03-21] MEDS: Atorvastatin Calcium 10 MG TAB PO SCH (22:54)
--- NOTE | 2018-03-21 23:55 | History & Physical ---
ADMIT DATE: HISTORY OF PRESENT ILLNESS: The patient is a very well known to me 57-year-old male patient with history of underlying schizophrenia and right arm pain and right arm swelling and cellulitis, actually the patient was admitted here not too long ago, was discharged to [facility]. Apparently, he keeps picking out the IV fluid and his swelling has increased. The patient was readmitted. The patient complains of fever. Complained of no chills, no rigors, no other problems. PAST MEDICAL HISTORY: Hypertension, diabetes, history of Parkinson dementia, history of GERD, and history of hyperlipidemia. PHYSICAL EXAMINATION: HEAD: Normal. ENT: Normal. NECK: Supple, nontender. LUNGS: Clear. CARDIOVASCULAR SYSTEM: S1, S2 heard. ABDOMEN: Soft. Bowel sounds are heard. CENTRAL NERVOUS SYSTEM: Grossly normal. IMPRESSION: Left arm tenderness and swelling was noted with a large area of redness and cellulitis, cellulitis of the right arm and rule out sepsis, septic, history of hypertension, diabetes, history of congestive heart failure, history of Parkinson, history of chronic obstructive pulmonary disease, history of bipolar, and schizophrenia. PLAN: He will be admitted, IV antibiotics. Dr. Kelby Allen, ID consult and I will follow the patient. I will also get a midline or a PICC line. JOB# [id number]
[2018-03-22] MEDS: Pantoprazole 40 mg EC Tab PO SCH (06:42)
[2018-03-22] MEDS: Multivitamin Tab PO SCH (09:28)
[2018-03-22] MEDS: Aspirin 81mg Chewable Tab PO SCH (09:28)
--- NOTE | 2018-03-22 10:50 | Progress Notes ---
DATE: 03/22/2018 HISTORY OF PRESENT ILLNESS: A 57-year-old male with history of schizophrenia notes he slept okay with surveillance technician awakenings. Staff noting he is wandering around the unit, mumbling to self, pleasantly psychotic, eating fairly well, complaining of pain. Mood "okay." No distress noted on exam, but is alluding to pain. MENTAL STATUS EXAMINATION: Stated age. Fair eye contact. Speech within normal limits. Mood "okay." Affect flat. Thought processes were tangential, but redirectable. No SI, no HI, no intent, no plan. No psychotic symptoms, but the patient is well. He is not verbalizing, auditory or visual hallucinations. He seems to be mumbling to self. PLAN: Continue to monitor. Continue Zyprexa 20 mg at nighttime, 2.5 mg daily, long history of schizophrenia. [facility]# [id number]
--- NOTE | 2018-03-22 11:41 | General Progress Note ---
Subjective - Review of Systems Events since last encounter: awake alert doing well Objective - Results Result Diagrams: 03/20/18 05:55 03/20/18 00:17 Recent Labs: Laboratory Last Values WBC 6.0 Th/cmm (4.8-10.8) 03/20/18 05:55 RBC 3.65 Mil/cmm (4.30-5.70) L 03/20/18 05:55 Hgb 10.7 gm/dL (12-16) L 03/20/18 05:55 Hct 30.8 % (41.0-60) L 03/20/18 05:55 MCV 84.4 fl (80-99) 03/20/18 05:55 MCH 29.2 pg (26.0-30.0) 03/20/18 05:55 MCHC Differential 34.6 pg (28.0-36.0) 03/20/18 05:55 RDW 13.1 % (11.5-20.0) 03/20/18 05:55 Plt Count 236 Th/cmm (150-400) 03/20/18 05:55 MPV 7.7 fl 03/20/18 05:55 Neutrophils % 57.8 % (40.0-80.0) 03/20/18 05:55 Lymphocytes % 25.2 % (20.0-50.0) 03/20/18 05:55 Monocytes % 12.4 % (2.0-10.0) H 03/20/18 05:55 Eosinophils % 4.0 % (0.0-5.0) 03/20/18 05:55 Basophils % 0.6 % (0.0-2.0) 03/20/18 05:55 PT 11.0 SECONDS (9.5-11.5) 03/20/18 15:10 INR 1.06 (0.5-1.4) 03/20/18 15:10 Sodium 142 mEq/L (136-145) 03/20/18 00:17 Potassium 4.0 mEq/L (3.5-5.1) 03/20/18 00:17 Chloride 108 mEq/L (98-107) H 03/20/18 00:17 Carbon Dioxide 20.0 mEq/L (21.0-31.0) L 03/20/18 00:17 Anion Gap 18.0 (7.0-16.0) H 03/20/18 00:17 BUN 19 mg/dL (7-25) 03/20/18 00:17 Creatinine 0.9 mg/dL (0.7-1.3) 03/20/18 00:17 Est GFR ( Amer) > 60.0 ml/min (>90) 03/20/18 00:17 Est GFR (Non-Af Amer) > 60.0 ml/min 03/20/18 00:17 BUN/Creatinine Ratio 21.1 03/20/18 00:17 Glucose 101 mg/dL (70-105) 03/20/18 00:17 Calcium 9.6 mg/dL (8.6-10.3) 03/20/18 00:17 Total Bilirubin 0.4 mg/dL (0.3-1.0) 03/20/18 00:17 AST 46 U/L (13-39) H 03/20/18 00:17 ALT 68 U/L (7-52) H 03/20/18 00:17 Alkaline Phosphatase 67 U/L (34-104) 03/20/18 00:17 Total Protein 7.3 gm/dL (6.0-8.3) 03/20/18 00:17 Albumin 3.5 gm/dL (4.2-5.5) L 03/20/18 00:17 Globulin 3.8 gm/dL 03/20/18 00:17 Albumin/Globulin Ratio 0.9 (1.0-1.8) L 03/20/18 00:17 Vancomycin Trough 14.9 ug/mL (5-10) H 03/21/18 20:52 - Physical Exam Vitals and I&O: Vital Signs Temp 97.1 F 03/22/18 08:01 Pulse 96 03/22/18 09:28 Resp 18 03/22/18 08:01 BP 117/86 03/22/18 09:28 Pulse Ox 95 03/22/18 08:01 Intake & Output 03/21/18 03/22/18 03/22/18 18:59 06:59 18:59 Intake Total 350 800 Output Total 750 Balance 350 50 Weight (lbs) 78.925 kg Intake: Intake, IV Amount 350 300 Piperacillin Sodium/ 100 50 Tazobact 3.375 gm In Sodium Chloride 0.9% 50 ml @ 100 mls/hr IV Q8H [facility] Rx#:[id number] Vancomycin HCl 1 gm In 250 250 Sodium Chloride 0.9% 250 ml @ 165 mls/hr IV Q12H [facility] Rx#:[id number] Oral 500 Output: Urine 750 Other: Weight Source Bedscale Active Medications: Current Medications Acetaminophen (Tylenol) 650 mg PO Q4H PRN PRN Reason: Pain (Mild) Stop: 05/20/18 06:10 Last Admin: 03/21/18 06:31 Dose: 650 mg Acetaminophen (Tylenol) 650 mg PO Q4HR PRN PRN Reason: Pain or Fever >101 Stop: 05/20/18 07:47 Al Hydrox/Mg Hydrox/Simethicone (Maalox) 30 ml PO Q4HR PRN PRN Reason: GI DISTRESS Stop: 05/20/18 07:47 Albuterol/Ipratropium (Duoneb Neb) 3 ml HHN Q4HRT PRN PRN Reason: Shortness of Breath Stop: 05/20/18 07:47 Aspirin (Aspirin Chewable) 81 mg PO DAILY [facility] Stop: 05/20/18 08:59 Last Admin: 03/22/18 09:28 Dose: 81 mg Atorvastatin Calcium (Lipitor) 20 mg PO HS [facility] Stop: 05/20/18 20:59 Last Admin: 03/21/18 22:54 Dose: 20 mg Benztropine Mesylate (Cogentin) 0.5 mg PO DAILY [facility] Stop: 05/20/18 08:59 Last Admin: 03/22/18 09:28 Dose: 0.5 mg Diphenhydramine HCl (Benadryl) 50 mg PO Q12H PRN PRN Reason: Itching Stop: 05/20/18 07:47 Docusate Sodium (Colace) 100 mg PO BID [facility] Stop: 05/20/18 08:59 Last Admin: 03/22/18 09:29 Dose: Not Given Piperacillin Sod/Tazobactam (Sod 3.375 gm/ Sodium Chloride) 50 mls @ 100 mls/ hr IV Q8H [facility] Stop: 05/19/18 00:44 Last Admin: 03/22/18 09:24 Dose: 100 mls/hr Vancomycin HCl 1 gm/ Sodium (Chloride) 250 mls @ 165 mls/hr IV Q12H [facility] Stop: 05/19/18 09:59 Last Admin: 03/22/18 10:02 Dose: 165 mls/hr Labetalol HCl (Trandate) 50 mg PO DAILY [facility] Stop: 05/20/18 08:59 Last Admin: 03/22/18 09:28 Dose: 50 mg Magnesium Hydroxide (Milk Of Magnesia) 30 ml PO HS PRN PRN Reason: Constipation Stop: 05/20/18 07:47 Miscellaneous (Vancomycin Iv Per Pharmacy) 1 ea [facility] PRN PRN PRN Reason: VANCO PER RX Stop: 05/19/18 07:57 Multivitamins/Vitamin C (Theragran) 1 tab PO DAILY [facility] Stop: 05/20/18 08:59 Last Admin: 03/22/18 09:28 Dose: 1 tab Olanzapine (Zyprexa) 2.5 mg PO DAILY [facility]; Protocol Stop: 05/21/18 08:59 Last Admin: 03/22/18 09:28 Dose: 2.5 mg Olanzapine (Zyprexa) 20 mg PO HS [facility]; Protocol Stop: 05/20/18 22:59 Last Admin: 03/21/18 22:55 Dose: 20 mg Pantoprazole Sodium (Protonix) 40 mg PO QDAC [facility] Stop: 05/21/18 07:29 Last Admin: 03/22/18 06:42 Dose: 40 mg Zolpidem Tartrate (Ambien) 5 mg PO HS PRN PRN Reason: Insomnia Stop: 05/20/18 07:47 - Procedures Procedures: Procedures Procedure Code Date ASSISTANCE WITH RESPIRATORY VENTILATION, 24-96 HRS, CPAP [id number] 02/12/18 EXCISION OF DUODENUM, ENDO, DIAGN [id number] 02/12/18 EXCISION OF ESOPHAGUS, ENDO, DIAGN [id number] 02/12/18 EXCISION OF STOMACH, ENDO, DIAGN [id number] 02/12/18
[2018-03-22] MEDS: Atorvastatin Calcium 10 MG TAB PO SCH (21:00)
[2018-03-23] MEDS: Pantoprazole 40 mg EC Tab PO SCH (07:00)
[2018-03-23] MEDS: Multivitamin Tab PO SCH (08:09)
[2018-03-23] MEDS: Aspirin 81mg Chewable Tab PO SCH (08:09)
[2018-03-23] MEDS: Atorvastatin Calcium 10 MG TAB PO SCH (21:28)
[2018-03-24] MEDS: Aspirin 81mg Chewable Tab PO SCH (09:31)
[2018-03-24] MEDS: Pantoprazole 40 mg EC Tab PO SCH (09:32)
[2018-03-24] MEDS: Multivitamin Tab PO SCH (09:32)
--- NOTE | 2018-03-24 15:00 | Infectious Disease Prog Note ---
Infectious Disease Subjective - Review of Systems Service Date: 03/24/18 Subjective: cc rt elbow cellulitis hpi- pt schedule for discharge zosyn d/c d/w stfaf vanco x 1 week ros no fevr o/ e vs chst clear abd soft ext pulse elbow less cellultis dx cellulitis plan as above Infectious Disease Objective - Results Result Diagrams: 03/20/18 05:55 03/20/18 00:17 Recent Labs: Laboratory Last Values WBC 6.0 Th/cmm (4.8-10.8) 03/20/18 05:55 RBC 3.65 Mil/cmm (4.30-5.70) L 03/20/18 05:55 Hgb 10.7 gm/dL (12-16) L 03/20/18 05:55 Hct 30.8 % (41.0-60) L 03/20/18 05:55 MCV 84.4 fl (80-99) 03/20/18 05:55 MCH 29.2 pg (26.0-30.0) 03/20/18 05:55 MCHC Differential 34.6 pg (28.0-36.0) 03/20/18 05:55 RDW 13.1 % (11.5-20.0) 03/20/18 05:55 Plt Count 236 Th/cmm (150-400) 03/20/18 05:55 MPV 7.7 fl 03/20/18 05:55 Neutrophils % 57.8 % (40.0-80.0) 03/20/18 05:55 Lymphocytes % 25.2 % (20.0-50.0) 03/20/18 05:55 Monocytes % 12.4 % (2.0-10.0) H 03/20/18 05:55 Eosinophils % 4.0 % (0.0-5.0) 03/20/18 05:55 Basophils % 0.6 % (0.0-2.0) 03/20/18 05:55 PT 11.0 SECONDS (9.5-11.5) 03/20/18 15:10 INR 1.06 (0.5-1.4) 03/20/18 15:10 Sodium 142 mEq/L (136-145) 03/20/18 00:17 Potassium 4.0 mEq/L (3.5-5.1) 03/20/18 00:17 Chloride 108 mEq/L (98-107) H 03/20/18 00:17 Carbon Dioxide 20.0 mEq/L (21.0-31.0) L 03/20/18 00:17 Anion Gap 18.0 (7.0-16.0) H 03/20/18 00:17 BUN 19 mg/dL (7-25) 03/20/18 00:17 Creatinine 0.9 mg/dL (0.7-1.3) 03/20/18 00:17 Est GFR ( Amer) > 60.0 ml/min (>90) 03/20/18 00:17 Est GFR (Non-Af Amer) > 60.0 ml/min 03/20/18 00:17 BUN/Creatinine Ratio 21.1 03/20/18 00:17 Glucose 101 mg/dL (70-105) 03/20/18 00:17 Calcium 9.6 mg/dL (8.6-10.3) 03/20/18 00:17 Total Bilirubin 0.4 mg/dL (0.3-1.0) 03/20/18 00:17 AST 46 U/L (13-39) H 03/20/18 00:17 ALT 68 U/L (7-52) H 03/20/18 00:17 Alkaline Phosphatase 67 U/L (34-104) 03/20/18 00:17 Total Protein 7.3 gm/dL (6.0-8.3) 03/20/18 00:17 Albumin 3.5 gm/dL (4.2-5.5) L 03/20/18 00:17 Globulin 3.8 gm/dL 03/20/18 00:17 Albumin/Globulin Ratio 0.9 (1.0-1.8) L 03/20/18 00:17 Vancomycin Trough 14.9 ug/mL (5-10) H 03/21/18 20:52 - Physical Exam Vitals and I&O: Vital Signs Temp 98.1 F 03/24/18 12:00 Pulse 77 03/24/18 12:00 Resp 20 03/24/18 12:00 BP 138/93 03/24/18 12:00 Pulse Ox 97 03/24/18 12:00 Intake & Output 0803/24/18 03/24/18 18:59 06:59 18:59 Intake Total 350 1020 Output Total 800 Balance 350 220 Weight (lbs) 75.659 kg Intake: Intake, IV Amount 350 300 Piperacillin Sodium/ 100 50 Tazobact 3.375 gm In Sodium Chloride 0.9% 50 ml @ 100 mls/hr IV Q8H [facility] Rx#:[id number] Vancomycin HCl 1 gm In 250 250 Sodium Chloride 0.9% 250 ml @ 165 mls/hr IV Q12H [facility] Rx#:[id number] Oral 600 Other 120 Output: Urine 800 Stool 0 Other: # Bowel Movements 0 Weight Source Bedscale Active Medications: Current Medications Acetaminophen (Tylenol) 650 mg PO Q4H PRN PRN Reason: Pain (Mild) Stop: 05/20/18 06:10 Last Admin: 03/21/18 06:31 Dose: 650 mg Acetaminophen (Tylenol) 650 mg PO Q4HR PRN PRN Reason: Pain or Fever >101 Stop: 05/20/18 07:47 Al Hydrox/Mg Hydrox/Simethicone (Maalox) 30 ml PO Q4HR PRN PRN Reason: GI DISTRESS Stop: 05/20/18 07:47 Albuterol/Ipratropium (Duoneb Neb) 3 ml HHN Q4HRT PRN PRN Reason: Shortness of Breath Stop: 05/20/18 07:47 Aspirin (Aspirin Chewable) 81 mg PO DAILY [facility] Stop: 05/20/18 08:59 Last Admin: 03/24/18 09:31 Dose: 81 mg Atorvastatin Calcium (Lipitor) 20 mg PO HS [facility] Stop: 05/20/18 20:59 Last Admin: 03/23/18 21:28 Dose: 20 mg Benztropine Mesylate (Cogentin) 0.5 mg PO DAILY [facility] Stop: 05/20/18 08:59 Last Admin: 03/24/18 09:32 Dose: 0.5 mg Diphenhydramine HCl (Benadryl) 50 mg PO Q12H PRN PRN Reason: Itching Stop: 05/20/18 07:47 Last Admin: 03/23/18 22:53 Dose: 50 mg Docusate Sodium (Colace) 100 mg PO BID [facility] Stop: 05/20/18 08:59 Last Admin: 03/24/18 09:32 Dose: Not Given Piperacillin Sod/Tazobactam (Sod 3.375 gm/ Sodium Chloride) 50 mls @ 100 mls/ hr IV Q8H [facility] Stop: 05/19/18 00:44 Last Admin: 03/24/18 09:31 Dose: 100 mls/hr Vancomycin HCl 1 gm/ Sodium (Chloride) 250 mls @ 165 mls/hr IV Q12H [facility] Stop: 05/19/18 09:59 Last Admin: 03/24/18 10:42 Dose: 165 mls/hr Labetalol HCl (Trandate) 50 mg PO DAILY [facility] Stop: 05/20/18 08:59 Last Admin: 03/24/18 09:32 Dose: 50 mg Magnesium Hydroxide (Milk Of Magnesia) 30 ml PO HS PRN PRN Reason: Constipation Stop: 05/20/18 07:47 Miscellaneous (Vancomycin Iv Per Pharmacy) 1 ea [facility] PRN PRN PRN Reason: VANCO PER RX Stop: 05/19/18 07:57 Multivitamins/Vitamin C (Theragran) 1 tab PO DAILY [facility] Stop: 05/20/18 08:59 Last Admin: 03/24/18 09:32 Dose: 1 tab Olanzapine (Zyprexa) 2.5 mg PO DAILY [facility]; Protocol Stop: 05/21/18 08:59 Last Admin: 03/24/18 09:33 Dose: 2.5 mg Olanzapine (Zyprexa) 20 mg PO HS [facility]; Protocol Stop: 05/20/18 22:59 Last Admin: 03/23/18 21:28 Dose: 20 mg Pantoprazole Sodium (Protonix) 40 mg PO QDAC [facility] Stop: 05/21/18 07:29 Last Admin: 03/24/18 09:32 Dose: 40 mg Zolpidem Tartrate (Ambien) 5 mg PO HS PRN PRN Reason: Insomnia Stop: 05/20/18 07:47 Last Admin: 03/23/18 22:53 Dose: 5 mg - Procedures Procedures: Procedures Procedure Code Date ASSISTANCE WITH RESPIRATORY VENTILATION, 24-96 HRS, CPAP [id number] 02/12/18 EXCISION OF DUODENUM, ENDO, DIAGN [id number] 02/12/18 EXCISION OF ESOPHAGUS, ENDO, DIAGN [id number] 02/12/18 EXCISION OF STOMACH, ENDO, DIAGN [id number] 02/12/18
[2018-03-24] MEDS ORDERED: Haloperidol Lactate 5 mg/mL 1mL Vial IM ONE (16:00)
== END 2018-03-24 17:00 | DRG 872 ==
LOC: ER 23:51 → TELE 03-20 01:30 → MSI 03-21 12:09
PROVIDERS: ADMIT Internal Medicine; ATTEND Internal Medicine
DX: A41.9 Sepsis, unspecified organism (principal); L03.114 Cellulitis of left upper limb; L03.113 Cellulitis of right upper limb; E11.9 Type 2 diabetes mellitus without complications; I50.9 Heart failure, unspecified; G20 Parkinson's disease; F02.80 Dementia in other diseases classified elsewhere, unspecified severity, without behavioral disturbance, psychotic disturbance, mood disturbance, and anxiety; E78.5 Hyperlipidemia, unspecified; J44.9 Chronic obstructive pulmonary disease, unspecified; F20.9 Schizophrenia, unspecified; M19.90 Unspecified osteoarthritis, unspecified site; Z88.8 Allergy status to other drugs, medicaments and biological substances; I11.0 Hypertensive heart disease with heart failure; F31.9 Bipolar disorder, unspecified; K21.9 Gastro-esophageal reflux disease without esophagitis
CPT/HCPCS: 36415-UA; 71045-TC; 80053-TC; 80202-TC; 85025-TC; 85610-TC; 94760; J2543; J3370; J7051; Z7610

== ENCOUNTER 2018-05-23 13:31 | Emergency (ER) | payer MEDICARE, OTHER ==
--- NOTE | 2018-05-23 14:00 | ED Physician Chart ---
ED Chief Complaint/HPI - Patient Information Date Seen:: 05/23/18 Time Seen:: 13:44 Chief Complaint:: left lower leg pain History of Present Illness:: this is a 57 yo male retirement patient who had a fall last night and injured his left knee. he now has a swollen left knee, lower leg and redness noted. he is chronically ill with diabetes, hypertens and psychosis. Allergies:: Allergies Allergy/AdvReac Type Severity Reaction Status Date / Time haloperidol [From Haldol] Allergy Verified 02/12/18 18:58 Vitals:: Vital Signs - 8 hr 05/23/18 13:39 Temp 97.6 F HR 71 RR 16 BP 114/71 O2 Sat % 99 Historian:: Medical Records Review:: Nurse's Note Reviewed, Old Chart Reviewed, Transfer documents Reviewed ED Review of Systems - Review of Systems General/Constitutional: No fever, No chills, No weight loss, No weakness, No diaphoresis, No edema, No loss of appetite Skin: No skin lesions, No rash, No bruising Head: No headache, No light-headedness Eyes: No loss of vision, No pain, No diplopia ENT: No earache, No nasal drainage, No sore throat, No tinnitus Neck: No neck pain, No swelling, No thyromegaly, No stiffness, No mass noted Cardio Vascular: No chest pain, No palpitations, No PND, No orthopnea, No edema Pulmonary: No SOB, No cough, No sputum, No wheezing GI: No nausea, No vomiting, No diarrhea, No pain, No melena, No hematochezia, No constipation, No hematemesis G/U: No dysuria, No frequency, No hematuria Musculoskeletal: Bone or joint pain (swollen left knee), No back pain, No muscle pain Endocrine: No polyuria, No polydipsia Psychiatric: Prior psych history, No prior psych history, No depression, No anxiety, No suicidal ideation Hematopoietic: No bruising, No lymphadenopathy Allergic/Immuno: No urticaria, No angioedema Neurological: No syncope, No focal symptoms, No weakness, No paresthesia, No headache, No seizure, No dizziness, No confusion, No vertigo ED Past Medical History - Past Medical History Obtainable: Yes Past Medical History: HTN, DM, Asthma/COPD, Dyslipidemia, PUD/GERD, Dementia Family History: None Social History: Non Smoker, No Alcohol, No Drug Use, Care Facility Surgical History: None Psychiatricy History: Schizophrenia Medication: Reviewed Family Medical History - Family Member Mother History Unknown: Yes Ethnicity: Unknown Living Status: Still Living Hx Family Hypertension: Yes ED Physical Exam - Physical Examination General/Constitutional: Awake, Well-developed, well-nourished, Alert, No distress, GCS 15, Non-toxic appearing, Ambulatory Head: Atraumatic Eyes: Lids, conjuctiva normal, PERRL, EOMI Skin: Nl inspection, No rash, No skin lesions, No ecchymosis, Well hydrated, No lymphadenopathy ENMT: External ears, nose nl, Nasal exam nl, Lips, teeth, gums nl Neck: Nontender, Full ROM w/o pain, No JVD, No nuchal rigidity, No bruit, No mass, No stridor Respiratory: Nl effort/Exclusion, Clear to Auscultation, No Wheeze/Rhonchi/Rales Cardio Vascular: RRR, No murmur, gallop, rubs, NL S1 S2 GI: No tenderness/rebounding/guarding, No organomegaly, No hernia, Normal BS's, Nondistended, No mass/bruits, No McBurney tenderness : No CVA tenderness Extremities: Full ROM, normal strength in all extremities, Normal digits & nails Other Extremities comments:: there is tenderness, redness of the knee and lower leg. Neuro/Psych: Alert/oriented, DTR's symmetric, Normal sensory exam, Normal motor strength, Judgement/insight normal, Mood normal, Normal gait, No focal deficits Misc: Normal back, No paraspinal tenderness ED Labs/Radiology/EKG Results - Lab Results Results: Abnormal Lab Results 05/23/18 05/23/18 05/23/18 13:35 13:50 13:50 WBC 5.4 RBC 4.61 Hgb 13.0 Hct 39.5 L MCV 85.6 MCH 28.1 MCHC Differential 32.8 RDW 12.8 Plt Count 171 MPV 8.6 Neutrophils % 64.5 Lymphocytes % 22.5 Monocytes % 8.4 Eosinophils % 4.3 Basophils % 0.3 PT 9.5 INR 0.91 Sodium 139 Potassium 3.7 Chloride 105 Carbon Dioxide 23.9 Anion Gap 13.8 BUN 20 Creatinine 0.9 Est GFR ( Amer) > 60.0 Est GFR (Non-Af Amer) > 60.0 BUN/Creatinine Ratio 22.2 Glucose 125 H Calcium 9.4 Total Bilirubin 0.3 AST 12 L ALT 17 Alkaline Phosphatase 59 Troponin I Total Protein 6.6 Albumin 3.7 L Globulin 2.9 Albumin/Globulin Ratio 1.3 Urine Source Urine Color Urine Clarity Urine pH Ur Specific [place] Urine Protein Urine Glucose (UA) Urine Ketones Urine Blood Urine Nitrate Urine Bilirubin Urine Urobilinogen Ur Leukocyte Esterase Urine RBC Urine WBC Ur Epithelial Cells Urine Bacteria 05/23/18 05/23/18 13:50 15:10 WBC RBC Hgb Hct MCV MCH MCHC Differential RDW Plt Count MPV Neutrophils % Lymphocytes % Monocytes % Eosinophils % Basophils % PT INR Sodium Potassium Chloride Carbon Dioxide Anion Gap BUN Creatinine Est GFR ( Amer) Est GFR (Non-Af Amer) BUN/Creatinine Ratio Glucose Calcium Total Bilirubin AST ALT Alkaline Phosphatase Troponin I 0.01 Total Protein Albumin Globulin Albumin/Globulin Ratio Urine Source RANDOM Urine Color YELLOW Urine Clarity CLEAR Urine pH 5.5 Ur Specific [place] 1.020 Urine Protein NEGATIVE Urine Glucose (UA) NEGATIVE Urine Ketones NEGATIVE Urine Blood TRACE Urine Nitrate NEGATIVE Urine Bilirubin NEGATIVE Urine Urobilinogen 0.2 Ur Leukocyte Esterase NEGATIVE Urine RBC NONE SEEN Urine WBC 0-2 Ur Epithelial Cells OCCASIONAL Urine Bacteria OCCASIONAL - Radiology Results Results: x-ray of the left knee = nad x-ray of the chest = nad - EKG Interpretations EKG Time:: 13:38 Rate & Rhythm: rate=65 sinus [place]: left axis Intervals: no ectopy seen ED Assessment - Assessment General Assessment: left knee contusion ED Septic Shock - . Is Septic Shock (SBP<90, OR Lactate>4 mmol\L) present?: No - <6hrs of presentation: Vital Signs: Vital Signs - 8 hr 05/23/18 13:39 Temp 97.6 F HR 71 RR 16 BP 114/71 O2 Sat % 99 ED Reassessment (Disposition) - Reassessment Reassessment Condition:: Unchanged - Diagnosis Diagnosis:: contusion of the left knee abrasions of the left lower leg. - Patient Disposition Discharge/Transfer:: [facility] Care - SNF
[2018-05-23 14:02] LABS: % BASOPHILS 0.3 % (0.0-2.0); % EOSINOPHILS 4.3 % (0.0-5.0); % LYMPHOCYTES 22.5 % (20.0-50.0); % MONOCYTES 8.4 % (2.0-10.0); % NEUTROPHILS 64.5 % (40.0-80.0); EOSINOPHILE ABSOLUTE 0.2 Th/cmm (0.1-0.4); HEMATOCRIT 39.5 % (41.0-60); LYMPHOCYTE ABSOLUTE 1.2 Th/cmm (1.5-3.0); MEAN CELL VOLUME 85.6 fl (80-99); MEAN CORPUSCULAR HEMOGLOBIN 28.1 pg (26.0-30.0); MEAN CORPUSCULAR HGB CONC 32.8 pg (28.0-36.0); MEAN PLATELET VOLUME 8.6 fl; MONOCYTE ABSOLUTE 0.5 Th/cmm (0.3-1.0); NEUTROPHILE ABSOLUTE 3.5 Th/cmm (1.8-8.0); PLATELET COUNT 171 Th/cmm (150-400); RED BLOOD COUNT 4.61 Mil/cmm (4.30-5.70); RED CELL DISTRIBUTION WIDTH 12.8 % (11.5-20.0); WHITE BLOOD COUNT 5.4 Th/cmm (4.8-10.8)
[2018-05-23 14:23] LABS: INR 0.91 (0.5-1.4); PROTHROMBIN TIME (TEST) 9.5 SECONDS (9.5-11.5)
[2018-05-23 14:25] LABS: ALB/GLOB RATIO 1.3 (1.0-1.8); ALBUMIN 3.7 gm/dL (4.2-5.5); ALKALINE PHOSPHATASE 59 U/L (34-104); ANION GAP 13.8 (7.0-16.0); BILIRUBIN,TOTAL 0.3 mg/dL (0.3-1.0); BUN - UREA NITROGEN 20 mg/dL (7-25); CALCIUM SERUM 9.4 mg/dL (8.6-10.3); CARBON DIOXIDE 23.9 mEq/L (21.0-31.0); CHLORIDE 105 mEq/L (98-107); CREATININE - SERUM 0.9 mg/dL (0.7-1.3); GFR AFRICAN-AMERICAN > 60.0 ml/min (>90); GFR NON AFRICAN-AMERICAN > 60.0 ml/min; GLUCOSE 125 mg/dL (70-105); POTASSIUM SERUM 3.7 mEq/L (3.5-5.1); SGOT 12 U/L (13-39); SGPT/ALT 17 U/L (7-52); SODIUM SERUM 139 mEq/L (136-145); TOTAL PROTEIN,SERUM 6.6 gm/dL (6.0-8.3)
[2018-05-23 15:37] LABS: URINE SOURCE RANDOM
[2018-05-23 15:38] LABS: URINE BILIRUBIN NEGATIVE (NEGATIVE); URINE BLOOD TRACE (NEGATIVE); URINE GLUCOSE (UA) NEGATIVE (NEGATIVE); URINE KETONE NEGATIVE (NEGATIVE); URINE LEUKOCYTE ESTERASE NEGATIVE (NEGATIVE); URINE MICROSCOPIC INDICATED? YES; URINE NITRATE NEGATIVE (NEGATIVE); URINE PH 5.5 (4.6 - 8.0); URINE PROTEIN NEGATIVE (NEGATIVE); URINE UROBILINOGEN 0.2 E.U./dL (0.2 - 1.0)
[2018-05-23 15:41] LABS: URINE CLARITY CLEAR (CLEAR); URINE COLOR YELLOW
[2018-05-23 15:43] LABS: URINE BACTERIA OCCASIONAL /hpf (NONE SEEN); URINE EPITHELIAL CELLS OCCASIONAL /lpf (FEW); URINE RBC NONE SEEN /hpf (0-5); URINE WBC 0-2 /hpf (0-5)
--- NOTE | 2018-05-24 09:15 | Diagnostic Imaging Report ---
Portable chest x-ray History: Pain, trauma Allowing for portable technique the heart size is normal. No focal pulmonary parenchymal processes. No hilar or mediastinal abnormalities. Impression: No acute abnormalities.
--- NOTE | 2018-05-24 09:15 | Diagnostic Imaging Report ---
Left knee (3 views) HISTORY: Pain, trauma No acute bony abnormalities. No fractures. Joint spaces appear normal. IMPRESSION: No acute abnormalities
--- NOTE | 2018-05-24 09:16 | Diagnostic Imaging Report ---
Left lower extremity Doppler venous ultrasound exam HISTORY: Pain/swelling Sonographic sector images were obtained through the deep venous systems of the left leg. Associated Doppler data was obtained. The exam demonstrates patency of the common femoral, superficial femoral, popliteal, and posterior tibial veins. Specifically, no thrombus is seen. There are normal compressibility and augmentation responses. IMPRESSION: Negative exam for deep vein thrombophlebitis.
== END 2018-05-23 16:10 ==
LOC: ER 13:31
DX: S80.02XA Contusion of left knee, initial encounter (principal); S80.812A Abrasion, left lower leg, initial encounter; I10 Essential (primary) hypertension; E11.9 Type 2 diabetes mellitus without complications; J44.9 Chronic obstructive pulmonary disease, unspecified; E78.5 Hyperlipidemia, unspecified; K21.9 Gastro-esophageal reflux disease without esophagitis; F20.9 Schizophrenia, unspecified; Z88.5 Allergy status to narcotic agent; W19.XXXA Unspecified fall, initial encounter; Y93.89 Activity, other specified; Y92.89 Other specified places as the place of occurrence of the external cause; Y99.8 Other external cause status
CPT/HCPCS: 36415-UA; 71045-TC; 73562-TC-LT; 80053-TC; 81001-TC; 84484-TC; 85025-TC; 85610-TC; 93005; 93971-TC-LT

== ENCOUNTER 2018-06-02 13:16 | Inpatient (IN) | payer MEDICARE, OTHER ==
[2018-06-02] MEDS ORDERED: cefTRIAXone 1 GM in Sodium Chloride 0.9% 50 ML IV ONE (13:36)
--- NOTE | 2018-06-02 14:06 | Diagnostic Imaging Report ---
CHEST X-RAY: AP view INDICATION: pain COMPARISON: 05/23/2018 FINDINGS: There is no focal consolidation or pleural effusions . Borderline prominent heart is noted with tortuous aorta as seen on prior exam. Degenerative changes of the spine are noted. IMPRESSION: No focal consolidation identified Borderline prominent heart with tortuous aorta as seen on prior exam.
[2018-06-02 14:13] LABS: URINE SOURCE MIDSTREAM
[2018-06-02 14:15] LABS: URINE BILIRUBIN NEGATIVE (NEGATIVE); URINE BLOOD TRACE (NEGATIVE); URINE GLUCOSE (UA) NEGATIVE (NEGATIVE); URINE KETONE NEGATIVE (NEGATIVE); URINE LEUKOCYTE ESTERASE NEGATIVE (NEGATIVE); URINE MICROSCOPIC INDICATED? YES; URINE NITRATE NEGATIVE (NEGATIVE); URINE PROTEIN NEGATIVE (NEGATIVE); URINE UROBILINOGEN 0.2 E.U./dL (0.2 - 1.0)
[2018-06-02 14:15] LABS: PROTHROMBIN TIME (TEST) 10.4 SECONDS (9.5-11.5)
[2018-06-02 14:17] LABS: ALB/GLOB RATIO 1.4 (1.0-1.8); ALBUMIN 3.5 gm/dL (4.2-5.5); ALKALINE PHOSPHATASE 49 U/L (34-104); ANION GAP 13.7 (7.0-16.0); BILIRUBIN,TOTAL 0.4 mg/dL (0.3-1.0); BUN - UREA NITROGEN 20 mg/dL (7-25); CALCIUM SERUM 8.9 mg/dL (8.6-10.3); CHLORIDE 105 mEq/L (98-107); CREATININE - SERUM 0.9 mg/dL (0.7-1.3); CREATININE KINASE 75 U/L (30-223); GFR AFRICAN-AMERICAN > 60.0 ml/min (>90); GFR NON AFRICAN-AMERICAN > 60.0 ml/min; GLUCOSE 112 mg/dL (70-105); POTASSIUM SERUM 3.7 mEq/L (3.5-5.1); SGOT 15 U/L (13-39); SGPT/ALT 15 U/L (7-52); SODIUM SERUM 139 mEq/L (136-145); TOTAL PROTEIN,SERUM 6.1 gm/dL (6.0-8.3)
[2018-06-02 14:19] LABS: TROP I 0.01 ng/mL (0.01-0.05)
[2018-06-02 14:31] LABS: URINE CLARITY CLEAR (CLEAR); URINE COLOR YELLOW
[2018-06-02 14:33] LABS: URINE BACTERIA OCCASIONAL /hpf (NONE SEEN); URINE EPITHELIAL CELLS OCCASIONAL /lpf (FEW); URINE RBC NONE SEEN /hpf (0-5); URINE WBC 0-2 /hpf (0-5)
--- NOTE | 2018-06-02 15:25 | ED Physician Chart ---
ED Chief Complaint/HPI - Patient Information Date Seen:: 06/02/18 Time Seen:: 13:25 Chief Complaint:: Left Knee Redness History of Present Illness:: onset x 3 days of LLE redness, swelling, and erythema; no report of trauma, ALOC , LOC, AMS, H/As, neck pain, C/P, SOB, Abd. pain, A/N/V/D/C, fever, chills, or urinary s/s; pt's last tetanus shot: < 5 years; UTD Allergies:: Allergies Allergy/AdvReac Type Severity Reaction Status Date / Time haloperidol [From Haldol] Allergy Verified 02/12/18 18:58 Vitals:: Vital Signs - 8 hr 06/02/18 13:25 Temp 98.9 F HR 72 RR 16 BP 107/63 O2 Sat % 97 Historian:: Patient Review:: Nurse's Note Reviewed, Old Chart Reviewed, EMS run form Reviewed ED Review of Systems - Review of Systems General/Constitutional: Fever, No chills, No weight loss, No weakness, No diaphoresis, No edema, No loss of appetite Skin: Skin lesions, Rash, No bruising Head: No headache, No light-headedness Eyes: No loss of vision, No pain, No diplopia ENT: No earache, No nasal drainage, No sore throat, No tinnitus Neck: No neck pain, No swelling, No thyromegaly, No stiffness, No mass noted Cardio Vascular: No chest pain, No palpitations, No PND, No orthopnea, No edema Pulmonary: No SOB, No cough, No sputum, No wheezing GI: No nausea, No vomiting, No diarrhea, No pain, No melena, No hematochezia, No constipation, No hematemesis G/U: No dysuria, No frequency, No hematuria, No nacturia Musculoskeletal: No bone or joint pain, No back pain, No muscle pain Endocrine: No polyuria, No polydipsia Psychiatric: No prior psych history, No depression, No anxiety, No suicidal ideation, No homicidal ideation, No auditory hallucination, No visual hallucination Hematopoietic: No bruising, No lymphadenopathy Allergic/Immuno: No urticaria, No angioedema Neurological: No syncope, No focal symptoms, No weakness, No paresthesia, No headache, No seizure, No dizziness, No confusion, No vertigo ED Past Medical History - Past Medical History Obtainable: Yes Past Medical History: HTN, DM, Dyslipidemia Family History: Diabetes Melitus, HTN Social History: Non Smoker, No Alcohol, No Drug Use, Single, Care Facility Surgical History: None Psychiatricy History: Schizophrenia Medication: Reviewed Family Medical History - Family Member Mother History Unknown: Yes Ethnicity: Unknown Living Status: Still Living Hx Family Hypertension: Yes ED Physical Exam - Physical Examination General/Constitutional: Awake, Well-developed, well-nourished, Alert, No distress, GCS 15, Non-toxic appearing, Ambulatory Head: Atraumatic Eyes: Lids, conjuctiva normal, PERRL, EOMI Skin: Nl inspection, No rash, No skin lesions, No ecchymosis, Well hydrated, No lymphadenopathy Other Skin comments:: + LLE Cellulitis; good NV functions ENMT: External ears, nose nl, TM canals nl, Nasal exam nl, Lips, teeth, gums nl , Oropharynx nl, Tonsils nl Neck: Nontender, Full ROM w/o pain, No JVD, No nuchal rigidity, No bruit, No mass, No stridor Respiratory: Nl effort/Exclusion, Clear to Auscultation, No Wheeze/Rhonchi/Rales Cardio Vascular: RRR, No murmur, gallop, rubs, NL S1 S2, Carotid/Femoral/Distal pulses equal bilaterally GI: No tenderness/rebounding/guarding, No organomegaly, No hernia, Normal BS's, Nondistended, No mass/bruits, No McBurney tenderness : No CVA tenderness Extremities: No tenderness or effusion, Full ROM, normal strength in all extremities, No edema, Normal digits & nails Other Extremities comments:: + LLE Cellulitis; good NV functions Neuro/Psych: Alert/oriented, DTR's symmetric, Normal sensory exam, Normal motor strength, Judgement/insight normal, Mood normal, Normal gait, No focal deficits Misc: Normal back, No paraspinal tenderness ED Labs/Radiology/EKG Results - Lab Results Results: Laboratory Tests 06/02/18 06/02/18 06/02/18 13:40 13:40 13:40 PT 10.4 INR 1.00 PTT (Actin FS) 27.6 Sodium 139 Potassium 3.7 Chloride 105 Carbon Dioxide 24.0 Anion Gap 13.7 BUN 20 Creatinine 0.9 Est GFR ( Amer) > 60.0 Est GFR (Non-Af Amer) > 60.0 BUN/Creatinine Ratio 22.2 Glucose 112 H Whole Bld Lactic Acid 1.25 Calcium 8.9 Total Bilirubin 0.4 AST 15 ALT 15 Alkaline Phosphatase 49 Creatine Kinase 75 Troponin I 0.01 Total Protein 6.1 Albumin 3.5 L Globulin 2.6 Albumin/Globulin Ratio 1.4 Urine Source Urine Color Urine Clarity Urine pH Ur Specific Magnet Urine Protein Urine Glucose (UA) Urine Ketones Urine Blood Urine Nitrate Urine Bilirubin Urine Urobilinogen Ur Leukocyte Esterase Urine RBC Urine WBC Ur Epithelial Cells Urine Bacteria 06/02/18 14:10 PT INR PTT (Actin FS) Sodium Potassium Chloride Carbon Dioxide Anion Gap BUN Creatinine Est GFR ( Amer) Est GFR (Non-Af Amer) BUN/Creatinine Ratio Glucose Whole Bld Lactic Acid Calcium Total Bilirubin AST ALT Alkaline Phosphatase Creatine Kinase Troponin I Total Protein Albumin Globulin Albumin/Globulin Ratio Urine Source MIDSTREAM Urine Color YELLOW Urine Clarity CLEAR Urine pH 6.0 Ur Specific Magnet <= 1.005 Urine Protein NEGATIVE Urine Glucose (UA) NEGATIVE Urine Ketones NEGATIVE Urine Blood TRACE Urine Nitrate NEGATIVE Urine Bilirubin NEGATIVE Urine Urobilinogen 0.2 Ur Leukocyte Esterase NEGATIVE Urine RBC NONE SEEN Urine WBC 0-2 Ur Epithelial Cells OCCASIONAL Urine Bacteria OCCASIONAL Comments:: Reviewed - Radiology Results Comments:: NAD - EKG Interpretations EKG Time:: 13:58 Rate & Rhythm: 66; NSR Comments:: non-specific st-t changes ED Septic Shock - . Is Septic Shock (SBP<90, OR Lactate>4 mmol\L) present?: No - <6hrs of presentation: Vital Signs: Vital Signs - 8 hr 06/02/18 13:25 Temp 98.9 F HR 72 RR 16 BP 107/63 O2 Sat % 97 ED Reassessment (Disposition) - Reassessment Reassessment Condition:: Improved - Diagnosis Diagnosis:: Dx: Cellulitis; Sepsis; Fall - Aftercare/Follow up Instructions Aftercare/Follow-Up Instructions:: Counseled pt regarding lab results/diagnosis & need follow up, Counseled pt & family regarding lab results/diagnosis & need follow up - Patient Disposition Discharge/Transfer:: Acute Care w/in this hosp Accepting Physician:: Dr. Ortiz Time Called:: 1500 Time Responded:: 15:00 Admitted to:: Med/Surg Spoke to:: Dr. Ortiz Admitting Medical Physician:: Dr. Ortiz Condition at Disposition:: Stable, Improved
[2018-06-02 15:58] LABS: % BASOPHILS 0.1 % (0.0-2.0); % LYMPHOCYTES 21.5 % (20.0-50.0); % MONOCYTES 9.4 % (2.0-10.0); EOSINOPHILE ABSOLUTE 0.1 Th/cmm (0.1-0.4); HEMATOCRIT 36.4 % (41.0-60); HEMOGLOBIN 12.1 gm/dL (12-16); LYMPHOCYTE ABSOLUTE 1.5 Th/cmm (1.5-3.0); MEAN CELL VOLUME 85.4 fl (80-99); MEAN CORPUSCULAR HEMOGLOBIN 28.4 pg (26.0-30.0); MEAN CORPUSCULAR HGB CONC 33.2 pg (28.0-36.0); MEAN PLATELET VOLUME 9.7 fl; MONOCYTE ABSOLUTE 0.7 Th/cmm (0.3-1.0); NEUTROPHILE ABSOLUTE 4.7 Th/cmm (1.8-8.0); PLATELET COUNT 180 Th/cmm (150-400); RED BLOOD COUNT 4.26 Mil/cmm (4.30-5.70); RED CELL DISTRIBUTION WIDTH 12.3 % (11.5-20.0)
[2018-06-02 18:38] VITALS: BP 109/59
[2018-06-02] MEDS ORDERED: Sodium Chloride 0.9% 1,000 ML IV SCH (20:45)
[2018-06-02] MEDS ORDERED: Piperacillin Sodium/Tazobact 3.375 gm Vial IV ONE (21:52)
[2018-06-03 06:17] LABS: % BASOPHILS 0.4 % (0.0-2.0); % EOSINOPHILS 2.6 % (0.0-5.0); % LYMPHOCYTES 26.5 % (20.0-50.0); % MONOCYTES 10.7 % (2.0-10.0); % NEUTROPHILS 59.8 % (40.0-80.0); EOSINOPHILE ABSOLUTE 0.2 Th/cmm (0.1-0.4); HEMATOCRIT 39.6 % (41.0-60); HEMOGLOBIN 13.2 gm/dL (12-16); LYMPHOCYTE ABSOLUTE 1.6 Th/cmm (1.5-3.0); MEAN CELL VOLUME 84.6 fl (80-99); MEAN CORPUSCULAR HEMOGLOBIN 28.3 pg (26.0-30.0); MEAN CORPUSCULAR HGB CONC 33.5 pg (28.0-36.0); MEAN PLATELET VOLUME 8.9 fl; MONOCYTE ABSOLUTE 0.7 Th/cmm (0.3-1.0); NEUTROPHILE ABSOLUTE 3.6 Th/cmm (1.8-8.0); PLATELET COUNT 195 Th/cmm (150-400); RED BLOOD COUNT 4.68 Mil/cmm (4.30-5.70); RED CELL DISTRIBUTION WIDTH 12.7 % (11.5-20.0); WHITE BLOOD COUNT 6.1 Th/cmm (4.8-10.8)
[2018-06-03 06:37] LABS: ANION GAP 13.6 (7.0-16.0); BUN - UREA NITROGEN 20 mg/dL (7-25); CALCIUM SERUM 9.3 mg/dL (8.6-10.3); CARBON DIOXIDE 23.3 mEq/L (21.0-31.0); CHLORIDE 106 mEq/L (98-107); CREATININE - SERUM 0.8 mg/dL (0.7-1.3); GFR AFRICAN-AMERICAN > 60.0 ml/min (>90); GFR NON AFRICAN-AMERICAN > 60.0 ml/min; GLUCOSE 100 mg/dL (70-105); POTASSIUM SERUM 3.9 mEq/L (3.5-5.1); SODIUM SERUM 139 mEq/L (136-145)
--- NOTE | 2018-06-03 08:39 | Diagnostic Imaging Report ---
EXAM: Left knee joint HISTORY: Pain COMPARISON: None FINDINGS: Multiple views of the left knee joint reviewed. The study demonstrates no evidence of fracture or dislocation. There is no evidence for joint effusion. The patella is intact. If clinically indicated ligamentous or meniscal injury is considered MRI examination might be helpful. IMPRESSION: Normal examination left knee joint.
--- NOTE | 2018-06-03 08:43 | Diagnostic Imaging Report ---
Bilateral lower extremity Doppler venous ultrasound exam HISTORY: Pain/swelling Sonographic sector images were obtained through the deep venous systems of both legs. Associated Doppler data was obtained. The exam demonstrates patency of the common femoral, superficial femoral, popliteal, and posterior tibial veins bilaterally. Specifically, no thrombus is seen. There are normal compressibility and augmentation responses. IMPRESSION: Negative exam for deep vein thrombophlebitis.
[2018-06-03] MEDS: Morphine Sulfate 2 mg/mL 1mL Syr IVP PRN ×2 (10:41→21:41)
[2018-06-04] MEDS: Morphine Sulfate 2 mg/mL 1mL Syr IVP PRN (04:09)
[2018-06-04] MEDS: Pantoprazole 40 mg EC Tab PO SCH (06:33)
[2018-06-04] MEDS: Ferrous Sulfate 325 MG TAB PO SCH ×2 (09:40→17:57)
[2018-06-04] MEDS: Multivitamin Tab PO SCH (09:40)
--- NOTE | 2018-06-04 15:50 | Consultation ---
Consult Note - Consult Note Service Date: 06/04/18 Referring Physician: Danita Ortiz Consult Note: PHYSICIAN Consultation Note: Date of Admission: 06/02/18 Purpose of Consultation: Left leg cellulitis. Chief Complaint: Patient REECE BEDOLLA was admitted to [facility] Unit I with CELLULITIS, SEPSIS, FALL. History of Present Illness: 57-year-old male with past medical history of hypertension, hyperlipidemia, GERD, depression, schizoaffective disorder, Parkinson's disease, admitted To brought into the half-way for swelling and redness of left leg. It was assisted with the pain. There was no fever no chills. Patient has small healing wound. The swelling and redness has extended proximally to the knee. Patient was started on vancomycin and Zosyn. As per the patient is doing better now. Patient is able to move his left knee without any pain or restriction. Past Medical History: hypertension, hyperlipidemia, GERD, depression, schizoaffective disorder, Parkinson's disease . Allergies Allergy/AdvReac Type Severity Reaction Status Date / Time haloperidol [From Haldol] Allergy Verified 02/12/18 18:58 Vital Signs Temp 97.2 F 06/04/18 08:00 Pulse 92 06/04/18 09:40 Resp 18 06/04/18 08:00 BP 139/87 06/04/18 09:40 Pulse Ox 98 06/04/18 08:00 Intake & Output 06/03/18 06/04/18 06/04/18 18:59 06:59 18:59 Intake Total 2323.333 1150 250 Output Total 1000 Balance 2323.333 150 250 Weight (lbs) 73.028 kg 73.936 kg Intake: Intake, IV Amount 523.333 250 250 Sodium Chloride 0.9% 1, 523.333 000 ml @ 50 mls/hr IV . Q20H [facility] Rx#:[id number] Vancomycin HCl 1.25 gm In 250 250 Sodium Chloride 0.9% 250 ml @ 165 mls/hr IV Q12H [facility] Rx#:[id number] Oral 1800 900 Output: Urine 1000 Other: # Voids 4 # Bowel Movements 0 Weight Source Bedscale Bedscale Laboratory Results - last 24 hr 06/04/18 08:00 Vancomycin Trough 12.3 H Home Medication Medication Instructions Recorded Type RX: Labetalol [Trandate] 50 mg PO DAILY 03/15/18 History RX: Olanzapine 2.5 mg PO DAILY 03/15/18 History RX: Pantoprazole [Protonix] 40 mg PO QDAC 03/15/18 History RX: Multivitamin [Theragran] 1 tab PO DAILY tab 03/24/18 Rx RX: Ferrous Sulfate 325 mg PO BID 05/23/18 History Current Medications Generic Name Dose Route Start Last Admin Trade Name Freq PRN Reason Stop Dose Admin Ferrous Sulfate 325 mg 06/04/18 09:00 06/04/18 09:40 Iron PO 08/03/18 08:59 325 mg BID DEBORAH Administration Sodium Chloride 1,000 mls @ 50 mls/hr 06/02/18 20:45 06/03/18 08:42 Nacl 0.9% IV 08/01/18 20:44 50 mls/hr .Q20H DEB[facility]AH Infusion Vancomycin HCl 1.25 gm/ Sodium 250 mls @ 165 mls/hr 06/03/18 21:00 06/04/18 11:21 Chloride IV 08/02/18 20:59 Infused Q12H DEB[facility] Infusion Labetalol HCl 50 mg 06/04/18 09:00 06/04/18 09:40 Trandate PO 08/03/18 08:59 50 mg DAILY DEBORAH Administration Lorazepam 1 mg 06/02/18 20:48 06/04/18 15:22 Ativan IVP 08/01/18 20:47 1 mg Q4HR PRN Administration Agitation Protocol Miscellaneous 1 ea 06/02/18 20:45 Vancomycin Iv Per Pharmacy 08/01/18 20:44 PRN PRN PROTOCOL Morphine Sulfate 2 mg 06/02/18 20:50 06/04/18 04:09 Morphine IVP 08/01/18 20:49 2 mg Q4HR PRN Administration Pain (Moderate) Multivitamins/Vitamin C 1 tab 06/04/18 09:00 06/04/18 09:40 Theragran PO 08/03/18 08:59 1 tab DAILY DEBORAH Administration Olanzapine 2.5 mg 06/04/18 09:00 06/04/18 09:37 Zyprexa PO 08/03/18 08:59 2.5 mg DAILY DEBORAH Administration Protocol Ondansetron HCl 4 mg 06/02/18 20:51 Zofran IV 08/01/18 20:50 Q6H PRN Nausea / Vomiting Pantoprazole Sodium 40 mg 06/04/18 07:30 06/04/18 06:33 Protonix PO 08/03/18 07:29 40 mg QDAC DEBORAH Administration Review of Systems: A 12 point ROS was reviewed with the pertinent positive and negatives noted in the HPI. Social History Smoking Status Unknown if ever smoked Family Medical History Family Medical History Start: 06/02/18 18: 02 Freq: ONCE Status: Active Protocol: Document 06/02/18 18:02 LILLIE (Rec: 06/03/18 01:11 LILLIE [id number]) Family Medical History Mother History Unknown Yes Physical Exam: General: Comfortable, not in distress. HEENT: Head: NC NT. Oral Cavity: moist, pink tongue. Pupil PERRLA, EOMI. Pallor present, No icterus. Neck: Supple, no JVD. Cardio: S1. S2, Regular, no murmur. no gallop Respiratory: CTAP. Abdominal: Soft NT ND. BS present Genital/Urinary: Extremities: NCCE Left leg swelling and redness from knee to most of leg anteriorly. Neurological: AAOx3 Assessment: 1. Left leg cellulitis and left knee cellulitis. 2. Hypertension, 3. Hyperlipidemia. 4. Depression. 5. Diabetes mellitus type 2. Plan: Continue vancomycin IV 7 days. And discontinue Zosyn. Thank you, Dr. Ortiz, for involving me in taking care of this patient. Signed, Silverio Allen M.D. [id number]
--- NOTE | 2018-06-04 16:20 | Consultation ---
DATE OF CONSULTATION: 06/04/2018 IDENTIFYING INFORMATION: The patient is a 57-year-old male. HISTORY OF PRESENT ILLNESS: This is a patient who was admitted with no altered level of consciousness. He had swelling in the left lower extremity for 3 days. The patient himself was not a great historian, could not look me in the eye. He said he had a substance abuse, long time ago, he was able to tell me the date as being 06/03/2018, he was rambling. He reported history of prior suicide attempt long time ago, but would not give me any details. He reported decreased sleep. Appetite is okay. He denies visual hallucination. He denies any intent to harm himself. He reports he lives with his parents. PAST PSYCHIATRIC HISTORY: The patient reports a history of schizophrenia, but he is not sure he is on olanzapine 2.5 mg at bedtime. MEDICAL HISTORY: Hypertension, diabetes mellitus, and dyslipidemia. ALLERGIES: HE IS ALLERGIC TO HALDOL. MEDICATIONS: He is on olanzapine 2.5 mg at bedtime. He is on iron, Trandate, morphine, multivitamin, pantoprazole, and vancomycin. FAMILY AND SOCIAL HISTORY: He is a nonsmoker. The patient is single, never , no children. He lives with his parents as ____ college education. Denies family psychotic disorder. No history of ____. MENTAL STATUS EXAMINATION: The patient is appropriately dressed, not very well groomed. He was rambling. He has poor eye contact. He was able to tell me the date as being 06/03/2018 rather than 06/04/2018. He knew he was in the hospital. He is not sure why he is in the hospital. His speech was rambling. He is not sure why he is here with a history of schizophrenia. Long-term is good for his age, date of . Recent memory is poor. He was not sure of the events that led to admission. He denies any current auditory or visual hallucinations. Denies any suicidal ideation. No homicidal ideation. He denies any intent to harm anyone. Insight and judgment is impaired. IMPRESSION: Schizoaffective disorder versus schizophrenia. MEDICAL DIAGNOSES: As per medical doctor and recommend to continue the Zyprexa. The patient may need follow up with the psychiatrist upon discharge. Dr. Schmidt will follow up with him. Thank you very much for allowing me to participate in the care of this most of interesting lady. JOB# [id number]
--- NOTE | 2018-06-04 16:37 | Internal Medicine Prog Note ---
Internal Medicine Subjective - Subjective Patient seen and examined:: chart reviewed Patient is:: awake, in bed, other Patient Complaints of:: other (knee /leg pain ) Per staff patient has:: no adverse event Internal Medicine Objective - Results Result Diagrams: 06/03/18 05:50 06/03/18 05:50 Recent Labs: Laboratory Last Values WBC 6.1 Th/cmm (4.8-10.8) 06/03/18 05:50 RBC 4.68 Mil/cmm (4.30-5.70) 06/03/18 05:50 Hgb 13.2 gm/dL (12-16) 06/03/18 05:50 Hct 39.6 % (41.0-60) L 06/03/18 05:50 MCV 84.6 fl (80-99) 06/03/18 05:50 MCH 28.3 pg (26.0-30.0) 06/03/18 05:50 MCHC Differential 33.5 pg (28.0-36.0) 06/03/18 05:50 RDW 12.7 % (11.5-20.0) 06/03/18 05:50 Plt Count 195 Th/cmm (150-400) 06/03/18 05:50 MPV 8.9 fl 06/03/18 05:50 Neutrophils % 59.8 % (40.0-80.0) 06/03/18 05:50 Lymphocytes % 26.5 % (20.0-50.0) 06/03/18 05:50 Monocytes % 10.7 % (2.0-10.0) H 06/03/18 05:50 Eosinophils % 2.6 % (0.0-5.0) 06/03/18 05:50 Basophils % 0.4 % (0.0-2.0) 06/03/18 05:50 PT 10.4 SECONDS (9.5-11.5) 06/02/18 13:40 INR 1.00 (0.5-1.4) 06/02/18 13:40 PTT (Actin FS) 27.6 SECONDS (26.0-38.0) 06/02/18 13:40 Sodium 139 mEq/L (136-145) 06/03/18 05:50 Potassium 3.9 mEq/L (3.5-5.1) 06/03/18 05:50 Chloride 106 mEq/L (98-107) 06/03/18 05:50 Carbon Dioxide 23.3 mEq/L (21.0-31.0) 06/03/18 05:50 Anion Gap 13.6 (7.0-16.0) 06/03/18 05:50 BUN 20 mg/dL (7-25) 06/03/18 05:50 Creatinine 0.8 mg/dL (0.7-1.3) 06/03/18 05:50 Est GFR ( Amer) > 60.0 ml/min (>90) 06/03/18 05:50 Est GFR (Non-Af Amer) > 60.0 ml/min 06/03/18 05:50 BUN/Creatinine Ratio 25.0 06/03/18 05:50 Glucose 100 mg/dL (70-105) 06/03/18 05:50 POC Glucose 180 MG/DL (70 - 105) H 06/02/18 18:22 Whole Bld Lactic Acid 1.25 mmol/L (0.60-1.99) 06/02/18 13:40 Calcium 9.3 mg/dL (8.6-10.3) 06/03/18 05:50 Total Bilirubin 0.4 mg/dL (0.3-1.0) 06/02/18 13:40 AST 15 U/L (13-39) 06/02/18 13:40 ALT 15 U/L (7-52) 06/02/18 13:40 Alkaline Phosphatase 49 U/L (34-104) 06/02/18 13:40 Creatine Kinase 75 U/L (30-223) 06/02/18 13:40 Troponin I 0.01 ng/mL (0.01-0.05) 06/02/18 13:40 Total Protein 6.1 gm/dL (6.0-8.3) 06/02/18 13:40 Albumin 3.5 gm/dL (4.2-5.5) L 06/02/18 13:40 Globulin 2.6 gm/dL 06/02/18 13:40 Albumin/Globulin Ratio 1.4 (1.0-1.8) 06/02/18 13:40 Urine Source MIDSTREAM 06/02/18 14:10 Urine Color YELLOW 06/02/18 14:10 Urine Clarity CLEAR (CLEAR) 06/02/18 14:10 Urine pH 6.0 (4.6 - 8.0) 06/02/18 14:10 Ur Specific [place] <= 1.005 (1.005-1.030) 06/02/18 14:10 Urine Protein NEGATIVE mg/dL (NEGATIVE) 06/02/18 14:10 Urine Glucose (UA) NEGATIVE mg/dL (NEGATIVE) 06/02/18 14:10 Urine Ketones NEGATIVE mg/dL (NEGATIVE) 06/02/18 14:10 Urine Blood TRACE (NEGATIVE) 06/02/18 14:10 Urine Nitrate NEGATIVE (NEGATIVE) 06/02/18 14:10 Urine Bilirubin NEGATIVE (NEGATIVE) 06/02/18 14:10 Urine Urobilinogen 0.2 E.U./dL (0.2 - 1.0) 06/02/18 14:10 Ur Leukocyte Esterase NEGATIVE (NEGATIVE) 06/02/18 14:10 Urine RBC NONE SEEN /hpf (0-5) 06/02/18 14:10 Urine WBC 0-2 /hpf (0-5) 06/02/18 14:10 Ur Epithelial Cells OCCASIONAL /lpf (FEW) 06/02/18 14:10 Urine Bacteria OCCASIONAL /hpf (NONE SEEN) 06/02/18 14:10 Vancomycin Trough 12.3 ug/mL (5-10) H 06/04/18 08:00 - Physical Exam Vitals and I&O: Vital Signs Temp 97.2 F 06/04/18 08:00 Pulse 92 06/04/18 09:40 Resp 18 06/04/18 08:00 BP 139/87 06/04/18 09:40 Pulse Ox 98 06/04/18 08:00 Intake & Output 06/03/18 06/04/18 06/04/18 18:59 06:59 18:59 Intake Total 2323.333 1150 250 Output Total 1000 Balance 2323.333 150 250 Weight (lbs) 73.028 kg 73.936 kg Intake: Intake, IV Amount 523.333 250 250 Sodium Chloride 0.9% 1, 523.333 000 ml @ 50 mls/hr IV . Q20H [facility] Rx#:[id number] Vancomycin HCl 1.25 gm In 250 250 Sodium Chloride 0.9% 250 ml @ 165 mls/hr IV Q12H [facility] Rx#:[id number] Oral 1800 900 Output: Urine 1000 Other: # Voids 4 # Bowel Movements 0 Weight Source Bedscale Bedscale Active Medications: Current Medications Ferrous Sulfate (Iron) 325 mg PO BID DEBORAH Stop: 08/03/18 08:59 Last Admin: 06/04/18 09:40 Dose: 325 mg Sodium Chloride (Nacl 0.9%) 1,000 mls @ 50 mls/hr IV .Q20H DEBORAH Stop: 08/01/18 20:44 Last Infusion: 06/03/18 08:42 Dose: 50 mls/hr Vancomycin HCl 1.25 gm/ Sodium (Chloride) 250 mls @ 165 mls/hr IV Q12H [facility]AH Stop: 08/02/18 20:59 Last Infusion: 06/04/18 11:21 Dose: Infused Labetalol HCl (Trandate) 50 mg PO DAILY DEBORAH Stop: 08/03/18 08:59 Last Admin: 06/04/18 09:40 Dose: 50 mg Lorazepam (Ativan) 1 mg IVP Q4HR PRN; Protocol PRN Reason: Agitation Stop: 08/01/18 20:47 Last Admin: 06/04/18 15:22 Dose: 1 mg Miscellaneous (Vancomycin Iv Per Pharmacy) 1 ea MC PRN PRN PRN Reason: PROTOCOL Stop: 08/01/18 20:44 Morphine Sulfate (Morphine) 2 mg IVP Q4HR PRN PRN Reason: Pain (Moderate) Stop: 08/01/18 20:49 Last Admin: 06/04/18 04:09 Dose: 2 mg Multivitamins/Vitamin C (Theragran) 1 tab PO DAILY DEBORAH Stop: 08/03/18 08:59 Last Admin: 06/04/18 09:40 Dose: 1 tab Olanzapine (Zyprexa) 2.5 mg PO DAILY DEBORAH; Protocol Stop: 08/03/18 08:59 Last Admin: 06/04/18 09:37 Dose: 2.5 mg Ondansetron HCl (Zofran) 4 mg IV Q6H PRN PRN Reason: Nausea / Vomiting Stop: 08/01/18 20:50 Pantoprazole Sodium (Protonix) 40 mg PO QDAC [facility]BORAH Stop: 08/03/18 07:29 Last Admin: 06/04/18 06:33 Dose: 40 mg General: alert HEENT: NC/AT Neck: Supple Lungs: CTAB Abdomen: soft Extremities: clear Neurological: no change - Procedures Procedures: Procedures Procedure Code Date ASSISTANCE WITH RESPIRATORY VENTILATION, 24-96 HRS, CPAP [id number] 02/12/18 EXCISION OF DUODENUM, ENDO, DIAGN [id number] 02/12/18 EXCISION OF ESOPHAGUS, ENDO, DIAGN [id number] 02/12/18 EXCISION OF STOMACH, ENDO, DIAGN [id number] 02/12/18 Internal Medicine Assmt/Plan - Assessment Assessment: left leg cellulitis left knee cellulitis htn hyperlipidemia depression dm type 2 - Plan Plan: cpm Nutritional Asmnt/Malnutr-PDOC - Dietary Evaluation Malnutrition Findings (Please click <Entered> for more info): Nutritional Asmnt/Malnutrition Start: 06/03/18 14: 46 Text: Status: Complete Freq: Protocol: Document 06/03/18 14:48 JAX (Rec: 06/03/18 14:49 JAX [email or web address]) Nutritional Asmnt/Malnutrition Patient General Information Nutritional Screening High Risk Consult Diagnosis cellulitis, sepsis, fall Pertinent Medical Hx/Surgical Hx HTN, DM, dyslipidemia, schizophrenia Subjective Information Received diet consult for admit BS 180. Pt eating lunch in room at time of visit. Pt's alert and states the food served has been good; no preferences. Pt noted to have finished 75% of dinner last night by nursing. Current Diet Order/ Nutrition Support 2 gram Na Pertinent Medications vancomycin, zofran, Nacl 0.9% Pertinent Labs 06/03: glucose 100 06/02: glucose 112, POC 180 ( 30 min after eating per nurse note), Alb 3.5 Nutritional Hx/Data Height 1.68 m Height (Calculated Centimeters) 167.6 Current Weight (lbs) 73.028 kg Weight (Calculated Kilograms) 73.0 Weight (Calculated Grams) 60694.4 [place] Body Weight 142 lb Body Mass Index (BMI) 25.9 Weight Status Overweight GI Symptoms GI Symptoms None Last BM 06/03 Difficult in: None Food Allergies No Skin Integrity/Comment: left knee cellulitis, moses 19 Current %PO Good (75-100%) Estimated Nutritional Goals BEE in Kcals: Using Current wt Calories/Kcals/Kg 25-30 Kcals Calculated 8745-7567 Protein: Using Current wt Protein g/k.8-1 Protein Calculated 59-73 g Fluid: ml 7770-3465 (1 ml/kcal) Nutritional Problem No current Nutrition Prob Problem no nutrition at this time Malnutrition Alert Is there a minimum of two criteria No selected? Query Text:Check all the applicable criteria. A minimum of two criteria are recommended for diagnosis of either severe or non-severe malnutrition. Malnutrition Related to Morbid Obesity Malnutrition related to morbid obesity No Intervention/Recommendation Comments 1. Continue with 2 gm Na diet as ordered. If glucose elevated, will consider adding CCHO diet as needed. 2. Monitor PO intake, wt, labs and skin integrity 3. F/U as moderate risk in 3-5 days, 06/06-06/08 Expected Outcomes/Goals Expected Outcomes/Goals 1. PO intake to meet at least 75% of all meals 2. Wt stability, skin to remain intact, and nutrition related labs to approach normal limits Reviewed by Kaylee Lucas RD
[2018-06-05] MEDS: Morphine Sulfate 2 mg/mL 1mL Syr IVP PRN (04:24)
[2018-06-05] MEDS: Pantoprazole 40 mg EC Tab PO SCH (06:33)
[2018-06-05] MEDS: Multivitamin Tab PO SCH (08:57)
[2018-06-05] MEDS: Ferrous Sulfate 325 MG TAB PO SCH ×2 (08:58→16:48)
--- NOTE | 2018-06-05 10:55 | Progress Notes ---
DATE: 06/04/2018 SUBJECTIVE: Chart reviewed and the patient interviewed. Also discussed the patient's condition with the staff and reviewed records and labs. The patient continued to be extremely angry and he is still extremely agitated. The patient also is still suspicious and is still paranoid. The patient also is yelling and screaming constantly for no reason and is still actively talking to himself and talking to imaginary objects. Otherwise, the patient is compliant with taking his medications with no side effects of medications. ASSESSMENT: The patient is still psychotic and agitated. TREATMENT PLAN: Continue to monitor his behavior and his condition closely. Also, recommend to admit the patient to Geropsych unit. Also, we will increase Zyprexa to 5 mg twice a day and will continue to follow up. [facility]# [id number]
--- NOTE | 2018-06-05 12:37 | Infectious Disease Prog Note ---
Infectious Disease Subjective - Review of Systems Service Date: 06/05/18 Subjective: There is no new change, no fever. Infectious Disease Objective - Results Result Diagrams: 06/03/18 05:50 06/03/18 05:50 Recent Labs: Laboratory Last Values WBC 6.1 Th/cmm (4.8-10.8) 06/03/18 05:50 RBC 4.68 Mil/cmm (4.30-5.70) 06/03/18 05:50 Hgb 13.2 gm/dL (12-16) 06/03/18 05:50 Hct 39.6 % (41.0-60) L 06/03/18 05:50 MCV 84.6 fl (80-99) 06/03/18 05:50 MCH 28.3 pg (26.0-30.0) 06/03/18 05:50 MCHC Differential 33.5 pg (28.0-36.0) 06/03/18 05:50 RDW 12.7 % (11.5-20.0) 06/03/18 05:50 Plt Count 195 Th/cmm (150-400) 06/03/18 05:50 MPV 8.9 fl 06/03/18 05:50 Neutrophils % 59.8 % (40.0-80.0) 06/03/18 05:50 Lymphocytes % 26.5 % (20.0-50.0) 06/03/18 05:50 Monocytes % 10.7 % (2.0-10.0) H 06/03/18 05:50 Eosinophils % 2.6 % (0.0-5.0) 06/03/18 05:50 Basophils % 0.4 % (0.0-2.0) 06/03/18 05:50 PT 10.4 SECONDS (9.5-11.5) 06/02/18 13:40 INR 1.00 (0.5-1.4) 06/02/18 13:40 PTT (Actin FS) 27.6 SECONDS (26.0-38.0) 06/02/18 13:40 Sodium 139 mEq/L (136-145) 06/03/18 05:50 Potassium 3.9 mEq/L (3.5-5.1) 06/03/18 05:50 Chloride 106 mEq/L (98-107) 06/03/18 05:50 Carbon Dioxide 23.3 mEq/L (21.0-31.0) 06/03/18 05:50 Anion Gap 13.6 (7.0-16.0) 06/03/18 05:50 BUN 20 mg/dL (7-25) 06/03/18 05:50 Creatinine 0.8 mg/dL (0.7-1.3) 06/03/18 05:50 Est GFR ( Amer) > 60.0 ml/min (>90) 06/03/18 05:50 Est GFR (Non-Af Amer) > 60.0 ml/min 06/03/18 05:50 BUN/Creatinine Ratio 25.0 06/03/18 05:50 Glucose 100 mg/dL (70-105) 06/03/18 05:50 POC Glucose 180 MG/DL (70 - 105) H 06/02/18 18:22 Whole Bld Lactic Acid 1.25 mmol/L (0.60-1.99) 06/02/18 13:40 Calcium 9.3 mg/dL (8.6-10.3) 06/03/18 05:50 Total Bilirubin 0.4 mg/dL (0.3-1.0) 06/02/18 13:40 AST 15 U/L (13-39) 06/02/18 13:40 ALT 15 U/L (7-52) 06/02/18 13:40 Alkaline Phosphatase 49 U/L (34-104) 06/02/18 13:40 Creatine Kinase 75 U/L (30-223) 06/02/18 13:40 Troponin I 0.01 ng/mL (0.01-0.05) 06/02/18 13:40 Total Protein 6.1 gm/dL (6.0-8.3) 06/02/18 13:40 Albumin 3.5 gm/dL (4.2-5.5) L 06/02/18 13:40 Globulin 2.6 gm/dL 06/02/18 13:40 Albumin/Globulin Ratio 1.4 (1.0-1.8) 06/02/18 13:40 Urine Source MIDSTREAM 06/02/18 14:10 Urine Color YELLOW 06/02/18 14:10 Urine Clarity CLEAR (CLEAR) 06/02/18 14:10 Urine pH 6.0 (4.6 - 8.0) 06/02/18 14:10 Ur Specific [place] <= 1.005 (1.005-1.030) 06/02/18 14:10 Urine Protein NEGATIVE mg/dL (NEGATIVE) 06/02/18 14:10 Urine Glucose (UA) NEGATIVE mg/dL (NEGATIVE) 06/02/18 14:10 Urine Ketones NEGATIVE mg/dL (NEGATIVE) 06/02/18 14:10 Urine Blood TRACE (NEGATIVE) 06/02/18 14:10 Urine Nitrate NEGATIVE (NEGATIVE) 06/02/18 14:10 Urine Bilirubin NEGATIVE (NEGATIVE) 06/02/18 14:10 Urine Urobilinogen 0.2 E.U./dL (0.2 - 1.0) 06/02/18 14:10 Ur Leukocyte Esterase NEGATIVE (NEGATIVE) 06/02/18 14:10 Urine RBC NONE SEEN /hpf (0-5) 06/02/18 14:10 Urine WBC 0-2 /hpf (0-5) 06/02/18 14:10 Ur Epithelial Cells OCCASIONAL /lpf (FEW) 06/02/18 14:10 Urine Bacteria OCCASIONAL /hpf (NONE SEEN) 06/02/18 14:10 Vancomycin Trough 12.3 ug/mL (5-10) H 06/04/18 08:00 - Physical Exam Vitals and I&O: Vital Signs Temp 97.5 F 06/05/18 04:00 Pulse 84 06/05/18 09:16 Resp 18 06/05/18 11:19 BP 120/78 06/05/18 09:16 Pulse Ox 98 06/05/18 04:00 Intake & Output 06/04/18 06/05/18 06/05/18 18:59 06:59 18:59 Intake Total 2049 1950 Output Total 600 Balance 2049 1350 Weight (lbs) 73.936 kg 73.936 kg Intake: Intake, IV Amount 250 250 Vancomycin HCl 1.25 gm In 250 250 Sodium Chloride 0.9% 250 ml @ 165 mls/hr IV Q12H [facility] Rx#:[id number] Oral 1800 1700 Output: Urine 600 Other: # Voids 4 # Bowel Movements 1 Weight Source Bedscale Bedscale Active Medications: Current Medications Ferrous Sulfate (Iron) 325 mg PO BID DEBORAH Stop: 08/03/18 08:59 Last Admin: 06/05/18 08:58 Dose: 325 mg Sodium Chloride (Nacl 0.9%) 1,000 mls @ 50 mls/hr IV .Q20H DEBORAH Stop: 08/01/18 20:44 Last Infusion: 06/03/18 08:42 Dose: 50 mls/hr Vancomycin HCl 1.25 gm/ Sodium (Chloride) 250 mls @ 165 mls/hr IV Q12H DEBORAH Stop: 08/02/18 20:59 Last Admin: 06/05/18 11:24 Dose: 165 mls/hr Labetalol HCl (Trandate) 50 mg PO DAILY DEBORAH Stop: 08/03/18 08:59 Last Admin: 06/05/18 09:16 Dose: 50 mg Lorazepam (Ativan) 1 mg IVP Q4HR PRN; Protocol PRN Reason: Agitation Stop: 08/01/18 20:47 Last Admin: 06/04/18 15:22 Dose: 1 mg Miscellaneous (Vancomycin Iv Per Pharmacy) 1 ea MC PRN PRN PRN Reason: PROTOCOL Stop: 08/01/18 20:44 Morphine Sulfate (Morphine) 2 mg IVP Q4HR PRN PRN Reason: Pain (Moderate) Stop: 08/01/18 20:49 Last Admin: 06/05/18 04:24 Dose: 2 mg Multivitamins/Vitamin C (Theragran) 1 tab PO DAILY [facility] Stop: 08/03/18 08:59 Last Admin: 06/05/18 08:57 Dose: 1 tab Olanzapine (Zyprexa) 5 mg PO BID [facility]; Protocol Stop: 08/04/18 08:59 Last Admin: 06/05/18 11:23 Dose: Not Given Ondansetron HCl (Zofran) 4 mg IV Q6H PRN PRN Reason: Nausea / Vomiting Stop: 08/01/18 20:50 Pantoprazole Sodium (Protonix) 40 mg PO QDAC [facility] Stop: 08/03/18 07:29 Last Admin: 06/05/18 06:33 Dose: 40 mg General: no acute distress, well developed, well nourished HEENT: atraumatic, normocephalic, PERRLA, EOMI Neck: supple, no thyromegaly Cardiovascular: S1S2, regular Lungs: clear to auscultation bilaterally, clear to percussion Abdomen: soft, no tender, no distended, no mass, no rebound Extremities: other (Leg leg erythem improving,), no cyanosis, no clubbing Neurological: awake, alert, oriented Skin: intact - Procedures Procedures: Procedures Procedure Code Date ASSISTANCE WITH RESPIRATORY VENTILATION, 24-96 HRS, CPAP [id number] 02/12/18 EXCISION OF DUODENUM, ENDO, DIAGN [id number] 02/12/18 EXCISION OF ESOPHAGUS, ENDO, DIAGN [id number] 02/12/18 EXCISION OF STOMACH, ENDO, DIAGN [id number] 02/12/18 Infectious Disease Assmt/Plan - Problem List Patient Problems: All Active Problems LEFT LOWER EXTREMITY TRAUMA POST FALL (Acute) - Assessment Assessment: 1. Left leg cellulitis and left knee cellulitis. improving redness and swelling has receded to lower half of the leg. 2. Hypertension, 3. Hyperlipidemia. 4. Depression. 5. Diabetes mellitus type 2. - Plan Plan: Will continue vanco IV for 7 more days. If needed may call me for Follow up after one week./ Nutritional Asmnt/Malnutr-PDOC - Dietary Evaluation Malnutrition Findings (Please click <Entered> for more info): Nutritional Asmnt/Malnutrition Start: 06/03/18 14: 46 Text: Status: Complete Freq: Protocol: Document 06/03/18 14:48 JAX (Rec: 06/03/18 14:49 JAX CHOWDHURYDIET) Nutritional Asmnt/Malnutrition Patient General Information Nutritional Screening High Risk Consult Diagnosis cellulitis, sepsis, fall Pertinent Medical Hx/Surgical Hx HTN, DM, dyslipidemia, schizophrenia Subjective Information Received diet consult for admit BS 180. Pt eating lunch in room at time of visit. Pt's alert and states the food served has been good; no preferences. Pt noted to have finished 75% of dinner last night by nursing. Current Diet Order/ Nutrition Support 2 gram Na Pertinent Medications vancomycin, zofran, Nacl 0.9% Pertinent Labs 06/03: glucose 100 06/02: glucose 112, POC 180 ( 30 min after eating per nurse note), Alb 3.5 Nutritional Hx/Data Height 1.68 m Height (Calculated Centimeters) 167.6 Current Weight (lbs) 73.028 kg Weight (Calculated Kilograms) 73.0 Weight (Calculated Grams) 28698.4 Secretary Body Weight 142 lb Body Mass Index (BMI) 25.9 Weight Status Overweight GI Symptoms GI Symptoms None Last BM 06/03 Difficult in: None Food Allergies No Skin Integrity/Comment: left knee cellulitis, [place] Current %PO Good (75-100%) Estimated Nutritional Goals BEE in Kcals: Using Current wt Calories/Kcals/Kg 25-30 Kcals Calculated 6117-1662 Protein: Using Current wt Protein g/k.8-1 Protein Calculated 59-73 g Fluid: ml 8548-5325 (1 ml/kcal) Nutritional Problem No current Nutrition Prob Problem no nutrition at this time Malnutrition Alert Is there a minimum of two criteria No selected? Query Text:Check all the applicable criteria. A minimum of two criteria are recommended for diagnosis of either severe or non-severe malnutrition. Malnutrition Related to Morbid Obesity Malnutrition related to morbid obesity No Intervention/Recommendation Comments 1. Continue with 2 gm Na diet as ordered. If glucose elevated, will consider adding CCHO diet as needed. 2. Monitor PO intake, wt, labs and skin integrity 3. F/U as moderate risk in 3-5 days, 06/06-06/08 Expected Outcomes/Goals Expected Outcomes/Goals 1. PO intake to meet at least 75% of all meals 2. Wt stability, skin to remain intact, and nutrition related labs to approach normal limits Reviewed by Kaylee Lucas RD
--- NOTE | 2018-06-05 18:35 | History & Physical ---
ADMIT DATE: 06/02/2018 HISTORY OF PRESENT ILLNESS: This patient is very well known to me. The patient known to have significant psychosis and the patient is a resident of [facility]. Apparently, he developed redness, swelling of the left elbow and found to have severe cellulitis, was seen in the Emergency Room, was seen by the ER doctor, admitted for IV antibiotics and cellulitis of his right elbow. The patient denies fever, no chills, no rigors, no other problems. No dizziness. PAST MEDICAL HISTORY: Hypertension, diabetes, and hyperlipidemia. The patient's family member is mother. PHYSICAL EXAMINATION: GENERAL: The patient is awake, alert, oriented, not in distress. VITAL SIGNS: Stable. HEAD: Normal. EXTREMITIES: The patient's range of motion of the extremity was limited on his elbows. Left lower extremity also swollen, cellulitis. DIAGNOSES: Left lower leg cellulitis, sepsis, and the right elbow cellulitis was made. PLAN: The patient is being admitted, IV antibiotics was given. Dr. Silverio Allen, ID doctor was called in and he will be following ID [email or web address] and I will follow for all the other medical problems. JOB# [id number]
== END 2018-06-05 16:45 | DRG 872 ==
LOC: ER 13:16 → MSI 18:00
PROVIDERS: ADMIT Internal Medicine; ATTEND Internal Medicine
DX: A41.9 Sepsis, unspecified organism (principal); L03.116 Cellulitis of left lower limb; L03.113 Cellulitis of right upper limb; I10 Essential (primary) hypertension; E11.9 Type 2 diabetes mellitus without complications; K21.9 Gastro-esophageal reflux disease without esophagitis; G20 Parkinson's disease; E78.5 Hyperlipidemia, unspecified; F32.9 Major depressive disorder, single episode, unspecified; F25.9 Schizoaffective disorder, unspecified; W18.30XA Fall on same level, unspecified, initial encounter; Y93.89 Activity, other specified; Y92.89 Other specified places as the place of occurrence of the external cause; Y99.8 Other external cause status; Z79.899 Other long term (current) drug therapy; Z88.8 Allergy status to other drugs, medicaments and biological substances; Z83.3 Family history of diabetes mellitus; Z82.49 Family history of ischemic heart disease and other diseases of the circulatory system
CPT/HCPCS: 36415-UA; 71045-TC; 73562-TC-LT; 80048-TC; 80053-TC; 80202-TC; 81001-TC; 82550-TC; 82948-90; 83605; 84484-TC; 85025-TC; 85610-TC; 85730-TC; 93005; 93970-TC-50; J0696; J1200; J2060; J2270; J2543; J3370; J7030; J7051; Z7610

== ENCOUNTER 2018-06-09 16:54 | Inpatient (IN) | payer MEDICARE, OTHER ==
--- NOTE | 2018-06-09 17:20 | ED Physician Chart ---
ED Chief Complaint/HPI - Patient Information Date Seen:: 06/09/18 Time Seen:: 17:00 Chief Complaint:: Agitation History of Present Illness:: onset x 2 days of agitation and aggressive behavior; no report of SIs, LOC, ALOC , AMS, H/As, S/T, neck pain, C/P, SOB, Abd. Pain, A/N/V/D/C, fever, chills, or urinary s/s Allergies:: Allergies Allergy/AdvReac Type Severity Reaction Status Date / Time haloperidol [From Haldol] Allergy Verified 06/09/18 16:59 Vitals:: Vital Signs - 8 hr 06/09/18 17:06 Temp 98.1 F HR 77 RR 18 BP 118/65 O2 Sat % 95 Historian:: Patient Review:: Nurse's Note Reviewed, Old Chart Reviewed ED Review of Systems - Review of Systems General/Constitutional: No fever, No chills, No weight loss, No weakness, No diaphoresis, No edema, No loss of appetite Skin: No skin lesions, No rash, No bruising Head: No headache, No light-headedness Eyes: No loss of vision, No pain, No diplopia ENT: No earache, No nasal drainage, No sore throat, No tinnitus Neck: No neck pain, No swelling, No thyromegaly, No stiffness, No mass noted Cardio Vascular: No chest pain, No palpitations, No PND, No orthopnea, No edema Pulmonary: No SOB, No cough, No sputum, No wheezing GI: No nausea, No vomiting, No diarrhea, No pain, No melena, No hematochezia, No constipation, No hematemesis G/U: No dysuria, No frequency, No hematuria Musculoskeletal: No bone or joint pain, No back pain, No muscle pain Endocrine: No polyuria, No polydipsia Psychiatric: Prior psych history, Depression, Anxiety, No suicidal ideation, No homicidal ideation, No auditory hallucination, No visual hallucination Hematopoietic: No bruising, No lymphadenopathy Allergic/Immuno: No urticaria, No angioedema Neurological: No syncope, No focal symptoms, No weakness, No paresthesia, No headache, Seizure, No dizziness, Confusion, No vertigo ED Past Medical History - Past Medical History Obtainable: Yes Past Medical History: HTN, DM, Dyslipidemia, PUD/GERD, Seizures Family History: Diabetes Melitus, HTN Social History: Non Smoker, No Alcohol, No Drug Use, Single, Care Facility Surgical History: None Psychiatricy History: Depression, Schizophrenia, Bipolar, Dementia Medication: Reviewed Family Medical History - Family Member Mother History Unknown: Yes Ethnicity: Unknown Living Status: Still Living Hx Family Hypertension: Yes ED Physical Exam - Physical Examination General/Constitutional: Awake, Well-developed, well-nourished, Alert, No distress, GCS 15, Non-toxic appearing, Ambulatory Head: Atraumatic Eyes: Lids, conjuctiva normal, PERRL, EOMI Skin: Nl inspection, No rash, No skin lesions, No ecchymosis, Well hydrated, No lymphadenopathy ENMT: External ears, nose nl, TM canals nl, Nasal exam nl, Lips, teeth, gums nl , Oropharynx nl, Tonsils nl Neck: Nontender, Full ROM w/o pain, No JVD, No nuchal rigidity, No bruit, No mass, No stridor Respiratory: Nl effort/Exclusion, Clear to Auscultation, No Wheeze/Rhonchi/Rales Cardio Vascular: RRR, No murmur, gallop, rubs, NL S1 S2, Carotid/Femoral/Distal pulses equal bilaterally GI: No tenderness/rebounding/guarding, No organomegaly, No hernia, Normal BS's, Nondistended, No mass/bruits, No McBurney tenderness : No CVA tenderness Extremities: No tenderness or effusion, Full ROM, normal strength in all extremities, No edema, Normal digits & nails Neuro/Psych: Alert/oriented, DTR's symmetric, Normal sensory exam, Normal motor strength, Judgement/insight normal, Mood normal, Normal gait, No focal deficits Other Neuro/Psych comments:: + Psychomotor Agitation; no SIs; Mood/Affect: Labile Misc: Normal back, No paraspinal tenderness ED Labs/Radiology/EKG Results - Lab Results Comments:: Reviewed - EKG Interpretations Comments:: deferred by pt ED Septic Shock - . Is Septic Shock (SBP<90, OR Lactate>4 mmol\L) present?: No - <6hrs of presentation: Vital Signs: Vital Signs - 8 hr 06/09/18 17:06 Temp 98.1 F HR 77 RR 18 BP 118/65 O2 Sat % 95 ED Reassessment (Disposition) - Reassessment Reassessment Condition:: Improved - Diagnosis Diagnosis:: Dx: Agitation; Psychosis; Medical Clearance; Bipolar Disorder; Schizo-Affective Disorder - Aftercare/Follow up Instructions Aftercare/Follow-Up Instructions:: Counseled pt regarding lab results/diagnosis & need follow up, Counseled pt & family regarding lab results/diagnosis & need follow up - Patient Disposition Discharge/Transfer:: Acute Care w/in this hosp Admitted to:: [facility] Condition at Disposition:: Stable, Improved
[2018-06-09 17:38] LABS: % BASOPHILS 0.5 % (0.0-2.0); % EOSINOPHILS 1.7 % (0.0-5.0); % LYMPHOCYTES 27.9 % (20.0-50.0); % MONOCYTES 7.6 % (2.0-10.0); % NEUTROPHILS 62.3 % (40.0-80.0); EOSINOPHILE ABSOLUTE 0.1 Th/cmm (0.1-0.4); HEMATOCRIT 36.7 % (41.0-60); HEMOGLOBIN 12.2 gm/dL (12-16); MEAN CELL VOLUME 83.9 fl (80-99); MEAN CORPUSCULAR HEMOGLOBIN 27.8 pg (26.0-30.0); MEAN CORPUSCULAR HGB CONC 33.1 pg (28.0-36.0); MEAN PLATELET VOLUME 9.1 fl; MONOCYTE ABSOLUTE 0.5 Th/cmm (0.3-1.0); NEUTROPHILE ABSOLUTE 4.4 Th/cmm (1.8-8.0); PLATELET COUNT 217 Th/cmm (150-400); RED BLOOD COUNT 4.38 Mil/cmm (4.30-5.70); RED CELL DISTRIBUTION WIDTH 12.3 % (11.5-20.0)
[2018-06-09 17:56] LABS: ACETAMINOPHEN < 10.0 ug/mL (10.0-30.0); ALB/GLOB RATIO 1.6 (1.0-1.8); ALBUMIN 3.9 gm/dL (4.2-5.5); ALKALINE PHOSPHATASE 57 U/L (34-104); ANION GAP 14.4 (7.0-16.0); BILIRUBIN,TOTAL 0.6 mg/dL (0.3-1.0); BUN - UREA NITROGEN 20 mg/dL (7-25); CALCIUM SERUM 9.2 mg/dL (8.6-10.3); CARBON DIOXIDE 23.3 mEq/L (21.0-31.0); CHLORIDE 107 mEq/L (98-107); CHOLESTEROL 115 mg/dL (<200); CREATININE - SERUM 0.9 mg/dL (0.7-1.3); GFR AFRICAN-AMERICAN > 60.0 ml/min (>90); GFR NON AFRICAN-AMERICAN > 60.0 ml/min; GLUCOSE 95 mg/dL (70-105); HDL -HIGH DENSITY LIPOPROTEIN 30 mg/dL (23-92); POTASSIUM SERUM 3.7 mEq/L (3.5-5.1); SALICYLATES (ASPIRIN) < 25.0 mg/L (30.0-100.0); SGOT 19 U/L (13-39); SGPT/ALT 20 U/L (7-52); SODIUM SERUM 141 mEq/L (136-145); TOTAL PROTEIN,SERUM 6.3 gm/dL (6.0-8.3); TRIGLYCERIDES 76 mg/dL (<150)
[2018-06-09 21:22] VITALS: BP 123/95
[2018-06-10 06:55] LABS: CHOLESTEROL 111 mg/dL (<200); HDL -HIGH DENSITY LIPOPROTEIN 29 mg/dL (23-92); TRIGLYCERIDES 63 mg/dL (<150)
--- NOTE | 2018-06-10 09:58 | Psychiatric Evaluation ---
DATE OF SERVICE: 06/10/2018 IDENTIFYING DATA: The patient is a 58-year-old male, resident of [facility]. Information obtained by directly interviewing the patient as well as reviewing the admission papers. JUSTIFICATION FOR HOSPITALIZATION: The patient is admitted on voluntary basis in view of his acute agitation. CHIEF COMPLAINT: "They are bothering me, I need some rest." HISTORY OF PRESENT ILLNESS: This is a second psychiatric hospitalization for this patient who was hospitalized under my care in 09/2017. Following the stabilization, the patient was discharged to [facility] to be followed up by Dr. Hankins. The patient is reported to have been out of control and has been referred over here for stabilization. Review of the chart indicated that the patient has a history of cerebral palsy and had been hospitalized at [facility] in the past and the patient had multiple neurological workups. The patient was diagnosed to have subarachnoid hemorrhage at that time in September and the patient had been maintained on Risperdal and Depakote and was discharged. The patient at this time is not making any sense and has been going on a tangent and the patient has been not making much sense and talking to self most of the time and pacing on the unit. PAST PSYCHIATRIC HISTORY: Please refer to the above. MEDICAL HISTORY: Physical examination is requested by Dr. Ortiz. SUBSTANCE ABUSE HISTORY: None. PHYSICAL OR SEXUAL ABUSE HISTORY: None. LEGAL PROBLEMS: None at this time. SOCIAL HISTORY: The patient is a resident of the [facility]. MENTAL STATUS EXAMINATION: The patient is a 58-year-old, looking his stated age, superficially cooperative. Speech is incoherent and the patient is not making any sense. The patient is making gestures. The patient is getting easily agitated. The patient has paranoid delusions. Insight and judgment at this time are noted to be still impaired. Impulse control is noted to be poor. The patient is going on a tangent. Attention span and concentration are noted to be very poor at this time. The patient's behavior is danger to self and others. DIAGNOSTIC IMPRESSION: AXIS I: Schizoaffective disorder. AXIS II: None. AXIS III: As per Dr. Ortiz. IMMEDIATE TREATMENT PLAN: The patient is going to be continued on the Depakote and Risperdal and is going to be closely monitored. Once stabilized, the patient is going to be discharged back to [facility] to be followed up by Dr. Hankins. ESTIMATED LENGTH OF STAY: 5-7 days. DISCHARGE CRITERIA: When he no longer a threat to self or others and be able to cope up with the stress. [facility]# [id number]
--- NOTE | 2018-06-11 08:29 | Diagnostic Imaging Report ---
Left knee 2 views, limited Indication: Pain and swelling Comparison: Left knee x-ray on 06/02/2018 Findings: There is minimal narrowing of the medial knee compartment. No evidence of acute fracture or joint effusion. There is prepatellar and infrapatellar soft tissue swelling. No erosions identified. Impression: Prepatellar and infrapatellar soft tissue swelling. Findings may be due to cellulitis. Note, bursitis in this region cannot be completely excluded. Clinical correlation and follow-up needed. No osseous erosions identified. No evidence of an acute fracture. In the setting of trauma, if clinical symptoms persist and there is continued concern for an occult fracture, follow up exams in 5-7 days is suggested.
--- NOTE | 2018-06-11 11:18 | History and Physical ---
History of Present Illness - HPI Chief Complaint: agitation HPI: This is a 58-year old male who is a assisted resident admitted to the geropsych unit due a 2 day history of increase in agitation. Patient left knee is noted to be warm and swollen c/o pain, xray of left knee reviewed. Vital Signs: Last Vital Signs Temp 97.2 F 06/11/18 05:50 Pulse 80 06/11/18 05:50 Resp 18 06/11/18 05:50 BP 125/70 06/11/18 05:50 Pulse Ox 97 06/11/18 05:50 Past Medical History Other History: HTN, DM, Dyslipidemia, PUD/GERD, Seizures Family Medical History - Family Member Mother History Unknown: Yes Ethnicity: Unknown Living Status: Still Living Hx Family Hypertension: Yes Social History Smoke: No Alcohol: None Drugs: None Lives: Long-Term - Medications Home Medications: Home Medication Medication Instructions Recorded Type Labetalol [Trandate] 50 mg PO DAILY 03/15/18 History Olanzapine 2.5 mg PO DAILY 03/15/18 History Pantoprazole [Protonix] 40 mg PO QDAC 03/15/18 History Multivitamin [Theragran] 1 tab PO DAILY tab 03/24/18 Rx Ferrous Sulfate 325 mg PO BID 05/23/18 History Amoxicillin/Potassium Clav 1 tab PO BID 06/09/18 History [Augmentin 875-125 Tablet] Docusate Sodium [Colace] 100 mg PO BID 06/09/18 History Lorazepam [Ativan] 1 mg PO Q6HR PRN 06/09/18 History Vitamin B Complex 1 each PO DAILY 06/09/18 History - Allergies Allergies/Adverse Reactions: Allergies Allergy/AdvReac Type Severity Reaction Status Date / Time haloperidol [From Haldol] Allergy Verified 06/09/18 16:59 Review of Systems - Review of Systems Constitutional: Report: No Significant Eyes: Report: No Significant ENT: Report: No Significant Respiratory: Report: No Significant Cardiovascular: Report: No Significant Genitourinary: Report: No Significant Musculoskeletal: Report: No Significant Skin: Report: No Significant Neurological: Report: No Significant Physical Exam - Physical Exam HEENT: Report: Ears Nose Throat within normal limits Neck: Report: Within normal limits Cardiovascular Systems: Report: +s1/s2 noted, Regular, Rate and Rhythm Respiratory: Report: Breath Sounds are within normal limits Abdomen: Report: Non-tender to palpation Back: Report: Inspection of back is within normal limits. Extremities: Report: Non-tender to palpation. Skin: Report: Color of skin is within normal limits, Warm, Dry Neuro/Psych: Report: Mood affect is within normal limits - Lab Results All Lab Results last 24 hours: Laboratory Results - last 24 hr 06/10/18 06/10/18 19:40 19:40 ESR 15 Uric Acid 6.2 - Assessment Assessment: left knee cellulitis HTN DM Dyslipidemia PUD/GERD Seizures - Plan Plan: start keflex fall precautions monitor glucose cpm
--- NOTE | 2018-06-11 12:35 | Progress Notes ---
DATE: 06/11/2018 SUBJECTIVE: Staff was spoken to. The patient is interviewed. Mood is noted to be irritable. Affect is constricted. The patient has been having difficult time to cope with the stress. The patient is getting easily irritable, paranoid delusions are noted. The patient is going on a tangent. The patient's coping skills are noted to be poor. The patient is currently on Zyprexa and has been able to tolerate the medications. No side effects to the medications are noted. The patient is reporting that people are bothering him a lot and thus the reason why he has been keeping him to himself. ASSESSMENT: The patient is still psychotic and impulsive. PLAN: To continue the patient with the supportive therapy and followup. [facility]# [id number]
[2018-06-12] MEDS ORDERED: Probiotic Screen MC PRN (12:17)
--- NOTE | 2018-06-12 12:39 | Consultation ---
DATE OF CONSULTATION: 06/11/2018 REFERRING PHYSICIAN: Raymond Arango MD TYPE OF CONSULTATION: Psychology. HISTORY OF PRESENT ILLNESS: The patient is a 58-year-old male. The patient is a resident of [facility]. The following is by record review and by the patient's self-report. The patient is being admitted due to acute agitation. Upon interview, the patient states that everyone is bothering him and that he cannot get any rest. The staff at the patient's facility report that the patient had become easily agitated and difficult to redirect. The patient presents as restless and possibly responding to internal stimuli. The patient denied any suicidal or homicidal ideation, plan or intention. PAST MEDICAL HISTORY: Please see history and physical by Dr. Ortiz. PAST PSYCHIATRIC HISTORY: The patient is being seen by a psychiatrist at his placement. The patient has multiple previous hospitalizations. The patient was recently discharged from [facility] and is being readmitted after a recent hospitalization on the med/surg unit. The patient was seen by Dr. Schmidt on that unit. Please see medical record. SUBSTANCE ABUSE HISTORY: The patient denies any history of alcohol, tobacco or illicit drug use. PSYCHOSOCIAL HISTORY: The patient did not answer questions about occupational or educational history or mormon affiliation. The patient denied any history of physical or sexual abuse. The patient denies any current legal problems. The patient stated that he does not have family involvement or any support system. MENTAL STATUS EXAMINATION: The patient appears to be his stated age. The patient's attitude is superficially cooperative. Speech is pressured. The patient is not making much sense and is answering questions irrelevantly and sometimes incoherently. Eye contact is poor. Mood is irritable and angry. Affect is constricted. The patient denied any auditory or visual hallucinations. However, the patient appears to be responding to internal stimuli. There is some evidence of paranoid ideation. The patient denied any suicidal ideation, plan or intention. The patient's behavior is easily agitated and difficult to redirect. Impulse control is poor and inadequate. Concentration is poor. Sensorium is alert and oriented to self and place. The patient did not participate in the memory assessment. Immediate and short term memory appear to be impaired. The patient did not participate in the interpretation of proverbs. Insight is impaired. Judgment is impaired. DIAGNOSTIC IMPRESSION: AXIS I: History of schizoaffective disorder. AXIS II: Deferred. AXIS III: Per Dr. Ortiz. TREATMENT PLAN: The patient has been seen by Dr. Arango for psychiatric evaluation and for the management of the patient's psychotropic medications. We will provide reality orientation, differentiation and integration. We will provide coping strategies for chronic long-term severe mental illness. We will provide de-escalation and limit setting. We will provide stress management for the patient to increase his frustration tolerance. We will encourage the patient to be able to demonstrate emotional and self-regulation prior to his discharge. The patient will be returning to [facility] and be followed by Dr. Hankins. Thank you, Dr. Arango for this consult and the opportunity to participate in this patient's care. JOB# [id number] LIANA
--- NOTE | 2018-06-12 16:22 | Internal Medicine Prog Note ---
Internal Medicine Subjective - Subjective Patient seen and examined:: chart reviewed Patient is:: awake, agitated, confused Per staff patient has:: no adverse event Internal Medicine Objective - Results Result Diagrams: 06/09/18 05:34 06/09/18 05:34 Recent Labs: Laboratory Last Values WBC 7.0 Th/cmm (4.8-10.8) 06/09/18 05:34 RBC 4.38 Mil/cmm (4.30-5.70) 06/09/18 05:34 Hgb 12.2 gm/dL (12-16) 06/09/18 05:34 Hct 36.7 % (41.0-60) L 06/09/18 05:34 MCV 83.9 fl (80-99) 06/09/18 05:34 MCH 27.8 pg (26.0-30.0) 06/09/18 05:34 MCHC Differential 33.1 pg (28.0-36.0) 06/09/18 05:34 RDW 12.3 % (11.5-20.0) 06/09/18 05:34 Plt Count 217 Th/cmm (150-400) 06/09/18 05:34 MPV 9.1 fl 06/09/18 05:34 Neutrophils % 62.3 % (40.0-80.0) 06/09/18 05:34 Lymphocytes % 27.9 % (20.0-50.0) 06/09/18 05:34 Monocytes % 7.6 % (2.0-10.0) 06/09/18 05:34 Eosinophils % 1.7 % (0.0-5.0) 06/09/18 05:34 Basophils % 0.5 % (0.0-2.0) 06/09/18 05:34 ESR 15 mm/hr (0-20) 06/10/18 19:40 Sodium 141 mEq/L (136-145) 06/09/18 05:34 Potassium 3.7 mEq/L (3.5-5.1) 06/09/18 05:34 Chloride 107 mEq/L (98-107) 06/09/18 05:34 Carbon Dioxide 23.3 mEq/L (21.0-31.0) 06/09/18 05:34 Anion Gap 14.4 (7.0-16.0) 06/09/18 05:34 BUN 20 mg/dL (7-25) 06/09/18 05:34 Creatinine 0.9 mg/dL (0.7-1.3) 06/09/18 05:34 Est GFR ( Amer) > 60.0 ml/min (>90) 06/09/18 05:34 Est GFR (Non-Af Amer) > 60.0 ml/min 06/09/18 05:34 BUN/Creatinine Ratio 22.2 06/09/18 05:34 Glucose 95 mg/dL (70-105) 06/09/18 05:34 Uric Acid 6.2 mg/dL (4.4-7.6) 06/10/18 19:40 Calcium 9.2 mg/dL (8.6-10.3) 06/09/18 05:34 Total Bilirubin 0.6 mg/dL (0.3-1.0) 06/09/18 05:34 AST 19 U/L (13-39) 06/09/18 05:34 ALT 20 U/L (7-52) 06/09/18 05:34 Alkaline Phosphatase 57 U/L (34-104) 06/09/18 05:34 Troponin I 0.01 ng/mL (0.01-0.05) 06/09/18 05:34 Total Protein 6.3 gm/dL (6.0-8.3) 06/09/18 05:34 Albumin 3.9 gm/dL (4.2-5.5) L 06/09/18 05:34 Globulin 2.4 gm/dL 06/09/18 05:34 Albumin/Globulin Ratio 1.6 (1.0-1.8) 06/09/18 05:34 Triglycerides 63 mg/dL (<150) 06/10/18 06:34 Cholesterol 111 mg/dL (<200) 06/10/18 06:34 LDL Cholesterol Direct 71 mg/dL (75-193) L 06/10/18 06:34 HDL Cholesterol 29 mg/dL (23-92) 06/10/18 06:34 TSH 0.26 uIU/ml (0.34-5.60) L 06/09/18 05:34 Salicylates < 25.0 mg/L (30.0-100.0) L 06/09/18 05:34 Acetaminophen < 10.0 ug/mL (10.0-30.0) L 06/09/18 05:34 Ethyl Alcohol < 10 mg/dL (0-10) 06/09/18 05:34 - Physical Exam Vitals and I&O: Vital Signs Temp 97.4 F 06/12/18 14:00 Pulse 64 06/12/18 14:00 Resp 20 06/12/18 14:00 BP 101/55 06/12/18 14:00 Pulse Ox 98 06/12/18 14:00 Intake & Output 06/11/18 06/12/18 06/12/18 18:59 06:59 18:59 Other: # Bowel Movements 1 Active Medications: Current Medications Acetaminophen (Tylenol) 650 mg PO Q4H PRN PRN Reason: Pain (Mild) Stop: 08/09/18 14:17 Last Admin: 06/11/18 04:06 Dose: 650 mg Cephalexin Monohydrate (Keflex) 500 mg PO Q12H [facility] Stop: 08/10/18 11:29 Last Admin: 06/11/18 22:40 Dose: 500 mg Colchicine (Colcrys) 0.6 mg PO BID [facility] Stop: 06/14/18 08:59 Last Admin: 06/12/18 09:00 Dose: 0.6 mg Indomethacin (Indocin) 50 mg PO TIDWM [facility] Stop: 06/14/18 07:59 Last Admin: 06/12/18 09:00 Dose: 50 mg Lactobacillus Rhamnosus (Culturelle 15b) 1 each PO DAILY [facility] Stop: 08/12/18 08:59 Lorazepam (Ativan) 1 mg PO Q6HR PRN; Protocol PRN Reason: Anxiety Stop: 08/08/18 20:44 Last Admin: 06/12/18 09:23 Dose: 1 mg Miscellaneous (Probiotic Screen) 1 ea [facility] PRN PRN PRN Reason: PROTOCOL Stop: 08/11/18 12:16 Olanzapine (Zyprexa) 5 mg PO BID [facility]; Protocol Stop: 08/09/18 08:59 Last Admin: 06/12/18 09:00 Dose: 5 mg General: weak HEENT: NC/AT Neck: Supple Lungs: CTAB Cardiovascular: RRR Abdomen: soft Extremities: pain (knee swelling ) Neurological: no change Other physical findings: increase in agitation - Procedures Procedures: Procedures Procedure Code Date ASSISTANCE WITH RESPIRATORY VENTILATION, 24-96 HRS, CPAP [id number] 02/12/18 EXCISION OF DUODENUM, ENDO, DIAGN [id number] 02/12/18 EXCISION OF ESOPHAGUS, ENDO, DIAGN [id number] 02/12/18 EXCISION OF STOMACH, ENDO, DIAGN [id number] 02/12/18 Internal Medicine Assmt/Plan - Assessment Assessment: left knee pain htn dm dyslipidemia pud/gerd seizures - Plan Plan: as per psych will monitor
--- NOTE | 2018-06-12 20:36 | Progress Notes ---
DATE: 06/11/2018 SUBJECTIVE: Chart reviewed and the patient interviewed. Also, discussed the patient's condition with the staff and reviewed records and labs. The patient still have periods of anger and irritability and still needs lots of redirections. The patient also is still in need to work on his compliance taking his medications. Also, still issues with the patient seeing myself or Dr. Arango and talking to Ignacia Rodriguez where the patient came from and also from reviewing the face sheet that is in the chart. The patient has been under my care and for some reason, Dr. Arango and Dr. Hankins who never the patient since he came into the hospital assuming that this is their patient. At the same time with instructions from Ignacia Rodriguez, the patient has been under my care. I will continue to see the patient and continue to work on behavioral modification and on adjusting psychotropic medications. JOB# [id number]
--- NOTE | 2018-06-12 21:04 | Psychiatric Evaluation ---
DATE OF SERVICE: PSYCHIATRIC INITIAL EVALUATION AND MENTAL STATUS EXAM PATIENT'S AGE: 58. SEX: Male. PHYSICIAN: Dr. Schmidt. CHIEF COMPLAINT: Agitation and irritability. HISTORY OF PRESENT ILLNESS: The patient is a 58-year-old male, who has been under our care in [facility]. I received a call from Nena, who is the site director in [facility] indicated that the patient has been agitated and has been having aggressive behavior and has not been able to follow any directions with peers and others and the patient was transferred to the hospital to monitor behavior and adjust medication. The patient has been irritable and has been agitated. Also, has been verbally abusive. He also has been having difficulty with compliance with taking medications and has been threatening staff. PAST PSYCHIATRIC HISTORY: The patient has history of psychosis with history of multiple psychiatric hospitalizations. PAST MEDICAL HISTORY: The patient has hypertension as well as diabetes mellitus and hyperlipidemia. SOCIAL HISTORY: The patient lives in [facility]. No known alcohol or street drug use. ALLERGIES: HALDOL. MENTAL STATUS EXAMINATION: The patient appears older than his stated age. Disheveled. Irritable mood. Uncooperative. Thought processes are disorganized. The patient did not answer questions regarding hallucinations or delusions, but seems to be actively responding. He denies any thoughts of suicide or homicide at this time. The patient is alert, but unable to assess his orientation or memory at this time because of his aggressive and agitation and disorganized thoughts. ASSESSMENT/PRIMARY DIAGNOSIS: Chronic paranoid schizophrenia with acute exacerbation. MEDICAL DIAGNOSES: 1. Hypertension. 2. Hyperlipidemia. 3. Diabetes mellitus. TREATMENT PLAN: We will monitor the patient's behavior and condition closely. We will work on behavioral modification and also adjusting psychotropic medications. ESTIMATED LENGTH OF STAY: 5-7 days. THE PATIENT'S STRENGTHS AND WEAKNESSES: The patient is having a place to live and he can return to [facility]. Weakness is his poor impulse control and his agitation. AFTER DISCHARGE PLAN: The patient will return to [facility] and outpatient treatment and followup will continue as an outpatient. CRITERIA FOR DISCHARGE: Better impulse control and stabilizing psychotropic medications. [facility]# [id number]
[2018-06-13] MEDS: Lactobacillus Rhamnosus GG 15 Billion CFU CAP.SPRINK PO SCH (08:58)
--- NOTE | 2018-06-13 16:44 | Progress Notes ---
DATE: SUBJECTIVE: Chart reviewed and the patient interviewed. Also discussed the patient's condition with the staff and reviewed records and labs. Also discussed the patient's condition with Dr. Arango who was present in the hospital at the same time, although there and discussed with him the patient's condition. Dr. Arango after show some evidence agreed that the patient should be under my care, not his care and he currently transferred the patient to my care completely, although a new from the beginning that is my patient, but it seems of Dr. Hankins was confusing him by telling him that he is one who was seen the patient in the halfway. At the same time, chart reviewed and discussed and interviewed the patient. The patient seems to be slightly calmer and he seems to be less agitated and less irritable. Also, is interacting slightly more today since I increased his Zyprexa to 5 mg twice a day. The patient also is compliant with taking his medications with no side effects of medications. ASSESSMENT: The patient seems to be slightly less agitated and less psychotic. TREATMENT PLAN: Continue to monitor his behavior and his condition closely. Also, continue adjusting psychotropic medications and work on behavioral modification. JOB# [id number]
--- NOTE | 2018-06-13 22:12 | Progress Notes ---
DATE: 06/13/2018 SUBJECTIVE: The patient was seen in the activity room. The patient appears to be guarded, easily gets frustrated, poor historian. Otherwise, the patient appears to be in no acute distress. OBJECTIVE: VITAL SIGNS: Temperature 98.1, heart rate 73, blood pressure 150/84, respirations of 18, 98% on room air. HEENT: Head is atraumatic and normocephalic. Eyes: Bilateral conjunctivae are clear. Bilateral pupils are equally round and reactive. NECK: Supple. No JVD. CARDIOVASCULAR: S1 and S2, without murmur. PULMONARY: Clear to auscultation. GASTROINTESTINAL: Soft and nontender without guarding. Positive bowel sounds. MUSCULOSKELETAL: No clubbing. No cyanosis noted. ASSESSMENT: 1. Schizoaffective disorder. 2. Hypertension. 3. Diabetes. 4. Arthritis. 5. Hyperlipidemia. 6. Seizure disorder. PLAN: We will keep the patient inpatient. We will follow up with the psychiatrist to monitor the patient's condition and behavior. Treatment plans were discussed with the patient's nurse. Treatment plans were discussed with Dr. Ortiz. JOB# [id number]
--- NOTE | 2018-06-14 08:09 | Internal Medicine Prog Note ---
Internal Medicine Subjective - Subjective Patient is:: awake, confused (easily fustrated ) Per staff patient has:: no adverse event Internal Medicine Objective - Results Result Diagrams: 06/09/18 05:34 06/09/18 05:34 Recent Labs: Laboratory Last Values WBC 7.0 Th/cmm (4.8-10.8) 06/09/18 05:34 RBC 4.38 Mil/cmm (4.30-5.70) 06/09/18 05:34 Hgb 12.2 gm/dL (12-16) 06/09/18 05:34 Hct 36.7 % (41.0-60) L 06/09/18 05:34 MCV 83.9 fl (80-99) 06/09/18 05:34 MCH 27.8 pg (26.0-30.0) 06/09/18 05:34 MCHC Differential 33.1 pg (28.0-36.0) 06/09/18 05:34 RDW 12.3 % (11.5-20.0) 06/09/18 05:34 Plt Count 217 Th/cmm (150-400) 06/09/18 05:34 MPV 9.1 fl 06/09/18 05:34 Neutrophils % 62.3 % (40.0-80.0) 06/09/18 05:34 Lymphocytes % 27.9 % (20.0-50.0) 06/09/18 05:34 Monocytes % 7.6 % (2.0-10.0) 06/09/18 05:34 Eosinophils % 1.7 % (0.0-5.0) 06/09/18 05:34 Basophils % 0.5 % (0.0-2.0) 06/09/18 05:34 ESR 15 mm/hr (0-20) 06/10/18 19:40 Sodium 141 mEq/L (136-145) 06/09/18 05:34 Potassium 3.7 mEq/L (3.5-5.1) 06/09/18 05:34 Chloride 107 mEq/L (98-107) 06/09/18 05:34 Carbon Dioxide 23.3 mEq/L (21.0-31.0) 06/09/18 05:34 Anion Gap 14.4 (7.0-16.0) 06/09/18 05:34 BUN 20 mg/dL (7-25) 06/09/18 05:34 Creatinine 0.9 mg/dL (0.7-1.3) 06/09/18 05:34 Est GFR ( Amer) > 60.0 ml/min (>90) 06/09/18 05:34 Est GFR (Non-Af Amer) > 60.0 ml/min 06/09/18 05:34 BUN/Creatinine Ratio 22.2 06/09/18 05:34 Glucose 95 mg/dL (70-105) 06/09/18 05:34 Uric Acid 6.2 mg/dL (4.4-7.6) 06/10/18 19:40 Calcium 9.2 mg/dL (8.6-10.3) 06/09/18 05:34 Total Bilirubin 0.6 mg/dL (0.3-1.0) 06/09/18 05:34 AST 19 U/L (13-39) 06/09/18 05:34 ALT 20 U/L (7-52) 06/09/18 05:34 Alkaline Phosphatase 57 U/L (34-104) 06/09/18 05:34 Troponin I 0.01 ng/mL (0.01-0.05) 06/09/18 05:34 Total Protein 6.3 gm/dL (6.0-8.3) 06/09/18 05:34 Albumin 3.9 gm/dL (4.2-5.5) L 06/09/18 05:34 Globulin 2.4 gm/dL 06/09/18 05:34 Albumin/Globulin Ratio 1.6 (1.0-1.8) 06/09/18 05:34 Triglycerides 63 mg/dL (<150) 06/10/18 06:34 Cholesterol 111 mg/dL (<200) 06/10/18 06:34 LDL Cholesterol Direct 71 mg/dL (75-193) L 06/10/18 06:34 HDL Cholesterol 29 mg/dL (23-92) 06/10/18 06:34 TSH 0.26 uIU/ml (0.34-5.60) L 06/09/18 05:34 Salicylates < 25.0 mg/L (30.0-100.0) L 06/09/18 05:34 Acetaminophen < 10.0 ug/mL (10.0-30.0) L 06/09/18 05:34 Ethyl Alcohol < 10 mg/dL (0-10) 06/09/18 05:34 RPR NONREACTIVE (NONREACTIVE) 06/09/18 05:34 - Physical Exam Vitals and I&O: Vital Signs Temp 96.9 F 06/14/18 07:17 Pulse 65 06/14/18 07:17 Resp 20 06/14/18 07:17 BP 116/87 06/14/18 07:17 Pulse Ox 98 06/14/18 07:17 Intake & Output 06/13/18 06/14/18 06/14/18 19:59 06:59 18:59 Intake Total Balance Intake: Oral Other: # Voids # Bowel Movements Active Medications: Current Medications Acetaminophen (Tylenol) 650 mg PO Q4H PRN PRN Reason: Pain (Mild) Stop: 08/09/18 14:17 Last Admin: 06/14/18 01:51 PST Dose: 650 mg Cephalexin Monohydrate (Keflex) 500 mg PO Q12H [facility] Stop: 08/10/18 11:29 Last Admin: 06/13/18 23:08 Dose: Not Given Colchicine (Colcrys) 0.6 mg PO BID [facility] Stop: 06/14/18 08:59 Last Admin: 06/13/18 17:15 Dose: 0.6 mg Lactobacillus Rhamnosus (Culturelle 15b) 1 each PO DAILY [facility] Stop: 08/12/18 08:59 Last Admin: 06/13/18 08:58 Dose: 1 each Lorazepam (Ativan) 1 mg PO Q6HR PRN; Protocol PRN Reason: Anxiety Stop: 08/08/18 20:44 Last Admin: 06/14/18 01:24 PST Dose: 1 mg Miscellaneous (Probiotic Screen) 1 ea [facility] PRN PRN PRN Reason: PROTOCOL Stop: 08/11/18 12:16 Olanzapine (Zyprexa) 5 mg PO DAILY [facility]; Protocol Stop: 08/12/18 08:59 Last Admin: 06/13/18 08:58 Dose: 5 mg Olanzapine (Zyprexa) 10 mg PO HS [facility]; Protocol Stop: 08/12/18 20:59 Last Admin: 06/13/18 20:53 Dose: 10 mg General: weak, other (confused) HEENT: NC/AT Neck: Supple Lungs: CTAB Cardiovascular: RRR Abdomen: soft Extremities: pain (knee swelling ) Neurological: no change - Procedures Procedures: Procedures Procedure Code Date ASSISTANCE WITH RESPIRATORY VENTILATION, 24-96 HRS, CPAP [id number] 02/12/18 EXCISION OF DUODENUM, ENDO, DIAGN [id number] 02/12/18 EXCISION OF ESOPHAGUS, ENDO, DIAGN [id number] 02/12/18 EXCISION OF STOMACH, ENDO, DIAGN [id number] 02/12/18 Internal Medicine Assmt/Plan - Assessment Assessment: left knee pain schizophrenia htn dm dyslipidemia pud/gerd seizures - Plan Plan: as per psych will monitor
[2018-06-14] MEDS: Lactobacillus Rhamnosus GG 15 Billion CFU CAP.SPRINK PO SCH (08:47)
--- NOTE | 2018-06-14 22:50 | Progress Notes ---
DATE: 06/13/2018 SUBJECTIVE: Chart reviewed and the patient interviewed. Also discussed the patient's condition with the staff and reviewed records and labs. The patient is still having episodes of irritability and anger. The patient also is hyperverbal and he is having thought processes are circumstantial with flight of ideas. The patient also is hoarding and he has been hoarding newspaper in his room and also has been having problem with following directions. He also was spilling water on the floor and gets angry when staff tried to redirect him. Otherwise, the patient took his medications with no side effect of medications. ASSESSMENT: The patient is still psychotic and agitated. TREATMENT PLAN: Continue to monitor his behavior and his condition closely. Also, we will increase Zyprexa to 5 mg in the morning and 10 mg at bedtime and we will continue to follow up. JOB# [id number]
[2018-06-15] MEDS: Lactobacillus Rhamnosus GG 15 Billion CFU CAP.SPRINK PO SCH (09:24)
--- NOTE | 2018-06-15 09:40 | Progress Notes ---
DATE: 06/14/2018 Chart reviewed and the patient interviewed. I also discussed the patient's condition with the staff and reviewed the records and labs. The patient is still unpredictable and still is agitated. The patient is also still holding newspaper and other items in his room. He also still has difficulty following directions and easily agitated. Otherwise, the patient is compliant with taking his medications and seems to be slightly calmer since I increased Zyprexa to 5 mg in the morning and 10 mg at bedtime. The patient is paranoid about staff ____ and he thinks that they are stealing his belongings. We will continue to work with director case management in regard to discharge plans. JOB# [id number]
--- NOTE | 2018-06-15 15:21 | Internal Medicine Prog Note ---
Internal Medicine Subjective - Subjective Patient seen and examined:: chart reviewed Patient is:: awake, confused (easily fustrated ), other (unpredictable, agitated at times ) Per staff patient has:: agitated Internal Medicine Objective - Results Result Diagrams: 06/09/18 05:34 06/09/18 05:34 Recent Labs: Laboratory Last Values WBC 7.0 Th/cmm (4.8-10.8) 06/09/18 05:34 RBC 4.38 Mil/cmm (4.30-5.70) 06/09/18 05:34 Hgb 12.2 gm/dL (12-16) 06/09/18 05:34 Hct 36.7 % (41.0-60) L 06/09/18 05:34 MCV 83.9 fl (80-99) 06/09/18 05:34 MCH 27.8 pg (26.0-30.0) 06/09/18 05:34 MCHC Differential 33.1 pg (28.0-36.0) 06/09/18 05:34 RDW 12.3 % (11.5-20.0) 06/09/18 05:34 Plt Count 217 Th/cmm (150-400) 06/09/18 05:34 MPV 9.1 fl 06/09/18 05:34 Neutrophils % 62.3 % (40.0-80.0) 06/09/18 05:34 Lymphocytes % 27.9 % (20.0-50.0) 06/09/18 05:34 Monocytes % 7.6 % (2.0-10.0) 06/09/18 05:34 Eosinophils % 1.7 % (0.0-5.0) 06/09/18 05:34 Basophils % 0.5 % (0.0-2.0) 06/09/18 05:34 ESR 15 mm/hr (0-20) 06/10/18 19:40 Sodium 141 mEq/L (136-145) 06/09/18 05:34 Potassium 3.7 mEq/L (3.5-5.1) 06/09/18 05:34 Chloride 107 mEq/L (98-107) 06/09/18 05:34 Carbon Dioxide 23.3 mEq/L (21.0-31.0) 06/09/18 05:34 Anion Gap 14.4 (7.0-16.0) 06/09/18 05:34 BUN 20 mg/dL (7-25) 06/09/18 05:34 Creatinine 0.9 mg/dL (0.7-1.3) 06/09/18 05:34 Est GFR ( Amer) > 60.0 ml/min (>90) 06/09/18 05:34 Est GFR (Non-Af Amer) > 60.0 ml/min 06/09/18 05:34 BUN/Creatinine Ratio 22.2 06/09/18 05:34 Glucose 95 mg/dL (70-105) 06/09/18 05:34 Uric Acid 6.2 mg/dL (4.4-7.6) 06/10/18 19:40 Calcium 9.2 mg/dL (8.6-10.3) 06/09/18 05:34 Total Bilirubin 0.6 mg/dL (0.3-1.0) 06/09/18 05:34 AST 19 U/L (13-39) 06/09/18 05:34 ALT 20 U/L (7-52) 06/09/18 05:34 Alkaline Phosphatase 57 U/L (34-104) 06/09/18 05:34 Troponin I 0.01 ng/mL (0.01-0.05) 06/09/18 05:34 Total Protein 6.3 gm/dL (6.0-8.3) 06/09/18 05:34 Albumin 3.9 gm/dL (4.2-5.5) L 06/09/18 05:34 Globulin 2.4 gm/dL 06/09/18 05:34 Albumin/Globulin Ratio 1.6 (1.0-1.8) 06/09/18 05:34 Triglycerides 63 mg/dL (<150) 06/10/18 06:34 Cholesterol 111 mg/dL (<200) 06/10/18 06:34 LDL Cholesterol Direct 71 mg/dL (75-193) L 06/10/18 06:34 HDL Cholesterol 29 mg/dL (23-92) 06/10/18 06:34 TSH 0.26 uIU/ml (0.34-5.60) L 06/09/18 05:34 Salicylates < 25.0 mg/L (30.0-100.0) L 06/09/18 05:34 Acetaminophen < 10.0 ug/mL (10.0-30.0) L 06/09/18 05:34 Ethyl Alcohol < 10 mg/dL (0-10) 06/09/18 05:34 RPR NONREACTIVE (NONREACTIVE) 06/09/18 05:34 - Physical Exam Vitals and I&O: Vital Signs Temp 97.5 F 06/14/18 20:00 Pulse 82 06/14/18 20:00 Resp 20 06/14/18 20:00 BP 144/90 06/14/18 20:00 Pulse Ox 97 06/14/18 20:00 Intake & Output 06/14/18 06/15/18 06/15/18 18:59 06:59 18:59 Intake Total 2400 Balance 2400 Intake: Oral 2400 Other: # Voids 4 # Bowel Movements 1 Active Medications: Current Medications Acetaminophen (Tylenol) 650 mg PO Q4H PRN PRN Reason: Pain (Mild) Stop: 08/09/18 14:17 Last Admin: 06/14/18 01:51 PST Dose: 650 mg Cephalexin Monohydrate (Keflex) 500 mg PO Q12H DEBORAH Stop: 08/14/18 09:29 Last Admin: 06/15/18 10:14 Dose: 500 mg Lactobacillus Rhamnosus (Culturelle 15b) 1 each PO DAILY DEBORAH Stop: 08/12/18 08:59 Last Admin: 06/15/18 09:24 Dose: 1 each Lorazepam (Ativan) 1 mg PO Q6HR PRN; Protocol PRN Reason: Anxiety Stop: 08/08/18 20:44 Last Admin: 06/15/18 13:08 Dose: 1 mg Miscellaneous (Probiotic Screen) 1 ea MC PRN PRN PRN Reason: PROTOCOL Stop: 08/11/18 12:16 Olanzapine (Zyprexa) 5 mg PO DAILY DEBORAH; Protocol Stop: 08/12/18 08:59 Last Admin: 06/15/18 09:24 Dose: 5 mg Olanzapine (Zyprexa) 10 mg PO HS DEBORAH; Protocol Stop: 08/12/18 20:59 Last Admin: 06/14/18 21:03 Dose: 10 mg General: weak, other (confused) HEENT: NC/AT Neck: Supple Lungs: CTAB Cardiovascular: RRR Abdomen: soft Extremities: pain (knee swelling ) Neurological: no change - Procedures Procedures: Procedures Procedure Code Date ASSISTANCE WITH RESPIRATORY VENTILATION, 24-96 HRS, CPAP [id number] 02/12/18 EXCISION OF DUODENUM, ENDO, DIAGN [id number] 02/12/18 EXCISION OF ESOPHAGUS, ENDO, DIAGN [id number] 02/12/18 EXCISION OF STOMACH, ENDO, DIAGN [id number] 02/12/18 Internal Medicine Assmt/Plan - Assessment Assessment: left knee pain schizophrenia htn dm dyslipidemia pud/gerd seizures - Plan Plan: as per psych will monitor
[2018-06-16] MEDS: Lactobacillus Rhamnosus GG 15 Billion CFU CAP.SPRINK PO SCH (09:08)
--- NOTE | 2018-06-16 12:23 | Internal Medicine Prog Note ---
Internal Medicine Subjective - Subjective Service Date: 06/16/18 Patient is:: awake, confused (easily fustrated ), other (unpredictable, agitated at times ) Per staff patient has:: agitated Internal Medicine Objective - Results Result Diagrams: 06/09/18 05:34 06/09/18 05:34 Recent Labs: Laboratory Last Values WBC 7.0 Th/cmm (4.8-10.8) 06/09/18 05:34 RBC 4.38 Mil/cmm (4.30-5.70) 06/09/18 05:34 Hgb 12.2 gm/dL (12-16) 06/09/18 05:34 Hct 36.7 % (41.0-60) L 06/09/18 05:34 MCV 83.9 fl (80-99) 06/09/18 05:34 MCH 27.8 pg (26.0-30.0) 06/09/18 05:34 MCHC Differential 33.1 pg (28.0-36.0) 06/09/18 05:34 RDW 12.3 % (11.5-20.0) 06/09/18 05:34 Plt Count 217 Th/cmm (150-400) 06/09/18 05:34 MPV 9.1 fl 06/09/18 05:34 Neutrophils % 62.3 % (40.0-80.0) 06/09/18 05:34 Lymphocytes % 27.9 % (20.0-50.0) 06/09/18 05:34 Monocytes % 7.6 % (2.0-10.0) 06/09/18 05:34 Eosinophils % 1.7 % (0.0-5.0) 06/09/18 05:34 Basophils % 0.5 % (0.0-2.0) 06/09/18 05:34 ESR 15 mm/hr (0-20) 06/10/18 19:40 Sodium 141 mEq/L (136-145) 06/09/18 05:34 Potassium 3.7 mEq/L (3.5-5.1) 06/09/18 05:34 Chloride 107 mEq/L (98-107) 06/09/18 05:34 Carbon Dioxide 23.3 mEq/L (21.0-31.0) 06/09/18 05:34 Anion Gap 14.4 (7.0-16.0) 06/09/18 05:34 BUN 20 mg/dL (7-25) 06/09/18 05:34 Creatinine 0.9 mg/dL (0.7-1.3) 06/09/18 05:34 Est GFR ( Amer) > 60.0 ml/min (>90) 06/09/18 05:34 Est GFR (Non-Af Amer) > 60.0 ml/min 06/09/18 05:34 BUN/Creatinine Ratio 22.2 06/09/18 05:34 Glucose 95 mg/dL (70-105) 06/09/18 05:34 Uric Acid 6.2 mg/dL (4.4-7.6) 06/10/18 19:40 Calcium 9.2 mg/dL (8.6-10.3) 06/09/18 05:34 Total Bilirubin 0.6 mg/dL (0.3-1.0) 06/09/18 05:34 AST 19 U/L (13-39) 06/09/18 05:34 ALT 20 U/L (7-52) 06/09/18 05:34 Alkaline Phosphatase 57 U/L (34-104) 06/09/18 05:34 Troponin I 0.01 ng/mL (0.01-0.05) 06/09/18 05:34 Total Protein 6.3 gm/dL (6.0-8.3) 06/09/18 05:34 Albumin 3.9 gm/dL (4.2-5.5) L 06/09/18 05:34 Globulin 2.4 gm/dL 06/09/18 05:34 Albumin/Globulin Ratio 1.6 (1.0-1.8) 06/09/18 05:34 Triglycerides 63 mg/dL (<150) 06/10/18 06:34 Cholesterol 111 mg/dL (<200) 06/10/18 06:34 LDL Cholesterol Direct 71 mg/dL (75-193) L 06/10/18 06:34 HDL Cholesterol 29 mg/dL (23-92) 06/10/18 06:34 TSH 0.26 uIU/ml (0.34-5.60) L 06/09/18 05:34 Salicylates < 25.0 mg/L (30.0-100.0) L 06/09/18 05:34 Acetaminophen < 10.0 ug/mL (10.0-30.0) L 06/09/18 05:34 Ethyl Alcohol < 10 mg/dL (0-10) 06/09/18 05:34 RPR NONREACTIVE (NONREACTIVE) 06/09/18 05:34 - Physical Exam Vitals and I&O: Vital Signs Temp 98.4 F 06/15/18 20:16 Pulse 92 06/15/18 20:16 Resp 20 06/15/18 20:16 BP 125/84 06/15/18 20:16 Pulse Ox 96 06/15/18 20:16 Intake & Output 06/15/18 06/16/18 06/16/18 18:59 06:59 18:59 Intake Total 1000 180 Balance 1000 180 Intake: Oral 1000 180 Other: # Voids 4 2 # Bowel Movements 1 0 Active Medications: Current Medications Acetaminophen (Tylenol) 650 mg PO Q4H PRN PRN Reason: Pain (Mild) Stop: 08/09/18 14:17 Last Admin: 06/14/18 01:51 PST Dose: 650 mg Cephalexin Monohydrate (Keflex) 500 mg PO Q12H DEBORAH Stop: 08/14/18 09:29 Last Admin: 06/16/18 09:08 Dose: 500 mg Lactobacillus Rhamnosus (Culturelle 15b) 1 each PO DAILY DEBORAH Stop: 08/12/18 08:59 Last Admin: 06/16/18 09:08 Dose: 1 each Lorazepam (Ativan) 1 mg PO Q6HR PRN; Protocol PRN Reason: Anxiety Stop: 08/08/18 20:44 Last Admin: 06/16/18 10:59 Dose: 1 mg Miscellaneous (Probiotic Screen) 1 ea MC PRN PRN PRN Reason: PROTOCOL Stop: 08/11/18 12:16 Olanzapine (Zyprexa) 5 mg PO DAILY DEBORAH; Protocol Stop: 08/12/18 08:59 Last Admin: 06/16/18 09:08 Dose: 5 mg Olanzapine (Zyprexa) 10 mg PO HS DEBORAH; Protocol Stop: 08/12/18 20:59 Last Admin: 06/15/18 21:09 Dose: 10 mg General: weak, other (confused) HEENT: NC/AT Neck: Supple Lungs: CTAB Cardiovascular: RRR Abdomen: soft Extremities: pain (knee swelling ) Neurological: no change - Procedures Procedures: Procedures Procedure Code Date ASSISTANCE WITH RESPIRATORY VENTILATION, 24-96 HRS, CPAP [id number] 02/12/18 EXCISION OF DUODENUM, ENDO, DIAGN [id number] 02/12/18 EXCISION OF ESOPHAGUS, ENDO, DIAGN [id number] 02/12/18 EXCISION OF STOMACH, ENDO, DIAGN [id number] 02/12/18 Internal Medicine Assmt/Plan - Assessment Assessment: left knee cellulitis HTN DM Dyslipidemia PUD/GERD Seizures - Plan Plan: start keflex fall precautions monitor glucose cpm Nutritional Asmnt/Malnutr-PDOC - Dietary Evaluation Malnutrition Findings (Please click <Entered> for more info): Nutritional Asmnt/Malnutrition Start: 06/15/18 15: 35 Text: Status: Complete Freq: Protocol: Document 06/15/18 15:40 LCHENG (Rec: 06/15/18 15:52 [email or web address] [email or web address]) Nutritional Asmnt/Malnutrition Patient General Information Diagnosis psychosis Pertinent Medical Hx/Surgical Hx HTn, DM, dyslipidemia, PUD/ GERD, seizures Subjective Information Pt seen eating lunch in dining room at time of visit. Per EMR, PO intake 100%. Pt stated food is good, no question or concern at time time. Current Diet Order/ Nutrition Support regular Pertinent Medications culturelle Pertinent Labs 06/09 alb 3.9, glucose 95, TSH 0.26, LDL 74 Nutritional Hx/Data Height 5 ft 10 in Height (Calculated Centimeters) 177.8 Current Weight (lbs) 180 lb Weight (Calculated Kilograms) 81.6 Weight (Calculated Grams) 25676.6 [place] Body Weight 166 Body Mass Index (BMI) 25.8 Weight Status Overweight GI Symptoms GI Symptoms None Last BM 06/14 Difficult in: None Skin Integrity/Comment: intact. reddened to left lower leg Current %PO Good (75-100%) Estimated Nutritional Goals BEE in Kcals: Using Current wt Calories/Kcals/Kg 23-27 Kcals Calculated 8695-1972 Protein: Using Current wt Protein g/k.8-1 Protein Calculated 70-88 Fluid: ml 2023-221ml (1ml/kcal) Nutritional Problem No current Nutrition Prob Problem N/A Malnutrition Alert Is there a minimum of two criteria No selected? Query Text:Check all the applicable criteria. A minimum of two criteria are recommended for diagnosis of either severe or non-severe malnutrition. Malnutrition Related to Morbid Obesity Malnutrition related to morbid obesity No Intervention/Recommendation Comments 1. Continue with regular diet as ordered. 2. Monitor PO intake, wt, labs and skin integrity 3. F/U as low risk in 7 days, 06/22 Expected Outcomes/Goals Expected Outcomes/Goals 1. PO intake to meet at least 75% of nutritional needs. 2. Wt stability, skin to remain intact, labs to approach WNL.
[2018-06-17] MEDS: Lactobacillus Rhamnosus GG 15 Billion CFU CAP.SPRINK PO SCH (08:43)
--- NOTE | 2018-06-17 11:35 | Internal Medicine Prog Note ---
Internal Medicine Subjective - Subjective Patient seen and examined:: chart reviewed Patient is:: awake, confused (easily fustrated ), other (still unpredictable) Per staff patient has:: agitated Internal Medicine Objective - Results Result Diagrams: 06/09/18 05:34 06/09/18 05:34 Recent Labs: Laboratory Last Values WBC 7.0 Th/cmm (4.8-10.8) 06/09/18 05:34 RBC 4.38 Mil/cmm (4.30-5.70) 06/09/18 05:34 Hgb 12.2 gm/dL (12-16) 06/09/18 05:34 Hct 36.7 % (41.0-60) L 06/09/18 05:34 MCV 83.9 fl (80-99) 06/09/18 05:34 MCH 27.8 pg (26.0-30.0) 06/09/18 05:34 MCHC Differential 33.1 pg (28.0-36.0) 06/09/18 05:34 RDW 12.3 % (11.5-20.0) 06/09/18 05:34 Plt Count 217 Th/cmm (150-400) 06/09/18 05:34 MPV 9.1 fl 06/09/18 05:34 Neutrophils % 62.3 % (40.0-80.0) 06/09/18 05:34 Lymphocytes % 27.9 % (20.0-50.0) 06/09/18 05:34 Monocytes % 7.6 % (2.0-10.0) 06/09/18 05:34 Eosinophils % 1.7 % (0.0-5.0) 06/09/18 05:34 Basophils % 0.5 % (0.0-2.0) 06/09/18 05:34 ESR 15 mm/hr (0-20) 06/10/18 19:40 Sodium 141 mEq/L (136-145) 06/09/18 05:34 Potassium 3.7 mEq/L (3.5-5.1) 06/09/18 05:34 Chloride 107 mEq/L (98-107) 06/09/18 05:34 Carbon Dioxide 23.3 mEq/L (21.0-31.0) 06/09/18 05:34 Anion Gap 14.4 (7.0-16.0) 06/09/18 05:34 BUN 20 mg/dL (7-25) 06/09/18 05:34 Creatinine 0.9 mg/dL (0.7-1.3) 06/09/18 05:34 Est GFR ( Amer) > 60.0 ml/min (>90) 06/09/18 05:34 Est GFR (Non-Af Amer) > 60.0 ml/min 06/09/18 05:34 BUN/Creatinine Ratio 22.2 06/09/18 05:34 Glucose 95 mg/dL (70-105) 06/09/18 05:34 Uric Acid 6.2 mg/dL (4.4-7.6) 06/10/18 19:40 Calcium 9.2 mg/dL (8.6-10.3) 06/09/18 05:34 Total Bilirubin 0.6 mg/dL (0.3-1.0) 06/09/18 05:34 AST 19 U/L (13-39) 06/09/18 05:34 ALT 20 U/L (7-52) 06/09/18 05:34 Alkaline Phosphatase 57 U/L (34-104) 06/09/18 05:34 Troponin I 0.01 ng/mL (0.01-0.05) 06/09/18 05:34 Total Protein 6.3 gm/dL (6.0-8.3) 06/09/18 05:34 Albumin 3.9 gm/dL (4.2-5.5) L 06/09/18 05:34 Globulin 2.4 gm/dL 06/09/18 05:34 Albumin/Globulin Ratio 1.6 (1.0-1.8) 06/09/18 05:34 Triglycerides 63 mg/dL (<150) 06/10/18 06:34 Cholesterol 111 mg/dL (<200) 06/10/18 06:34 LDL Cholesterol Direct 71 mg/dL (75-193) L 06/10/18 06:34 HDL Cholesterol 29 mg/dL (23-92) 06/10/18 06:34 TSH 0.26 uIU/ml (0.34-5.60) L 06/09/18 05:34 Salicylates < 25.0 mg/L (30.0-100.0) L 06/09/18 05:34 Acetaminophen < 10.0 ug/mL (10.0-30.0) L 06/09/18 05:34 Ethyl Alcohol < 10 mg/dL (0-10) 06/09/18 05:34 RPR NONREACTIVE (NONREACTIVE) 06/09/18 05:34 - Physical Exam Vitals and I&O: Vital Signs Temp 97.3 F 06/17/18 06:05 Pulse 69 06/17/18 06:05 Resp 20 06/17/18 07:36 BP 116/69 06/17/18 06:05 Pulse Ox 97 06/17/18 06:05 Intake & Output 06/16/18 06/17/18 06/17/18 18:59 06:59 18:59 Intake Total 660 Balance 660 Intake: Oral 660 Other: # Voids 2 # Bowel Movements 1 Active Medications: Current Medications Acetaminophen (Tylenol) 650 mg PO Q4H PRN PRN Reason: Pain (Mild) Stop: 08/09/18 14:17 Last Admin: 06/14/18 01:51 PST Dose: 650 mg Cephalexin Monohydrate (Keflex) 500 mg PO Q12H DEBORAH Stop: 08/14/18 09:29 Last Admin: 06/17/18 08:43 Dose: 500 mg Lactobacillus Rhamnosus (Culturelle 15b) 1 each PO DAILY DEBORAH Stop: 08/12/18 08:59 Last Admin: 06/17/18 08:43 Dose: 1 each Lorazepam (Ativan) 1 mg PO Q6HR PRN; Protocol PRN Reason: Anxiety Stop: 08/08/18 20:44 Last Admin: 06/17/18 08:43 Dose: 1 mg Miscellaneous (Probiotic Screen) 1 ea MC PRN PRN PRN Reason: PROTOCOL Stop: 08/11/18 12:16 Olanzapine (Zyprexa) 10 mg PO HS DEBORAH; Protocol Stop: 08/12/18 20:59 Last Admin: 06/16/18 20:32 Dose: 10 mg Olanzapine (Zyprexa) 10 mg PO DAILY DEBORAH; Protocol Stop: 08/16/18 08:59 Last Admin: 06/17/18 08:44 Dose: 10 mg General: weak, other (confused) HEENT: NC/AT Neck: Supple Lungs: CTAB Cardiovascular: RRR Abdomen: soft Extremities: pain (knee swelling ) Neurological: no change - Procedures Procedures: Procedures Procedure Code Date ASSISTANCE WITH RESPIRATORY VENTILATION, 24-96 HRS, CPAP [id number] 02/12/18 EXCISION OF DUODENUM, ENDO, DIAGN [id number] 02/12/18 EXCISION OF ESOPHAGUS, ENDO, DIAGN [id number] 02/12/18 EXCISION OF STOMACH, ENDO, DIAGN [id number] 02/12/18 Internal Medicine Assmt/Plan - Assessment Assessment: left knee pain schizophrenia htn dm dyslipidemia pud/gerd seizures - Plan Plan: as per psych will monitor Nutritional Asmnt/Malnutr-PDOC - Dietary Evaluation Malnutrition Findings (Please click <Entered> for more info): Nutritional Asmnt/Malnutrition Start: 06/15/18 15: 35 Text: Status: Complete Freq: Protocol: Document 06/15/18 15:40 LCHENG (Rec: 06/15/18 15:52 LCHENG [email or web address]) Nutritional Asmnt/Malnutrition Patient General Information Diagnosis psychosis Pertinent Medical Hx/Surgical Hx HTn, DM, dyslipidemia, PUD/ GERD, seizures Subjective Information Pt seen eating lunch in dining room at time of visit. Per EMR, PO intake 100%. Pt stated food is good, no question or concern at time time. Current Diet Order/ Nutrition Support regular Pertinent Medications culturelle Pertinent Labs 06/09 alb 3.9, glucose 95, TSH 0.26, LDL 74 Nutritional Hx/Data Height 1.78 m Height (Calculated Centimeters) 177.8 Current Weight (lbs) 81.647 kg Weight (Calculated Kilograms) 81.6 Weight (Calculated Grams) 57165.6 [place] Body Weight 166 Body Mass Index (BMI) 25.8 Weight Status Overweight GI Symptoms GI Symptoms None Last BM 06/14 Difficult in: None Skin Integrity/Comment: intact. reddened to left lower leg Current %PO Good (75-100%) Estimated Nutritional Goals BEE in Kcals: Using Current wt Calories/Kcals/Kg 23-27 Kcals Calculated 8360-2609 Protein: Using Current wt Protein g/k.8-1 Protein Calculated 70-88 Fluid: ml 2023-2213ml (1ml/kcal) Nutritional Problem No current Nutrition Prob Problem N/A Malnutrition Alert Is there a minimum of two criteria No selected? Query Text:Check all the applicable criteria. A minimum of two criteria are recommended for diagnosis of either severe or non-severe malnutrition. Malnutrition Related to Morbid Obesity Malnutrition related to morbid obesity No Intervention/Recommendation Comments 1. Continue with regular diet as ordered. 2. Monitor PO intake, wt, labs and skin integrity 3. F/U as low risk in 7 days, 06/22 Expected Outcomes/Goals Expected Outcomes/Goals 1. PO intake to meet at least 75% of nutritional needs. 2. Wt stability, skin to remain intact, labs to approach WNL.
--- NOTE | 2018-06-17 23:10 | Progress Notes ---
DATE: 06/16/2018 SUBJECTIVE: Chart reviewed and the patient interviewed. Also discussed the patient's condition with the staff and reviewed records and labs. The patient is still agitated and is still in angry and in irritable mood. The patient also is still suspicious and paranoid. Also, is still actively responding to stimuli. Otherwise slightly easier to redirect him. ASSESSMENT: The patient is still agitated and psychotic. TREATMENT PLAN: Continue working on behavioral modification and adjusting psychotropic medications and will continue to follow up. JOB# [id number]
--- NOTE | 2018-06-17 23:30 | Progress Notes ---
DATE: 06/15/2018 SUBJECTIVE: Chart reviewed and the patient interviewed. Also discussed the patient's condition with the staff and reviewed records and labs. The patient is still restless and is still easily agitated and in irritable mood. The patient also has unpredictable behavior. The patient also is still hoarding and is keeping things inside his room. He also is having difficulty following staff directions. Otherwise, the patient is compliant with taking medications and the patient seems to be slightly easier to redirect him with the increase of Zyprexa. ASSESSMENT: The patient is still psychotic and need close monitoring. TREATMENT PLAN: Continue to monitor his behavior and his condition closely. Also, continue adjusting psychotropic medications and followup. JOB# [id number]
[2018-06-18] MEDS: Lactobacillus Rhamnosus GG 15 Billion CFU CAP.SPRINK PO SCH (08:47)
[2018-06-18] MEDS ORDERED: Multivitamin Tab PO SCH (09:00)
[2018-06-18] MEDS ORDERED: Amoxicillin/Clavulanat 875/125 Tab PO SCH (09:00)
[2018-06-18] MEDS ORDERED: Ferrous Sulfate 325 MG TAB PO SCH (09:00)
[2018-06-18] MEDS ORDERED: VITAMIN B COMPLEX PO SCH (09:00)
--- NOTE | 2018-06-18 13:40 | Internal Medicine Prog Note ---
Internal Medicine Subjective - Subjective Service Date: 06/18/18 Patient is:: awake, confused (easily fustrated ), other (still unpredictable) Per staff patient has:: agitated Internal Medicine Objective - Results Result Diagrams: 06/09/18 05:34 06/09/18 05:34 Recent Labs: Laboratory Last Values WBC 7.0 Th/cmm (4.8-10.8) 06/09/18 05:34 RBC 4.38 Mil/cmm (4.30-5.70) 06/09/18 05:34 Hgb 12.2 gm/dL (12-16) 06/09/18 05:34 Hct 36.7 % (41.0-60) L 06/09/18 05:34 MCV 83.9 fl (80-99) 06/09/18 05:34 MCH 27.8 pg (26.0-30.0) 06/09/18 05:34 MCHC Differential 33.1 pg (28.0-36.0) 06/09/18 05:34 RDW 12.3 % (11.5-20.0) 06/09/18 05:34 Plt Count 217 Th/cmm (150-400) 06/09/18 05:34 MPV 9.1 fl 06/09/18 05:34 Neutrophils % 62.3 % (40.0-80.0) 06/09/18 05:34 Lymphocytes % 27.9 % (20.0-50.0) 06/09/18 05:34 Monocytes % 7.6 % (2.0-10.0) 06/09/18 05:34 Eosinophils % 1.7 % (0.0-5.0) 06/09/18 05:34 Basophils % 0.5 % (0.0-2.0) 06/09/18 05:34 ESR 15 mm/hr (0-20) 06/10/18 19:40 Sodium 141 mEq/L (136-145) 06/09/18 05:34 Potassium 3.7 mEq/L (3.5-5.1) 06/09/18 05:34 Chloride 107 mEq/L (98-107) 06/09/18 05:34 Carbon Dioxide 23.3 mEq/L (21.0-31.0) 06/09/18 05:34 Anion Gap 14.4 (7.0-16.0) 06/09/18 05:34 BUN 20 mg/dL (7-25) 06/09/18 05:34 Creatinine 0.9 mg/dL (0.7-1.3) 06/09/18 05:34 Est GFR ( Amer) > 60.0 ml/min (>90) 06/09/18 05:34 Est GFR (Non-Af Amer) > 60.0 ml/min 06/09/18 05:34 BUN/Creatinine Ratio 22.2 06/09/18 05:34 Glucose 95 mg/dL (70-105) 06/09/18 05:34 Uric Acid 6.2 mg/dL (4.4-7.6) 06/10/18 19:40 Calcium 9.2 mg/dL (8.6-10.3) 06/09/18 05:34 Total Bilirubin 0.6 mg/dL (0.3-1.0) 06/09/18 05:34 AST 19 U/L (13-39) 06/09/18 05:34 ALT 20 U/L (7-52) 06/09/18 05:34 Alkaline Phosphatase 57 U/L (34-104) 06/09/18 05:34 Troponin I 0.01 ng/mL (0.01-0.05) 06/09/18 05:34 Total Protein 6.3 gm/dL (6.0-8.3) 06/09/18 05:34 Albumin 3.9 gm/dL (4.2-5.5) L 06/09/18 05:34 Globulin 2.4 gm/dL 06/09/18 05:34 Albumin/Globulin Ratio 1.6 (1.0-1.8) 06/09/18 05:34 Triglycerides 63 mg/dL (<150) 06/10/18 06:34 Cholesterol 111 mg/dL (<200) 06/10/18 06:34 LDL Cholesterol Direct 71 mg/dL (75-193) L 06/10/18 06:34 HDL Cholesterol 29 mg/dL (23-92) 06/10/18 06:34 TSH 0.26 uIU/ml (0.34-5.60) L 06/09/18 05:34 Salicylates < 25.0 mg/L (30.0-100.0) L 06/09/18 05:34 Acetaminophen < 10.0 ug/mL (10.0-30.0) L 06/09/18 05:34 Ethyl Alcohol < 10 mg/dL (0-10) 06/09/18 05:34 RPR NONREACTIVE (NONREACTIVE) 06/09/18 05:34 - Physical Exam Vitals and I&O: Vital Signs Temp 97.3 F 06/18/18 06:23 Pulse 77 06/18/18 06:23 Resp 18 06/18/18 06:23 BP 120/88 06/18/18 06:23 Pulse Ox 99 06/18/18 06:23 Intake & Output 06/17/18 06/18/18 06/18/18 18:59 06:59 18:59 Intake Total 1200 120 Balance 1200 120 Intake: Oral 1200 120 Other: # Voids 2 # Bowel Movements 1 Active Medications: Current Medications Acetaminophen (Tylenol) 650 mg PO Q4H PRN PRN Reason: Pain (Mild) Stop: 08/09/18 14:17 Last Admin: 06/14/18 01:51 PST Dose: 650 mg Amoxicillin/Clavulanate Potassium (Augmentin 875-125mg) 1 tab PO BID [facility] Stop: 08/17/18 08:59 Cephalexin Monohydrate (Keflex) 500 mg PO Q12H [facility] Stop: 08/14/18 09:29 Last Admin: 06/18/18 09:08 Dose: 500 mg Docusate Sodium (Colace) 100 mg PO BID [facility] Stop: 08/17/18 08:59 Ferrous Sulfate (Iron) 325 mg PO BID [facility] Stop: 08/17/18 08:59 Labetalol HCl (Trandate) 50 mg PO DAILY [facility] Stop: 08/17/18 08:59 Lactobacillus Rhamnosus (Culturelle 15b) 1 each PO DAILY [facility] Stop: 08/12/18 08:59 Last Admin: 06/18/18 08:47 Dose: 1 each Lorazepam (Ativan) 1 mg PO Q6HR PRN; Protocol PRN Reason: Anxiety Stop: 08/08/18 20:44 Last Admin: 06/17/18 20:25 Dose: 1 mg Miscellaneous (Probiotic Screen) 1 ea MC PRN PRN PRN Reason: PROTOCOL Stop: 08/11/18 12:16 Multivitamins/Vitamin C (Theragran) 1 tab PO DAILY DEBORAH Stop: 08/17/18 08:59 Olanzapine (Zyprexa) 10 mg PO HS DEBORAH; Protocol Stop: 08/12/18 20:59 Last Admin: 06/17/18 20:25 Dose: 10 mg Olanzapine (Zyprexa) 10 mg PO DAILY DEBORAH; Protocol Stop: 08/16/18 08:59 Pantoprazole Sodium (Protonix) 40 mg PO QDAC DEBORAH Stop: 08/18/18 07:29 General: weak, other (confused) HEENT: NC/AT Neck: Supple Lungs: CTAB Cardiovascular: RRR Abdomen: soft Extremities: pain (knee swelling ) Neurological: no change - Procedures Procedures: Procedures Procedure Code Date ASSISTANCE WITH RESPIRATORY VENTILATION, 24-96 HRS, CPAP [id number] 02/12/18 EXCISION OF DUODENUM, ENDO, DIAGN [id number] 02/12/18 EXCISION OF ESOPHAGUS, ENDO, DIAGN [id number] 02/12/18 EXCISION OF STOMACH, ENDO, DIAGN [id number] 02/12/18 Internal Medicine Assmt/Plan - Assessment Assessment: left knee cellulitis HTN DM Dyslipidemia PUD/GERD Seizures - Plan Plan: start keflex fall precautions monitor glucose cpm Nutritional Asmnt/Malnutr-PDOC - Dietary Evaluation Malnutrition Findings (Please click <Entered> for more info): Nutritional Asmnt/Malnutrition Start: 06/15/18 15: 35 Text: Status: Complete Freq: Protocol: Document 06/15/18 15:40 LCHENG (Rec: 06/15/18 15:52 LCHENG [id number]) Nutritional Asmnt/Malnutrition Patient General Information Diagnosis psychosis Pertinent Medical Hx/Surgical Hx HTn, DM, dyslipidemia, PUD/ GERD, seizures Subjective Information Pt seen eating lunch in dining room at time of visit. Per EMR, PO intake 100%. Pt stated food is good, no question or concern at time time. Current Diet Order/ Nutrition Support regular Pertinent Medications culturelle Pertinent Labs 06/09 alb 3.9, glucose 95, TSH 0.26, LDL 74 Nutritional Hx/Data Height 5 ft 10 in Height (Calculated Centimeters) 177.8 Current Weight (lbs) 180 lb Weight (Calculated Kilograms) 81.6 Weight (Calculated Grams) 23984.6 [place] Body Weight 166 Body Mass Index (BMI) 25.8 Weight Status Overweight GI Symptoms GI Symptoms None Last BM 06/14 Difficult in: None Skin Integrity/Comment: intact. reddened to left lower leg Current %PO Good (75-100%) Estimated Nutritional Goals BEE in Kcals: Using Current wt Calories/Kcals/Kg 23-27 Kcals Calculated 4494-7663 Protein: Using Current wt Protein g/k.8-1 Protein Calculated 70-88 Fluid: ml 2023-2213ml (1ml/kcal) Nutritional Problem No current Nutrition Prob Problem N/A Malnutrition Alert Is there a minimum of two criteria No selected? Query Text:Check all the applicable criteria. A minimum of two criteria are recommended for diagnosis of either severe or non-severe malnutrition. Malnutrition Related to Morbid Obesity Malnutrition related to morbid obesity No Intervention/Recommendation Comments 1. Continue with regular diet as ordered. 2. Monitor PO intake, wt, labs and skin integrity 3. F/U as low risk in 7 days, 06/22 Expected Outcomes/Goals Expected Outcomes/Goals 1. PO intake to meet at least 75% of nutritional needs. 2. Wt stability, skin to remain intact, labs to approach WNL.
--- NOTE | 2018-06-19 01:57 | Progress Notes ---
DATE: 06/17/2018 SUBJECTIVE: Chart reviewed and the patient interviewed. Also discussed the patient's condition with the staff and reviewed records and labs. The patient is still easily agitated. The patient also is still cursing staff. Also is still having labile affect and he is still in irritable moods. He also needs lots of redirections. Otherwise, the patient seems to be slightly calmer. ASSESSMENT: The patient is still agitated and psychotic. TREATMENT PLAN: We will increase Zyprexa to 10 mg twice a day. Also, continue to monitor behavior and continue to follow up. JOB# [id number]
--- NOTE | 2018-06-19 02:35 | Discharge Summary ---
DATE OF DISCHARGE: 06/18/2018 PATIENT'S AGE: 58. SEX: Male. PHYSICIAN: Dr. Schmidt. FINAL DIAGNOSIS/PRIMARY DIAGNOSIS: Chronic paranoid schizophrenia with acute exacerbation. MEDICAL DIAGNOSES: 1. Hypertension. 2. Diabetes mellitus. 3. Hyperlipidemia. REASON FOR HOSPITALIZATION: The patient was admitted to the hospital from [facility] because of agitation and increased aggressive behavior and inability to follow directions. HOSPITAL COURSE: The patient continued to be in angry and in irritable mood. The patient also was suspicious and was paranoid. The patient was given Zyprexa and the dose adjusted to 10 mg twice a day. The patient was compliant with taking his medications with no side effect. Gradually, the patient's affect was brighter and he was calmer. The patient had tendency to hold items in his room. Otherwise, the patient was compliant with taking medications. The patient's physical exam was basically within normal and the patient had no major medical problems while in the hospital. AFTER DISCHARGE PLANS: The patient discharged from the hospital with plans to continue his treatment as an outpatient. EXPECTED OUTCOME AFTER DISCHARGE: Fair if the patient continues his outpatient treatment and follow up with discharge plans. JOB# [id number]
[2018-06-19] MEDS ORDERED: Pantoprazole 40 mg EC Tab PO SCH (07:30)
== END 2018-06-18 17:00 | DRG 885 ==
LOC: ER 16:54 → GERO 19:12
PROVIDERS: ADMIT Psychiatry & Neurology Psychiatry; ATTEND Psychiatry & Neurology Psychiatry
DX: F25.9 Schizoaffective disorder, unspecified (principal); L03.116 Cellulitis of left lower limb; F23 Brief psychotic disorder; I10 Essential (primary) hypertension; E11.9 Type 2 diabetes mellitus without complications; E78.5 Hyperlipidemia, unspecified; G40.909 Epilepsy, unspecified, not intractable, without status epilepticus; K27.9 Peptic ulcer, site unspecified, unspecified as acute or chronic, without hemorrhage or perforation; F32.9 Major depressive disorder, single episode, unspecified; K21.9 Gastro-esophageal reflux disease without esophagitis; Z88.5 Allergy status to narcotic agent; Z87.11 Personal history of peptic ulcer disease; Z83.3 Family history of diabetes mellitus; Z82.49 Family history of ischemic heart disease and other diseases of the circulatory system
CPT/HCPCS: 36415-UA; 73560-TC-LT; 80053-TC; 80061-TC; 80320-TC; 80329-TC; 83036-90; 84443-TC; 84484-TC; 84550-TC; 85025-TC; 85652-TC; 86592-TC; 90899; G0410; J7051; Z7610

== ENCOUNTER 2018-08-28 13:29 | Inpatient (IN) | payer MEDICARE, OTHER ==
--- NOTE | 2018-08-28 13:34 | ED Physician Chart ---
ED Chief Complaint/HPI - Patient Information Date Seen:: 08/28/18 Time Seen:: 13:34 Chief Complaint:: Increased agitation History of Present Illness:: 58 yo male was brought from SNF to ER for evaluation of increased agitation and aggressive behaviors. Allergies:: Allergies Allergy/AdvReac Type Severity Reaction Status Date / Time haloperidol [From Haldol] Allergy Verified 06/09/18 16:59 ED Review of Systems - Review of Systems General/Constitutional: No fever, No chills Skin: No rash Head: No headache Eyes: No pain ENT: No nasal drainage Neck: No neck pain Cardio Vascular: No chest pain Pulmonary: No SOB GI: No nausea, No vomiting Musculoskeletal: No bone or joint pain Psychiatric: Prior psych history Neurological: No focal symptoms ED Past Medical History - Past Medical History Past Medical History: No significant medical hx Social History: Non Smoker, No Alcohol, No Drug Use Psychiatricy History: Depression, Schizophrenia, Bipolar, Other (ANXIETY, DEPRESSION, PSYCHOSIS, BIPOLAR, SCHIZOPHRENIA) Family Medical History - Family Member Mother History Unknown: Yes Ethnicity: Unknown Living Status: Still Living Hx Family Hypertension: Yes ED Physical Exam - Physical Examination General/Constitutional: Awake, Alert Head: Atraumatic Eyes: PERRL, EOMI Skin: No skin lesions ENMT: Nasal exam nl Neck: No nuchal rigidity Respiratory: No Wheeze/Rhonchi/Rales Cardio Vascular: RRR, No murmur, gallop, rubs, NL S1 S2 GI: No tenderness/rebounding/guarding Extremities: normal strength in all extremities Neuro/Psych: No focal deficits ED Labs/Radiology/EKG Results - Lab Results Results: Laboratory Last Values WBC 7.9 Th/cmm (4.8-10.8) 08/28/18 13:49 RBC 4.91 Mil/cmm (4.30-5.70) 08/28/18 13:49 Hgb 13.9 gm/dL (12-16) 08/28/18 13:49 Hct 41.7 % (41.0-60) 08/28/18 13:49 MCV 84.9 fl (80-99) 08/28/18 13:49 MCH 28.2 pg (26.0-30.0) 08/28/18 13:49 MCHC Differential 33.2 pg (28.0-36.0) 08/28/18 13:49 RDW 14.3 % (11.5-20.0) 08/28/18 13:49 Plt Count 167 Th/cmm (150-400) 08/28/18 13:49 MPV 9.3 fl 08/28/18 13:49 Neutrophils % 71.0 % (40.0-80.0) 08/28/18 13:49 Lymphocytes % 19.2 % (20.0-50.0) L 08/28/18 13:49 Monocytes % 5.0 % (2.0-10.0) 08/28/18 13:49 Eosinophils % 4.6 % (0.0-5.0) 08/28/18 13:49 Basophils % 0.2 % (0.0-2.0) 08/28/18 13:49 PT 10.4 SECONDS (9.5-11.5) 08/28/18 13:49 INR 1.00 (0.5-1.4) 08/28/18 13:49 PTT (Actin FS) 25.4 SECONDS (26.0-38.0) L 08/28/18 13:49 Sodium 142 mEq/L (136-145) 08/28/18 13:49 Potassium 3.6 mEq/L (3.5-5.1) 08/28/18 13:49 Chloride 108 mEq/L (98-107) H 08/28/18 13:49 Carbon Dioxide 25.9 mEq/L (21.0-31.0) 08/28/18 13:49 Anion Gap 11.7 (7.0-16.0) 08/28/18 13:49 BUN 25 mg/dL (7-25) 08/28/18 13:49 Creatinine 0.8 mg/dL (0.7-1.3) 08/28/18 13:49 Est GFR ( Amer) > 60.0 ml/min (>90) 08/28/18 13:49 Est GFR (Non-Af Amer) > 60.0 ml/min 08/28/18 13:49 BUN/Creatinine Ratio 31.3 08/28/18 13:49 Glucose 124 mg/dL (70-105) H 08/28/18 13:49 Calcium 9.4 mg/dL (8.6-10.3) 08/28/18 13:49 Total Bilirubin 0.3 mg/dL (0.3-1.0) 08/28/18 13:49 AST 20 U/L (13-39) 08/28/18 13:49 ALT 27 U/L (7-52) 08/28/18 13:49 Alkaline Phosphatase 61 U/L (34-104) 08/28/18 13:49 Troponin I 0.01 ng/mL (0.01-0.05) 08/28/18 13:49 B-Natriuretic Peptide 9.5 pg/mL (5.0-100.0) 08/28/18 13:49 Total Protein 6.3 gm/dL (6.0-8.3) 08/28/18 13:49 Albumin 3.9 gm/dL (4.2-5.5) L 08/28/18 13:49 Globulin 2.4 gm/dL 08/28/18 13:49 Albumin/Globulin Ratio 1.6 (1.0-1.8) 08/28/18 13:49 Triglycerides 236 mg/dL (<150) H 08/28/18 13:49 Cholesterol 112 mg/dL (<200) 08/28/18 13:49 LDL Cholesterol Direct 73 mg/dL (75-193) L 08/28/18 13:49 HDL Cholesterol 31 mg/dL (23-92) 08/28/18 13:49 TSH 0.23 uIU/ml (0.34-5.60) L 08/28/18 13:49 - Radiology Results Results: CXR: no acute lung disease - EKG Interpretations EKG Time:: 13:39 Rate & Rhythm: 70 bpm SR [place]: Normal Intervals: nonspecific intraventricular conduction delay, QRSD > 115 Comments:: abnormal EKG ED Assessment - Assessment General Assessment: Hyperthyroidism Dyslipidemia Psychosis Assessment/Comments:: CBC, CMP, Trop, BNP, TSH, UA CXR, EKG ED Septic Shock - . Is Septic Shock (SBP<90, OR Lactate>4 mmol\L) present?: No ED Reassessment (Disposition) - Reassessment Reassessment Condition:: Unchanged - Patient Disposition Discharge/Transfer:: Una w/in this hosp Admitting Medical Physician:: Danita Ortiz Admitting Psych Physician:: Said Itz Schmidt
[2018-08-28 13:57] LABS: % BASOPHILS 0.2 % (0.0-2.0); % EOSINOPHILS 4.6 % (0.0-5.0); % LYMPHOCYTES 19.2 % (20.0-50.0); EOSINOPHILE ABSOLUTE 0.4 Th/cmm (0.1-0.4); HEMATOCRIT 41.7 % (41.0-60); HEMOGLOBIN 13.9 gm/dL (12-16); LYMPHOCYTE ABSOLUTE 1.5 Th/cmm (1.5-3.0); MEAN CELL VOLUME 84.9 fl (80-99); MEAN CORPUSCULAR HEMOGLOBIN 28.2 pg (26.0-30.0); MEAN CORPUSCULAR HGB CONC 33.2 pg (28.0-36.0); MEAN PLATELET VOLUME 9.3 fl; MONOCYTE ABSOLUTE 0.4 Th/cmm (0.3-1.0); NEUTROPHILE ABSOLUTE 5.6 Th/cmm (1.8-8.0); PLATELET COUNT 167 Th/cmm (150-400); RED BLOOD COUNT 4.91 Mil/cmm (4.30-5.70); RED CELL DISTRIBUTION WIDTH 14.3 % (11.5-20.0); WHITE BLOOD COUNT 7.9 Th/cmm (4.8-10.8)
--- NOTE | 2018-08-28 14:02 | Diagnostic Imaging Report ---
Portable chest x-ray HISTORY: Shortness of breath There is a poor inspiration. Allowing for this factor, the heart size appears normal. No focal pulmonary processes. No hilar or mediastinal abnormalities. IMPRESSION: 1. Allowing for poor inspiration no acute abnormalities
[2018-08-28 14:10] LABS: ALB/GLOB RATIO 1.6 (1.0-1.8); ALBUMIN 3.9 gm/dL (4.2-5.5); ALKALINE PHOSPHATASE 61 U/L (34-104); ANION GAP 11.7 (7.0-16.0); BILIRUBIN,TOTAL 0.3 mg/dL (0.3-1.0); BUN - UREA NITROGEN 25 mg/dL (7-25); CALCIUM SERUM 9.4 mg/dL (8.6-10.3); CARBON DIOXIDE 25.9 mEq/L (21.0-31.0); CHLORIDE 108 mEq/L (98-107); CREATININE - SERUM 0.8 mg/dL (0.7-1.3); GFR AFRICAN-AMERICAN > 60.0 ml/min (>90); GFR NON AFRICAN-AMERICAN > 60.0 ml/min; GLUCOSE 124 mg/dL (70-105); POTASSIUM SERUM 3.6 mEq/L (3.5-5.1); SGOT 20 U/L (13-39); SGPT/ALT 27 U/L (7-52); SODIUM SERUM 142 mEq/L (136-145); TOTAL PROTEIN,SERUM 6.3 gm/dL (6.0-8.3)
[2018-08-28 14:29] LABS: PROTHROMBIN TIME (TEST) 10.4 SECONDS (9.5-11.5)
[2018-08-28] MEDS: Ferrous Sulfate 325 MG TAB PO SCH (17:58)
[2018-08-28] MEDS ORDERED: Pneumococcal Vaccine 0.5 mL Vial IM ONE (17:59)
[2018-08-28 21:04] LABS: CHOLESTEROL 112 mg/dL (<200); HDL -HIGH DENSITY LIPOPROTEIN 31 mg/dL (23-92); TRIGLYCERIDES 236 mg/dL (<150)
[2018-08-29] MEDS: Multivitamin Tab PO SCH (08:52)
[2018-08-29] MEDS: Vitamin B Complex w/Vitamin C Tab PO SCH (08:53)
[2018-08-29] MEDS: Ferrous Sulfate 325 MG TAB PO SCH ×3 (08:53→17:23)
[2018-08-29] MEDS: Pantoprazole 40 mg EC Tab PO SCH ×2 (08:53→11:25)
[2018-08-29] MEDS ORDERED: VITAMIN B COMPLEX PO SCH (09:00)
[2018-08-29] MEDS ORDERED: Multivitamin Tab PO SCH (09:00)
--- NOTE | 2018-08-29 09:10 | History & Physical ---
ADMIT DATE: 08/29/2018 CHIEF COMPLAINT: Increase in agitation. HISTORY OF PRESENT ILLNESS: This is a 58-year-old male who was admitted from residential facility to [facility] due to increase in agitation and confusion. From the Emergency Room, the patient was medically cleared and has admitted to Geropsych Unit for further management. REVIEW OF SYSTEMS: GENERAL: This is a 58-year-old male. No fever. No weakness. HEENT: No headache. No dizziness. EYES: No eye pain, no blurring of vision. NECK: No neck pain, no nuchal rigidity. CHEST: No chest pain. No palpitation. PULMONARY: No coughing. No shortness of breath. GASTROINTESTINAL: No abdominal pain, no constipation, no diarrhea. MUSCULOSKELETAL: No joint pain. No muscle pain. SOCIAL HISTORY: The patient lives in a residential facility prior to hospitalization. FAMILY HISTORY: Unremarkable. PAST SURGICAL HISTORY: Unremarkable. PAST MEDICAL HISTORY: Anemia, hypertension, diabetes, seizure, gastroesophageal reflux disease. PSYCHIATRIC HISTORY: Includes schizoaffective disorder. PHYSICAL EXAMINATION: VITAL SIGNS: Temperature 98.1, heart rate 91, blood pressure 124/74, respiration 18, 99% on room air. GENERAL: This is a 58-year-old male that appears as stated in no acute distress. HEENT: Head is atraumatic, normocephalic. Eyes: Bilateral conjunctivae are clear. Bilateral pupils are equally round and reactive. NECK: Supple. No JVD. CARDIOVASCULAR: S1 and S2, without murmur. PULMONARY: Clear to auscultation. GASTROINTESTINAL: Soft and nontender without guarding. Positive bowel sounds. MUSCULOSKELETAL: No clubbing. No cyanosis noted. ASSESSMENT: 1. Schizoaffective disorder. 2. Hypertension. 3. Gastroesophageal reflux disease. 4. Diabetes. 5. Anemia. 6. Seizure disorder. PLAN: We will admit the patient to Psychiatric Unit. We will follow up with psychiatrist to monitor the patient's condition and behavior. We will do medication reconciliation accordingly. Treatment plans were discussed with the patient's nurse. Treatment plans were discussed with Dr. Ortiz. JOB# [id number]
--- NOTE | 2018-08-30 05:13 | Psychiatric Evaluation ---
DATE OF SERVICE: INITIAL EVALUATION AND MENTAL STATUS EXAM PATIENT'S AGE: 58. SEX: Male. PHYSICIAN: Dr. Schmidt. CHIEF COMPLAINT: Agitation and striking out behavior. HISTORY OF PRESENT ILLNESS: The patient is a 58-year-old male, who was transferred from [facility] because of increased agitation and aggressive behavior. The patient also has been striking out at staff and at peers. Also has been in angry and in irritable mood and easily agitated. PAST PSYCHIATRIC HISTORY: The patient has history of multiple psychiatric hospitalizations for treatment of schizophrenia. PAST MEDICAL HISTORY: The patient has no major medical problems. SOCIAL HISTORY: The patient lives in [facility]. No known alcohol or drug use. ALLERGIES: No known allergies. MENTAL STATUS EXAMINATION: The patient appears older than his stated age. Disheveled. Confused. Mumbling. Disorganized thoughts. The patient denies any auditory or visual hallucinations, but actively responding to stimuli. The patient is alert, but disoriented to time, place, person and situation. Impaired immediate and recent memory, but intact remote memories. Poor insight and poor judgment. ASSESSMENT: PRIMARY DIAGNOSIS: Chronic paranoid schizophrenia with acute exacerbation. TREATMENT PLAN: We will continue to monitor behavior and condition closely. Also continue to work on ineffective coping and poor impulse control. AFTER DISCHARGE PLANS: The patient will return to [facility] with plans for outpatient treatment and followup. JOB# [id number]
[2018-08-30] MEDS: Pantoprazole 40 mg EC Tab PO SCH (06:57)
--- NOTE | 2018-08-30 08:18 | Progress Notes ---
DATE: 08/29/2018 SUBJECTIVE: The patient was seen and evaluated. The patient's chart reviewed. COVERING FOR: Dr. Schmidt. IDENTIFYING DATA: A 58-year-old male who is admitted here from senior living through the ER for increased agitation and confusion, disorganized state. Currently being treated for hypertension, acid reflux, diabetes, anemia, and seizure disorder. Medically cleared, transferred recently. CURRENT MEDICATION: The patient is on iron sulfate, labetalol, pantoprazole, risperidone 0.5 mg p.o. b.i.d. Today on [id number] evaluation, the patient presents disorganized, delusional derailed in conversation. MENTAL STATUS EXAMINATION: Disorganized, delusional. ASSESSMENT AND PLAN: The patient is a 58-year-old male who continues to present disorganized in thought process and derails in conversation, unable to formulate a safe plan. No complications and side effects of the medications. JOB# [id number]
[2018-08-30] MEDS: Multivitamin Tab PO SCH (09:26)
[2018-08-30] MEDS: Vitamin B Complex w/Vitamin C Tab PO SCH (09:27)
[2018-08-30] MEDS: Ferrous Sulfate 325 MG TAB PO SCH ×2 (09:27→17:31)
--- NOTE | 2018-08-30 12:11 | Internal Medicine Prog Note ---
Internal Medicine Subjective - Subjective Patient seen and examined:: chart reviewed Patient is:: other (increased agitation and confusion ) Per staff patient has:: no adverse event Internal Medicine Objective - Results Result Diagrams: 08/28/18 13:49 08/28/18 13:49 Recent Labs: Laboratory Last Values WBC 7.9 Th/cmm (4.8-10.8) 08/28/18 13:49 RBC 4.91 Mil/cmm (4.30-5.70) 08/28/18 13:49 Hgb 13.9 gm/dL (12-16) 08/28/18 13:49 Hct 41.7 % (41.0-60) 08/28/18 13:49 MCV 84.9 fl (80-99) 08/28/18 13:49 MCH 28.2 pg (26.0-30.0) 08/28/18 13:49 MCHC Differential 33.2 pg (28.0-36.0) 08/28/18 13:49 RDW 14.3 % (11.5-20.0) 08/28/18 13:49 Plt Count 167 Th/cmm (150-400) 08/28/18 13:49 MPV 9.3 fl 08/28/18 13:49 Neutrophils % 71.0 % (40.0-80.0) 08/28/18 13:49 Lymphocytes % 19.2 % (20.0-50.0) L 08/28/18 13:49 Monocytes % 5.0 % (2.0-10.0) 08/28/18 13:49 Eosinophils % 4.6 % (0.0-5.0) 08/28/18 13:49 Basophils % 0.2 % (0.0-2.0) 08/28/18 13:49 PT 10.4 SECONDS (9.5-11.5) 08/28/18 13:49 INR 1.00 (0.5-1.4) 08/28/18 13:49 PTT (Actin FS) 25.4 SECONDS (26.0-38.0) L 08/28/18 13:49 Sodium 142 mEq/L (136-145) 08/28/18 13:49 Potassium 3.6 mEq/L (3.5-5.1) 08/28/18 13:49 Chloride 108 mEq/L (98-107) H 08/28/18 13:49 Carbon Dioxide 25.9 mEq/L (21.0-31.0) 08/28/18 13:49 Anion Gap 11.7 (7.0-16.0) 08/28/18 13:49 BUN 25 mg/dL (7-25) 08/28/18 13:49 Creatinine 0.8 mg/dL (0.7-1.3) 08/28/18 13:49 Est GFR ( Amer) > 60.0 ml/min (>90) 08/28/18 13:49 Est GFR (Non-Af Amer) > 60.0 ml/min 08/28/18 13:49 BUN/Creatinine Ratio 31.3 08/28/18 13:49 Glucose 124 mg/dL (70-105) H 08/28/18 13:49 Calcium 9.4 mg/dL (8.6-10.3) 08/28/18 13:49 Total Bilirubin 0.3 mg/dL (0.3-1.0) 08/28/18 13:49 AST 20 U/L (13-39) 08/28/18 13:49 ALT 27 U/L (7-52) 08/28/18 13:49 Alkaline Phosphatase 61 U/L (34-104) 08/28/18 13:49 Troponin I 0.01 ng/mL (0.01-0.05) 08/28/18 13:49 B-Natriuretic Peptide 9.5 pg/mL (5.0-100.0) 08/28/18 13:49 Total Protein 6.3 gm/dL (6.0-8.3) 08/28/18 13:49 Albumin 3.9 gm/dL (4.2-5.5) L 08/28/18 13:49 Globulin 2.4 gm/dL 08/28/18 13:49 Albumin/Globulin Ratio 1.6 (1.0-1.8) 08/28/18 13:49 Triglycerides 236 mg/dL (<150) H 08/28/18 13:49 Cholesterol 112 mg/dL (<200) 08/28/18 13:49 LDL Cholesterol Direct 73 mg/dL (75-193) L 08/28/18 13:49 HDL Cholesterol 31 mg/dL (23-92) 08/28/18 13:49 TSH 0.23 uIU/ml (0.34-5.60) L 08/28/18 13:49 - Physical Exam Vitals and I&O: Vital Signs Temp 97.8 F 08/30/18 06:30 Pulse 67 08/30/18 09:27 Resp 20 08/30/18 06:30 BP 121/64 08/30/18 09:27 Pulse Ox 98 08/30/18 06:30 Intake & Output 08/29/18 08/30/18 08/30/18 18:59 06:59 18:59 Intake Total 1200 480 Balance 1200 480 Intake: Oral 1200 480 Other: # Voids 4 2 # Bowel Movements 1 Active Medications: Current Medications Acetaminophen (Tylenol) 650 mg PO Q4H PRN PRN Reason: Pain (Mild) Stop: 10/28/18 08:13 Docusate Sodium (Colace) 100 mg PO BID DEBORAH Stop: 10/28/18 08:59 Last Admin: 08/30/18 09:27 Dose: 100 mg Ferrous Sulfate (Iron) 325 mg PO BID DEBORAH Stop: 10/28/18 08:59 Last Admin: 08/30/18 09:27 Dose: 325 mg Labetalol HCl (Trandate) 50 mg PO DAILY DEBORAH Stop: 10/28/18 08:59 Last Admin: 08/30/18 09:27 Dose: 50 mg Lorazepam (Ativan) 0.5 mg PO Q4HR PRN; Protocol PRN Reason: Anxiety Stop: 09/29/18 00:09 Multivitamins/Vitamin C (Theragran) 1 tab PO DAILY DEBORAH Stop: 10/28/18 08:59 Last Admin: 08/30/18 09:26 Dose: 1 tab Olanzapine (Zyprexa) 10 mg PO HS DEBORAH; Protocol Stop: 10/29/18 20:59 Pantoprazole Sodium (Protonix) 40 mg PO QDAC DEBORAH Stop: 10/29/18 07:29 Last Admin: 08/30/18 06:57 Dose: 40 mg Vitamin B Complex/Vit C/Folic Acid (Vitamin B Complex W/Vitamin C) 1 tab PO DAILY DEBORAH Stop: 10/28/18 08:59 Last Admin: 08/30/18 09:27 Dose: 1 tab Zolpidem Tartrate (Ambien) 5 mg PO HS PRN PRN Reason: Insomnia Stop: 10/29/18 00:09 General: demented HEENT: NC/AT Neck: Supple Lungs: CTAB Cardiovascular: Normal S1, Normal S2 Abdomen: soft, non-tender Extremities: clear Neurological: no change - Procedures Procedures: Procedures Procedure Code Date ASSISTANCE WITH RESPIRATORY VENTILATION, 24-96 HRS, CPAP [id number] 02/12/18 EXCISION OF DUODENUM, ENDO, DIAGN [id number] 02/12/18 EXCISION OF ESOPHAGUS, ENDO, DIAGN [id number] 02/12/18 EXCISION OF STOMACH, ENDO, DIAGN [id number] 02/12/18 Internal Medicine Assmt/Plan - Assessment Assessment: schizophrenia htn gerd dm anemia seizures - Plan Plan: as per order sheet as per psych will monitor
--- NOTE | 2018-08-30 20:17 | Progress Notes ---
DATE: 08/30/2018 The patient was seen and evaluated. The patient's chart reviewed. Covering for Dr. Schmidt. Overnight nursing staff reported that the patient continued to respond to hearing voices and not sleeping. Today on [id number]-lghk evaluation, the patient continues to present very disorganized, talking to himself, and responding to hearing voices. He did report good efficacy in the past with Zyprexa. MENTAL STATUS EXAMINATION: Psychotic, responding, thought blocking, disorganized. ASSESSMENT AND PLAN: The patient is day 4 now with a history of severe schizophrenia, chronic. We will discontinue the risperidone and restart the patient on Zyprexa to target the patient's ongoing psychotic symptoms and also target the patient's severe insomnia that he is experiencing. JOB# [id number]
[2018-08-31] MEDS: Pantoprazole 40 mg EC Tab PO SCH (06:37)
[2018-08-31] MEDS: Ferrous Sulfate 325 MG TAB PO SCH ×3 (08:41→17:32)
[2018-08-31] MEDS: Multivitamin Tab PO SCH ×2 (08:42→08:54)
[2018-08-31] MEDS: Vitamin B Complex w/Vitamin C Tab PO SCH (08:43)
--- NOTE | 2018-08-31 12:54 | Internal Medicine Prog Note ---
Internal Medicine Subjective - Subjective Patient seen and examined:: chart reviewed Patient is:: confused, other (pt is agitation , confused) Per staff patient has:: no adverse event Internal Medicine Objective - Results Result Diagrams: 08/28/18 13:49 08/28/18 13:49 Recent Labs: Laboratory Last Values WBC 7.9 Th/cmm (4.8-10.8) 08/28/18 13:49 RBC 4.91 Mil/cmm (4.30-5.70) 08/28/18 13:49 Hgb 13.9 gm/dL (12-16) 08/28/18 13:49 Hct 41.7 % (41.0-60) 08/28/18 13:49 MCV 84.9 fl (80-99) 08/28/18 13:49 MCH 28.2 pg (26.0-30.0) 08/28/18 13:49 MCHC Differential 33.2 pg (28.0-36.0) 08/28/18 13:49 RDW 14.3 % (11.5-20.0) 08/28/18 13:49 Plt Count 167 Th/cmm (150-400) 08/28/18 13:49 MPV 9.3 fl 08/28/18 13:49 Neutrophils % 71.0 % (40.0-80.0) 08/28/18 13:49 Lymphocytes % 19.2 % (20.0-50.0) L 08/28/18 13:49 Monocytes % 5.0 % (2.0-10.0) 08/28/18 13:49 Eosinophils % 4.6 % (0.0-5.0) 08/28/18 13:49 Basophils % 0.2 % (0.0-2.0) 08/28/18 13:49 PT 10.4 SECONDS (9.5-11.5) 08/28/18 13:49 INR 1.00 (0.5-1.4) 08/28/18 13:49 PTT (Actin FS) 25.4 SECONDS (26.0-38.0) L 08/28/18 13:49 Sodium 142 mEq/L (136-145) 08/28/18 13:49 Potassium 3.6 mEq/L (3.5-5.1) 08/28/18 13:49 Chloride 108 mEq/L (98-107) H 08/28/18 13:49 Carbon Dioxide 25.9 mEq/L (21.0-31.0) 08/28/18 13:49 Anion Gap 11.7 (7.0-16.0) 08/28/18 13:49 BUN 25 mg/dL (7-25) 08/28/18 13:49 Creatinine 0.8 mg/dL (0.7-1.3) 08/28/18 13:49 Est GFR ( Amer) > 60.0 ml/min (>90) 08/28/18 13:49 Est GFR (Non-Af Amer) > 60.0 ml/min 08/28/18 13:49 BUN/Creatinine Ratio 31.3 08/28/18 13:49 Glucose 124 mg/dL (70-105) H 08/28/18 13:49 Calcium 9.4 mg/dL (8.6-10.3) 08/28/18 13:49 Total Bilirubin 0.3 mg/dL (0.3-1.0) 08/28/18 13:49 AST 20 U/L (13-39) 08/28/18 13:49 ALT 27 U/L (7-52) 08/28/18 13:49 Alkaline Phosphatase 61 U/L (34-104) 08/28/18 13:49 Troponin I 0.01 ng/mL (0.01-0.05) 08/28/18 13:49 B-Natriuretic Peptide 9.5 pg/mL (5.0-100.0) 08/28/18 13:49 Total Protein 6.3 gm/dL (6.0-8.3) 08/28/18 13:49 Albumin 3.9 gm/dL (4.2-5.5) L 08/28/18 13:49 Globulin 2.4 gm/dL 08/28/18 13:49 Albumin/Globulin Ratio 1.6 (1.0-1.8) 08/28/18 13:49 Triglycerides 236 mg/dL (<150) H 08/28/18 13:49 Cholesterol 112 mg/dL (<200) 08/28/18 13:49 LDL Cholesterol Direct 73 mg/dL (75-193) L 08/28/18 13:49 HDL Cholesterol 31 mg/dL (23-92) 08/28/18 13:49 TSH 0.23 uIU/ml (0.34-5.60) L 08/28/18 13:49 - Physical Exam Vitals and I&O: Vital Signs Temp 98.7 F 08/31/18 06:24 Pulse 65 08/31/18 06:24 Resp 18 08/31/18 06:24 BP 131/71 08/31/18 06:24 Pulse Ox 94 08/31/18 06:24 Intake & Output 08/30/18 08/31/18 08/31/18 18:59 06:59 18:59 Intake Total 120 Balance 120 Intake: Oral 120 Other: # Voids 3 # Bowel Movements 0 Active Medications: Current Medications Acetaminophen (Tylenol) 650 mg PO Q4H PRN PRN Reason: Pain (Mild) Stop: 10/28/18 08:13 Docusate Sodium (Colace) 100 mg PO BID [facility] Stop: 10/28/18 08:59 Last Admin: 08/31/18 08:52 Dose: 100 mg Ferrous Sulfate (Iron) 325 mg PO BID [facility] Stop: 10/28/18 08:59 Last Admin: 08/31/18 08:54 Dose: Not Given Labetalol HCl (Trandate) 50 mg PO DAILY [facility] Stop: 10/28/18 08:59 Last Admin: 08/31/18 08:54 Dose: Not Given Lorazepam (Ativan) 0.5 mg PO Q4HR PRN; Protocol PRN Reason: Anxiety Stop: 09/29/18 00:09 Multivitamins/Vitamin C (Theragran) 1 tab PO DAILY [facility] Stop: 10/28/18 08:59 Last Admin: 08/31/18 08:54 Dose: Not Given Mupirocin (Bactroban Oint) 1 appl NS BID [facility] Stop: 09/04/18 09:01 Last Admin: 08/31/18 08:54 Dose: 1 appl Olanzapine (Zyprexa Zydis) 15 mg PO HS [facility]; Protocol Stop: 10/30/18 20:59 Pantoprazole Sodium (Protonix) 40 mg PO QDAC [facility] Stop: 10/29/18 07:29 Last Admin: 08/31/18 06:37 Dose: 40 mg Valproate Sodium (Depakene) 500 mg PO BID [facility]; Protocol Stop: 10/30/18 08:59 Last Admin: 08/31/18 08:54 Dose: Not Given Vitamin B Complex/Vit C/Folic Acid (Vitamin B Complex W/Vitamin C) 1 tab PO DAILY [facility] Stop: 10/28/18 08:59 Last Admin: 08/31/18 08:43 Dose: Not Given Zolpidem Tartrate (Ambien) 5 mg PO HS PRN PRN Reason: Insomnia Stop: 10/29/18 00:09 Last Admin: 08/30/18 22:22 Dose: 5 mg General: demented HEENT: NC/AT Neck: Supple Lungs: CTAB Cardiovascular: Normal S1, Normal S2 Abdomen: soft, non-tender Extremities: clear Neurological: no change - Procedures Procedures: Procedures Procedure Code Date ASSISTANCE WITH RESPIRATORY VENTILATION, 24-96 HRS, CPAP [id number] 02/12/18 EXCISION OF DUODENUM, ENDO, DIAGN [id number] 02/12/18 EXCISION OF ESOPHAGUS, ENDO, DIAGN [id number] 02/12/18 EXCISION OF STOMACH, ENDO, DIAGN [id number] 02/12/18 Internal Medicine Assmt/Plan - Assessment Assessment: schizophrenia htn gerd dm anemia seizures - Plan Plan: as per order sheet as per psych will monitor
[2018-08-31] MEDS: OLANZapine 5 mg Oral Disintegrating Tab PO SCH (20:15)
--- NOTE | 2018-09-01 04:17 | Progress Notes ---
DATE: 08/31/2018 Chart reviewed and the patient interviewed. Also discussed the patient's condition with the staff and reviewed records and labs. The patient continues to be in irritable and agitated mood. The patient also is suspicious and is slightly paranoid. The patient also had difficulty with establishing any safe plan for self-care. He also is refusing to take psychotropic medications. At the same time, the patient is monitored closely because of his irritability and agitation. I received a phone call from [facility] asking for the patient not to return there. We will try to work on discharging the patient to different facility. Also, we will continue to monitor behavior and continue to follow up. JOB# [id number]
[2018-09-01] MEDS: Pantoprazole 40 mg EC Tab PO SCH (06:30)
[2018-09-01] MEDS: Ferrous Sulfate 325 MG TAB PO SCH ×2 (08:16→16:43)
[2018-09-01] MEDS: Multivitamin Tab PO SCH (08:16)
[2018-09-01] MEDS: Vitamin B Complex w/Vitamin C Tab PO SCH (08:18)
--- NOTE | 2018-09-01 17:17 | Internal Medicine Prog Note ---
Internal Medicine Subjective - Subjective Service Date: 09/01/18 Patient seen and examined:: with staff Patient is:: confused, other (pt is agitation , confused) Per staff patient has:: no adverse event Internal Medicine Objective - Results Result Diagrams: 08/28/18 13:49 08/28/18 13:49 Recent Labs: Laboratory Last Values WBC 7.9 Th/cmm (4.8-10.8) 08/28/18 13:49 RBC 4.91 Mil/cmm (4.30-5.70) 08/28/18 13:49 Hgb 13.9 gm/dL (12-16) 08/28/18 13:49 Hct 41.7 % (41.0-60) 08/28/18 13:49 MCV 84.9 fl (80-99) 08/28/18 13:49 MCH 28.2 pg (26.0-30.0) 08/28/18 13:49 MCHC Differential 33.2 pg (28.0-36.0) 08/28/18 13:49 RDW 14.3 % (11.5-20.0) 08/28/18 13:49 Plt Count 167 Th/cmm (150-400) 08/28/18 13:49 MPV 9.3 fl 08/28/18 13:49 Neutrophils % 71.0 % (40.0-80.0) 08/28/18 13:49 Lymphocytes % 19.2 % (20.0-50.0) L 08/28/18 13:49 Monocytes % 5.0 % (2.0-10.0) 08/28/18 13:49 Eosinophils % 4.6 % (0.0-5.0) 08/28/18 13:49 Basophils % 0.2 % (0.0-2.0) 08/28/18 13:49 PT 10.4 SECONDS (9.5-11.5) 08/28/18 13:49 INR 1.00 (0.5-1.4) 08/28/18 13:49 PTT (Actin FS) 25.4 SECONDS (26.0-38.0) L 08/28/18 13:49 Sodium 142 mEq/L (136-145) 08/28/18 13:49 Potassium 3.6 mEq/L (3.5-5.1) 08/28/18 13:49 Chloride 108 mEq/L (98-107) H 08/28/18 13:49 Carbon Dioxide 25.9 mEq/L (21.0-31.0) 08/28/18 13:49 Anion Gap 11.7 (7.0-16.0) 08/28/18 13:49 BUN 25 mg/dL (7-25) 08/28/18 13:49 Creatinine 0.8 mg/dL (0.7-1.3) 08/28/18 13:49 Est GFR ( Amer) > 60.0 ml/min (>90) 08/28/18 13:49 Est GFR (Non-Af Amer) > 60.0 ml/min 08/28/18 13:49 BUN/Creatinine Ratio 31.3 08/28/18 13:49 Glucose 124 mg/dL (70-105) H 08/28/18 13:49 Calcium 9.4 mg/dL (8.6-10.3) 08/28/18 13:49 Total Bilirubin 0.3 mg/dL (0.3-1.0) 08/28/18 13:49 AST 20 U/L (13-39) 08/28/18 13:49 ALT 27 U/L (7-52) 08/28/18 13:49 Alkaline Phosphatase 61 U/L (34-104) 08/28/18 13:49 Troponin I 0.01 ng/mL (0.01-0.05) 08/28/18 13:49 B-Natriuretic Peptide 9.5 pg/mL (5.0-100.0) 08/28/18 13:49 Total Protein 6.3 gm/dL (6.0-8.3) 08/28/18 13:49 Albumin 3.9 gm/dL (4.2-5.5) L 08/28/18 13:49 Globulin 2.4 gm/dL 08/28/18 13:49 Albumin/Globulin Ratio 1.6 (1.0-1.8) 08/28/18 13:49 Triglycerides 236 mg/dL (<150) H 08/28/18 13:49 Cholesterol 112 mg/dL (<200) 08/28/18 13:49 LDL Cholesterol Direct 73 mg/dL (75-193) L 08/28/18 13:49 HDL Cholesterol 31 mg/dL (23-92) 08/28/18 13:49 TSH 0.23 uIU/ml (0.34-5.60) L 08/28/18 13:49 - Physical Exam Vitals and I&O: Vital Signs Temp 98.1 F 09/01/18 06:12 Pulse 64 09/01/18 08:17 Resp 20 09/01/18 06:12 BP 98/63 09/01/18 08:17 Pulse Ox 97 09/01/18 06:12 Intake & Output 08/31/18 09/01/18 09/01/18 18:59 06:59 18:59 Intake Total 240 Balance 240 Intake: Oral 240 Other: # Voids 3 1 # Bowel Movements 0 0 Active Medications: Current Medications Acetaminophen (Tylenol) 650 mg PO Q4H PRN PRN Reason: Pain (Mild) Stop: 10/28/18 08:13 Docusate Sodium (Colace) 100 mg PO BID [facility] Stop: 10/28/18 08:59 Last Admin: 09/01/18 16:43 Dose: 100 mg Ferrous Sulfate (Iron) 325 mg PO BID [facility] Stop: 10/28/18 08:59 Last Admin: 09/01/18 16:43 Dose: 325 mg Labetalol HCl (Trandate) 50 mg PO DAILY [facility] Stop: 10/28/18 08:59 Last Admin: 09/01/18 08:17 Dose: Not Given Lorazepam (Ativan) 0.5 mg PO Q4HR PRN; Protocol PRN Reason: Anxiety Stop: 09/29/18 00:09 Multivitamins/Vitamin C (Theragran) 1 tab PO DAILY [facility] Stop: 10/28/18 08:59 Last Admin: 09/01/18 08:16 Dose: 1 tab Mupirocin (Bactroban Oint) 1 appl NS BID [facility] Stop: 09/04/18 09:01 Last Admin: 09/01/18 16:43 Dose: 1 appl Olanzapine (Zyprexa Zydis) 15 mg PO HS [facility]; Protocol Stop: 10/30/18 20:59 Last Admin: 08/31/18 20:15 Dose: 15 mg Pantoprazole Sodium (Protonix) 40 mg PO QDAC [facility] Stop: 10/29/18 07:29 Last Admin: 09/01/18 06:30 Dose: 40 mg Valproate Sodium (Depakene) 500 mg PO BID [facility]; Protocol Stop: 10/30/18 08:59 Last Admin: 09/01/18 16:42 Dose: 500 mg Vitamin B Complex/Vit C/Folic Acid (Vitamin B Complex W/Vitamin C) 1 tab PO DAILY [facility] Stop: 10/28/18 08:59 Last Admin: 09/01/18 08:18 Dose: Not Given Zolpidem Tartrate (Ambien) 5 mg PO HS PRN PRN Reason: Insomnia Stop: 10/29/18 00:09 Last Admin: 08/31/18 20:14 Dose: 5 mg General: demented HEENT: NC/AT Neck: Supple Lungs: CTAB Cardiovascular: Normal S1, Normal S2 Abdomen: soft, non-tender Extremities: clear Neurological: no change - Procedures Procedures: Procedures Procedure Code Date ASSISTANCE WITH RESPIRATORY VENTILATION, 24-96 HRS, CPAP [id number] 02/12/18 EXCISION OF DUODENUM, ENDO, DIAGN [id number] 02/12/18 EXCISION OF ESOPHAGUS, ENDO, DIAGN [id number] 02/12/18 EXCISION OF STOMACH, ENDO, DIAGN [id number] 02/12/18 Internal Medicine Assmt/Plan - Assessment Assessment: schizophrenia htn gerd dm anemia seizures - Plan Plan: cpm
[2018-09-01] MEDS: OLANZapine 5 mg Oral Disintegrating Tab PO SCH (20:30)
--- NOTE | 2018-09-01 23:32 | Progress Notes ---
DATE: SUBJECTIVE: Chart reviewed and the patient interviewed. Also discussed the patient's condition with the staff and reviewed records and labs. The patient is still agitated and he is still rambling and confused. The patient also is still restless and is still unable to provide any safe plan for self-care. Also, gets more agitated when staff tries to redirect him. Otherwise, the patient is compliant with taking his medications most of the time, but still at times, he is resisting the care. ASSESSMENT: The patient is still agitated and needs lots of redirection. TREATMENT PLAN: Continue to monitor his behavior and his condition closely. Also, continue to work on his ineffective poor impulse control and confusion and we will continue to follow up closely. JOB# [id number]
[2018-09-02] MEDS: Pantoprazole 40 mg EC Tab PO SCH (06:51)
--- NOTE | 2018-09-02 07:59 | Progress Notes ---
DATE: 09/02/2018 PSYCHIATRIC PROGRESS NOTE SUBJECTIVE: Chart reviewed and the patient interviewed. Also discussed the patient's condition with the staff and reviewed records and labs. The patient is less agitated, but he is still easily irritable and is confused. The patient also is still hyperverbal. The patient also is standing in the hallway pretending as if he is playing baseball. Also is still suspicious and paranoid. Otherwise, the patient is compliant with taking medications today with no side effects. ASSESSMENT: The patient seems to be slightly less irritable and less agitated. TREATMENT PLAN: Continue to monitor his behavior and his condition closely. Also, we will increase Zyprexa to 5 mg in the morning and 15 mg at bedtime. Also working on behavioral modification and on his irritability and aggressive behavior. JOB# [id number]
[2018-09-02] MEDS: Ferrous Sulfate 325 MG TAB PO SCH ×2 (08:51→16:20)
[2018-09-02] MEDS: Vitamin B Complex w/Vitamin C Tab PO SCH (08:51)
[2018-09-02] MEDS: Multivitamin Tab PO SCH (08:51)
[2018-09-02] MEDS: OLANZapine 5 mg Oral Disintegrating Tab PO SCH ×2 (08:52→20:46)
--- NOTE | 2018-09-02 15:22 | Internal Medicine Prog Note ---
Internal Medicine Subjective - Subjective Patient seen and examined:: chart reviewed Patient is:: awake, confused, other (less agitated, easily irritable ) Per staff patient has:: agitated Internal Medicine Objective - Results Result Diagrams: 08/28/18 13:49 08/28/18 13:49 Recent Labs: Laboratory Last Values WBC 7.9 Th/cmm (4.8-10.8) 08/28/18 13:49 RBC 4.91 Mil/cmm (4.30-5.70) 08/28/18 13:49 Hgb 13.9 gm/dL (12-16) 08/28/18 13:49 Hct 41.7 % (41.0-60) 08/28/18 13:49 MCV 84.9 fl (80-99) 08/28/18 13:49 MCH 28.2 pg (26.0-30.0) 08/28/18 13:49 MCHC Differential 33.2 pg (28.0-36.0) 08/28/18 13:49 RDW 14.3 % (11.5-20.0) 08/28/18 13:49 Plt Count 167 Th/cmm (150-400) 08/28/18 13:49 MPV 9.3 fl 08/28/18 13:49 Neutrophils % 71.0 % (40.0-80.0) 08/28/18 13:49 Lymphocytes % 19.2 % (20.0-50.0) L 08/28/18 13:49 Monocytes % 5.0 % (2.0-10.0) 08/28/18 13:49 Eosinophils % 4.6 % (0.0-5.0) 08/28/18 13:49 Basophils % 0.2 % (0.0-2.0) 08/28/18 13:49 PT 10.4 SECONDS (9.5-11.5) 08/28/18 13:49 INR 1.00 (0.5-1.4) 08/28/18 13:49 PTT (Actin FS) 25.4 SECONDS (26.0-38.0) L 08/28/18 13:49 Sodium 142 mEq/L (136-145) 08/28/18 13:49 Potassium 3.6 mEq/L (3.5-5.1) 08/28/18 13:49 Chloride 108 mEq/L (98-107) H 08/28/18 13:49 Carbon Dioxide 25.9 mEq/L (21.0-31.0) 08/28/18 13:49 Anion Gap 11.7 (7.0-16.0) 08/28/18 13:49 BUN 25 mg/dL (7-25) 08/28/18 13:49 Creatinine 0.8 mg/dL (0.7-1.3) 08/28/18 13:49 Est GFR ( Amer) > 60.0 ml/min (>90) 08/28/18 13:49 Est GFR (Non-Af Amer) > 60.0 ml/min 08/28/18 13:49 BUN/Creatinine Ratio 31.3 08/28/18 13:49 Glucose 124 mg/dL (70-105) H 08/28/18 13:49 Calcium 9.4 mg/dL (8.6-10.3) 08/28/18 13:49 Total Bilirubin 0.3 mg/dL (0.3-1.0) 08/28/18 13:49 AST 20 U/L (13-39) 08/28/18 13:49 ALT 27 U/L (7-52) 08/28/18 13:49 Alkaline Phosphatase 61 U/L (34-104) 08/28/18 13:49 Troponin I 0.01 ng/mL (0.01-0.05) 08/28/18 13:49 B-Natriuretic Peptide 9.5 pg/mL (5.0-100.0) 08/28/18 13:49 Total Protein 6.3 gm/dL (6.0-8.3) 08/28/18 13:49 Albumin 3.9 gm/dL (4.2-5.5) L 08/28/18 13:49 Globulin 2.4 gm/dL 08/28/18 13:49 Albumin/Globulin Ratio 1.6 (1.0-1.8) 08/28/18 13:49 Triglycerides 236 mg/dL (<150) H 08/28/18 13:49 Cholesterol 112 mg/dL (<200) 08/28/18 13:49 LDL Cholesterol Direct 73 mg/dL (75-193) L 08/28/18 13:49 HDL Cholesterol 31 mg/dL (23-92) 08/28/18 13:49 TSH 0.23 uIU/ml (0.34-5.60) L 08/28/18 13:49 Valproic Acid 32.1 ug/mL (50.0-100.0) L 09/02/18 07:37 - Physical Exam Vitals and I&O: Vital Signs Temp 97.7 F 09/02/18 06:29 Pulse 89 09/02/18 08:52 Resp 20 09/02/18 06:29 BP 134/86 09/02/18 08:52 Pulse Ox 98 09/02/18 06:29 Intake & Output 09/01/18 09/02/18 09/02/18 18:59 06:59 18:59 Intake Total 240 Balance 240 Intake: Oral 240 Other: # Voids 1 # Bowel Movements 0 Active Medications: Current Medications Acetaminophen (Tylenol) 650 mg PO Q4H PRN PRN Reason: Pain (Mild) Stop: 10/28/18 08:13 Docusate Sodium (Colace) 100 mg PO BID [facility] Stop: 10/28/18 08:59 Last Admin: 09/02/18 08:51 Dose: 100 mg Ferrous Sulfate (Iron) 325 mg PO BID [facility] Stop: 10/28/18 08:59 Last Admin: 09/02/18 08:51 Dose: 325 mg Labetalol HCl (Trandate) 50 mg PO DAILY [facility] Stop: 10/28/18 08:59 Last Admin: 09/02/18 08:52 Dose: 50 mg Lorazepam (Ativan) 0.5 mg PO Q4HR PRN; Protocol PRN Reason: Anxiety Stop: 09/29/18 00:09 Last Admin: 09/02/18 08:51 Dose: 0.5 mg Multivitamins/Vitamin C (Theragran) 1 tab PO DAILY [facility] Stop: 10/28/18 08:59 Last Admin: 09/02/18 08:51 Dose: 1 tab Mupirocin (Bactroban Oint) 1 appl NS BID [facility] Stop: 09/04/18 09:01 Last Admin: 09/02/18 08:52 Dose: 1 appl Olanzapine (Zyprexa Zydis) 15 mg PO HS [facility]; Protocol Stop: 10/30/18 20:59 Last Admin: 09/01/18 20:30 Dose: 15 mg Olanzapine (Zyprexa Zydis) 5 mg PO DAILY [facility]; Protocol Stop: 11/01/18 08:59 Last Admin: 09/02/18 08:52 Dose: 5 mg Pantoprazole Sodium (Protonix) 40 mg PO QDAC [facility] Stop: 10/29/18 07:29 Last Admin: 09/02/18 06:51 Dose: 40 mg Valproate Sodium (Depakene) 500 mg PO BID [facility]; Protocol Stop: 10/30/18 08:59 Last Admin: 09/02/18 08:51 Dose: 500 mg Vitamin B Complex/Vit C/Folic Acid (Vitamin B Complex W/Vitamin C) 1 tab PO DAILY [facility] Stop: 10/28/18 08:59 Last Admin: 09/02/18 08:51 Dose: 1 tab Zolpidem Tartrate (Ambien) 5 mg PO HS PRN PRN Reason: Insomnia Stop: 10/29/18 00:09 Last Admin: 09/01/18 21:27 Dose: 5 mg General: demented HEENT: NC/AT Neck: Supple Lungs: CTAB Cardiovascular: Normal S1, Normal S2 Abdomen: soft, non-tender Extremities: clear Neurological: no change - Procedures Procedures: Procedures Procedure Code Date ASSISTANCE WITH RESPIRATORY VENTILATION, 24-96 HRS, CPAP [id number] 02/12/18 EXCISION OF DUODENUM, ENDO, DIAGN [id number] 02/12/18 EXCISION OF ESOPHAGUS, ENDO, DIAGN [id number] 02/12/18 EXCISION OF STOMACH, ENDO, DIAGN [id number] 02/12/18 Internal Medicine Assmt/Plan - Assessment Assessment: schizophrenia htn gerd dm anemia seizures - Plan Plan: as per order sheet as per psych will monitor continue psych meds cpm
[2018-09-03] MEDS: Pantoprazole 40 mg EC Tab PO SCH (06:38)
[2018-09-03] MEDS: Multivitamin Tab PO SCH (08:50)
[2018-09-03] MEDS: Vitamin B Complex w/Vitamin C Tab PO SCH (08:50)
[2018-09-03] MEDS: Ferrous Sulfate 325 MG TAB PO SCH ×2 (08:50→16:43)
[2018-09-03] MEDS: OLANZapine 5 mg Oral Disintegrating Tab PO SCH ×2 (09:05→20:33)
--- NOTE | 2018-09-03 19:15 | Internal Medicine Prog Note ---
Internal Medicine Subjective - Subjective Service Date: 09/03/18 Patient is:: awake, confused, other (less agitated, easily irritable ) Per staff patient has:: agitated Internal Medicine Objective - Results Result Diagrams: 08/28/18 13:49 08/28/18 13:49 Recent Labs: Laboratory Last Values WBC 7.9 Th/cmm (4.8-10.8) 08/28/18 13:49 RBC 4.91 Mil/cmm (4.30-5.70) 08/28/18 13:49 Hgb 13.9 gm/dL (12-16) 08/28/18 13:49 Hct 41.7 % (41.0-60) 08/28/18 13:49 MCV 84.9 fl (80-99) 08/28/18 13:49 MCH 28.2 pg (26.0-30.0) 08/28/18 13:49 MCHC Differential 33.2 pg (28.0-36.0) 08/28/18 13:49 RDW 14.3 % (11.5-20.0) 08/28/18 13:49 Plt Count 167 Th/cmm (150-400) 08/28/18 13:49 MPV 9.3 fl 08/28/18 13:49 Neutrophils % 71.0 % (40.0-80.0) 08/28/18 13:49 Lymphocytes % 19.2 % (20.0-50.0) L 08/28/18 13:49 Monocytes % 5.0 % (2.0-10.0) 08/28/18 13:49 Eosinophils % 4.6 % (0.0-5.0) 08/28/18 13:49 Basophils % 0.2 % (0.0-2.0) 08/28/18 13:49 PT 10.4 SECONDS (9.5-11.5) 08/28/18 13:49 INR 1.00 (0.5-1.4) 08/28/18 13:49 PTT (Actin FS) 25.4 SECONDS (26.0-38.0) L 08/28/18 13:49 Sodium 142 mEq/L (136-145) 08/28/18 13:49 Potassium 3.6 mEq/L (3.5-5.1) 08/28/18 13:49 Chloride 108 mEq/L (98-107) H 08/28/18 13:49 Carbon Dioxide 25.9 mEq/L (21.0-31.0) 08/28/18 13:49 Anion Gap 11.7 (7.0-16.0) 08/28/18 13:49 BUN 25 mg/dL (7-25) 08/28/18 13:49 Creatinine 0.8 mg/dL (0.7-1.3) 08/28/18 13:49 Est GFR ( Amer) > 60.0 ml/min (>90) 08/28/18 13:49 Est GFR (Non-Af Amer) > 60.0 ml/min 08/28/18 13:49 BUN/Creatinine Ratio 31.3 08/28/18 13:49 Glucose 124 mg/dL (70-105) H 08/28/18 13:49 Calcium 9.4 mg/dL (8.6-10.3) 08/28/18 13:49 Total Bilirubin 0.3 mg/dL (0.3-1.0) 08/28/18 13:49 AST 20 U/L (13-39) 08/28/18 13:49 ALT 27 U/L (7-52) 08/28/18 13:49 Alkaline Phosphatase 61 U/L (34-104) 08/28/18 13:49 Troponin I 0.01 ng/mL (0.01-0.05) 08/28/18 13:49 B-Natriuretic Peptide 9.5 pg/mL (5.0-100.0) 08/28/18 13:49 Total Protein 6.3 gm/dL (6.0-8.3) 08/28/18 13:49 Albumin 3.9 gm/dL (4.2-5.5) L 08/28/18 13:49 Globulin 2.4 gm/dL 08/28/18 13:49 Albumin/Globulin Ratio 1.6 (1.0-1.8) 08/28/18 13:49 Triglycerides 236 mg/dL (<150) H 08/28/18 13:49 Cholesterol 112 mg/dL (<200) 08/28/18 13:49 LDL Cholesterol Direct 73 mg/dL (75-193) L 08/28/18 13:49 HDL Cholesterol 31 mg/dL (23-92) 08/28/18 13:49 TSH 0.23 uIU/ml (0.34-5.60) L 08/28/18 13:49 Valproic Acid 32.1 ug/mL (50.0-100.0) L 09/02/18 07:37 - Physical Exam Vitals and I&O: Vital Signs Temp 98.4 F 09/03/18 14:00 Pulse 88 09/03/18 14:00 Resp 20 09/03/18 14:00 BP 112/72 09/03/18 14:00 Pulse Ox 98 09/03/18 14:00 Intake & Output 09/03/18 09/03/18 09/04/18 06:59 18:59 06:59 Intake Total 120 1000 Balance 120 1000 Intake: Oral 120 1000 Other: # Voids 3 3 # Bowel Movements 1 Active Medications: Current Medications Acetaminophen (Tylenol) 650 mg PO Q4H PRN PRN Reason: Pain (Mild) Stop: 10/28/18 08:13 Docusate Sodium (Colace) 100 mg PO BID [facility] Stop: 10/28/18 08:59 Last Admin: 09/03/18 16:43 Dose: 100 mg Ferrous Sulfate (Iron) 325 mg PO BID [facility] Stop: 10/28/18 08:59 Last Admin: 09/03/18 16:43 Dose: 325 mg Labetalol HCl (Trandate) 50 mg PO DAILY [facility] Stop: 10/28/18 08:59 Last Admin: 09/03/18 08:50 Dose: 50 mg Lorazepam (Ativan) 0.5 mg PO Q4HR PRN; Protocol PRN Reason: Anxiety Stop: 09/29/18 00:09 Last Admin: 09/02/18 08:51 Dose: 0.5 mg Multivitamins/Vitamin C (Theragran) 1 tab PO DAILY [facility] Stop: 10/28/18 08:59 Last Admin: 09/03/18 08:50 Dose: 1 tab Mupirocin (Bactroban Oint) 1 appl NS BID [facility] Stop: 09/04/18 09:01 Last Admin: 09/03/18 17:12 Dose: 1 appl Olanzapine (Zyprexa Zydis) 15 mg PO HS [facility]; Protocol Stop: 10/30/18 20:59 Last Admin: 09/02/18 20:46 Dose: 15 mg Olanzapine (Zyprexa Zydis) 5 mg PO DAILY [facility]; Protocol Stop: 11/01/18 08:59 Last Admin: 09/03/18 09:05 Dose: 5 mg Pantoprazole Sodium (Protonix) 40 mg PO QDAC [facility] Stop: 10/29/18 07:29 Last Admin: 09/03/18 06:38 Dose: 40 mg Valproate Sodium (Depakene) 500 mg PO BID [facility]; Protocol Stop: 10/30/18 08:59 Last Admin: 09/03/18 16:43 Dose: 500 mg Vitamin B Complex/Vit C/Folic Acid (Vitamin B Complex W/Vitamin C) 1 tab PO DAILY [facility] Stop: 10/28/18 08:59 Last Admin: 09/03/18 08:50 Dose: 1 tab Zolpidem Tartrate (Ambien) 5 mg PO HS PRN PRN Reason: Insomnia Stop: 10/29/18 00:09 Last Admin: 09/02/18 20:46 Dose: 5 mg General: demented HEENT: NC/AT Neck: Supple Lungs: CTAB Cardiovascular: Normal S1, Normal S2 Abdomen: soft, non-tender Extremities: clear Neurological: no change - Procedures Procedures: Procedures Procedure Code Date ASSISTANCE WITH RESPIRATORY VENTILATION, 24-96 HRS, CPAP [id number] 02/12/18 EXCISION OF DUODENUM, ENDO, DIAGN [id number] 02/12/18 EXCISION OF ESOPHAGUS, ENDO, DIAGN [id number] 02/12/18 EXCISION OF STOMACH, ENDO, DIAGN [id number] 02/12/18 Internal Medicine Assmt/Plan - Assessment Assessment: schizophrenia htn gerd dm anemia seizures - Plan Plan: cpm Nutritional Asmnt/Malnutr-PDOC - Dietary Evaluation Malnutrition Findings (Please click <Entered> for more info): Nutritional Asmnt/Malnutrition Start: 09/03/18 13: 30 Text: Status: Complete Freq: Protocol: Document 09/03/18 13:30 [email or web address] (Rec: 09/03/18 13:36 [email or web address]) Nutritional Asmnt/Malnutrition Patient General Information Nutritional Screening Low Risk Diagnosis psychosis nos Pertinent Medical Hx/Surgical Hx anemia, HTN, DM, seizure, GERD , schizoaffective disorder Subjective Information Pt was resting in bed at time of visit. Lunch seen eaten 100 %, PO intake is 100% per EMR. Current Diet Order/ Nutrition Support ORION/NCS Pertinent Medications colace, iron, theragran, protonix, vit b complex w/ vit c, ambien Pertinent Labs 08/28 glucose 124, alb 3.9, triglycerides 236, LDL 73 Nutritional Hx/Data Height 5 ft 6 in Height (Calculated Centimeters) 167.6 Current Weight (lbs) 159 lb Weight (Calculated Kilograms) 72.1 Weight (Calculated Grams) 66969.2 [place] Body Weight 142 Body Mass Index (BMI) 25.7 Weight Status Overweight GI Symptoms GI Symptoms None Last BM 08/29 Difficult in: None Food Allergies No Skin Integrity/Comment: intact, moses 21 Current %PO Good (75-100%) Estimated Nutritional Goals BEE in Kcals: Using Current wt Calories/Kcals/Kg 23-27 Kcals Calculated 0445-0486 Protein: Using Current wt Protein g/k.8-1 Protein Calculated 57-72 Fluid: ml 8087-7408 (1ml/kcal) Nutritional Problem No current Nutrition Prob Problem N/A Malnutrition Alert Is there a minimum of two criteria No selected? Query Text:Check all the applicable criteria. A minimum of two criteria are recommended for diagnosis of either severe or non-severe malnutrition. Malnutrition Related to Morbid Obesity Malnutrition related to morbid obesity No Intervention/Recommendation Comments 1. Continue with OIRON/NCS diet as ordered. 2. Monitor PO intake, wt, labs and skin integrity 3. F/U as low risk in 7 days Expected Outcomes/Goals Expected Outcomes/Goals 1. PO intake to meet at least 75% of nutritional needs. 2. Wt stability, skin to remain intact, labs to approach WNL. Reviewed by Kaylee Lucas RD
[2018-09-04] MEDS: Pantoprazole 40 mg EC Tab PO SCH (06:33)
[2018-09-04] MEDS: OLANZapine 5 mg Oral Disintegrating Tab PO SCH ×4 (09:06→20:30)
[2018-09-04] MEDS: Multivitamin Tab PO SCH (09:07)
[2018-09-04] MEDS: Vitamin B Complex w/Vitamin C Tab PO SCH (09:08)
[2018-09-04] MEDS: Ferrous Sulfate 325 MG TAB PO SCH ×2 (09:08→18:00)
--- NOTE | 2018-09-04 17:00 | Internal Medicine Prog Note ---
Internal Medicine Subjective - Subjective Patient is:: awake, confused, other (less agitated, easily irritable ) Per staff patient has:: agitated Internal Medicine Objective - Results Result Diagrams: 08/28/18 13:49 08/28/18 13:49 Recent Labs: Laboratory Last Values WBC 7.9 Th/cmm (4.8-10.8) 08/28/18 13:49 RBC 4.91 Mil/cmm (4.30-5.70) 08/28/18 13:49 Hgb 13.9 gm/dL (12-16) 08/28/18 13:49 Hct 41.7 % (41.0-60) 08/28/18 13:49 MCV 84.9 fl (80-99) 08/28/18 13:49 MCH 28.2 pg (26.0-30.0) 08/28/18 13:49 MCHC Differential 33.2 pg (28.0-36.0) 08/28/18 13:49 RDW 14.3 % (11.5-20.0) 08/28/18 13:49 Plt Count 167 Th/cmm (150-400) 08/28/18 13:49 MPV 9.3 fl 08/28/18 13:49 Neutrophils % 71.0 % (40.0-80.0) 08/28/18 13:49 Lymphocytes % 19.2 % (20.0-50.0) L 08/28/18 13:49 Monocytes % 5.0 % (2.0-10.0) 08/28/18 13:49 Eosinophils % 4.6 % (0.0-5.0) 08/28/18 13:49 Basophils % 0.2 % (0.0-2.0) 08/28/18 13:49 PT 10.4 SECONDS (9.5-11.5) 08/28/18 13:49 INR 1.00 (0.5-1.4) 08/28/18 13:49 PTT (Actin FS) 25.4 SECONDS (26.0-38.0) L 08/28/18 13:49 Sodium 142 mEq/L (136-145) 08/28/18 13:49 Potassium 3.6 mEq/L (3.5-5.1) 08/28/18 13:49 Chloride 108 mEq/L (98-107) H 08/28/18 13:49 Carbon Dioxide 25.9 mEq/L (21.0-31.0) 08/28/18 13:49 Anion Gap 11.7 (7.0-16.0) 08/28/18 13:49 BUN 25 mg/dL (7-25) 08/28/18 13:49 Creatinine 0.8 mg/dL (0.7-1.3) 08/28/18 13:49 Est GFR ( Amer) > 60.0 ml/min (>90) 08/28/18 13:49 Est GFR (Non-Af Amer) > 60.0 ml/min 08/28/18 13:49 BUN/Creatinine Ratio 31.3 08/28/18 13:49 Glucose 124 mg/dL (70-105) H 08/28/18 13:49 Calcium 9.4 mg/dL (8.6-10.3) 08/28/18 13:49 Total Bilirubin 0.3 mg/dL (0.3-1.0) 08/28/18 13:49 AST 20 U/L (13-39) 08/28/18 13:49 ALT 27 U/L (7-52) 08/28/18 13:49 Alkaline Phosphatase 61 U/L (34-104) 08/28/18 13:49 Troponin I 0.01 ng/mL (0.01-0.05) 08/28/18 13:49 B-Natriuretic Peptide 9.5 pg/mL (5.0-100.0) 08/28/18 13:49 Total Protein 6.3 gm/dL (6.0-8.3) 08/28/18 13:49 Albumin 3.9 gm/dL (4.2-5.5) L 08/28/18 13:49 Globulin 2.4 gm/dL 08/28/18 13:49 Albumin/Globulin Ratio 1.6 (1.0-1.8) 08/28/18 13:49 Triglycerides 236 mg/dL (<150) H 08/28/18 13:49 Cholesterol 112 mg/dL (<200) 08/28/18 13:49 LDL Cholesterol Direct 73 mg/dL (75-193) L 08/28/18 13:49 HDL Cholesterol 31 mg/dL (23-92) 08/28/18 13:49 TSH 0.23 uIU/ml (0.34-5.60) L 08/28/18 13:49 Valproic Acid 32.1 ug/mL (50.0-100.0) L 09/02/18 07:37 - Physical Exam Vitals and I&O: Vital Signs Temp 98.3 F 09/04/18 14:00 Pulse 53 09/04/18 14:00 Resp 20 09/04/18 14:00 BP 113/86 09/04/18 14:00 Pulse Ox 96 09/04/18 14:00 Intake & Output 09/03/18 09/04/18 09/04/18 18:59 06:59 18:59 Intake Total 1000 960 Balance 1000 960 Intake: Oral 1000 960 Other: # Voids 3 2 # Bowel Movements 1 Active Medications: Current Medications Acetaminophen (Tylenol) 650 mg PO Q4H PRN PRN Reason: Pain (Mild) Stop: 10/28/18 08:13 Docusate Sodium (Colace) 100 mg PO BID [facility] Stop: 10/28/18 08:59 Last Admin: 09/04/18 09:05 Dose: 100 mg Ferrous Sulfate (Iron) 325 mg PO BID [facility] Stop: 10/28/18 08:59 Last Admin: 09/04/18 09:08 Dose: 325 mg Labetalol HCl (Trandate) 50 mg PO DAILY [facility] Stop: 10/28/18 08:59 Last Admin: 09/04/18 09:09 Dose: 50 mg Lorazepam (Ativan) 0.5 mg PO Q4HR PRN; Protocol PRN Reason: Anxiety Stop: 09/29/18 00:09 Last Admin: 09/04/18 01:01 Dose: 0.5 mg Multivitamins/Vitamin C (Theragran) 1 tab PO DAILY [facility] Stop: 10/28/18 08:59 Last Admin: 09/04/18 09:07 Dose: 1 tab Olanzapine (Zyprexa Zydis) 15 mg PO HS [facility]; Protocol Stop: 10/30/18 20:59 Last Admin: 09/03/18 20:33 Dose: 15 mg Olanzapine (Zyprexa Zydis) 5 mg PO BID [facility]; Protocol Stop: 11/03/18 08:59 Last Admin: 09/04/18 09:14 Dose: Not Given Pantoprazole Sodium (Protonix) 40 mg PO QDAC [facility] Stop: 10/29/18 07:29 Last Admin: 09/04/18 06:33 Dose: 40 mg Valproate Sodium (Depakene) 500 mg PO BID [facility]; Protocol Stop: 10/30/18 08:59 Last Admin: 09/04/18 09:04 Dose: 500 mg Vitamin B Complex/Vit C/Folic Acid (Vitamin B Complex W/Vitamin C) 1 tab PO DAILY [facility] Stop: 10/28/18 08:59 Last Admin: 09/04/18 09:08 Dose: 1 tab Zolpidem Tartrate (Ambien) 5 mg PO HS PRN PRN Reason: Insomnia Stop: 10/29/18 00:09 Last Admin: 09/03/18 20:34 Dose: 5 mg General: demented HEENT: NC/AT Neck: Supple Lungs: CTAB Cardiovascular: Normal S1, Normal S2 Abdomen: soft, non-tender Extremities: clear Neurological: no change - Procedures Procedures: Procedures Procedure Code Date ASSISTANCE WITH RESPIRATORY VENTILATION, 24-96 HRS, CPAP [id number] 02/12/18 EXCISION OF DUODENUM, ENDO, DIAGN [id number] 02/12/18 EXCISION OF ESOPHAGUS, ENDO, DIAGN [id number] 02/12/18 EXCISION OF STOMACH, ENDO, DIAGN [id number] 02/12/18 Internal Medicine Assmt/Plan - Assessment Assessment: schizophrenia htn gerd dm anemia seizures - Plan Plan: as per order sheet as per psych will monitor continue psych meds cpm Nutritional Asmnt/Malnutr-PDOC - Dietary Evaluation Malnutrition Findings (Please click <Entered> for more info): Nutritional Asmnt/Malnutrition Start: 09/03/18 13: 30 Text: Status: Complete Freq: Protocol: Document 09/03/18 13:30 [email or web address] (Rec: 09/03/18 13:36 [email or web address]) Nutritional Asmnt/Malnutrition Patient General Information Nutritional Screening Low Risk Diagnosis psychosis nos Pertinent Medical Hx/Surgical Hx anemia, HTN, DM, seizure, GERD , schizoaffective disorder Subjective Information Pt was resting in bed at time of visit. Lunch seen eaten 100 %, PO intake is 100% per EMR. Current Diet Order/ Nutrition Support ORION/NCS Pertinent Medications colace, iron, theragran, protonix, vit b complex w/ vit c, ambien Pertinent Labs 08/28 glucose 124, alb 3.9, triglycerides 236, LDL 73 Nutritional Hx/Data Height 1.68 m Height (Calculated Centimeters) 167.6 Current Weight (lbs) 72.121 kg Weight (Calculated Kilograms) 72.1 Weight (Calculated Grams) 29781.2 [place] Body Weight 142 Body Mass Index (BMI) 25.7 Weight Status Overweight GI Symptoms GI Symptoms None Last BM 08/29 Difficult in: None Food Allergies No Skin Integrity/Comment: moses [place] 21 Current %PO Good (75-100%) Estimated Nutritional Goals BEE in Kcals: Using Current wt Calories/Kcals/Kg 23-27 Kcals Calculated 3535-9702 Protein: Using Current wt Protein g/k.8-1 Protein Calculated 57-72 Fluid: ml 5615-2360 (1ml/kcal) Nutritional Problem No current Nutrition Prob Problem N/A Malnutrition Alert Is there a minimum of two criteria No selected? Query Text:Check all the applicable criteria. A minimum of two criteria are recommended for diagnosis of either severe or non-severe malnutrition. Malnutrition Related to Morbid Obesity Malnutrition related to morbid obesity No Intervention/Recommendation Comments 1. Continue with ORION/NCS diet as ordered. 2. Monitor PO intake, wt, labs and skin integrity 3. F/U as low risk in 7 days Expected Outcomes/Goals Expected Outcomes/Goals 1. PO intake to meet at least 75% of nutritional needs. 2. Wt stability, skin to remain intact, labs to approach WNL. Reviewed by Kaylee Lucas RD
[2018-09-05] MEDS: Pantoprazole 40 mg EC Tab PO SCH (06:29)
[2018-09-05] MEDS: OLANZapine 5 mg Oral Disintegrating Tab PO SCH ×3 (10:03→21:00)
[2018-09-05] MEDS: Ferrous Sulfate 325 MG TAB PO SCH ×2 (10:03→17:54)
[2018-09-05] MEDS: Multivitamin Tab PO SCH (10:03)
[2018-09-05] MEDS: Vitamin B Complex w/Vitamin C Tab PO SCH (10:04)
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
--- NOTE | 2018-09-05 23:31 | Progress Notes ---
DATE: 09/05/2018 SUBJECTIVE: The patient was seen in the dining area. The patient appears to be more calm, still guarded. He still gets frustrated, appears to be confused. Otherwise, the patient is in no acute distress. OBJECTIVE: VITAL SIGNS: Temperature 98.2, heart rate of 77, respiration 19, blood pressure 137/80, 97% on room air. HEENT: Head is atraumatic and normocephalic. Eyes: Bilateral conjunctivae are clear. Bilateral pupils are equally round and reactive. NECK: Supple. No JVD. CARDIOVASCULAR: S1 and S2, without murmur. PULMONARY: Clear to auscultation. GASTROINTESTINAL: Soft and nontender without guarding. Positive bowel sounds. MUSCULOSKELETAL: No clubbing. No cyanosis noted. ASSESSMENT: 1. Paranoid schizophrenia. 2. Hypertension. 3. Diabetes. 4. Gastroesophageal reflux disease. 5. Seizure disorder. 6. Anemia. PLAN: We will continue to keep the patient inpatient Psychiatric Unit. We will follow up with a psychiatrist to monitor the patient's condition and behavior. Treatment plans were discussed with the patient's nurse. Treatment plans were discussed with Dr. Ortiz. JOB# [id number]
[2018-09-06] MEDS: Pantoprazole 40 mg EC Tab PO SCH (06:46)
[2018-09-06] MEDS: Ferrous Sulfate 325 MG TAB PO SCH ×2 (09:43→17:40)
[2018-09-06] MEDS: Multivitamin Tab PO SCH (09:44)
[2018-09-06] MEDS: Vitamin B Complex w/Vitamin C Tab PO SCH (09:44)
[2018-09-06] MEDS: OLANZapine 5 mg Oral Disintegrating Tab PO SCH ×2 (09:44→17:40)
--- NOTE | 2018-09-06 12:38 | Internal Medicine Prog Note ---
Internal Medicine Subjective - Subjective Patient seen and examined:: chart reviewed Patient is:: awake, confused, other (pt still confused ) Per staff patient has:: agitated Internal Medicine Objective - Results Result Diagrams: 08/28/18 13:49 08/28/18 13:49 Recent Labs: Laboratory Last Values WBC 7.9 Th/cmm (4.8-10.8) 08/28/18 13:49 RBC 4.91 Mil/cmm (4.30-5.70) 08/28/18 13:49 Hgb 13.9 gm/dL (12-16) 08/28/18 13:49 Hct 41.7 % (41.0-60) 08/28/18 13:49 MCV 84.9 fl (80-99) 08/28/18 13:49 MCH 28.2 pg (26.0-30.0) 08/28/18 13:49 MCHC Differential 33.2 pg (28.0-36.0) 08/28/18 13:49 RDW 14.3 % (11.5-20.0) 08/28/18 13:49 Plt Count 167 Th/cmm (150-400) 08/28/18 13:49 MPV 9.3 fl 08/28/18 13:49 Neutrophils % 71.0 % (40.0-80.0) 08/28/18 13:49 Lymphocytes % 19.2 % (20.0-50.0) L 08/28/18 13:49 Monocytes % 5.0 % (2.0-10.0) 08/28/18 13:49 Eosinophils % 4.6 % (0.0-5.0) 08/28/18 13:49 Basophils % 0.2 % (0.0-2.0) 08/28/18 13:49 PT 10.4 SECONDS (9.5-11.5) 08/28/18 13:49 INR 1.00 (0.5-1.4) 08/28/18 13:49 PTT (Actin FS) 25.4 SECONDS (26.0-38.0) L 08/28/18 13:49 Sodium 142 mEq/L (136-145) 08/28/18 13:49 Potassium 3.6 mEq/L (3.5-5.1) 08/28/18 13:49 Chloride 108 mEq/L (98-107) H 08/28/18 13:49 Carbon Dioxide 25.9 mEq/L (21.0-31.0) 08/28/18 13:49 Anion Gap 11.7 (7.0-16.0) 08/28/18 13:49 BUN 25 mg/dL (7-25) 08/28/18 13:49 Creatinine 0.8 mg/dL (0.7-1.3) 08/28/18 13:49 Est GFR ( Amer) > 60.0 ml/min (>90) 08/28/18 13:49 Est GFR (Non-Af Amer) > 60.0 ml/min 08/28/18 13:49 BUN/Creatinine Ratio 31.3 08/28/18 13:49 Glucose 124 mg/dL (70-105) H 08/28/18 13:49 Calcium 9.4 mg/dL (8.6-10.3) 08/28/18 13:49 Total Bilirubin 0.3 mg/dL (0.3-1.0) 08/28/18 13:49 AST 20 U/L (13-39) 08/28/18 13:49 ALT 27 U/L (7-52) 08/28/18 13:49 Alkaline Phosphatase 61 U/L (34-104) 08/28/18 13:49 Troponin I 0.01 ng/mL (0.01-0.05) 08/28/18 13:49 B-Natriuretic Peptide 9.5 pg/mL (5.0-100.0) 08/28/18 13:49 Total Protein 6.3 gm/dL (6.0-8.3) 08/28/18 13:49 Albumin 3.9 gm/dL (4.2-5.5) L 08/28/18 13:49 Globulin 2.4 gm/dL 08/28/18 13:49 Albumin/Globulin Ratio 1.6 (1.0-1.8) 08/28/18 13:49 Triglycerides 236 mg/dL (<150) H 08/28/18 13:49 Cholesterol 112 mg/dL (<200) 08/28/18 13:49 LDL Cholesterol Direct 73 mg/dL (75-193) L 08/28/18 13:49 HDL Cholesterol 31 mg/dL (23-92) 08/28/18 13:49 TSH 0.23 uIU/ml (0.34-5.60) L 08/28/18 13:49 Valproic Acid 32.1 ug/mL (50.0-100.0) L 09/02/18 07:37 - Physical Exam Vitals and I&O: Vital Signs Temp 97.2 F 09/06/18 06:03 Pulse 82 09/06/18 06:03 Resp 19 09/06/18 06:03 BP 133/79 09/06/18 06:03 Pulse Ox 98 09/06/18 06:03 Intake & Output 09/05/18 09/06/18 09/06/18 18:59 06:59 18:59 Intake Total 1400 120 Balance 1400 120 Intake: Oral 1400 120 Other: # Voids 4 3 # Bowel Movements 0 Active Medications: Current Medications Acetaminophen (Tylenol) 650 mg PO Q4H PRN PRN Reason: Pain (Mild) Stop: 10/28/18 08:13 Docusate Sodium (Colace) 100 mg PO BID [facility] Stop: 10/28/18 08:59 Last Admin: 09/06/18 09:43 Dose: Not Given Ferrous Sulfate (Iron) 325 mg PO BID [facility] Stop: 10/28/18 08:59 Last Admin: 09/06/18 09:43 Dose: Not Given Labetalol HCl (Trandate) 50 mg PO DAILY [facility] Stop: 10/28/18 08:59 Last Admin: 09/06/18 09:43 Dose: Not Given Lorazepam (Ativan) 0.5 mg PO Q4HR PRN; Protocol PRN Reason: Anxiety Stop: 09/29/18 00:09 Last Admin: 09/05/18 02:19 Dose: 0.5 mg Multivitamins/Vitamin C (Theragran) 1 tab PO DAILY [facility] Stop: 10/28/18 08:59 Last Admin: 09/06/18 09:44 Dose: Not Given Olanzapine (Zyprexa Zydis) 5 mg PO BID [facility]; Protocol Stop: 11/03/18 08:59 Last Admin: 09/06/18 09:44 Dose: Not Given Olanzapine (Zyprexa Zydis) 20 mg PO HS [facility]; Protocol Stop: 11/05/18 20:59 Pantoprazole Sodium (Protonix) 40 mg PO QDAC [facility] Stop: 10/29/18 07:29 Last Admin: 09/06/18 06:46 Dose: Not Given Valproate Sodium (Depakene) 500 mg PO BID [facility]; Protocol Stop: 10/30/18 08:59 Last Admin: 09/06/18 09:44 Dose: Not Given Vitamin B Complex/Vit C/Folic Acid (Vitamin B Complex W/Vitamin C) 1 tab PO DAILY [facility] Stop: 10/28/18 08:59 Last Admin: 09/06/18 09:44 Dose: Not Given Zolpidem Tartrate (Ambien) 5 mg PO HS PRN PRN Reason: Insomnia Stop: 10/29/18 00:09 Last Admin: 09/05/18 23:34 Dose: 5 mg General: demented HEENT: NC/AT Neck: Supple Lungs: CTAB Cardiovascular: Normal S1, Normal S2 Abdomen: soft, non-tender Extremities: clear Neurological: no change - Procedures Procedures: Procedures Procedure Code Date ASSISTANCE WITH RESPIRATORY VENTILATION, 24-96 HRS, CPAP [id number] 02/12/18 EXCISION OF DUODENUM, ENDO, DIAGN [id number] 02/12/18 EXCISION OF ESOPHAGUS, ENDO, DIAGN [id number] 02/12/18 EXCISION OF STOMACH, ENDO, DIAGN [id number] 02/12/18 Internal Medicine Assmt/Plan - Assessment Assessment: schizophrenia htn gerd dm anemia seizures - Plan Plan: as per order sheet as per psych will monitor continue psych meds cpm Nutritional Asmnt/Malnutr-PDOC - Dietary Evaluation Malnutrition Findings (Please click <Entered> for more info): Nutritional Asmnt/Malnutrition Start: 09/03/18 13: 30 Text: Status: Complete Freq: Protocol: Document 09/03/18 13:30 [email or web address] (Rec: 09/03/18 13:36 [email or web address]) Nutritional Asmnt/Malnutrition Patient General Information Nutritional Screening Low Risk Diagnosis psychosis nos Pertinent Medical Hx/Surgical Hx anemia, HTN, DM, seizure, GERD , schizoaffective disorder Subjective Information Pt was resting in bed at time of visit. Lunch seen eaten 100 %, PO intake is 100% per EMR. Current Diet Order/ Nutrition Support ORION/NCS Pertinent Medications colace, iron, theragran, protonix, vit b complex w/ vit c, ambien Pertinent Labs 1/18 glucose 124, alb 3.9, triglycerides 236, LDL 73 Nutritional Hx/Data Height 1.68 m Height (Calculated Centimeters) 167.6 Current Weight (lbs) 72.121 kg Weight (Calculated Kilograms) 72.1 Weight (Calculated Grams) 42947.2 M[place]ormick Body Weight 142 Body Mass Index (BMI) 25.7 Weight Status Overweight GI Symptoms GI Symptoms None Last BM 08/29 Difficult in: None Food Allergies No Skin Integrity/Comment: intact, moses 21 Current %PO Good (75-100%) Estimated Nutritional Goals BEE in Kcals: Using Current wt Calories/Kcals/Kg 23-27 Kcals Calculated 3418-6507 Protein: Using Current wt Protein g/k.8-1 Protein Calculated 57-72 Fluid: ml 8563-5438 (1ml/kcal) Nutritional Problem No current Nutrition Prob Problem N/A Malnutrition Alert Is there a minimum of two criteria No selected? Query Text:Check all the applicable criteria. A minimum of two criteria are recommended for diagnosis of either severe or non-severe malnutrition. Malnutrition Related to Morbid Obesity Malnutrition related to morbid obesity No Intervention/Recommendation Comments 1. Continue with ORION/NCS diet as ordered. 2. Monitor PO intake, wt, labs and skin integrity 3. F/U as low risk in 7 days Expected Outcomes/Goals Expected Outcomes/Goals 1. PO intake to meet at least 75% of nutritional needs. 2. Wt stability, skin to remain intact, labs to approach WNL. Reviewed by Kaylee Lucas RD
--- NOTE | 2018-09-06 17:08 | Progress Notes ---
DATE: 09/03/2018 PSYCHIATRIC PROGRESS NOTE SUBJECTIVE: Chart reviewed and the patient interviewed. Also discussed the patient's condition with the staff and reviewed records and labs. The patient is still hyperverbal and he is still in irritable mood. The patient also is still pretending as if he is playing baseball and is standing in the hallway throwing balls made of paper that he rolls. The patient also is still easily agitated and easily irritable. Also, wants to be left alone and actively hallucinating. ASSESSMENT: The patient is still actively psychotic and can be dangerous to others. TREATMENT PLAN: Continue to monitor behavior and condition closely. Also, continue adjusting psychotropic medications and we will increase Zyprexa to 5 mg twice a day and 10 mg at bedtime and continue to follow up. JOB# [id number]
--- NOTE | 2018-09-06 17:29 | Progress Notes ---
DATE: 09/06/2018 SUBJECTIVE: The patient coming from [facility], aggressive, agitated, requiring emergency medications at times, acting out behaviors, pacing the hallways, talking to self, very confused, disoriented, given IM Zyprexa over the past 24 hours. ASSESSMENT: The patient remains symptomatic, disorganized, bizarre behaviors. Currently on a dosing of Zyprexa. PLAN: We will continue to monitor. I will be increasing dosing of Zyprexa to 20 mg. Given ongoing symptoms, he is not currently safe for lower level of care. JOB# [id number]
--- NOTE | 2018-09-06 18:59 | Progress Notes ---
DATE: 09/04/2018 SUBJECTIVE: Chart reviewed and the patient interviewed. Also, discussed the patient's condition with the staff and reviewed the records and labs. The patient is still hyperverbal. The patient also is still easily agitated and he is in angry and in irritable mood and wants to be left alone. The patient also at times exhibit manic behavior with severe mood swings and from angry and irritable to laughing and in elated mood. The patient also still needs lots of redirections because of his agitation and irritability. Otherwise, the patient is compliant with taking his medications with no side effects. ASSESSMENT: The patient is still psychotic and can be dangerous to others. TREATMENT PLAN: Zyprexa was increased yesterday. We will continue same dose. Also, continue working on his anger and his agitation and will continue to adjust psychotropic medications and work on behavioral modification. JOB# [id number]
[2018-09-06] MEDS: OLANZapine 10 mg Oral Disintegrating Tab PO SCH (20:35)
[2018-09-07] MEDS: Pantoprazole 40 mg EC Tab PO SCH (06:42)
[2018-09-07] MEDS: Vitamin B Complex w/Vitamin C Tab PO SCH (09:31)
[2018-09-07] MEDS: Ferrous Sulfate 325 MG TAB PO SCH ×2 (09:31→17:41)
[2018-09-07] MEDS: OLANZapine 5 mg Oral Disintegrating Tab PO SCH ×2 (09:31→17:41)
[2018-09-07] MEDS: Multivitamin Tab PO SCH (09:31)
--- NOTE | 2018-09-07 11:22 | Internal Medicine Prog Note ---
Internal Medicine Subjective - Subjective Service Date: 09/07/18 Patient is:: awake, agitated, confused, other (pt still confused ) Per staff patient has:: agitated, confused Internal Medicine Objective - Results Result Diagrams: 08/28/18 13:49 08/28/18 13:49 Recent Labs: Laboratory Last Values WBC 7.9 Th/cmm (4.8-10.8) 08/28/18 13:49 RBC 4.91 Mil/cmm (4.30-5.70) 08/28/18 13:49 Hgb 13.9 gm/dL (12-16) 08/28/18 13:49 Hct 41.7 % (41.0-60) 08/28/18 13:49 MCV 84.9 fl (80-99) 08/28/18 13:49 MCH 28.2 pg (26.0-30.0) 08/28/18 13:49 MCHC Differential 33.2 pg (28.0-36.0) 08/28/18 13:49 RDW 14.3 % (11.5-20.0) 08/28/18 13:49 Plt Count 167 Th/cmm (150-400) 08/28/18 13:49 MPV 9.3 fl 08/28/18 13:49 Neutrophils % 71.0 % (40.0-80.0) 08/28/18 13:49 Lymphocytes % 19.2 % (20.0-50.0) L 08/28/18 13:49 Monocytes % 5.0 % (2.0-10.0) 08/28/18 13:49 Eosinophils % 4.6 % (0.0-5.0) 08/28/18 13:49 Basophils % 0.2 % (0.0-2.0) 08/28/18 13:49 PT 10.4 SECONDS (9.5-11.5) 08/28/18 13:49 INR 1.00 (0.5-1.4) 08/28/18 13:49 PTT (Actin FS) 25.4 SECONDS (26.0-38.0) L 08/28/18 13:49 Sodium 142 mEq/L (136-145) 08/28/18 13:49 Potassium 3.6 mEq/L (3.5-5.1) 08/28/18 13:49 Chloride 108 mEq/L (98-107) H 08/28/18 13:49 Carbon Dioxide 25.9 mEq/L (21.0-31.0) 08/28/18 13:49 Anion Gap 11.7 (7.0-16.0) 08/28/18 13:49 BUN 25 mg/dL (7-25) 08/28/18 13:49 Creatinine 0.8 mg/dL (0.7-1.3) 08/28/18 13:49 Est GFR ( Amer) > 60.0 ml/min (>90) 08/28/18 13:49 Est GFR (Non-Af Amer) > 60.0 ml/min 08/28/18 13:49 BUN/Creatinine Ratio 31.3 08/28/18 13:49 Glucose 124 mg/dL (70-105) H 08/28/18 13:49 Calcium 9.4 mg/dL (8.6-10.3) 08/28/18 13:49 Total Bilirubin 0.3 mg/dL (0.3-1.0) 08/28/18 13:49 AST 20 U/L (13-39) 08/28/18 13:49 ALT 27 U/L (7-52) 08/28/18 13:49 Alkaline Phosphatase 61 U/L (34-104) 08/28/18 13:49 Troponin I 0.01 ng/mL (0.01-0.05) 08/28/18 13:49 B-Natriuretic Peptide 9.5 pg/mL (5.0-100.0) 08/28/18 13:49 Total Protein 6.3 gm/dL (6.0-8.3) 08/28/18 13:49 Albumin 3.9 gm/dL (4.2-5.5) L 08/28/18 13:49 Globulin 2.4 gm/dL 08/28/18 13:49 Albumin/Globulin Ratio 1.6 (1.0-1.8) 08/28/18 13:49 Triglycerides 236 mg/dL (<150) H 08/28/18 13:49 Cholesterol 112 mg/dL (<200) 08/28/18 13:49 LDL Cholesterol Direct 73 mg/dL (75-193) L 08/28/18 13:49 HDL Cholesterol 31 mg/dL (23-92) 08/28/18 13:49 TSH 0.23 uIU/ml (0.34-5.60) L 08/28/18 13:49 Valproic Acid 32.1 ug/mL (50.0-100.0) L 09/02/18 07:37 - Physical Exam Vitals and I&O: Vital Signs Temp 98.2 F 09/07/18 04:58 Pulse 66 09/07/18 09:34 Resp 20 09/07/18 04:58 BP 112/71 09/07/18 09:34 Pulse Ox 98 09/07/18 04:58 Intake & Output 09/06/18 09/07/18 09/07/18 18:59 06:59 18:59 Intake Total 240 Balance 240 Intake: Oral 240 Other: # Voids 3 # Bowel Movements 1 0 Active Medications: Current Medications Acetaminophen (Tylenol) 650 mg PO Q4H PRN PRN Reason: Pain (Mild) Stop: 10/28/18 08:13 Last Admin: 09/06/18 21:23 Dose: 650 mg Docusate Sodium (Colace) 100 mg PO BID [facility] Stop: 10/28/18 08:59 Last Admin: 09/07/18 09:31 Dose: 100 mg Ferrous Sulfate (Iron) 325 mg PO BID [facility] Stop: 10/28/18 08:59 Last Admin: 09/07/18 09:31 Dose: 325 mg Labetalol HCl (Trandate) 50 mg PO DAILY [facility] Stop: 10/28/18 08:59 Last Admin: 09/07/18 09:34 Dose: 50 mg Lorazepam (Ativan) 0.5 mg PO Q4HR PRN; Protocol PRN Reason: Anxiety Stop: 09/29/18 00:09 Last Admin: 09/06/18 20:36 Dose: 0.5 mg Multivitamins/Vitamin C (Theragran) 1 tab PO DAILY [facility] Stop: 10/28/18 08:59 Last Admin: 09/07/18 09:31 Dose: 1 tab Olanzapine (Zyprexa Zydis) 5 mg PO BID [facility]; Protocol Stop: 11/03/18 08:59 Last Admin: 09/07/18 09:31 Dose: 5 mg Olanzapine (Zyprexa Zydis) 20 mg PO HS [facility]; Protocol Stop: 11/05/18 20:59 Last Admin: 09/06/18 20:35 Dose: 20 mg Pantoprazole Sodium (Protonix) 40 mg PO QDAC [facility] Stop: 10/29/18 07:29 Last Admin: 09/07/18 06:42 Dose: 40 mg Valproate Sodium (Depakene) 500 mg PO BID [facility]; Protocol Stop: 10/30/18 08:59 Last Admin: 09/07/18 09:31 Dose: 500 mg Vitamin B Complex/Vit C/Folic Acid (Vitamin B Complex W/Vitamin C) 1 tab PO DAILY [facility] Stop: 10/28/18 08:59 Last Admin: 09/07/18 09:31 Dose: 1 tab Zolpidem Tartrate (Ambien) 5 mg PO HS PRN PRN Reason: Insomnia Stop: 10/29/18 00:09 Last Admin: 09/06/18 20:36 Dose: 5 mg General: demented HEENT: NC/AT Neck: Supple Lungs: CTAB Cardiovascular: Normal S1, Normal S2 Abdomen: soft, non-tender Extremities: clear Neurological: no change - Procedures Procedures: Procedures Procedure Code Date ASSISTANCE WITH RESPIRATORY VENTILATION, 24-96 HRS, CPAP [id number] 02/12/18 EXCISION OF DUODENUM, ENDO, DIAGN [id number] 02/12/18 EXCISION OF ESOPHAGUS, ENDO, DIAGN [id number] 02/12/18 EXCISION OF STOMACH, ENDO, DIAGN [id number] 02/12/18 Internal Medicine Assmt/Plan - Assessment Assessment: schizophrenia htn gerd dm anemia seizures - Plan Plan: as per order sheet as per psych will monitor continue psych meds cpm Nutritional Asmnt/Malnutr-PDOC - Dietary Evaluation Malnutrition Findings (Please click <Entered> for more info): Nutritional Asmnt/Malnutrition Start: 09/03/18 13: 30 Text: Status: Complete Freq: Protocol: Document 09/03/18 13:30 [email or web address] (Rec: 09/03/18 13:36 [email or web address]) Nutritional Asmnt/Malnutrition Patient General Information Nutritional Screening Low Risk Diagnosis psychosis nos Pertinent Medical Hx/Surgical Hx anemia, HTN, DM, seizure, GERD , schizoaffective disorder Subjective Information Pt was resting in bed at time of visit. Lunch seen eaten 100 %, PO intake is 100% per EMR. Current Diet Order/ Nutrition Support ORION/NCS Pertinent Medications colace, iron, theragran, protonix, vit b complex w/ vit c, ambien Pertinent Labs 08/28 glucose 124, alb 3.9, triglycerides 236, LDL 73 Nutritional Hx/Data Height 1.68 m Height (Calculated Centimeters) 167.6 Current Weight (lbs) 72.121 kg Weight (Calculated Kilograms) 72.1 Weight (Calculated Grams) 40176.2 [place] Body Weight 142 Body Mass Index (BMI) 25.7 Weight Status Overweight GI Symptoms GI Symptoms None Last BM 08/29 Difficult in: None Food Allergies No Skin Integrity/Comment: intact, moses 21 Current %PO Good (75-100%) Estimated Nutritional Goals BEE in Kcals: Using Current wt Calories/Kcals/Kg 23-27 Kcals Calculated 1212-1130 Protein: Using Current wt Protein g/k.8-1 Protein Calculated 57-72 Fluid: ml 0895-6167 (1ml/kcal) Nutritional Problem No current Nutrition Prob Problem N/A Malnutrition Alert Is there a minimum of two criteria No selected? Query Text:Check all the applicable criteria. A minimum of two criteria are recommended for diagnosis of either severe or non-severe malnutrition. Malnutrition Related to Morbid Obesity Malnutrition related to morbid obesity No Intervention/Recommendation Comments 1. Continue with ORION/NCS diet as ordered. 2. Monitor PO intake, wt, labs and skin integrity 3. F/U as low risk in 7 days Expected Outcomes/Goals Expected Outcomes/Goals 1. PO intake to meet at least 75% of nutritional needs. 2. Wt stability, skin to remain intact, labs to approach WNL. Reviewed by Kaylee Lucas RD
[2018-09-07] MEDS: OLANZapine 10 mg Oral Disintegrating Tab PO SCH (20:21)
--- NOTE | 2018-09-08 01:02 | Progress Notes ---
DATE: 09/07/2018 This is a 58-year-old male who was admitted on 08/28/2018, transferred from [facility] because of increasing agitation and aggressive behavior, striking out at staff and peers, very angry, irritable, easily agitated with history of multiple psychiatric hospitalizations for schizophrenia. Continues to be acting out at times, pacing the hallways, unable to make safe plan for self-care, had to be given the emergency medications over the weekend. He continues to be disorganized, bizarre, unable to make safe plan for self-care, unpredictable, impulsive, needing redirection. He is compliant with the medication with no side effects. He is on Zyprexa since 09/04/2018 5 mg twice a day and 20 mg at bedtime that was increased yesterday and Depakote 500 mg twice a day. No side effects, no sedation, no nausea, no extrapyramidal symptoms. We will continue outpatient group therapy, milieu therapy, and adjust the medication as needed. [facility]# [id number]
[2018-09-08] MEDS: Pantoprazole 40 mg EC Tab PO SCH (06:38)
[2018-09-08] MEDS: Multivitamin Tab PO SCH (08:42)
[2018-09-08] MEDS: Vitamin B Complex w/Vitamin C Tab PO SCH (08:42)
[2018-09-08] MEDS: Ferrous Sulfate 325 MG TAB PO SCH ×2 (08:42→17:40)
[2018-09-08] MEDS: OLANZapine 5 mg Oral Disintegrating Tab PO SCH ×2 (08:42→17:40)
--- NOTE | 2018-09-08 13:47 | Internal Medicine Prog Note ---
Internal Medicine Subjective - Subjective Service Date: 09/08/18 Patient is:: awake, agitated, confused, other (pt still confused ) Per staff patient has:: agitated, confused Internal Medicine Objective - Results Result Diagrams: 08/28/18 13:49 08/28/18 13:49 Recent Labs: Laboratory Last Values WBC 7.9 Th/cmm (4.8-10.8) 08/28/18 13:49 RBC 4.91 Mil/cmm (4.30-5.70) 08/28/18 13:49 Hgb 13.9 gm/dL (12-16) 08/28/18 13:49 Hct 41.7 % (41.0-60) 08/28/18 13:49 MCV 84.9 fl (80-99) 08/28/18 13:49 MCH 28.2 pg (26.0-30.0) 08/28/18 13:49 MCHC Differential 33.2 pg (28.0-36.0) 08/28/18 13:49 RDW 14.3 % (11.5-20.0) 08/28/18 13:49 Plt Count 167 Th/cmm (150-400) 08/28/18 13:49 MPV 9.3 fl 08/28/18 13:49 Neutrophils % 71.0 % (40.0-80.0) 08/28/18 13:49 Lymphocytes % 19.2 % (20.0-50.0) L 08/28/18 13:49 Monocytes % 5.0 % (2.0-10.0) 08/28/18 13:49 Eosinophils % 4.6 % (0.0-5.0) 08/28/18 13:49 Basophils % 0.2 % (0.0-2.0) 08/28/18 13:49 PT 10.4 SECONDS (9.5-11.5) 08/28/18 13:49 INR 1.00 (0.5-1.4) 08/28/18 13:49 PTT (Actin FS) 25.4 SECONDS (26.0-38.0) L 08/28/18 13:49 Sodium 142 mEq/L (136-145) 08/28/18 13:49 Potassium 3.6 mEq/L (3.5-5.1) 08/28/18 13:49 Chloride 108 mEq/L (98-107) H 08/28/18 13:49 Carbon Dioxide 25.9 mEq/L (21.0-31.0) 08/28/18 13:49 Anion Gap 11.7 (7.0-16.0) 08/28/18 13:49 BUN 25 mg/dL (7-25) 08/28/18 13:49 Creatinine 0.8 mg/dL (0.7-1.3) 08/28/18 13:49 Est GFR ( Amer) > 60.0 ml/min (>90) 08/28/18 13:49 Est GFR (Non-Af Amer) > 60.0 ml/min 08/28/18 13:49 BUN/Creatinine Ratio 31.3 08/28/18 13:49 Glucose 124 mg/dL (70-105) H 08/28/18 13:49 Calcium 9.4 mg/dL (8.6-10.3) 08/28/18 13:49 Total Bilirubin 0.3 mg/dL (0.3-1.0) 08/28/18 13:49 AST 20 U/L (13-39) 08/28/18 13:49 ALT 27 U/L (7-52) 08/28/18 13:49 Alkaline Phosphatase 61 U/L (34-104) 08/28/18 13:49 Troponin I 0.01 ng/mL (0.01-0.05) 08/28/18 13:49 B-Natriuretic Peptide 9.5 pg/mL (5.0-100.0) 08/28/18 13:49 Total Protein 6.3 gm/dL (6.0-8.3) 08/28/18 13:49 Albumin 3.9 gm/dL (4.2-5.5) L 08/28/18 13:49 Globulin 2.4 gm/dL 08/28/18 13:49 Albumin/Globulin Ratio 1.6 (1.0-1.8) 08/28/18 13:49 Triglycerides 236 mg/dL (<150) H 08/28/18 13:49 Cholesterol 112 mg/dL (<200) 08/28/18 13:49 LDL Cholesterol Direct 73 mg/dL (75-193) L 08/28/18 13:49 HDL Cholesterol 31 mg/dL (23-92) 08/28/18 13:49 TSH 0.23 uIU/ml (0.34-5.60) L 08/28/18 13:49 Valproic Acid 32.1 ug/mL (50.0-100.0) L 09/02/18 07:37 - Physical Exam Vitals and I&O: Vital Signs Temp 98.5 F 09/08/18 06:12 Pulse 93 09/08/18 08:43 Resp 20 09/08/18 06:12 BP 133/79 09/08/18 08:43 Pulse Ox 95 09/08/18 06:12 Intake & Output 09/07/18 09/08/18 09/08/18 18:59 06:59 18:59 Intake Total 1900 240 Balance 1900 240 Intake: Oral 1900 240 Other: # Voids 3 2 # Bowel Movements 1 Active Medications: Current Medications Acetaminophen (Tylenol) 650 mg PO Q4H PRN PRN Reason: Pain (Mild) Stop: 10/28/18 08:13 Last Admin: 09/06/18 21:23 Dose: 650 mg Docusate Sodium (Colace) 100 mg PO BID [facility] Stop: 10/28/18 08:59 Last Admin: 09/08/18 08:42 Dose: 100 mg Ferrous Sulfate (Iron) 325 mg PO BID [facility] Stop: 10/28/18 08:59 Last Admin: 09/08/18 08:42 Dose: 325 mg Labetalol HCl (Trandate) 50 mg PO DAILY [facility] Stop: 10/28/18 08:59 Last Admin: 09/08/18 08:43 Dose: 50 mg Lorazepam (Ativan) 0.5 mg PO Q4HR PRN; Protocol PRN Reason: Anxiety Stop: 09/29/18 00:09 Last Admin: 09/08/18 04:14 Dose: 0.5 mg Multivitamins/Vitamin C (Theragran) 1 tab PO DAILY [facility] Stop: 10/28/18 08:59 Last Admin: 09/08/18 08:42 Dose: 1 tab Olanzapine (Zyprexa Zydis) 5 mg PO BID [facility]; Protocol Stop: 11/03/18 08:59 Last Admin: 09/08/18 08:42 Dose: 5 mg Olanzapine (Zyprexa Zydis) 20 mg PO HS [facility]; Protocol Stop: 11/05/18 20:59 Last Admin: 09/07/18 20:21 Dose: 20 mg Pantoprazole Sodium (Protonix) 40 mg PO QDAC [facility] Stop: 10/29/18 07:29 Last Admin: 09/08/18 06:38 Dose: 40 mg Valproate Sodium (Depakene) 500 mg PO BID [facility]; Protocol Stop: 10/30/18 08:59 Last Admin: 09/08/18 08:41 Dose: 500 mg Vitamin B Complex/Vit C/Folic Acid (Vitamin B Complex W/Vitamin C) 1 tab PO DAILY [facility] Stop: 10/28/18 08:59 Last Admin: 09/08/18 08:42 Dose: 1 tab Zolpidem Tartrate (Ambien) 5 mg PO HS PRN PRN Reason: Insomnia Stop: 10/29/18 00:09 Last Admin: 09/07/18 20:21 Dose: 5 mg General: demented HEENT: NC/AT Neck: Supple Lungs: CTAB Cardiovascular: Normal S1, Normal S2 Abdomen: soft, non-tender Extremities: clear Neurological: no change - Procedures Procedures: Procedures Procedure Code Date ASSISTANCE WITH RESPIRATORY VENTILATION, 24-96 HRS, CPAP [id number] 02/12/18 EXCISION OF DUODENUM, ENDO, DIAGN [id number] 02/12/18 EXCISION OF ESOPHAGUS, ENDO, DIAGN [id number] 02/12/18 EXCISION OF STOMACH, ENDO, DIAGN [id number] 02/12/18 Internal Medicine Assmt/Plan - Assessment Assessment: schizophrenia htn gerd dm anemia seizures - Plan Plan: [facility] Nutritional Asmnt/Malnutr-PDOC - Dietary Evaluation Malnutrition Findings (Please click <Entered> for more info): Nutritional Asmnt/Malnutrition Start: 09/03/18 13: 30 Text: Status: Complete Freq: Protocol: Document 09/03/18 13:30 [email or web address] (Rec: 09/03/18 13:36 [email or web address]) Nutritional Asmnt/Malnutrition Patient General Information Nutritional Screening Low Risk Diagnosis psychosis nos Pertinent Medical Hx/Surgical Hx anemia, HTN, DM, seizure, GERD , schizoaffective disorder Subjective Information Pt was resting in bed at time of visit. Lunch seen eaten 100 %, PO intake is 100% per EMR. Current Diet Order/ Nutrition Support ORION/NCS Pertinent Medications colace, iron, theragran, protonix, vit b complex w/ vit c, ambien Pertinent Labs 08/28 glucose 124, alb 3.9, triglycerides 236, LDL 73 Nutritional Hx/Data Height 5 ft 6 in Height (Calculated Centimeters) 167.6 Current Weight (lbs) 159 lb Weight (Calculated Kilograms) 72.1 Weight (Calculated Grams) 78346.2 [place] Body Weight 142 Body Mass Index (BMI) 25.7 Weight Status Overweight GI Symptoms GI Symptoms None Last BM 08/29 Difficult in: None Food Allergies No Skin Integrity/Comment: intact, moses 21 Current %PO Good (75-100%) Estimated Nutritional Goals BEE in Kcals: Using Current wt Calories/Kcals/Kg 23-27 Kcals Calculated 2451-4205 Protein: Using Current wt Protein g/k.8-1 Protein Calculated 57-72 Fluid: ml 1196-9019 (1ml/kcal) Nutritional Problem No current Nutrition Prob Problem N/A Malnutrition Alert Is there a minimum of two criteria No selected? Query Text:Check all the applicable criteria. A minimum of two criteria are recommended for diagnosis of either severe or non-severe malnutrition. Malnutrition Related to Morbid Obesity Malnutrition related to morbid obesity No Intervention/Recommendation Comments 1. Continue with ORION/NCS diet as ordered. 2. Monitor PO intake, wt, labs and skin integrity 3. F/U as low risk in 7 days Expected Outcomes/Goals Expected Outcomes/Goals 1. PO intake to meet at least 75% of nutritional needs. 2. Wt stability, skin to remain intact, labs to approach WNL. Reviewed by Kaylee Lucas RD
--- NOTE | 2018-09-08 20:19 | Progress Notes ---
DATE: 09/08/2018 SUMMARY: Case is discussed with staff of the patient and reviewed records. The patient continues to be easily agitated, irritable, striking staff at times and peers, angry, talking to himself with multiple prior hospitalizations, unable to make safe plan for his self-care, pacing the unit, disorganized, and bizarre. He is compliant with the medication with no side effects, no sedation, no nausea, and no extrapyramidal symptoms. His olanzapine was increased to 5 mg twice a day and 20 mg at bedtime on 09/06/2018. He is also on Depakote 500 mg twice a day. We will continue to work with the patient in group therapy, milieu therapy, and adjust the medications as needed. JOB# [id number]
[2018-09-08] MEDS: OLANZapine 10 mg Oral Disintegrating Tab PO SCH (20:22)
[2018-09-09] MEDS: Ferrous Sulfate 325 MG TAB PO SCH ×2 (08:04→17:16)
[2018-09-09] MEDS: Pantoprazole 40 mg EC Tab PO SCH (08:04)
[2018-09-09] MEDS: Multivitamin Tab PO SCH (08:04)
[2018-09-09] MEDS: OLANZapine 5 mg Oral Disintegrating Tab PO SCH ×2 (08:04→17:16)
[2018-09-09] MEDS: Vitamin B Complex w/Vitamin C Tab PO SCH (08:04)
--- NOTE | 2018-09-11 22:13 | Discharge Summary ---
DATE OF DISCHARGE: 09/09/2018 PATIENT'S AGE: 58. SEX: Male. PHYSICIAN: Dr. Schmidt. FINAL DIAGNOSIS/PRIMARY DIAGNOSIS: Chronic paranoid schizophrenia with acute exacerbation. REASON FOR HOSPITALIZATION: The patient was admitted to the hospital from [facility] because of increased agitation and aggressive behavior and the patient was striking out at staff. HOSPITAL COURSE: The patient continued to be in angry and irritable mood and easily agitated. The patient also was unable to follow directions. The patient was started on Zyprexa and the dose adjusted to 5 mg twice a day and 20 mg at bedtime, and also was given Depakote and the dose adjusted to 500 mg twice a day. Gradually, the patient's affect was brighter and the patient was calmer. [facility] did not want to take the patient back. The patient was accepted by [facility] and the patient was discharged there. Physical exam of the patient was basically within normal and the patient had no major medical issues while in the hospital. Also, blood workup was monitored closely. AFTER DISCHARGE PLANS: The patient discharged to [facility] with plan to follow up there. The patient was given Zyprexa in a dose of 50 mg a day, which is above therapeutic level simply because the patient's behavior was aggressive and plan to decrease the dose after he is calmer in [facility]. JOB# [id number]
== END 2018-09-09 17:35 | DRG 885 ==
LOC: ER 13:29 → GERO 14:45
PROVIDERS: ADMIT Psychiatry & Neurology Psychiatry; ATTEND Psychiatry & Neurology Psychiatry
DX: F20.0 Paranoid schizophrenia (principal); K21.9 Gastro-esophageal reflux disease without esophagitis; I10 Essential (primary) hypertension; E11.9 Type 2 diabetes mellitus without complications; D64.9 Anemia, unspecified; E05.90 Thyrotoxicosis, unspecified without thyrotoxic crisis or storm; E78.5 Hyperlipidemia, unspecified; F29 Unspecified psychosis not due to a substance or known physiological condition; G40.909 Epilepsy, unspecified, not intractable, without status epilepticus; Z88.8 Allergy status to other drugs, medicaments and biological substances
CPT/HCPCS: 36415-UA; 71045-TC; 80053-TC; 80061-TC; 80164-TC; 83036-90; 83880-TC; 84443-TC; 84484-TC; 85025-TC; 85610-TC; 90732; 90899; 93005; A4216; G0410; J7051; Z7610